=== PATIENT | male | born 1975 | race Caucasian/White ===

== ENCOUNTER 2016-11-19 17:08 | Inpatient (IN) | payer MEDICARE, MEDICAID ==
--- NOTE | 2016-11-19 17:38 | ED ---
Psych HPI - General Chief Complaint: Psychiatric Symptoms Stated Complaint: mental health Time Seen by Provider: 11/19/16 17:17 Source: patient, RN notes reviewed Mode of arrival: ambulatory - History of Present Illness Initial Comments: Patient is a 41-year-old male presents emergency room for psychiatric evaluation. Patient states she has a history of bipolar disorder and ADD and also anger issues. Patient states over the past few days been increasingly angry. Patient states he feels like he is going to snap seen. Patient states used to be on Seroquel and Ativan. Patient states she discontinued those medications about 6 months ago. Patient states he feels like he needs to be put back on medications and needs to seek out. Patient denies suicidal ideations. Patient denies homicidal ideations, but is afraid he might hurt someone if he does not. patient denies past medical history. Patient denies being on any medications. Patient denies headache, dizziness, nausea, vomiting , chest pain, shortness of breath. Patient denies visual or auditory hallucinations. patient denies alcohol or illicit drug use. Patient does say he smokes a pack of cigarettes per day. - Related Data Home Medications Medication Instructions Recorded Confirmed No Known Home Medications [No 11/19/16 11/19/16 Known Home Medications] Allergies Allergy/AdvReac Type Severity Reaction Status Date / Time No Known Allergies Allergy Verified 11/19/16 17:12 Review of Systems ROS Statement: Those systems with pertinent positive or pertinent negative responses have been documented in the HPI. ROS Other: All systems not noted in ROS Statement are negative. Past Medical History Past Medical History: Hypertension History of Any Multi-Drug Resistant Organisms: None Reported Past Surgical History: Appendectomy Additional Past Surgical History / Comment(s): ANKLE SURGERY-multiple fracture 2 plates and 3 screws, BIOPSY OF LYMPH LEFT ARM CHILD. Past Anesthesia/Blood Transfusion Reactions: No Reported Reaction Past Psychological History: ADD/ADHD, Anxiety, Depression Smoking Status: Current every day smoker Past Alcohol Use History: None Reported Past Drug Use History: Marijuana - Past Family History Father History Unknown: Yes Additional Family Medical History / Comment(s): Father is alive at age 67 with no major medical problems. Mother Additional Family Medical History / Comment(s): Mother is alive at age 65 with history of depression and alcoholism. Sister(s) Additional Family Medical History / Comment(s): Patient has one sister that is younger than him and he states she has mental health issues. Patient does not have any brothers. General Exam Limitations: no limitations Course Vital Signs 11/19/16 11/19/16 11/19/16 17:09 19:28 19:31 Temperature 98.0 F 98.0 F 98.0 F Pulse Rate 82 86 86 Respiratory 18 16 16 Rate Blood Pressure 130/90 117/68 117/68 O2 Sat by Pulse 96 95 95 Oximetry Medical Decision Making - Medical Decision Making Patient is a 41-year-old abscess emergency room for psych evaluation. patient is medically cleared to be evaluated by psych. - Lab Data Result diagrams: 11/20/16 08:33 11/20/16 08:33 Lab Results 11/19/16 Range/Units 18:00 Urine Opiates Screen Not Detected (NotDetected) Ur Oxycodone Screen Not Detected (NotDetected) Urine Methadone Screen Not Detected (NotDetected) Ur Propoxyphene Screen Not Detected (NotDetected) Ur Barbiturates Screen Not Detected (NotDetected) U Tricyclic Antidepress Not Detected (NotDetected) Ur Phencyclidine Scrn Not Detected (NotDetected) Ur Amphetamines Screen Detected H (NotDetected) U Methamphetamines Scrn Detected H (NotDetected) U Benzodiazepines Scrn Not Detected (NotDetected) Urine Cocaine Screen Not Detected (NotDetected) U Marijuana (THC) Screen Detected H (NotDetected) Disposition Clinical Impression: Depression, Anger Disposition: TRANSFER TO PSYCH HOSP/UNIT Decision Date: 11/20/16
[2016-11-19] MEDS ORDERED: MAG HYDROX/AL HYDROX/SIMETH 30 ML CUP PO PRN (19:15)
[2016-11-19] MEDS ORDERED: ZIPRASIDONE 20 MG VIAL IM PRN (19:15)
[2016-11-19] MEDS ORDERED: MAGNESIUM HYDROXIDE 2,400 MG/10 ML CUP PO PRN (19:15)
[2016-11-19] MEDS ORDERED: LORazepam 1 MG TAB PO PRN (19:15)
[2016-11-19] MEDS ORDERED: LORazepam 2 MG/ML SYRINGE IM PRN (19:16)
[2016-11-19] MEDS ORDERED: OLANZapine ODT 5 MG TAB PO PRN (19:17)
[2016-11-19] MEDS: hydrOXYzine PAMOATE 25 MG CAP PO PRN (20:46)
[2016-11-20 09:01] LABS: Basophils # (A) 0.1 k/uL (0-0.2); Basophils % (A) 1 %; CH 32.2; CHCM 33.3; Eosinophils # (A) 0.2 k/uL (0-0.7); Eosinophils % (A) 2 %; HDW 2.34; HGB 16.6 gm/dL (13.0-17.5); Luc % (Auto) 2; Lymphocytes # (A) 3.8 k/uL (1.0-4.8); Lymphocytes % (A) 44 %; MCHC 31.9 g/dL (31.0-37.0); MCV 97.1 fL (80.0-100.0); Mean Platelet Volume 6.1; Monocytes # (A) 0.3 k/uL (0-1.0); Monocytes % (A) 4 %; Neutrophils # (A) 4.1 k/uL (1.3-7.7); Neutrophils % (A) 47 %; RBC 5.35 m/uL (4.30-5.90); RDW 13.1 % (11.5-15.5); WBC 8.7 k/uL (3.8-10.6); WBC (Perox) 8.45
[2016-11-20 09:07] LABS: ALT 31 U/L (21-72); AST 19 U/L (17-59); Alkaline Phosphatase 62 U/L (38-126); Anion Gap 10 mmol/L; Blood Urea Nitrogen 8 mg/dL (9-20); Calcium 9.6 mg/dL (8.4-10.2); Carbon Dioxide 25 mmol/L (22-30); Chloride 106 mmol/L (98-107); Glucose 99 mg/dL (74-99); Non-African American GFR(MDRD) >60 (>60 ml/min/1.73 sqM); Potassium 4.7 mmol/L (3.5-5.1); Sodium 141 mmol/L (137-145); Total Bilirubin 0.8 mg/dL (0.2-1.3); Total Protein 7.4 g/dL (6.3-8.2)
--- NOTE | 2016-11-20 09:40 | P.HP ---
Psychiatric H&P - . H&P Date: 11/20/16 History & Physical: Allergies Allergy/AdvReac Type Severity Reaction Status Date / Time No Known Allergies Allergy Verified 11/19/16 17:12 Vital Signs Temp 98.0 F 11/20/16 06:41 Pulse 70 11/20/16 06:41 Resp 18 11/20/16 06:41 BP 119/73 11/20/16 06:41 Pulse Ox 97 11/19/16 22:00 Intake & Output 11/19/16 11/20/16 11/20/16 18:59 06:59 18:59 Weight 83.915 kg 77.1 kg Laboratory Last Values Urine Opiates Screen Not Detected (NotDetected) 11/19/16 18:00 Ur Oxycodone Screen Not Detected (NotDetected) 11/19/16 18:00 Urine Methadone Screen Not Detected (NotDetected) 11/19/16 18:00 Ur Propoxyphene Screen Not Detected (NotDetected) 11/19/16 18:00 Ur Barbiturates Screen Not Detected (NotDetected) 11/19/16 18:00 U Tricyclic Antidepress Not Detected (NotDetected) 11/19/16 18:00 Ur Phencyclidine Scrn Not Detected (NotDetected) 11/19/16 18:00 Ur Amphetamines Screen Detected (NotDetected) H 11/19/16 18:00 U Methamphetamines Scrn Detected (NotDetected) H 11/19/16 18:00 U Benzodiazepines Scrn Not Detected (NotDetected) 11/19/16 18:00 Urine Cocaine Screen Not Detected (NotDetected) 11/19/16 18:00 U Marijuana (THC) Screen Detected (NotDetected) H 11/19/16 18:00 11/20/16 08:19 DATE OF SERVICE: 11/20/2016 IDENTIFYING DATA: This patient is a 41-year-old single male who was admitted to the mental health unit through emergency room after presenting on his own accord complaining of intense anger, ready to snap. Patient states he needs to be medicated.. HISTORY OF PRESENT ILLNESS: The patient presents with with similar history as previous admission late last year, complaining of anger towards people in general, to the point of feeling that he might do something to harm someone but instead came to the hospital requesting admission" I need to be medicated". Patient is a poor historian providing little information other than the above, focusing on his anger towards people in general. Did not describe any psychotic symptoms until he was asked if he thought he had any special mccauley, "I'm God and the people of this planet are doomed, because they have denied who I am". Patient was unwilling to talk about his family but stated they have failed him, they have never been there when he needed them. Initially stated that he has no family. Patient denies hearing voices, seeing things that are not there. When asked about what medications have helped him "I need stimulants " Review of past treatment patient has never had outpatient treatment, only inpatient. Patient denies suicidal ideation. Denies homicidal ideation however he has strong anger towards everyone, but puts it in the context of his delusion, "I cannot save them". Patient receives his Adderall from Dr White, and Zachary Arevalo PAST PSYCHIATRIC HISTORY: This is the patient's second admission to the [facility]. unit. He reports that he has had 4-5 admissions, this agrees with the past history. Patient reports past medication trials have included Ativan, Adderall, Risperdal, Seroquel, latuda . The record shows that he is also been tried on Prolixin. PAST MEDICAL HISTORY: Per record. ALLERGIES: NO KNOWN DRUG ALLERGIES. CHEMICAL DEPENDENCY HISTORY: Marijuana, uses whenever he can get ahold of his UDS is positive for it. His UDS is also positive for amphetamines he was unable to say when he last took his Adderall, so unclear if this is Adderall or some stimulant that he received on the street. He denies alcohol use. He denies other substance abuse. FAMILY PSYCHIATRIC HISTORY: Would not provide. FAMILY CHEMICAL DEPENDENCY HISTORY: Would not provide. LEGAL HISTORY: Denies. He also denies ever assaulting anyone. SOCIAL HISTORY: Patient was reluctant to give history about his family initially stating he has no family, that he came from no one. He has not had contact with his mother and father or his one sister who is younger. He states that he feels that his mother and father were never supportive of him. He reports one marriage from [id number], with one child a son who he states is now , could not give any history on that. Currently he is homeless. MENTAL STATUS EXAM: Patient alert and oriented 3, good eye contact, disheveled in hospital attire. Speech normal volume, rate and production. Coherent, logical and goal directed thought process. No TEDDY, no FOI. No TB/TW/ TI Denied auditory and visual hallucinations. Denied paranoid ideation, delusions or IOR. Memory grossly intact Cognition average Recalled 3/3 at 0, 2/ 3 at 5 minutes; Serial 7's 93, stated he was unable to go further, 20-3 = 17, 14, 11, 9, 6, 3, 0 WORLD DLOW, patient knew the presidents back to president Parmjit, all correctly Mood neutral, affect constricted, congruent with mood. Denies suicidal ideation, denies homicidal ideation. Insight partial; Judgment grossly intact for treatment purposes . STRENGTHS: Reports Social Security disability income. WEAKNESSES: Homeless, lack of support. IMPRESSIONS: 41-year-old male presented to the emergency room for complaints of anger and fear of "snapping". Similar presentation was seen May 2016. Patient presents with coherent, logical goal directed thought process, no auditory or visual hallucinations. He does not reveal his delusions unless he is asked about super mccauley. This appears to be a chronic and enduring delusion, if indeed it is occurring. Patient is very well organized, did not present as responding to internal stimuli, no evidence of thought blocking thought withdrawal thought insertion. His recall was fair, but recall of presidents was superior which argues against schizophrenic spectrum. His UDS was positive for cannabis, amphetamines, methamphetamines. Patient identifies himself as having bipolar disorder and ADHD, and only needing stimulants as medication. Patient has never had outpatient treatment, so it's a bit hard to understand how he came by Social Security disability. 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 R/O Bipolar PLAN: Will continue psychiatric inpatient for safety, monitoring and clarification of diagnosis, and then treatment. Suicide precautions and every 15 minutes checks. Hospitalist to address and manage medical problems Monitor in groups for any behavior that is suggestive of psychosis. Begin paliperidone 3 mg, increased to 6 mg tomorrow. If patient can tolerate he did agree to the injection which will likely take place next Thursday. No stimulants, no benzos. Try to contact family if patient will allow. Social work to work on outpatient treatment. Milieu therapy. Monitor for response on a daily basis.
[2016-11-20] MEDS: PALIPERIDONE 3 MG TAB.ER.24 PO SCH (10:17)
[2016-11-20] MEDS: NICOTINE 21MG/24HR PATCH TRANSDERM SCH (10:17)
--- NOTE | 2016-11-20 15:23 | P.CONS ---
History of Present Illness - Reason for Consult Consult date: 11/20/16 - History of Present Illness This is a 41-year-old male who presented to the emergency department for psychiatric evaluation. He does have a history of bipolar disorder, ADD, hypertension, anxiety, depression, tobacco use, marijuana abuse, and history of alcohol abuse. He has been hospitalized in the past for psychiatric issues. The patient presented with feelings of increased anger towards people in general. Patient reports he has always had an issue with anger. Patient did have a UDS while in the ER was positive for amphetamines, methamphetamines, and marijuana. He states he is homeless, he used to work as a [employer], but can no longer find work. He reports he is but his "left this earth." Review of Systems Constitutional: Denies anorexia, Denies chills, Denies fever, Denies malaise, Denies weakness Eyes: denies blurred vision, denies discharge, denies itching, denies pain Ears: deny: decreased hearing, tinnitus Ears, nose, mouth and throat: Denies bleeding gums, Denies dental pain, Denies headache, Denies nose pain, Denies sinus pain, Denies sinus pressure Cardiovascular: Denies chest pain, Denies edema, Denies high blood pressure, Denies leg edema, Denies palpitations, Denies shortness of breath, Denies syncope Respiratory: Denies congestion, Denies cough, Denies pain Gastrointestinal: Denies abdominal pain, Denies heartburn, Denies nausea, Denies vomiting Genitourinary: Denies flank pain, Denies hematuria, Denies kidney stones Musculoskeletal: Denies leg numbness/tingling, Denies limitation of motion, Denies muscle weakness, Denies neck pain Musculoskeletal: absent: foot pain, hand pain, hip pain, knee pain, shoulder pain, wrist pain Integumentary: Denies boils, Denies color changes, Denies growths, Denies lesions, Denies pruritus Neurological: Denies aphasia, Denies headaches, Denies numbness, Denies seizures , Denies syncope, Denies tremors Psychiatric: Reports anxiety, Reports anxiety attacks, Reports difficulty concentrating, Reports mood swings, Denies confusion, Denies hallucinations, Denies insomnia Endocrine: Denies cold intolerance, Denies nocturia Hematologic/Lymphatic: Denies easy bleeding, Denies lymphadenopathy, Denies lymphedema Past Medical History Past Medical History: Hypertension History of Any Multi-Drug Resistant Organisms: None Reported Past Surgical History: Appendectomy Additional Past Surgical History / Comment(s): ANKLE SURGERY-multiple fracture 2 plates and 3 screws, BIOPSY OF LYMPH LEFT ARM CHILD. Past Anesthesia/Blood Transfusion Reactions: No Reported Reaction Past Psychological History: ADD/ADHD, Anxiety, Depression Smoking Status: Current every day smoker Past Alcohol Use History: None Reported Past Drug Use History: Marijuana - Past Family History Father History Unknown: Yes Additional Family Medical History / Comment(s): Father is alive at age 67 with no major medical problems. Mother Additional Family Medical History / Comment(s): Mother is alive at age 65 with history of depression and alcoholism. Sister(s) Additional Family Medical History / Comment(s): Patient has one sister that is younger than him and he states she has mental health issues. Patient does not have any brothers. Medications and Allergies Home Medications Medication Instructions Recorded Confirmed Type No Known Home Medications [No 11/19/16 11/19/16 History Known Home Medications] Allergies Allergy/AdvReac Type Severity Reaction Status Date / Time No Known Allergies Allergy Verified 11/19/16 17:12 Physical Exam Vitals: Vital Signs Temp Pulse Pulse Resp BP BP Pulse Ox 11/20/16 06:41 98.0 F 70 18 119/73 11/19/16 22:00 97.9 F 72 18 136/72 97 11/19/16 19:31 98.0 F 86 16 117/68 95 11/19/16 19:28 98.0 F 86 16 117/68 95 11/19/16 17:09 98.0 F 82 18 130/90 96 Intake and Output 11/19/16 11/20/16 11/20/16 22:59 06:59 14:59 Other: Weight 77.1 kg - Constitutional General appearance: cooperative, no acute distress - EENT Eyes: PERRLA, normal appearance ENT: hearing grossly normal, normal oropharynx, no pharyngeal erythema, tonsillar swelling Ears: bilateral: normal - Neck Neck: no lymphadenopathy, normal ROM, no thyromegaly Carotids: bilateral: upstroke normal Thyroid: bilateral: normal size, negative: enlarged, nodule - Respiratory Respiratory: bilateral: CTA, negative: diminished, rales, rhonchi, wheezing - Cardiovascular Rhythm: regular Heart sounds: normal: S1, S2 Abnormal Heart Sounds: no systolic murmur, no diastolic murmur, no S3 Gallop, no S4 Gallop - Gastrointestinal General gastrointestinal: no distended, no hepatomegaly, normal bowel sounds, organomegaly, soft, no splenomegaly, no tenderness - Integumentary Integumentary: no jaundiced, normal, no pale, no rash, no ulcer - Neurologic Neurologic: CNII-XII intact - Musculoskeletal Musculoskeletal: gait normal, no generalized weakness, strength equal bilaterally - Psychiatric Psychiatric: A&O x's 3 Results CBC & Chem 7: 11/20/16 08:33 11/20/16 08:33 Labs: Abnormal Lab Results - Last 24 Hours (Table) 11/19/16 11/20/16 11/20/16 Range/Units 18:00 08:33 08:33 Plt Count 503 H (150-450) k/uL BUN 8 L (9-20) mg/dL Ur Amphetamines Screen Detected H (NotDetected) U Methamphetamines Scrn Detected H (NotDetected) U Marijuana (THC) Screen Detected H (NotDetected) Assessment and Plan Plan: 1 depression with anger issues: Patient managed the mental health unit. 2 Tobacco use in dependence: Nicotine patch ordered. 3 marijuana abuse: Continue with plan of care, patient admitted to mental health unit. 4 ADHD: Patient managed at mental health unit. The above impression and plan of care have been discussed and directed by signing physician. Anette Ma nurse practitioner acting as scribe for signing physician.
[2016-11-20] MEDS: hydrOXYzine PAMOATE 25 MG CAP PO PRN (20:37)
[2016-11-21] MEDS: PALIPERIDONE 3 MG TAB.ER.24 PO SCH (09:42)
[2016-11-21] MEDS: NICOTINE 21MG/24HR PATCH TRANSDERM SCH (09:42)
--- NOTE | 2016-11-21 10:32 | P.PN ---
Progress Note - Text INTERVERAL HISTORY: Patient discussed at treatment team meeting, review of record, and met with patient. Called patient to the nurse's station patient did not come he was sound asleep in his room he woke and came to the office. Reviewed with patient that he is to attend groups, asked him if he slept okay last night and he said he did. Asked him if may be this was in response to the fact that his UDS was positive for amphetamines and methamphetamines. Patient stated no that he had not used any stimulants then stated it was due to his Adderall. Patient stated he has not had any money to get any drugs however he was also positive for cannabis. Patient reports he still is angry, does not spontaneously report his belief of being God, nor does he state anything about people being doomed because they deny that he is God. He was pleasant, neutral mood and constricted affect. MENTAL STATUS EXAM: Remains essentially unchanged from previous day Patient alert and oriented 3, good eye contact, disheveled in hospital attire. Speech normal volume, rate and production. Coherent, logical and goal directed thought process. No TEDDY, no FOI. No TB/TW/ TI Denied auditory and visual hallucinations. Denied paranoid ideation, +delusions or IOR. Memory grossly intact Cognition average Mood neutral, affect constricted, congruent with mood. Denies suicidal ideation, denies homicidal ideation. Insight partial; Judgment grossly intact for treatment purposes . IMPRESSIONS: 41-year-old male presented to the emergency room for complaints of anger and fear of "snapping". Similar presentation was seen May 2016. Patient presents with coherent, logical goal directed thought process, no auditory or visual hallucinations. He does not reveal his delusions unless he is asked about super mccauley. This appears to be a chronic and enduring delusion, if indeed it is occurring. Patient is very well organized, did not present as responding to internal stimuli, no evidence of thought blocking thought withdrawal thought insertion. His UDS was positive for cannabis, amphetamines, methamphetamines. Patient identifies himself as having bipolar disorder and ADHD, and only needing stimulants as medication. Patient has never had outpatient treatment, so it's a bit hard to understand how he came by Social Security disability. 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 R/O Bipolar PLAN: Will continue psychiatric inpatient for safety, monitoring and clarification of diagnosis, and then treatment. Suicide precautions and every 15 minutes checks. Hospitalist to address and manage medical problems Monitor in groups for any behavior that is suggestive of psychosis. Continue paliperidone 3 mg, will add depakote for anger issues. Try to contact family if patient will allow. Social work to work on outpatient treatment. Milieu therapy. Monitor for response on a daily basis.
[2016-11-21] MEDS: DIVALPROEX 500 MG TABLET.DR PO SCH (20:18)
[2016-11-21] MEDS: hydrOXYzine PAMOATE 25 MG CAP PO PRN (20:19)
[2016-11-22] MEDS: NICOTINE 21MG/24HR PATCH TRANSDERM SCH (08:50)
[2016-11-22] MEDS: PALIPERIDONE 3 MG TAB.ER.24 PO SCH (08:51)
--- NOTE | 2016-11-22 09:31 | P.PN ---
Progress Note - Text Interval history: The patient is found in his room he follows me to an interview room. The psychiatric evaluation and progress notes are reviewed. The patient is being treated with Depakote and invega. Today he states his mood is "tired" but otherwise okay. He has not been attending groups other than maybe one a day. He is cooperative but his participation is limited in the session. He denies having any symptoms and spontaneously states he is ready to go. Mental status exam: The patient is a male appearing older than his stated age. He has a disheveled appearance he is dressed in hospital gowns. Eye contact is poor he often looks down. He mainly answers questions asked of him he has little spontaneous dialogue. He reports a mood that is tired but otherwise okay. He is endorsing no suicidal or homicidal ideation intent or plan. He is endorsing no auditory or visual hallucinations he endorses no specific delusions. It appears previously he has had a chronic delusion regarding special abilities but he does not endorse that today. He demonstrates no verbal or physical aggressiveness. Again he is brief with his participation in the session. Insight and judgment limited. Affect is bland to blunted. Plan: The patient will continue on his current medications he was encouraged to participate more in the milieu. We will monitor him for safety. Vital signs reviewed they are within normal limits.
[2016-11-22] MEDS: DIVALPROEX 500 MG TABLET.DR PO SCH (20:12)
[2016-11-22] MEDS: hydrOXYzine PAMOATE 25 MG CAP PO PRN (20:14)
[2016-11-22] MEDS: ACETAMINOPHEN TAB 325 MG TAB PO PRN (20:14)
[2016-11-23] MEDS: NICOTINE 21MG/24HR PATCH TRANSDERM SCH (09:19)
[2016-11-23] MEDS: PALIPERIDONE 3 MG TAB.ER.24 PO SCH (09:19)
--- NOTE | 2016-11-23 15:10 | P.PN ---
Progress Note - Text Interval history: The patient is found in his room he follows me to an interview room. He reports that he attended 2 groups so far and may attend the wrap up group. In general he feels his anger is provoked by being around other people and this has been a long-standing pattern. He reports he slept last night appetite stable complying with medication he has no questions regarding his psychotropics. Vital signs reviewed they're within normal limits. Mental status exam: The patient is a male appearing his stated age he is a disheveled appearance or dentition. He is dressed in his own clothing. Eye contact is very limited he often just looks down at the floor as we speak. He initiates no spontaneous speech but does provide answers to questions asked. Overall he is cooperative he demonstrates no verbal or physical aggressiveness. He is reporting no suicidal or homicidal ideation he is endorsing no auditory or visual hallucinations he endorses no paranoid thinking. There is no evidence of abnormal involuntary movements. He remains oriented to person place and date. He maintains a blunted affect. Plan: The patient will continue on his current psychotropic medications. He is encouraged to try participating more in the milieu possible. We will continue to monitor him for safety.
[2016-11-23] MEDS: DIVALPROEX 500 MG TABLET.DR PO SCH (20:20)
[2016-11-23] MEDS: ACETAMINOPHEN TAB 325 MG TAB PO PRN (20:20)
[2016-11-24] MEDS: ACETAMINOPHEN TAB 325 MG TAB PO PRN ×2 (09:06→20:34)
[2016-11-24] MEDS: PALIPERIDONE 3 MG TAB.ER.24 PO SCH (09:06)
[2016-11-24] MEDS: NICOTINE 21MG/24HR PATCH TRANSDERM SCH (09:07)
--- NOTE | 2016-11-24 15:25 | P.PN ---
Progress Note - Text Progress Note - Text INTERVERAL HISTORY: Patient discussed at treatment team meeting, review of record, and met with patient. Called patient to the nurse's station patient came. He reports that he is feeling better and would like to be discharged. Staff informed me that he signed AMA that will be technically up tomorrow. Patient says he is not angry as before, still with delusion of being God. Patient does not report spontaneously his delusion. He was pleasant, neutral mood and constricted affect. MENTAL STATUS EXAM: Remains essentially unchanged from previous day Patient alert and oriented 3, good eye contact, fair groomed in street clothing Speech normal volume, rate and production. Coherent, logical and goal directed thought process. No TEDDY, no FOI. No TB/TW/ TI Denied auditory and visual hallucinations. Denied paranoid ideation, +delusions or IOR. Memory grossly intact Cognition average Mood neutral, affect constricted, congruent with mood. Denies suicidal ideation, denies homicidal ideation. Insight partial; Judgment grossly intact for treatment purposes . IMPRESSIONS: 41-year-old male presented to the emergency room for complaints of anger and fear of "snapping". Similar presentation was seen May 2016. Patient presents with coherent, logical goal directed thought process, no auditory or visual hallucinations. He does not reveal his delusions unless he is asked about super mccauley. This appears to be a chronic and enduring delusion, if indeed it is occurring. Patient is very well organized, did not present as responding to internal stimuli, no evidence of thought blocking thought withdrawal thought insertion. His UDS was positive for cannabis, amphetamines, methamphetamines. Patient identifies himself as having bipolar disorder and ADHD, and only needing stimulants as medication. Patient has never had outpatient treatment, so it's a bit hard to understand how he came by Social Security disability. 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 R/O Bipolar PLAN: Will continue psychiatric inpatient for safety, monitoring and clarification of diagnosis, and then treatment. Suicide precautions and every 15 minutes checks. Hospitalist to address and manage medical problems Monitor in groups for any behavior that is suggestive of psychosis. Continue paliperidone 3 mg, increase depakote for anger issues. Social work to work on outpatient treatment. Milieu therapy. Monitor for response on a daily basis.
[2016-11-24] MEDS: hydrOXYzine PAMOATE 25 MG CAP PO PRN (20:35)
[2016-11-24] MEDS ORDERED: DIVALPROEX ER 500 MG TAB.ER.24H PO SCH (21:00)
[2016-11-25 06:39] VITALS: BP 133/71; PULSE 97; RESP 14; TEMP 98.2
--- NOTE | 2016-11-25 08:33 | P.DS ---
Providers Date of admission: 11/19/16 19:13 Expected date of discharge: 11/25/16 Attending physician: Radha Angel MD Consults: 11/19/16 19:15 Consult Physician Routine Consulting Provider: Addison Marquez Reason/Comments: Medical Management Do you want consulting provider notified?: Yes Primary care physician: Stated None Hospital Course: IDENTIFYING DATA: This patient is a 41-year-old single male who was admitted to the mental health unit through emergency room after presenting on his own accord complaining of intense anger, ready to snap. Patient states he needs to be medicated.. HISTORY OF PRESENT ILLNESS: The patient presents with with similar history as previous admission late last year, complaining of anger towards people in general, to the point of feeling that he might do something to harm someone but instead came to the hospital requesting admission" I need to be medicated". Patient is a poor historian providing little information other than the above, focusing on his anger towards people in general. Did not describe any psychotic symptoms until he was asked if he thought he had any special mccauley, "I'm God and the people of this planet are doomed, because they have denied who I am". Patient was unwilling to talk about his family but stated they have failed him, they have never been there when he needed them. Initially stated that he has no family. Patient denies hearing voices, seeing things that are not there. When asked about what medications have helped him "I need stimulants " Review of past treatment patient has never had outpatient treatment, only inpatient. Patient denies suicidal ideation. Denies homicidal ideation however he has strong anger towards everyone, but puts it in the context of his delusion, "I cannot save them". Patient receives his Adderall from Dr White, and Zachary Arevalo PAST PSYCHIATRIC HISTORY: This is the patient's second admission to the [facility] 3 W. unit. He reports that he has had 4-5 admissions, this agrees with the past history. Patient reports past medication trials have included Ativan, Adderall, Risperdal, Seroquel, latuda . The record shows that he is also been tried on Prolixin. ADMISSION HISTORY: Patient came to the emergency room complaining of extreme anger towards people in general he was admitted patient was admitted for similar presentation at the end of last year. Although patient was not reporting any psychotic symptoms when asked about past history he then reported that he is God and that the world is doomed because they do not recognize him. HOSPITAL COURSE: Patient presented as irritable but no discernible psychosis. We were unable to establish that he had been receiving any outpatient care. He clearly was not taking medications. His thought process was tight and goal directed, no evidence whatsoever of disorganized thought. His memory was intact, and actually he was able to remember all the Presidents back to Parmjit. However when asked about his delusion he then became more irritated. In Francis was started 3 mg, with the initial goal of moving to injection. He remained for the most part in his room not attending groups, no change in irritability or anger.Depakote was added and tolerated increased to thousand milligrams daily at bedtime. Over the weekend patient began to attend groups occasionally. He reported somewhat improvement in his mood, and a lessening of the anger. Patient was noted by staff to decline calling to have his Medicaid reinstated. Patient believes that this is a measure for fraud control and is not worried that is going to end at the end of this month. Patient signed AMA over the weekend, timeframe will and this morning, and we will allow him to leave, there is no indication for petition as he is not dangerous to himself or others. Much like the previous admission patient's UDS was positive for stimulants amphetamines methamphetamines and we could not rule out the possibility that this was a drug-induced psychosis. 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 Psychosis, unspecified Stimulant use, severe Cannabis use, severe Pertinent Studies: none Procedures: none Plan - Discharge Summary New Discharge Prescriptions: New Divalproex ER [Depakote ER] 1,000 mg PO HS #28 tab hydrOXYzine PAMOATE [Vistaril] 50 mg PO TID PRN #14 cap PRN Reason: Agitation Or Acute Anxiety Paliperidone [Invega] 3 mg PO DAILY #14 tab Discharge Medication List Divalproex ER [Depakote ER] 1,000 mg PO HS #28 tab 11/25/16 [Rx] Paliperidone [Invega] 3 mg PO DAILY #14 tab 11/25/16 [Rx] hydrOXYzine PAMOATE [Vistaril] 50 mg PO TID PRN #14 cap 11/25/16 [Rx] Follow up Appointment(s)/Referral(s): None,Stated [Primary Care Provider] - 1-2 days Discharge Disposition: HOME SELF-CARE
[2016-11-25] MEDS: NICOTINE 21MG/24HR PATCH TRANSDERM SCH (08:34)
[2016-11-25] MEDS: PALIPERIDONE 3 MG TAB.ER.24 PO SCH (08:35)
[2016-11-25] MEDS: ACETAMINOPHEN TAB 325 MG TAB PO PRN (08:35)
== END 2016-11-25 13:38 | disposition home or self-care (01) | DRG 897 ==
LOC: EC 17:08 → 3MHU 19:13
PROVIDERS: ADMIT Psychiatry & Neurology Addiction Medicine; ATTEND Psychiatry & Neurology Addiction Medicine
DX: F15.959 Other stimulant use, unspecified with stimulant-induced psychotic disorder, unspecified (principal); I10 Essential (primary) hypertension; F17.210 Nicotine dependence, cigarettes, uncomplicated; F12.90 Cannabis use, unspecified, uncomplicated; Z59.0 Homelessness; Z81.8 Family history of other mental and behavioral disorders
CPT/HCPCS: 80053; 80164; 80306; 82075; 84443; 85025; 99285

== ENCOUNTER 2016-12-09 22:00 | Inpatient (IN) | payer MEDICAID, MEDICARE, OTHER ==
--- NOTE | 2016-12-09 22:31 | ED ---
Psych HPI - General Source: patient, police Mode of arrival: ambulatory Limitations: no limitations <Sam Hernadez - Last Filed: 12/10/16 01:21> <Ananya Verdugo - Last Filed: 12/10/16 01:25> - General Chief Complaint: Psychiatric Symptoms Stated Complaint: Petition Time Seen by Provider: 12/09/16 22:21 - History of Present Illness Initial Comments: This a 41-year-old male presents emergency Department with police for psychiatric evaluation. Patient reportedly was at an [employer] trying multiple times axis, and he told him that he owns all the accounts in the world and he as all money in the world. Patient is having delusional thoughts. Patient has a history of ADHD and bipolar disorder. Patient states that he is on Adderall no other medications. Patient states that he has no physical complaints and states that is not suicidal or homicidal. Denies any illicit drug use or alcohol use. Patient states that he is upset that he is here and feels that he does not need to be here. Patient was recently admitted to hospital for bipolar disorder. (Sam Hernadez) - Related Data Home Medications Medication Instructions Recorded Confirmed Dextroamphetamine/Amphetamine 30 mg PO TID 12/09/16 12/09/16 [Adderall] Multivitamins, Thera [Multivitamin 1 tab PO DAILY 12/09/16 12/09/16 (formulary)] Panax Ginseng Root Extract 200 mg PO DAILY 12/09/16 12/09/16 [Ginseng] Allergies Allergy/AdvReac Type Severity Reaction Status Date / Time No Known Allergies Allergy Verified 12/09/16 22:42 Review of Systems ROS Other: All systems not noted in ROS Statement are negative. <Sam Hernadez - Last Filed: 12/10/16 01:21> ROS Other: All systems not noted in ROS Statement are negative. <Ananya Verdugo - Last Filed: 12/10/16 01:25> ROS Statement: Those systems with pertinent positive or pertinent negative responses have been documented in the HPI. Past Medical History Past Medical History: Hypertension History of Any Multi-Drug Resistant Organisms: None Reported Past Surgical History: Appendectomy Additional Past Surgical History / Comment(s): ANKLE SURGERY-multiple fracture 2 plates and 3 screws, BIOPSY OF LYMPH LEFT ARM CHILD. Past Anesthesia/Blood Transfusion Reactions: No Reported Reaction Past Psychological History: ADD/ADHD, Anxiety, Depression Smoking Status: Current every day smoker Past Alcohol Use History: None Reported Past Drug Use History: None Reported - Past Family History Father History Unknown: Yes Additional Family Medical History / Comment(s): Father is alive at age 67 with no major medical problems. Mother Additional Family Medical History / Comment(s): Mother is alive at age 65 with history of depression and alcoholism. Sister(s) Additional Family Medical History / Comment(s): Patient has one sister that is younger than him and he states she has mental health issues. Patient does not have any brothers. <Sam Hernadez - Last Filed: 12/10/16 01:21> General Exam Limitations: no limitations General appearance: alert, in no apparent distress Head exam: Present: atraumatic, normocephalic, normal inspection Eye exam: Present: normal appearance, PERRL, EOMI. Absent: scleral icterus, conjunctival injection, periorbital swelling ENT exam: Present: mucous membranes moist. Absent: normal oropharynx (Some missing dentition) Neck exam: Present: normal inspection, full ROM. Absent: tenderness, meningismus, lymphadenopathy Respiratory exam: Present: normal lung sounds bilaterally. Absent: respiratory distress, wheezes, rales, rhonchi, stridor Cardiovascular Exam: Present: regular rate, normal rhythm, normal heart sounds. Absent: systolic murmur, diastolic murmur, rubs, gallop, clicks Neurological exam: Present: alert, oriented X3, CN II-XII intact Psychiatric exam: Present: normal affect, normal mood Skin exam: Present: warm, dry, intact, normal color. Absent: rash <Sam Hernadez - Last Filed: 12/10/16 01:21> Course <Sam Hernadez - Last Filed: 12/10/16 01:21> <Ananya Verdugo - Last Filed: 12/10/16 01:25> Vital Signs 12/09/16 22:16 Temperature 97.4 F L Pulse Rate 99 Respiratory 18 Rate Blood Pressure 132/92 O2 Sat by Pulse 97 Oximetry Shouldn't was evaluated by department of psychiatry, they agreed to admit him considering his delusions and psychosis. His urine drug screen is also positive considering his history of psych disorders. Benefit from inpatient evaluation and management I agree with that and I will proceed with cert (Ananya Verdugo) Disposition <Sam Hernadez - Last Filed: 12/10/16 01:21> <Ananya Verdugo - Last Filed: 12/10/16 01:25> Clinical Impression: Acute psychosis, Bipolar disorder Disposition: ADMITTED IP TO THIS HOSP Referrals: Justo Lopez MD [Primary Care Provider] - 1-2 days
[2016-12-10] MEDS ORDERED: LORazepam 1 MG TAB PO PRN (01:51)
[2016-12-10] MEDS ORDERED: ZIPRASIDONE 20 MG VIAL IM PRN (01:51)
[2016-12-10] MEDS ORDERED: MAGNESIUM HYDROXIDE 2,400 MG/10 ML CUP PO PRN (01:51)
[2016-12-10] MEDS ORDERED: ACETAMINOPHEN TAB 325 MG TAB PO PRN (01:51)
[2016-12-10] MEDS ORDERED: MAG HYDROX/AL HYDROX/SIMETH 30 ML CUP PO PRN (01:51)
[2016-12-10] MEDS ORDERED: LORazepam 2 MG/ML SYRINGE IM PRN (02:00)
[2016-12-10 02:44] LABS: Appearance,Urine Cloudy (Clear); Bacteria,Urine Occasional /hpf; Bilirubin,Urine Negative (Negative); Calcium Oxalate Crystals,Urine Occasional /hpf; Glucose,Urine (UA) Negative (Negative); Ketones,Urine Trace (Negative); Leukocyte Esterase,Urine Negative (Negative); Mucus,Urine Moderate /hpf; Nitrite,Urine Negative (Negative); PH, Urine 5.5 (5.0-8.0); Particle Count 11965; Protein,Urine 2+ (Negative); RBC,Urine 2 /hpf (0-5); Specific Gravity,Urine 1.032 (1.001-1.035); Sperm,Urine Few /hpf; UA Billing (MACRO vs. MICRO) MICRO; WBC,Urine 9 /hpf (0-5)
[2016-12-10 02:55] VITALS: BP 133/79; PULSE 101; RESP 16; TEMP 97.7
[2016-12-10] MEDS ORDERED: NICOTINE 14MG/24HR PATCH TRANSDERM SCH (09:00)
[2016-12-10 09:18] LABS: Basophils # (A) 0.1 k/uL (0-0.2); Basophils % (A) 1 %; CH 31.7; CHCM 34.9; Eosinophils # (A) 0.3 k/uL (0-0.7); Eosinophils % (A) 3 %; HCT 39.5 % (39.0-53.0); HDW 2.41; HGB 13.8 gm/dL (13.0-17.5); Luc # (Auto) 0.18; Luc % (Auto) 2; Lymphocytes # (A) 3.5 k/uL (1.0-4.8); Lymphocytes % (A) 44 %; MCH 32.1 pg (25.0-35.0); MCHC 35.1 g/dL (31.0-37.0); Mean Platelet Volume 6.4; Monocytes # (A) 0.4 k/uL (0-1.0); Monocytes % (A) 5 %; Neutrophils # (A) 3.5 k/uL (1.3-7.7); Neutrophils % (A) 45 %; RBC 4.32 m/uL (4.30-5.90); RDW 12.6 % (11.5-15.5); WBC 7.9 k/uL (3.8-10.6)
[2016-12-10 09:33] LABS: ALT 27 U/L (21-72); AST 19 U/L (17-59); Alkaline Phosphatase 51 U/L (38-126); Anion Gap 9 mmol/L; Blood Urea Nitrogen 16 mg/dL (9-20); Carbon Dioxide 26 mmol/L (22-30); Chloride 107 mmol/L (98-107); Glucose 109 mg/dL (74-99); Non-African American GFR(MDRD) >60 (>60 ml/min/1.73 sqM); Potassium 3.3 mmol/L (3.5-5.1); Sodium 142 mmol/L (137-145); Total Bilirubin 1.1 mg/dL (0.2-1.3); Total Protein 6.5 g/dL (6.3-8.2)
[2016-12-10 09:50] LABS: MCV 91.3 fL (80.0-100.0)
--- NOTE | 2016-12-10 10:30 | P.HP ---
Psychiatric H&P - . H&P Date: 12/10/16 History & Physical: Allergies Allergy/AdvReac Type Severity Reaction Status Date / Time No Known Allergies Allergy Verified 12/10/16 02:59 Vital Signs Temp 97.7 F 12/10/16 02:54 Pulse 101 H 12/10/16 02:54 Resp 16 12/10/16 02:54 BP 133/79 12/10/16 02:54 Pulse Ox 100 12/10/16 01:45 Intake & Output 12/09/16 12/10/16 12/10/16 18:59 06:59 18:59 Weight 73.028 kg Laboratory Last Values Urine Color Yellow 12/09/16 23:14 Urine Appearance Cloudy (Clear) 12/09/16 23:14 Urine pH 5.5 (5.0-8.0) 12/09/16 23:14 Ur Specific [place] 1.032 (1.001-1.035) 12/09/16 23:14 Urine Protein 2+ (Negative) H 12/09/16 23:14 Urine Glucose (UA) Negative (Negative) 12/09/16 23:14 Urine Ketones Trace (Negative) H 12/09/16 23:14 Urine Blood Negative (Negative) 12/09/16 23:14 Urine Nitrite Negative (Negative) 12/09/16 23:14 Urine Bilirubin Negative (Negative) 12/09/16 23:14 Urine Urobilinogen 2.0 mg/dL (<2.0) 12/09/16 23:14 Ur Leukocyte Esterase Negative (Negative) 12/09/16 23:14 Urine RBC 2 /hpf (0-5) 12/09/16 23:14 Urine WBC 9 /hpf (0-5) H 12/09/16 23:14 Calcium Oxalate Crystal Occasional /hpf (None) H 12/09/16 23:14 Urine Bacteria Occasional /hpf (None) H 12/09/16 23:14 Hyaline Casts 59 /lpf (0-2) H 12/09/16 23:14 Urine Mucus Moderate /hpf (None) H 12/09/16 23:14 Urine Sperm Few /hpf (None) H 12/09/16 23:14 Urine Opiates Screen Not Detected (NotDetected) 12/09/16 23:14 Ur Oxycodone Screen Not Detected (NotDetected) 12/09/16 23:14 Urine Methadone Screen Not Detected (NotDetected) 12/09/16 23:14 Ur Propoxyphene Screen Not Detected (NotDetected) 12/09/16 23:14 Ur Barbiturates Screen Not Detected (NotDetected) 12/09/16 23:14 U Tricyclic Antidepress Not Detected (NotDetected) 12/09/16 23:14 Ur Phencyclidine Scrn Not Detected (NotDetected) 12/09/16 23:14 Ur Amphetamines Screen Detected (NotDetected) H 12/09/16 23:14 U Methamphetamines Scrn Detected (NotDetected) H 12/09/16 23:14 U Benzodiazepines Scrn Not Detected (NotDetected) 12/09/16 23:14 Urine Cocaine Screen Not Detected (NotDetected) 12/09/16 23:14 U Marijuana (THC) Screen Detected (NotDetected) H 12/09/16 23:14 12/10/16 09:08 IDENTIFYING DATA: This patient is a 41-year-old single male who was admitted to the mental health unit through emergency room after police petitioned him for trying to access [employer] for over 3 hours, claiming to be God. HISTORY OF PRESENT ILLNESS: The patient presents under petition for psychosis. Patient was here last month November 19 and discharged November 25. At that time he was delusional as well but he was complaining of anger and requesting medication. Today patient is refusing to get out of bed states there is nothing wrong with him he was not doing anything wrong at the [facility]. When confronted over his urine drug screen being positive for stimulants he said it' s a lie you're lying they all lie here. States that it was ginseng as the positive UDS. Patient denies suicidal ideation, he has never reported suicidal ideation and all of his admissions, and he was denying it last night in the emergency room. He is denying homicidal ideation as well, no anger issues reported. Patient states he doesn't need any treatment and pulls the covers over his head . Staff report that he had just received his bottle of Adderall and it appears that he took more than three quarters of the amount he was dispensed. Patient's history has been that he comes in for a few days after stimulant use sleeps, agrees to outpatient treatment and then never keeps his appointments. He only wants stimulants as medication. Review of past treatment patient has never had outpatient treatment, only inpatient. Patient denies suicidal ideation. Patient receives his Adderall from Dr White, and Zachary Arevalo PAST PSYCHIATRIC HISTORY: This is the patient's third admission to the [facility] 3 W. unit. He reports that he has had 4-5 admissions, this agrees with the past history. Patient reports past medication trials have included Ativan, Adderall, Risperdal, Seroquel, latuda . The record shows that he is also been tried on Prolixin. PAST MEDICAL HISTORY: Per record. ALLERGIES: NO KNOWN DRUG ALLERGIES. CHEMICAL DEPENDENCY HISTORY: Marijuana, uses whenever he can get ahold of his UDS is positive for it. His UDS is also positive for amphetamines he was unable to say when he last took his Adderall, so unclear if this is Adderall or some stimulant that he received on the street. He denies alcohol use. He denies other substance abuse. FAMILY PSYCHIATRIC HISTORY: Would not provide. FAMILY CHEMICAL DEPENDENCY HISTORY: Would not provide. LEGAL HISTORY: Denies. He also denies ever assaulting anyone. SOCIAL HISTORY: Patient was reluctant to give history about his family initially stating he has no family, that he came from no one. He has not had contact with his mother and father or his one sister who is younger. He states that he feels that his mother and father were never supportive of him. He reports one marriage from [id number], with one child a son who he states is now , could not give any history on that. Currently he is homeless. MENTAL STATUS EXAM: Patient alert and oriented 3, good eye contact, fair groomed in hospital attire. Speech normal volume, rate and production. Coherent, logical and goal directed thought process. No TEDDY, no FOI. No TB/TW/ TI Denied auditory and visual hallucinations. Denied paranoid ideation, delusions or IOR. Memory grossly intact Cognition average Recalled 3/3 at 0, 2/ 3 at 5 minutes; Serial 7's 93, stated he was unable to go further, 20-3 = 17, 14, 11, 9, 6, 3, 0 WORLD DLOW, patient knew the presidents back to president Briscoe, all correctly Mood neutral, affect constricted, congruent with mood. Denies suicidal ideation, denies homicidal ideation. Insight partial; Judgment grossly intact for treatment purposes . STRENGTHS: Reports Social Security disability income. WEAKNESSES: lack of support. IMPRESSIONS: 41-year-old male brought to the emergency room after being at the [employer] machine for 3 hours, reporting that he is God, that he's made everything on earth, and that he is in control of all of the online accounts. Today the patient was sleeping not wanting to participate in groups initially refused to speak with ticket writer. After a few hours he was agreeable and pleasant got up and gave history. He smiles when I told him the statements that he was making, the statements that were on the petition he just laughed. Patient is no longer saying that we lied about anything he just shakes his head when I mention that he shouldn't be taking his Adderall in the mount larger than what's prescribed area patient does agree again to keep an outpatient appointment, but it's very unlikely that he well. He states he is not homeless that he has a room on [address] [place] [address]. Similar presentation was seen May 2016 and last month October 2016 Patient presents with coherent, logical goal directed thought process, no auditory or visual hallucinations. He does not reveal his delusions unless he is asked about super mccauley. This appears to be a chronic and enduring delusion, if indeed it is occurring. Patient is very well organized, did not present as responding to internal stimuli, no evidence of thought blocking thought withdrawal thought insertion. His recall was fair, but recall of presidents was superior which argues against schizophrenic spectrum. His UDS was positive for cannabis, amphetamines, methamphetamines. Patient identifies himself as having bipolar disorder and ADHD, and only needing stimulants as medication. Patient has never had outpatient treatment, so it's a bit hard to understand how he came by Social Security disability. Patient is not a danger to self or others. He continues to be delusional and this is his baseline. Stimulant induced psychosis Stimulant use, severe Cannabis use, severe Rule out delusional disorder versus malingering. PLAN: Patient given an appointment date with [facility]. Discharge today 12/10/16 13:07
--- NOTE | 2016-12-10 13:10 | P.DS ---
Providers Date of admission: 12/10/16 01:22 Expected date of discharge: 12/10/16 Attending physician: Radha Angel MD Consults: 12/10/16 01:51 Consult Physician Routine Consulting Provider: Addison Marquez Reason/Comments: H&P with medical follow up Do you want consulting provider notified?: Yes, Notify in am Primary care physician: [facility] Course: 12/10/16 09:08 IDENTIFYING DATA: This patient is a 41-year-old single male who was admitted to the mental health unit through emergency room after police petitioned him for trying to access [employer] for over 3 hours, claiming to be God. HISTORY OF PRESENT ILLNESS: The patient presents under petition for psychosis. Patient was here last month November 19 and discharged November 25. At that time he was delusional as well but he was complaining of anger and requesting medication. Today patient is refusing to get out of bed states there is nothing wrong with him he was not doing anything wrong at the [employer]. When confronted over his urine drug screen being positive for stimulants he said it' s a lie you're lying they all lie here. States that it was ginseng as the positive UDS. Patient denies suicidal ideation, he has never reported suicidal ideation and all of his admissions, and he was denying it last night in the emergency room. He is denying homicidal ideation as well, no anger issues reported. Patient states he doesn't need any treatment and pulls the covers over his head . Staff report that he had just received his bottle of Adderall and it appears that he took more than three quarters of the amount he was dispensed. Patient's history has been that he comes in for a few days after stimulant use sleeps, agrees to outpatient treatment and then never keeps his appointments. He only wants stimulants as medication. Review of past treatment patient has never had outpatient treatment, only inpatient. Patient denies suicidal ideation. Patient receives his Adderall from Dr White, and Zachary Arevalo PAST PSYCHIATRIC HISTORY: This is the patient's third admission to the [facility] 3 W. unit. He reports that he has had 4-5 admissions, this agrees with the past history. Patient reports past medication trials have included Ativan, Adderall, Risperdal, Seroquel, latuda . The record shows that he is also been tried on Prolixin. PAST MEDICAL HISTORY: Per record. ALLERGIES: NO KNOWN DRUG ALLERGIES. CHEMICAL DEPENDENCY HISTORY: Marijuana, uses whenever he can get ahold of his UDS is positive for it. His UDS is also positive for amphetamines he was unable to say when he last took his Adderall, so unclear if this is Adderall or some stimulant that he received on the street. He denies alcohol use. He denies other substance abuse. FAMILY PSYCHIATRIC HISTORY: Would not provide. FAMILY CHEMICAL DEPENDENCY HISTORY: Would not provide. LEGAL HISTORY: Denies. He also denies ever assaulting anyone. SOCIAL HISTORY: Patient was reluctant to give history about his family initially stating he has no family, that he came from no one. He has not had contact with his mother and father or his one sister who is younger. He states that he feels that his mother and father were never supportive of him. He reports one marriage from [id number], with one child a son who he states is now , could not give any history on that. Currently he is homeless. MENTAL STATUS EXAM: Patient alert and oriented 3, good eye contact, fair groomed in hospital attire. Speech normal volume, rate and production. Coherent, logical and goal directed thought process. No TEDDY, no FOI. No TB/TW/ TI Denied auditory and visual hallucinations. Denied paranoid ideation, delusions or IOR. Memory grossly intact Cognition average Recalled 3/3 at 0, 2/ 3 at 5 minutes; Serial 7's 93, stated he was unable to go further, 20-3 = 17, 14, 11, 9, 6, 3, 0 WORLD DLOW, patient knew the presidents back to president Parmjit, all correctly Mood neutral, affect constricted, congruent with mood. Denies suicidal ideation, denies homicidal ideation. Insight partial; Judgment grossly intact for treatment purposes . STRENGTHS: Reports Social Security disability income. WEAKNESSES: lack of support. IMPRESSIONS: 41-year-old male brought to the emergency room after being at the [employer] machine for 3 hours, reporting that he is God, that he's made everything on earth, and that he is in control of all of the online accounts. Today the patient was sleeping not wanting to participate in groups initially refused to speak with writer editor. After a few hours he was agreeable and pleasant got up and gave history. He smiles when I told him the statements that he was making, the statements that were on the petition he just laughed. Patient is no longer saying that we lied about anything he just shakes his head when I mention that he shouldn't be taking his Adderall in the mount larger than what's prescribed area patient does agree again to keep an outpatient appointment, but it's very unlikely that he well. He states he is not homeless that he has a room on [address] [place] [address]. Similar presentation was seen May 2016 and last month October 2016 Patient presents with coherent, logical goal directed thought process, no auditory or visual hallucinations. He does not reveal his delusions unless he is asked about super mccauley. This appears to be a chronic and enduring delusion, if indeed it is occurring. Patient is very well organized, did not present as responding to internal stimuli, no evidence of thought blocking thought withdrawal thought insertion. His recall was fair, but recall of presidents was superior which argues against schizophrenic spectrum. His UDS was positive for cannabis, amphetamines, methamphetamines. Patient identifies himself as having bipolar disorder and ADHD, and only needing stimulants as medication. Patient has never had outpatient treatment, so it's a bit hard to understand how he came by Social Security disability. Patient is not a danger to self or others. He continues to be delusional and this is his baseline. Stimulant induced psychosis Stimulant use, severe Cannabis use, severe Rule out delusional disorder versus malingering. PLAN: Patient given an appointment date with [facility]. Discharge today 12/10/16 13:07 Pertinent Studies: none Procedures: none Patient Condition at Discharge: Stable Plan - Discharge Summary New Discharge Prescriptions: Continue Multivitamins, Thera [Multivitamin (formulary)] 1 tab PO DAILY Discontinued Panax Ginseng Root Extract [Ginseng] 200 mg PO DAILY Dextroamphetamine/Amphetamine [Adderall] 30 mg PO TID Discharge Medication List Multivitamins, Thera [Multivitamin (formulary)] 1 tab PO DAILY 12/09/16 [History ] Follow up Appointment(s)/Referral(s): [facility] [Outside] - 12/19/16 11:00 am (Intake ) Justo Lopez MD [Primary Care Provider] - 1-2 days Discharge Disposition: HOME SELF-CARE
--- NOTE | 2016-12-10 15:19 | P.CONS ---
History of Present Illness - Reason for Consult Consult date: 12/10/16 Medical management Requesting physician: Radha Angel - Chief Complaint Severe depression and bipolar disorders, ADD, hypertension, anxiety, substa - History of Present Illness 41-year-old male was hospitalized last in 11/19/2016 for severe depression and bipolar disorders was treated and discharged home he'll return to [facility] on 12/09/2016 as patient was having an acute psychosis and severe depression apparently he was at the [employer] machine trying multiple time to ask his machine to get money he get frustrated the become more diffusional and hallucinating was found police department brought him to [facility] for evaluation patient declined any suicidal thought. Since his last hospitalization has not been seen any psych service or [facility] or he seen his primary care Dr. Lopez and he did not stay on any medicine from last admission. Review of Systems Constitutional: Reports fatigue, Reports weight loss, Denies as per HPI, Denies anorexia, Denies chills, Denies chronic headaches, Denies chronic pain, Denies daytime sleepiness, Denies fever, Denies lethargy, Denies malaise, Denies night sweats, Denies poor appetite, Denies sweats, Denies weakness, Denies weight gain Eyes: bilateral as per HPI Ears: bilateral: decreased hearing Ears, nose, mouth and throat: Reports ant. neck pain, Reports sinus pain, Reports sinus pressure, Denies as per HPI, Denies bleeding gums, Denies dental pain, Denies dysphagia, Denies epistaxis, Denies headache, Denies hoarseness, Denies mouth pain, Denies nasal congestion, Denies nasal discharge, Denies neck fullness/pressure, Denies neck lump, Denies nose pain, Denies odynophagia, Denies post-nasal drip, Denies swelling in mouth, Denies swelling in throat, Denies sore throat, Denies vertigo, Denies voice changes Cardiovascular: Reports lightheadedness, Denies as per HPI, Denies chest pain, Denies claudication, Denies decreased exercise tolerance, Denies dyspnea on exertion, Denies edema, Denies high blood pressure, Denies irregular heart beat , Denies leg edema, Denies orthopnea, Denies palpitations, Denies paroxysmal nocturnal dyspnea, Denies phlebitis, Denies rapid heart beat, Denies shortness of breath, Denies syncope Respiratory: Reports congestion, Denies as per HPI, Denies cough, Denies cough with sputum, Denies dyspnea, Denies excessive sputum, Denies hemoptysis, Denies home oxygen, Denies pain, Denies pain on inspiration, Denies pleurisy, Denies respiratory infections, Denies sleep apnea, Denies snoring, Denies wheezing Gastrointestinal: Reports abdominal pain, Reports constipation, Reports indigestion, Denies as per HPI, Denies belching, Denies bloating, Denies BRBPR, Denies change in bowel habits, Denies coffee ground emesis, Denies diarrhea, Denies dyspepsia, Denies early satiety, Denies excessive gas, Denies heartburn, Denies hematemesis, Denies hematochezia, Denies jaundice, Denies lactose intolerance, Denies loss of appetite, Denies melena, Denies nausea, Denies vomiting Genitourinary: Reports polyuria, Denies as per HPI, Denies decreased libido, Denies difficulties fathering child, Denies discharge, Denies dysuria, Denies erectile dysfunction, Denies flank pain, Denies genital pain, Denies genital sores, Denies hematuria, Denies impotence, Denies incontinence, Denies kidney stones, Denies nocturia, Denies testicular lump, Denies testicular pain, Denies urinary frequency, Denies urinary hesitancy, Denies urinary retention Musculoskeletal: Reports low back pain, Reports myalgias, Reports neck pain, Denies as per HPI, Denies arm numbness/tingling, Denies atrophy, Denies fractures, Denies frequent falls, Denies gait dysfunction, Denies hot joints, Denies leg numbness/tingling, Denies limitation of motion, Denies loss of height , Denies morning stiffness, Denies muscle cramps, Denies muscle weakness, Denies neck stiffness, Denies prior amputations, Denies redness of joints, Denies shooting arm pain, Denies shooting leg pain Musculoskeletal: bilateral: ankle pain Integumentary: Reports rash, Denies as per HPI, Denies acne, Denies boils, Denies brittle nails, Denies change in hair/nails, Denies color changes, Denies darkening of skin, Denies depigmentation, Denies dryness, Denies foot/leg ulcers , Denies growths, Denies hirsutism, Denies lesions, Denies onychomycosis, Denies pruritus, Denies sores, Denies striae, Denies unusual bruising, Denies wounds Neurological: Reports ataxia, Reports burning pain, Reports paresthesias, Denies as per HPI, Denies aphasia, Denies balance difficulties, Denies change in mentation, Denies change in smell/taste, Denies change in speech, Denies confusion, Denies convulsions, Denies double vision, Denies gait dysfunction, Denies head injury, Denies headaches, Denies hearing difficulties, Denies lack of coordination, Denies loss of vision, Denies memory loss, Denies migraines, Denies motor disturbance, Denies numbness, Denies paralysis, Denies seizures, Denies sensory deficit, Denies spasticity, Denies syncope, Denies tic, Denies tingling, Denies transient paralysis, Denies tremors, Denies vertigo, Denies weakness, Denies visual changes Psychiatric: Reports anhedonia, Reports anxiety, Reports anxiety attacks, Reports difficulty concentrating, Reports mood swings, Reports paranoia, Reports sadness/tearfulness, Reports sleep disturbances, Denies as per HPI, Denies change in appetite, Denies change in libido, Denies change in sleep habits, Denies confusion, Denies depression, Denies disorientation, Denies hallucinations, Denies hopelessness, Denies hypersomnia, Denies insomnia, Denies irritability, Denies memory loss, Denies suicidal ideation Endocrine: Reports fatigue, Reports nocturia, Denies as per HPI, Denies cold intolerance, Denies deepening of the voice, Denies excessive sweating, Denies excessive thirst, Denies flushing, Denies heat intolerance, Denies high blood sugars, Denies increase in ring/shoe/hat size, Denies low blood sugars, Denies palpitations, Denies polydipsia, Denies polyphagia, Denies polyuria, Denies proptosis, Denies recent glucocorticoid use, Denies thyroid mass, Denies weight change Hematologic/Lymphatic: Reports easy bruising, Denies as per HPI, Denies easy bleeding, Denies lymphadenopathy, Denies lymphedema, Denies thrombophilia Allergic/Immunologic: Denies as per HPI, Denies allergic rhinitis, Denies anaphylaxis, Denies angioedema, Denies gluten intolerance, Denies persistent infections, Denies seasonal allergies, Denies urticaria, Denies wheezing Past Medical History Past Medical History: Hypertension History of Any Multi-Drug Resistant Organisms: None Reported Past Surgical History: Appendectomy Additional Past Surgical History / Comment(s): ANKLE SURGERY-multiple fracture 2 plates and 3 screws, BIOPSY OF LYMPH LEFT ARM CHILD. Past Anesthesia/Blood Transfusion Reactions: No Reported Reaction Past Psychological History: ADD/ADHD, Anxiety, Depression Smoking Status: Current every day smoker Past Alcohol Use History: None Reported Past Drug Use History: None Reported - Past Family History Father History Unknown: Yes Additional Family Medical History / Comment(s): Father is alive at age 67 with no major medical problems. Mother Additional Family Medical History / Comment(s): Mother is alive at age 65 with history of depression and alcoholism. Sister(s) Additional Family Medical History / Comment(s): Patient has one sister that is younger than him and he states she has mental health issues. Patient does not have any brothers. Medications and Allergies Home Medications Medication Instructions Recorded Confirmed Type Multivitamins, Thera [Multivitamin 1 tab PO DAILY 12/09/16 12/10/16 History (formulary)] Allergies Allergy/AdvReac Type Severity Reaction Status Date / Time No Known Allergies Allergy Verified 12/10/16 02:59 Physical Exam Vitals: Vital Signs Temp Pulse Pulse Resp BP BP Pulse Ox 12/10/16 02:54 97.7 F 101 H 16 133/79 12/10/16 01:45 98.8 F 108 H 18 130/62 100 12/09/16 22:16 97.4 F L 99 18 132/92 97 Intake and Output 12/09/16 12/10/16 12/10/16 22:59 06:59 14:59 Other: Weight 83.915 kg 73.028 kg - Constitutional General appearance: no average body habitus, cooperative, no disheveled, no mild distress, no morbidly obese, no acute distress, no obese, no severe distress, no thin - EENT Eyes: no abnormal pupil, no anicteric sclerae, no disc margins sharp, no edentulous, no EOMI, no PERRLA, no fundus normal, no photophobia, no dentition normal, no poor dentition, no ptosis, no scleral icterus, normal appearance ENT: no hard of hearing, no hearing grossly normal, no NA/AT, no normal oropharynx, no other, pharyngeal erythema, no thrush, no tonsillar exudates, no tonsillar swelling Ears: bilateral: normal - Neck Neck: no lymphadenopathy, normal ROM, no other, no rigidity, no stridor, no thyromegaly Carotids: bilateral: upstroke normal Thyroid: negative: normal size - Respiratory Respiratory: bilateral: CTA - Cardiovascular Rhythm: regular Heart sounds: normal: S1, S2 - Gastrointestinal General gastrointestinal: no absent bowel sounds, no decreased bowel sounds, distended, no hepatomegaly, no hyperactive bowel sounds, normal bowel sounds, no organomegaly, no rigid, no scaphoid, soft, no splenomegaly, no tenderness, no umbilical hernia, no ventral hernia - Integumentary Integumentary: no calor, no cellulitis, no cyanotic, no decreased turgor, no flushed, no jaundiced, normal, no normal turgor, pale, rash, no ulcer - Neurologic Neurologic: CNII-XII intact - Musculoskeletal Musculoskeletal: gait normal, generalized weakness, strength equal bilaterally, no right sided weakness, no left sided weakness - Psychiatric Psychiatric: A&O x's 3, appropriate affect Results CBC & Chem 7: 12/10/16 08:54 12/10/16 08:54 Labs: Abnormal Lab Results - Last 24 Hours (Table) 12/09/16 12/09/16 12/10/16 Range/Units 23:14 23:14 08:54 Potassium 3.3 L (3.5-5.1) mmol/L Glucose 109 H (74-99) mg/dL Urine Protein 2+ H (Negative) Urine Ketones Trace H (Negative) Urine WBC 9 H (0-5) /hpf Calcium Oxalate Crystal Occasional H (None) /hpf Urine Bacteria Occasional H (None) /hpf Hyaline Casts 59 H (0-2) /lpf Urine Mucus Moderate H (None) /hpf Urine Sperm Few H (None) /hpf Ur Amphetamines Screen Detected H (NotDetected) U Methamphetamines Scrn Detected H (NotDetected) U Marijuana (THC) Screen Detected H (NotDetected) Assessment and Plan Plan: 1 severe depression and acute psychosis with delusion: Patient was hospitalized started on Geodon and lorazepam continue medication. 2 ADHD: Patient has been on Adderall. 3 nicotine dependency: Continue nicotine patch 14 mg daily. 4 marijuana use: Patient is of the psych unit continue counseling and continue psych service for now. 5 GERD: Continue patient on Pepcid 20 mg daily. CODE STATUS: Full code. Dr. Angel thank you very much for the consult if I can be any further help to please let me know.
[2016-12-11] MEDS ORDERED: FAMOTIDINE 20 MG TAB PO SCH (09:00)
== END 2016-12-10 14:16 | disposition home or self-care (01) | DRG 897 ==
LOC: EC 22:00 → 3MHU 12-10 01:22
PROVIDERS: ADMIT Psychiatry & Neurology Addiction Medicine; ATTEND Psychiatry & Neurology Addiction Medicine
DX: F15.959 Other stimulant use, unspecified with stimulant-induced psychotic disorder, unspecified (principal); F31.9 Bipolar disorder, unspecified; I10 Essential (primary) hypertension; F12.90 Cannabis use, unspecified, uncomplicated; F90.9 Attention-deficit hyperactivity disorder, unspecified type; F41.9 Anxiety disorder, unspecified; F17.200 Nicotine dependence, unspecified, uncomplicated; K21.9 Gastro-esophageal reflux disease without esophagitis; Z59.0 Homelessness; Z81.8 Family history of other mental and behavioral disorders; Z79.899 Other long term (current) drug therapy
CPT/HCPCS: 80053; 80306; 81001; 82075; 84443; 85025; 99285

== ENCOUNTER 2016-12-18 13:00 | Emergency (ER) | payer MEDICAID, OTHER ==
[2016-12-18] MEDS ORDERED: IBUPROFEN 800 MG TAB PO STA (13:40)
--- NOTE | 2016-12-18 15:30 | ED ---
Psych HPI - General Chief Complaint: Psychiatric Symptoms Stated Complaint: mental health Time Seen by Provider: 12/18/16 13:37 Source: patient Mode of arrival: ambulatory - History of Present Illness Initial Comments: This 41-year-old white male presents with a complaint of feeling agitated. He states that he has on average at times. He denies any overt anxiety depression or psychosis. There is no suicidal or homicidal ideations. There is no hallucinations or delusions. He does have a long psychiatric history. He states that he has not been able to afford his psychiatric medications. He apparently doesn't realize that his Medicaid covers his prescriptions. He is requesting psychiatric evaluation. He denies any medical complaints. No other complaints or modifying factors. - Related Data Home Medications Medication Instructions Recorded Confirmed No Known Home Medications [No 12/18/16 12/18/16 Known Home Medications] Allergies Allergy/AdvReac Type Severity Reaction Status Date / Time No Known Allergies Allergy Verified 12/18/16 14:01 Review of Systems ROS Statement: Those systems with pertinent positive or pertinent negative responses have been documented in the HPI. ROS Other: All systems not noted in ROS Statement are negative. Past Medical History Past Medical History: Hypertension History of Any Multi-Drug Resistant Organisms: None Reported Past Surgical History: Appendectomy, Orthopedic Surgery Additional Past Surgical History / Comment(s): ANKLE SURGERY-multiple fracture 2 plates and 3 screws, BIOPSY OF LYMPH LEFT ARM CHILD. Past Anesthesia/Blood Transfusion Reactions: No Reported Reaction Past Psychological History: ADD/ADHD, Anxiety, Depression Smoking Status: Current every day smoker Past Alcohol Use History: None Reported Past Drug Use History: None Reported - Past Family History Father History Unknown: Yes Additional Family Medical History / Comment(s): Father is alive at age 67 with no major medical problems. Mother Additional Family Medical History / Comment(s): Mother is alive at age 65 with history of depression and alcoholism. Sister(s) Additional Family Medical History / Comment(s): Patient has one sister that is younger than him and he states she has mental health issues. Patient does not have any brothers. General Exam - General Exam Comments Initial Comments: GENERAL: The patient is well nourished and well hydrated. VITAL SIGNS: Heart rate, blood pressure, respiratory rate reviewed as recorded in nurse's notes. EYES: Pupils are round and reactive. Extraocular movements are intact. No conjunctival / lid redness or swelling. ENT: No external evidence of injury, swelling, or ecchymosis. Airway is patent. Throat is clear. NECK: Nontender. No swelling or evidence of injury. No subcutaneous emphysema. Trachea is midline. No thyroid mass. HEART: Regular rate and rhythm. Good peripheral pulses. LUNGS/CHEST: Breath sounds clear and equal bilaterally. No rales, rhonchi, or wheezes. No ecchymosis, subcutaneous emphysema, or tenderness. ABDOMEN: Abdomen soft without tenderness. No palpable masses or organomegaly. No peritoneal signs. No abdominal wall swelling or ecchymosis. EXTREMITIES: No extremity tenderness. Normal muscle tone and function. No thoracolumbar tenderness. NEUROLOGIC: Sensation is grossly intact. Cranial nerve exam reveals face is symmetrical, tongue is midline, speech is clear. SKIN: No abrasions or ecchymosis is noted. No induration or masses noted. PSYCHIATRIC: Alert and oriented. Appropriate behavior and judgment. Limitations: no limitations Course Vital Signs 12/18/16 13:12 Temperature 98.0 F Pulse Rate 99 Respiratory 18 Rate Blood Pressure 125/89 O2 Sat by Pulse 98 Oximetry Medical Decision Making - Medical Decision Making The patient was seen and examined. All diagnostics were reviewed. His urine drug screen was positive for amphetamines. The psychiatric team did evaluate the patient and they're recommending discharge. They do relate that he was stating that the only reason he was here was to get some more Adderall. The old records per psychiatric nurse relates that he has a history of amphetamine abuse. They feel as though he is stable for discharge. He apparently missed his previous psychiatric appointment. He is encouraged to follow up with psychiatry and referral information is given per the psychiatric team. Patient is subsequently discharged. - Lab Data Lab Results 12/18/16 Range/Units 13:23 Urine Opiates Screen Not Detected (NotDetected) Ur Oxycodone Screen Not Detected (NotDetected) Urine Methadone Screen Not Detected (NotDetected) Ur Propoxyphene Screen Not Detected (NotDetected) Ur Barbiturates Screen Not Detected (NotDetected) U Tricyclic Antidepress Not Detected (NotDetected) Ur Phencyclidine Scrn Not Detected (NotDetected) Ur Amphetamines Screen Detected H (NotDetected) U Methamphetamines Scrn Not Detected (NotDetected) U Benzodiazepines Scrn Not Detected (NotDetected) Urine Cocaine Screen Not Detected (NotDetected) U Marijuana (THC) Screen Not Detected (NotDetected) Disposition Clinical Impression: Agitation Disposition: HOME SELF-CARE Condition: Good Instructions: Normal Exam (ED) Additional Instructions: Please follow-up with the psychiatric recommendations as given per the psychiatric team. Referrals: None,Stated [Primary Care Provider] - 1-2 days Time of Disposition: 15:30
[2016-12-18 15:40] VITALS: BP 125/65; PULSE 69; RESP 16; TEMP 97.8
== END 2016-12-18 15:45 | disposition home or self-care (01) ==
LOC: EC 13:00
DX: R45.1 Restlessness and agitation (principal); R82.99 Other abnormal findings in urine; F17.200 Nicotine dependence, unspecified, uncomplicated; Z81.8 Family history of other mental and behavioral disorders
CPT/HCPCS: 80306; 82075; 99284; 99285

== ENCOUNTER 2016-12-18 21:10 | Emergency (ER) | payer OTHER ==
[2016-12-18 21:16] VITALS: PULSE 87
--- NOTE | 2016-12-18 21:38 | ED ---
General Adult HPI - General Chief complaint: Psychiatric Symptoms Stated complaint: mental health-revisit Time Seen by Provider: 12/18/16 21:10 Source: patient, RN notes reviewed Mode of arrival: ambulatory Limitations: no limitations - History of Present Illness Initial comments: This is a 41-year-old male who presents to the emergency department stating that he would like to be evaluated because he is becoming more and more depressed. Patient states he feels as though he may harm himself. Patient states he was in the emergency department earlier this afternoon and was evaluated but declined to stay because he didn't want have to be kept overnight. Patient states he went home and got more depressed and started having more suicidal thoughts and he decided he needed to be in the hospital. Patient denies any drug use patient denies any alcohol use. Patient denies any physical complaints. Patient states he has not had any injury since she went home. Patient denies any headache patient denies numbness weakness patient denies chest pain difficulty breathing or shortness of breath per patient denies any abdominal pain patient denies nausea vomiting diarrhea. Patient denies any fever or chills - Related Data Home Medications Medication Instructions Recorded Confirmed No Known Home Medications [No 12/18/16 12/18/16 Known Home Medications] Allergies Allergy/AdvReac Type Severity Reaction Status Date / Time No Known Allergies Allergy Verified 12/18/16 21:37 Review of Systems ROS Statement: Those systems with pertinent positive or pertinent negative responses have been documented in the HPI. ROS Other: All systems not noted in ROS Statement are negative. Past Medical History Past Medical History: Hypertension History of Any Multi-Drug Resistant Organisms: None Reported Past Surgical History: Appendectomy, Orthopedic Surgery Additional Past Surgical History / Comment(s): ANKLE SURGERY-multiple fracture 2 plates and 3 screws, BIOPSY OF LYMPH LEFT ARM CHILD. Past Anesthesia/Blood Transfusion Reactions: No Reported Reaction Past Psychological History: ADD/ADHD, Anxiety, Depression Smoking Status: Current every day smoker Past Alcohol Use History: None Reported Past Drug Use History: None Reported - Past Family History Father History Unknown: Yes Additional Family Medical History / Comment(s): Father is alive at age 67 with no major medical problems. Mother Additional Family Medical History / Comment(s): Mother is alive at age 65 with history of depression and alcoholism. Sister(s) Additional Family Medical History / Comment(s): Patient has one sister that is younger than him and he states she has mental health issues. Patient does not have any brothers. General Exam - General Exam Comments Initial Comments: GENERAL: Patient is well-developed and well-nourished. Patient is nontoxic and well- hydrated and is in no acute distress. ENT: Neck is soft and supple. No significant lymphadenopathy is noted. Oropharynx is clear. Moist mucous membranes. Neck has full range of motion without eliciting any pain. EYES: The sclera were anicteric and conjunctiva were pink and moist. Extraocular movements were intact and pupils were equal round and reactive to light. Eyelids were unremarkable. PULMONARY: Unlabored respirations. Good breath sounds bilaterally. No audible rales rhonchi or wheezing was noted. CARDIOVASCULAR: There is a regular rate and rhythm without any murmurs gallops or rubs. ABDOMEN: Soft and nontender with normal bowel sounds. SKIN: Skin is clear with no lesions or rashes and otherwise unremarkable. NEUROLOGIC: Patient is alert and oriented x3. Cranial nerves II through XII are grossly intact. Motor and sensory are also intact. Normal speech, volume and content. Symmetrical smile. MUSCULOSKELETAL: Normal extremities with adequate strength and full range of motion. No lower extremity swelling or edema. No calf tenderness. LYMPHATICS: No significant lymphadenopathy is noted PSYCHIATRIC: Patient states is very depressed sensation more more about suicide. Patient denies any homicidal ideations. Limitations: no limitations Course Vital Signs 12/18/16 21:14 Temperature 98.2 F Pulse Rate 87 Respiratory 18 Rate Blood Pressure 159/98 O2 Sat by Pulse 99 Oximetry Medical Decision Making - Medical Decision Making [facility] went in and evaluated the patient patient denies suicidal ideations to the evaluated. I went back and reviewed with the patient and the patient stated he was no longer suicidal and thought he would be safe at home and he was okay with following up as an outpatient. - Lab Data Lab Results 12/18/16 Range/Units 21:48 Urine Opiates Screen Not Detected (NotDetected) Ur Oxycodone Screen Not Detected (NotDetected) Urine Methadone Screen Not Detected (NotDetected) Ur Propoxyphene Screen Not Detected (NotDetected) Ur Barbiturates Screen Not Detected (NotDetected) U Tricyclic Antidepress Not Detected (NotDetected) Ur Phencyclidine Scrn Not Detected (NotDetected) Ur Amphetamines Screen Not Detected (NotDetected) U Methamphetamines Scrn Not Detected (NotDetected) U Benzodiazepines Scrn Not Detected (NotDetected) Urine Cocaine Screen Not Detected (NotDetected) U Marijuana (THC) Screen Not Detected (NotDetected) Disposition Clinical Impression: Depression Disposition: HOME SELF-CARE Condition: Good Instructions: Depression (ED) Additional Instructions: Patient should follow [facility] per their instructions Referrals: None,Stated [Primary Care Provider] - 1-2 days Time of Disposition: 22:58
[2016-12-18 23:03] VITALS: BP 138/72; RESP 16; TEMP 98
== END 2016-12-18 23:05 | disposition home or self-care (01) ==
LOC: EC 21:10
DX: F32.9 Major depressive disorder, single episode, unspecified (principal); F17.200 Nicotine dependence, unspecified, uncomplicated
CPT/HCPCS: 80306; 82075; 99285

== ENCOUNTER 2017-04-13 23:43 | Emergency (ER) | payer MEDICAID, MEDICARE, OTHER ==
[2017-04-13 23:59] VITALS: RESP 18
--- NOTE | 2017-04-14 00:46 | ED ---
Psych HPI - General Chief Complaint: Psychiatric Symptoms Stated Complaint: mental health Time Seen by Provider: 04/14/17 00:13 Source: patient, family Mode of arrival: ambulatory - History of Present Illness Initial Comments: 41-year-old male patient presents to the emergency department today for complaints of depression and suicidal thoughts. He states that throughout the day today he has been feeling increasingly depressed. Patient states that he got into an argument with his mother today and felt like he should to get out of the house before he "snapped". Patient states that his temper has been increasingly volatile. He states that he issues he could go to sleep and not wake up. He states he has been thinking of ways to take his own life however does not have a plan at this time. He states he has previous mental health admissions at this facility. He states that he was previously on medications for depression but didn't feel like they helped so he quit taking them. He denies any history of suicide attempt. Denies any hallucinations. States he is having difficulty sleeping at night. He denies any current counseling or mental health services. He denies any current physical symptoms or concerns. - Related Data Home Medications Medication Instructions Recorded Confirmed No Known Home Medications [No 12/18/16 04/14/17 Known Home Medications] Allergies Allergy/AdvReac Type Severity Reaction Status Date / Time No Known Allergies Allergy Verified 12/18/16 21:37 Review of Systems ROS Statement: Those systems with pertinent positive or pertinent negative responses have been documented in the HPI. ROS Other: All systems not noted in ROS Statement are negative. Past Medical History Past Medical History: Hypertension History of Any Multi-Drug Resistant Organisms: None Reported Past Surgical History: Appendectomy, Orthopedic Surgery Additional Past Surgical History / Comment(s): ANKLE SURGERY-multiple fracture 2 plates and 3 screws, BIOPSY OF LYMPH LEFT ARM CHILD. Past Anesthesia/Blood Transfusion Reactions: No Reported Reaction Past Psychological History: ADD/ADHD, Anxiety, Depression Smoking Status: Current every day smoker Past Alcohol Use History: None Reported Past Drug Use History: None Reported - Past Family History Father History Unknown: Yes Additional Family Medical History / Comment(s): Father is alive at age 67 with no major medical problems. Mother Additional Family Medical History / Comment(s): Mother is alive at age 65 with history of depression and alcoholism. Sister(s) Additional Family Medical History / Comment(s): Patient has one sister that is younger than him and he states she has mental health issues. Patient does not have any brothers. General Exam Limitations: no limitations General appearance: alert, in no apparent distress, other (This is a well- developed, well-nourished adult male patient in no acute distress. Vital signs upon presentation are temperature 97.2F, pulse 69, respirations 18, blood pressure 130/83, pulse ox 97% on room air.) Eye exam: Present: normal appearance, PERRL, EOMI. Absent: scleral icterus, conjunctival injection, periorbital swelling ENT exam: Present: normal exam, normal oropharynx, mucous membranes moist Respiratory exam: Present: normal lung sounds bilaterally. Absent: respiratory distress, wheezes, rales, rhonchi, stridor Cardiovascular Exam: Present: regular rate, normal rhythm, normal heart sounds. Absent: systolic murmur, diastolic murmur, rubs, gallop, clicks Neurological exam: Present: alert, oriented X3, CN II-XII intact Psychiatric exam: Present: normal affect, normal mood Skin exam: Present: warm, dry, intact, normal color. Absent: rash Course Vital Signs 04/13/17 04/14/17 23:56 02:38 Temperature 97.2 F L 97.9 F Pulse Rate 69 80 Respiratory 18 18 Rate Blood Pressure 130/83 128/73 O2 Sat by Pulse 97 97 Oximetry Medical Decision Making - Medical Decision Making 41-year-old male patient presented to the emergency department today for evaluation of increased depression, anger issues, and suicidal ideation. Physical exam is unremarkable, and patient was cleared for mental health evaluation. Patient was evaluated by Meche from [facility]. She states that he informed her that his plan to commit suicide was to overdose on heroin however he does not have the means to do this. She did speak to the psychiatrist they do feel it is safe to discharge the patient home at this time with mental health follow-up. He was given outpatient referrals. Patient does contract for safety. He is instructed to return here immediate should he develop any further thoughts of harming himself. He is instructed to follow-up with his primary care physician for recheck in 1-2 days. He is instructed to return here immediate for any other new, worsening, or concerning symptoms. He verbalizes understanding and agrees with this plan. - Lab Data Lab Results 04/14/17 Range/Units 00:11 Urine Opiates Screen Not Detected (NotDetected) Ur Oxycodone Screen Not Detected (NotDetected) Urine Methadone Screen Not Detected (NotDetected) Ur Propoxyphene Screen Not Detected (NotDetected) Ur Barbiturates Screen Not Detected (NotDetected) U Tricyclic Antidepress Not Detected (NotDetected) Ur Phencyclidine Scrn Not Detected (NotDetected) Ur Amphetamines Screen Not Detected (NotDetected) U Methamphetamines Scrn Not Detected (NotDetected) U Benzodiazepines Scrn Detected H (NotDetected) Urine Cocaine Screen Not Detected (NotDetected) U Marijuana (THC) Screen Detected H (NotDetected) Disposition Clinical Impression: Depression, Suicidal ideation Disposition: HOME SELF-CARE Condition: Good Instructions: Depression (ED), Suicide Prevention for Adults (ED) Additional Instructions: Follow-up with [facility] as soon as possible. Return here immediately if you develop any further thoughts of harming herself or others. Follow-up with her primary care physician for further evaluation. Return here immediately for any new, worsening, or concerning symptoms. Referrals: None,Stated [Primary Care Provider] - 1-2 days Time of Disposition: 02:30
[2017-04-14 02:40] VITALS: BP 128/73; PULSE 80; TEMP 97.9
== END 2017-04-14 02:39 | disposition home or self-care (01) ==
LOC: EC 23:43
DX: F32.9 Major depressive disorder, single episode, unspecified (principal); R45.851 Suicidal ideations; F17.200 Nicotine dependence, unspecified, uncomplicated
CPT/HCPCS: 80306; 82075; 99285

== ENCOUNTER 2017-10-12 12:20 | Inpatient (IN) | payer MEDICAID, OTHER ==
--- NOTE | 2017-10-12 13:53 | ED ---
Psych HPI - General Chief Complaint: Psychiatric Symptoms Stated Complaint: Mental Health Time Seen by Provider: 10/12/17 12:54 Source: patient, police Mode of arrival: ambulatory - History of Present Illness Initial Comments: This 42-year-old white male presents for psychiatric evaluation. He apparently has been having some very grandiose thought processes. He states that he has gone and he wants to bring have been on . Has significant additional psychotic thought processes. He denies any actual medical complaints. He states that he does not have any psychiatric problems whatsoever but old records do indicate a significant psych history with multiple previous psychiatric hospitalizations and history of bipolar disorder. He states that he is not taking any medications right now but would like a refill of Adderall. No other identifiable complaints or modifying factors. - Related Data Home Medications Medication Instructions Recorded Confirmed Dextroamphetamine/Amphetamine 30 mg PO TID 10/12/17 10/12/17 [Adderall] Allergies Allergy/AdvReac Type Severity Reaction Status Date / Time No Known Allergies Allergy Verified 10/12/17 12:54 Review of Systems ROS Statement: Those systems with pertinent positive or pertinent negative responses have been documented in the HPI. ROS Other: All systems not noted in ROS Statement are negative. Past Medical History Past Medical History: Hypertension History of Any Multi-Drug Resistant Organisms: None Reported Past Surgical History: Appendectomy, Orthopedic Surgery Additional Past Surgical History / Comment(s): ANKLE SURGERY-multiple fracture 2 plates and 3 screws, BIOPSY OF LYMPH LEFT ARM CHILD. Past Anesthesia/Blood Transfusion Reactions: No Reported Reaction Past Psychological History: ADD/ADHD, Anxiety, Depression Smoking Status: Current every day smoker Past Alcohol Use History: None Reported Past Drug Use History: None Reported - Past Family History Father History Unknown: Yes Additional Family Medical History / Comment(s): Father is alive at age 67 with no major medical problems. Mother Additional Family Medical History / Comment(s): Mother is alive at age 65 with history of depression and alcoholism. Sister(s) Additional Family Medical History / Comment(s): Patient has one sister that is younger than him and he states she has mental health issues. Patient does not have any brothers. General Exam - General Exam Comments Initial Comments: GENERAL: The patient is well nourished and well hydrated. VITAL SIGNS: Heart rate, blood pressure, respiratory rate reviewed as recorded in nurse's notes. EYES: Pupils are round and reactive. Extraocular movements are intact. No conjunctival / lid redness or swelling. ENT: No external evidence of injury, swelling, or ecchymosis. Airway is patent. Throat is clear. NECK: Nontender. No swelling or evidence of injury. No subcutaneous emphysema. Trachea is midline. No thyroid mass. HEART: Regular rate and rhythm. Good peripheral pulses. LUNGS/CHEST: Breath sounds clear and equal bilaterally. No rales, rhonchi, or wheezes. No ecchymosis, subcutaneous emphysema, or tenderness. ABDOMEN: Abdomen soft without tenderness. No palpable masses or organomegaly. No peritoneal signs. No abdominal wall swelling or ecchymosis. EXTREMITIES: No extremity tenderness. Normal muscle tone and function. No thoracolumbar tenderness. NEUROLOGIC: Sensation is grossly intact. Cranial nerve exam reveals face is symmetrical, tongue is midline, speech is clear. SKIN: No abrasions or ecchymosis is noted. No induration or masses noted. PSYCHIATRIC: Alert but quite psychotic. He is very abnormal thought processes. Limitations: no limitations Course Vital Signs 10/12/17 12:31 Temperature 98.4 F Pulse Rate 98 Respiratory 20 Rate Blood Pressure 165/108 O2 Sat by Pulse 98 Oximetry Medical Decision Making - Medical Decision Making The patient is seen and examined. All diagnostics are reviewed. It is felt as though he will need further psychiatric placement. Consult is placed for psychiatric evaluation. The drug screen is positive for amphetamines and marijuana. The case is discussed with the psychiatric nurse and they would like to admit him to the hospital for further psychiatric treatment. A certification is completed. He is admitted to the psychiatric call[facility]. - Lab Data Lab Results 10/12/17 Range/Units 12:53 Urine Opiates Screen Not Detected (NotDetected) Ur Oxycodone Screen Not Detected (NotDetected) Urine Methadone Screen Not Detected (NotDetected) Ur Propoxyphene Screen Not Detected (NotDetected) Ur Barbiturates Screen Not Detected (NotDetected) U Tricyclic Antidepress Not Detected (NotDetected) Ur Phencyclidine Scrn Not Detected (NotDetected) Ur Amphetamines Screen Detected H (NotDetected) U Methamphetamines Scrn Not Detected (NotDetected) U Benzodiazepines Scrn Not Detected (NotDetected) Urine Cocaine Screen Not Detected (NotDetected) U Marijuana (THC) Screen Detected H (NotDetected) Disposition Clinical Impression: Acute psychosis Disposition: ADMITTED IP TO THIS HOSP Condition: Fair Is patient prescribed a controlled substance at d/c from ED?: No Time of Disposition: 15:32 Decision Date: 10/12/17 Decision Time: 15:32
[2017-10-12 15:03] LABS: Amphetamine Screen,Urine Detected (NotDetected); Barbiturate Screen,Urine Not Detected (NotDetected); Benzodiazepines Screen,Urine Not Detected (NotDetected); Cocaine Screen,Urine Not Detected (NotDetected); Methadone Screen, Urine Not Detected (NotDetected); Opiate Screen,Urine Not Detected (NotDetected); Oxycodone Screen, Urine Not Detected (NotDetected); Phencyclidine Screen,Urine Not Detected (NotDetected); Tricyclic Antidepressant,Urine Not Detected (NotDetected); Urn Cannabinoid Scrn Detected (NotDetected)
[2017-10-12] MEDS ORDERED: MAGNESIUM HYDROXIDE 2,400 MG/10 ML CUP PO PRN (17:12)
[2017-10-12] MEDS ORDERED: ZIPRASIDONE 20 MG VIAL IM PRN (17:12)
[2017-10-12] MEDS ORDERED: MAG HYDROX/AL HYDROX/SIMETH 30 ML CUP PO PRN (17:12)
[2017-10-12] MEDS ORDERED: LORazepam 2 MG/ML INJ IM PRN (17:15)
[2017-10-12] MEDS ORDERED: HYDROCORTISONE 1% CREAM 30 GM TUBE TOPICAL PRN (19:38)
[2017-10-12 20:14] LABS: Appearance,Urine Turbid (Clear); Bacteria,Urine Many /hpf; Bilirubin,Urine Negative (Negative); Blood,Urine Negative (Negative); Color,Urine Yellow; Glucose,Urine (UA) Negative (Negative); Ketones,Urine 1+ (Negative); Leukocyte Esterase,Urine Negative (Negative); Nitrite,Urine Negative (Negative); Protein,Urine 1+ (Negative); Specific Gravity,Urine 1.031 (1.001-1.035)
--- NOTE | 2017-10-12 20:20 | P.HPMEDMHU ---
History of Present Illness H&P Date: 10/12/17 Chief Complaint: psychosis Patient is a 42-year-old male for history of hypertension, ADD, anxiety and depression who was brought in by police for grandiose thought process and psychosis. He was seen in the ER and was medically cleared for admission to the psychiatry unit. We have been asked to evaluate him for medical H&P. Apparently he had a grandiose thought process. Patient seen and examined with nursing present. He states that he is here because they "brought him in". He will not elaborate further. He denies eyes any medical complaints. He does admit to a history of hypertension but states he is not on any medications for this. 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 He states he has been walking more than normal and he is having some pain in his left heel. He is not having any leg pain or muscle cramps. He denies any changes in his sleep pattern, appetite, or changes in weight. He denies any recent cough, cold, fever, or flu. He has not had any changes in diarrhea or constipation. He denies any urinary changes. He does admit to smoking marijuana. Review of Systems Positives: + left heel pain Pertinent positives and negatives as discussed in HPI, a complete review of systems was performed and all other systems are negative. Past Medical History Past Medical History: Hypertension History of Any Multi-Drug Resistant Organisms: None Reported Past Surgical History: Appendectomy, Orthopedic Surgery Additional Past Surgical History / Comment(s): ANKLE SURGERY-multiple fracture 2 plates and 3 screws, BIOPSY OF LYMPH Node LEFT ARM CHILD. Past Anesthesia/Blood Transfusion Reactions: No Reported Reaction Smoking Status: Current every day smoker Past Drug Use History: Marijuana Additional History: Was living alone, denies any assistive devices - Past Family History Father History Unknown: Yes Additional Family Medical History / Comment(s): Father is alive with no major medical problems. Mother Additional Family Medical History / Comment(s): Mother is alive with history of depression and alcoholism. Sister(s) Additional Family Medical History / Comment(s): Patient has one sister that is younger than him and he states she has mental health issues. Patient does not have any brothers. Medications and Allergies Home Medications Medication Instructions Recorded Confirmed Type Dextroamphetamine/Amphetamine 30 mg PO TID 10/12/17 10/12/17 History [Adderall] Allergies Allergy/AdvReac Type Severity Reaction Status Date / Time No Known Allergies Allergy Verified 10/12/17 12:54 Physical Exam Osteopathic Statement: *. No significant issues noted on an osteopathic structural exam other than those noted in the History and Physical/Consult. Vitals: Vital Signs Temp Pulse Pulse Resp BP BP Pulse Ox 10/12/17 18:20 97.0 F L 65 16 116/78 97 10/12/17 12:31 98.4 F 98 20 165/108 98 Intake and Output 10/12/17 10/12/17 10/12/17 06:59 14:59 22:59 Other: Weight 77.111 kg General: non toxic, no distress, appears at stated age, normal weight, disheveled, malodorous Derm: Unroofed blisters posterior left heel, small unroofed blister right heel, small blister left great toe, bruising to right and left third fingernails, multiple small abrasions no unusual ecchymoses, warm, dry, left jawline with erythema and scaling of the skin Head: atraumatic, normocephalic, symmetric Eyes: EOMI, no lid lag, anicteric sclera, pupils equal round reactive to light ENT: Nose and ears atraumatic, no thrush, no pharyngeal erythema Neck: No thyromegaly, no cervical lymphadenopathy, trachea midline, supple Mouth: no lip lesion, mucus membranes moist, poor dentition Cardiovascular: S1S2 reg, no murmur, positive posterior tibial pulse bilateral, no edema, capillary refill less than 2 seconds Lungs: CTA bilateral, no rhonchi, no rales , no accessory muscle use Abdominal: soft, nontender to palpation, no guarding, no appreciable organomegaly, normal bowel sounds Ext: no gross muscle atrophy, muscle strength 5 out of 5 in all 4 extremities grossly, no contractures, Neuro: CN II-XI grossly intact, light touch intact all 4 extremities, finger to nose within normal limits, Psych: Alert, a lethargic, frequently falls asleep during questioning, appropriate affect, polite Cranial Nerve Examination - Cranial Nerves Cranial Nerve II- Optic: Intact Cranial Nerve III- Oculomotor: Intact Cranial Nerve IV- Trochlear: Intact Cranial Nerve V- Trigeminal: Intact Cranial Nerve - Abducens: Intact Cranial Nerve VII- Facial: Intact Cranial Nerve VIII- Auditory: Intact Cranial Nerve IX- Glossopharyngeal: Intact Cranial Nerve X- Vagus: Intact Cranial Nerve XI- Accessory: Intact Cranial Nerve XII- Hypoglossal: Intact Results Labs: Abnormal Lab Results - Last 24 Hours (Table) 10/12/17 Range/Units 12:53 Ur Amphetamines Screen Detected H (NotDetected) U Marijuana (THC) Screen Detected H (NotDetected) Thrombosis Risk Factor Assmnt - DVT/VTE Prophylaxis DVT/VTE Prophylaxis: Low risk, early ambulation encouraged Assessment and Plan Assessment: HTN - Patient states that he has not been on medications - follow BP[facility] if remains elevated consider starting meds - on his last admission in November 2016 he was not discharged on antihypertensive therapy Tobacco abuse - cessation - nicotine replacement unroofed blister left heal -Bacitracin after showers and cover area with 4X4 Dermatitis left face -As needed steroid cream Psychosis - your psych management - check TSH, BMP Thank you for allowing us to participate in the care of this patient. We will follow peripherally. Do not hesitate to contact us with questions. Someone can be reached from the [facility] hospitalist group at all hours of the day at [phone].
[2017-10-12] MEDS: LORazepam 1 MG TAB PO SCH ×2 (21:43→22:27)
[2017-10-12] MEDS: BACITRACIN 500 UNIT/GM OINT 28.4 GM TUBE TOPICAL SCH (22:28)
[2017-10-13] MEDS: NICOTINE 14MG/24HR PATCH TRANSDERM SCH (09:14)
[2017-10-13] MEDS: LORazepam 1 MG TAB PO SCH ×4 (09:14→21:43)
[2017-10-13] MEDS: BACITRACIN 500 UNIT/GM OINT 28.4 GM TUBE TOPICAL SCH ×2 (09:14→20:40)
[2017-10-13] MEDS: ACETAMINOPHEN TAB 325 MG TAB PO PRN ×2 (09:15→13:18)
[2017-10-13] MEDS ORDERED: OLANZapine ODT 5 MG TAB PO PRN (09:36)
[2017-10-13 09:52] LABS: Basophils # (A) 0.1 k/uL (0-0.2); Basophils % (A) 1 %; Eosinophils # (A) 0.2 k/uL (0-0.7); Eosinophils % (A) 2 %; HCT 42.4 % (39.0-53.0); HGB 14.3 gm/dL (13.0-17.5); Lymphocytes # (A) 2.2 k/uL (1.0-4.8); Lymphocytes % (A) 23 %; MCH 30.7 pg (25.0-35.0); MCHC 33.7 g/dL (31.0-37.0); MCV 91.2 fL (80.0-100.0); Mean Platelet Volume 6.1; Monocytes # (A) 0.3 k/uL (0-1.0); Monocytes % (A) 3 %; Neutrophils # (A) 6.9 k/uL (1.3-7.7); Neutrophils % (A) 71 %; Platelet Count 382 k/uL (150-450); RBC 4.65 m/uL (4.30-5.90); RDW 12.8 % (11.5-15.5); WBC 9.7 k/uL (3.8-10.6)
[2017-10-13 10:13] LABS: ALT 59 U/L (21-72); AST 38 U/L (17-59); Alkaline Phosphatase 50 U/L (38-126); Anion Gap 12 mmol/L; Blood Urea Nitrogen 10 mg/dL (9-20); Calcium 9.2 mg/dL (8.4-10.2); Carbon Dioxide 26 mmol/L (22-30); Chloride 105 mmol/L (98-107); Glucose 125 mg/dL (74-99); Sodium 143 mmol/L (137-145); Total Bilirubin 0.8 mg/dL (0.2-1.3); Total Protein 6.4 g/dL (6.3-8.2)
--- NOTE | 2017-10-13 15:55 | P.HP ---
Psychiatric H&P - . H&P Date: 10/13/17 History & Physical: Allergies Allergy/AdvReac Type Severity Reaction Status Date / Time No Known Allergies Allergy Verified 10/12/17 12:54 Vital Signs Temp 98.2 F 10/13/17 06:58 Pulse 59 L 10/13/17 06:58 Resp 14 10/13/17 06:58 BP 96/51 10/13/17 06:58 Pulse Ox 97 10/12/17 18:20 Intake & Output 10/12/17 10/13/17 10/13/17 18:59 06:59 18:59 Weight 77.111 kg Laboratory Last Values WBC 9.7 k/uL (3.8-10.6) 10/13/17 09:09 RBC 4.65 m/uL (4.30-5.90) 10/13/17 09:09 Hgb 14.3 gm/dL (13.0-17.5) 10/13/17 09:09 Hct 42.4 % (39.0-53.0) 10/13/17 09:09 MCV 91.2 fL (80.0-100.0) 10/13/17 09:09 MCH 30.7 pg (25.0-35.0) 10/13/17 09:09 MCHC 33.7 g/dL (31.0-37.0) 10/13/17 09:09 RDW 12.8 % (11.5-15.5) 10/13/17 09:09 Plt Count 382 k/uL (150-450) 10/13/17 09:09 Neutrophils % 71 % 10/13/17 09:09 Lymphocytes % 23 % 10/13/17 09:09 Monocytes % 3 % 10/13/17 09:09 Eosinophils % 2 % 10/13/17 09:09 Basophils % 1 % 10/13/17 09:09 Neutrophils # 6.9 k/uL (1.3-7.7) 10/13/17 09:09 Lymphocytes # 2.2 k/uL (1.0-4.8) 10/13/17 09:09 Monocytes # 0.3 k/uL (0-1.0) 10/13/17 09:09 Eosinophils # 0.2 k/uL (0-0.7) 10/13/17 09:09 Basophils # 0.1 k/uL (0-0.2) 10/13/17 09:09 Sodium 143 mmol/L (137-145) 10/13/17 09:09 Potassium 4.0 mmol/L (3.5-5.1) 10/13/17 09:09 Chloride 105 mmol/L (98-107) 10/13/17 09:09 Carbon Dioxide 26 mmol/L (22-30) 10/13/17 09:09 Anion Gap 12 mmol/L 10/13/17 09:09 BUN 10 mg/dL (9-20) 10/13/17 09:09 Creatinine 0.73 mg/dL (0.66-1.25) 10/13/17 09:09 Est GFR (CKD-EPI)AfAm >90 (>60 ml/min/1.73 sqM) 10/13/17 09:09 Est GFR (CKD-EPI)NonAf >90 (>60 ml/min/1.73 sqM) 10/13/17 09:09 Glucose 125 mg/dL (74-99) H 10/13/17 09:09 Calcium 9.2 mg/dL (8.4-10.2) 10/13/17 09:09 Total Bilirubin 0.8 mg/dL (0.2-1.3) 10/13/17 09:09 AST 38 U/L (17-59) 10/13/17 09:09 ALT 59 U/L (21-72) 10/13/17 09:09 Alkaline Phosphatase 50 U/L (38-126) 10/13/17 09:09 Total Protein 6.4 g/dL (6.3-8.2) 10/13/17 09:09 Albumin 4.0 g/dL (3.5-5.0) 10/13/17 09:09 TSH 0.087 mIU/L (0.465-4.680) L 10/13/17 09:09 Urine Color Yellow 10/12/17 12:53 Urine Appearance Turbid (Clear) 10/12/17 12:53 Urine pH 6.0 (5.0-8.0) 10/12/17 12:53 Ur Specific [place] 1.031 (1.001-1.035) 10/12/17 12:53 Urine Protein 1+ (Negative) H 10/12/17 12:53 Urine Glucose (UA) Negative (Negative) 10/12/17 12:53 Urine Ketones 1+ (Negative) H 10/12/17 12:53 Urine Blood Negative (Negative) 10/12/17 12:53 Urine Nitrite Negative (Negative) 10/12/17 12:53 Urine Bilirubin Negative (Negative) 10/12/17 12:53 Urine Urobilinogen 2.0 mg/dL (<2.0) 10/12/17 12:53 Ur Leukocyte Esterase Negative (Negative) 10/12/17 12:53 Urine Bacteria Many /hpf (None) H 10/12/17 12:53 Urine Opiates Screen Not Detected (NotDetected) 10/12/17 12:53 Ur Oxycodone Screen Not Detected (NotDetected) 10/12/17 12:53 Urine Methadone Screen Not Detected (NotDetected) 10/12/17 12:53 Ur Propoxyphene Screen Not Detected (NotDetected) 10/12/17 12:53 Ur Barbiturates Screen Not Detected (NotDetected) 10/12/17 12:53 U Tricyclic Antidepress Not Detected (NotDetected) 10/12/17 12:53 Ur Phencyclidine Scrn Not Detected (NotDetected) 10/12/17 12:53 Ur Amphetamines Screen Detected (NotDetected) H 10/12/17 12:53 U Methamphetamines Scrn Not Detected (NotDetected) 10/12/17 12:53 U Benzodiazepines Scrn Not Detected (NotDetected) 10/12/17 12:53 Urine Cocaine Screen Not Detected (NotDetected) 10/12/17 12:53 U Marijuana (THC) Screen Detected (NotDetected) H 10/12/17 12:53 10/13/17 15:44 Identification: Patient is a 42-year-old male who was brought to the emergency room by police, he stated that he was God and was delusional. History of Present Illness: Patient states that he doesn't know why the police brought him to the emergency room, he stated to me that "I am God, creator trying to come up with having on earth". Patient states that he is met with every individual to try to overcome doctors and other professionals and come to terms with that. Patient states that he's telepathic that this is how people talk with him and he communicates with people through their minds. He denies that the TV inserts thoughts but states that it set to an anatomical frequency to communicate. He denies any paranoid ideation and states that he is not depressed or sad. He states that he sleeps about 4-6 hours a night. Patient states that he's been on Adderall since 2011 at that time he was placed on it by his primary care physician. States he was diagnosed as having ADD as a child but was never placed on medications. He states that currently he is prescribed Adderall by his primary care physician at 30 mg 3 times a day. Patient states that he attends he takes more Adderall than he should using up to 5 of them a day. Patient does not endorse a history of suicide attempts, states that he has never been treated for depression and does not describe any symptoms of depression, patient is unaware of why he is been admitted 3 times in the past. Patient's prior admissions have all been for similar presentation related to his use of amphetamines. Past Psychiatric History: Patient has 3 prior admissions his most recent being in November 2016 all related to his use of amphetamines. Patient states that he has never followed up with any aftercare once he is discharged. Past Medical/Surgical History: Patient denies any medical problems and states he is status post appendectomy and is status post fractured left ankle Family History: Patient denies any family history of psychiatric disorders or alcohol or drug use disorders and no completed suicides Social History: Patient was born and raised by parents who when he was in the second grade. His parents are currently alive. His mother remarried and he states he got along with the stepfather. States he had contact with his father after their divorce and has one sister. 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 Patient states that he was and and has an 18-year- old son with whom he has no contact. He states that he has no financial support currently but is independently wealthy is when he went to an [employer] machine recently the amount was too large to be printed on the receipt. Patient denies any history of abuse. He states that he lives on and off with his mother. Substance Use History: Patient denies any current alcohol use and states that he has never used it heavily in the past. He states that he uses marijuana daily since 1991. He denies any methamphetamine cocaine abuse or any IV drug use or any opiate or benzodiazepine abuse. Patient does overuse his Adderall at times using up to 1-2 extra a day to "relax and lighten up". Legal History: Patient has been charged with fleeing and eluding, he has been in shelter 4-5 times for failure to pay child support and other charges that he could not recall. Mental status: Appearance/Attitude: Patient is dressed in a hospital gown makes good eye contact and was cooperative. Behavior: Patient did not exhibit any psychomotor agitation or retardation. Speech/Language: Patient's speech was slightly pressured, he was coherent and spontaneous Thought Process: Patient was tangential, no evidence of loose association or flight of ideas Thought Content: Patient denied any auditory or visual hallucinations and denied any paranoid ideation. Patient did report that he was telepathic people talk to him that way and he communicates with people through their mind, patient also stated that he was God and a creator trying to come up with Piotr on earth. Patient also reported that he was independently wealthy when an [employer] machine receipt had an amount on a too large to print. 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 Patient states that he sleeps 4-6 hours a night. Suicidal/Homicidal Ideation: Patient denied any current suicidal or homicidal ideation. Sensorium/Cognition: Patient is alert and oriented to person, place, and time and his recent and remote memory are grossly intact Mood/Affect: Patient's mood is expansive, his affect is appropriate to his mood Insight/Judgment: Patient's insight and judgment are limited Intellectual Functioning: Intellectual functioning appears average Strength/Weakness: Patient's strengths per the patient are that he is God and he has no weaknesses Assessment: Patient presents with symptoms of grandiosity stating that he is God , is independently wealthy feels that he can communicate telepathically and he is presented on 3 prior occasions with similar symptoms. Patient has been using Adderall 90 mg a day and has been on it since 2011 prescribed by his primary care physician.In looking at [facility] patient filled Adderall 30 mg #90 on October 01, he received prior prescriptions on August 18 and May 12. Patient states that he abuses the Adderall at times taking 1-2 more than 3 he is prescribed daily. Patient states that he's been diagnosed with ADD by his primary care physician is received treatment since 2011 and has never received treatment prior to that. Patient uses marijuana on a daily basis since 1991. Patient after each of his prior discharges has never followed up with any aftercare. Admission Diagnosis: Substance-induced psychotic disorder, amphetamine use disorder, cannabis use disorder Plan: Patient was admitted on a voluntary basis, routine observation in group and activity therapy were ordered. Patient also had routine laboratory studies as well as a medical consultation were requested. Patient and I discussed the use of medication and he was agreeable to medication and I discussed the use and side effects of Zyprexa and will begin 5 mg at bedtime to target his psychotic symptoms. Patient requires hospitalization to stabilize his psychotic symptoms.
[2017-10-13] MEDS: OLANZapine ODT 5 MG TAB PO SCH (20:40)
[2017-10-14] MEDS: LORazepam 1 MG TAB PO SCH ×4 (09:25→22:10)
[2017-10-14] MEDS: BACITRACIN 500 UNIT/GM OINT 28.4 GM TUBE TOPICAL SCH ×2 (09:25→22:10)
[2017-10-14] MEDS: NICOTINE 14MG/24HR PATCH TRANSDERM SCH (09:25)
--- NOTE | 2017-10-14 13:45 | P.PN ---
Progress Note - Text Progress Note Date: 10/14/17 Interval History: Patient is a 42-year-old male who was seen today, he was sleeping in his room and was awakened and came to the interview room. Patient states that he's been sleeping since he took the medication last night. Patient reported that he is still communicating with others telepathically, still states he is God. He denies any auditory hallucinations. Patient denied any current suicidal or homicidal ideation. Mental Status: Appearance/Attitude: Patient is casually dressed, appears slightly drowsy and was cooperative. Behavior: Patient did not display any psychomotor agitation or retardation. Speech/Language: Patient's speech was of normal volume and rhythm, he was coherent Thought Process: Patient was goal-directed, his only responding to questions today due to being sleepy Thought Content: Patient denied auditory or visual hallucinations and continued to state that he was God, can communicate telepathically and is independently wealthy. Patient reports that after he took the Zyprexa last night he has been sleeping soundly. Patient states he was sleeping very little prior to coming into the hospital. Suicidal/Homicidal Ideation: Patient denies any current suicidal or homicidal ideation Sensorium/Cognition: Patient is alert and oriented to person, place, time and his recent and remote memory are grossly intact. Mood/Affect: Patient's mood remains expansive and his affect is appropriate to his mood Insight/Judgment: Patient's insight and judgment are fair Assessment: Patient hasn't taken his medication, patient states that he is sleeping much better, states he has been sleeping since he took the medication last night. Patient continues to report delusional ideation of grandiose nature. Patient denies any current suicidal or homicidal ideation and reports no side effects from the medication. Plan: Patient continued on Zyprexa 5 mg at bedtime to target his psychotic symptoms. Patient continues to require hospitalization to to stabilize his psychotic symptoms.
[2017-10-14] MEDS: OLANZapine ODT 5 MG TAB PO SCH (22:10)
[2017-10-14] MEDS: ACETAMINOPHEN TAB 325 MG TAB PO PRN (22:10)
[2017-10-15] MEDS: LORazepam 1 MG TAB PO SCH ×5 (10:10→20:35)
[2017-10-15] MEDS: NICOTINE 14MG/24HR PATCH TRANSDERM SCH ×2 (10:10→10:12)
[2017-10-15] MEDS: BACITRACIN 500 UNIT/GM OINT 28.4 GM TUBE TOPICAL SCH ×2 (10:10→20:35)
--- NOTE | 2017-10-15 11:43 | P.PN ---
Progress Note - Text Progress Note Date: 10/15/17 Interval History: Patient is a 42-year-old male is seen in his room as he refused to get up and laid on his side looking at the opposite wall. Patient stated that he slept and did attend groups late in the afternoon yesterday. He stated that he was tired again this morning but did sleep well last night. Patient when asked stated that he still is God, still communicates via telepathy and still is independently wealthy. Mental Status: Appearance/Attitude: Patient was lying in his hospital bed, refused to leave the room to come to the interview room and stayed on his side making no eye contact and was superficially cooperative Behavior: Patient did not exhibit any psychomotor agitation or retardation. Speech/Language: Patient's speech was not spontaneous, he only responded to my questions and his speech was of normal volume and rhythm. Thought Process: Patient's responses were very brief, non-elaborative Thought Content: Patient denied auditory or visual hallucinations, when asked he stated that he was still God, still communicated via telepathy and was so independently wealthy. Patient states that he attended groups late in the afternoon yesterday and did sleep well last night and was going to try to attend groups today Suicidal/Homicidal Ideation: Patient denied any current suicidal or homicidal ideation Sensorium/Cognition: Patient was alert and oriented to person, place, and time and his recent and remote memory are grossly intact Mood/Affect: Patient's mood was superficially cooperative, his affect was appropriate to his mood Insight/Judgment: Patient's insight and judgment are limited Assessment: Patient slept yesterday and eventually in the late afternoon attended groups and states that he slept well last night and was still tired this morning and was refusing to leave his room to come to the interview room. Patient continues to express delusional ideation that he had when he was admitted. Patient denied any suicidal or homicidal ideation at this time. Patient has been cooperative taking his medication. Plan: Patient continued on Zyprexa 5 mg at bedtime to continue to target his psychotic symptoms. Patient was encouraged to get up during the day and attend groups and activities. Patient continues to require hospitalization to further stabilize his psychotic symptoms.
[2017-10-15] MEDS: ACETAMINOPHEN TAB 325 MG TAB PO PRN ×2 (14:17→20:35)
[2017-10-15] MEDS: OLANZapine ODT 5 MG TAB PO SCH (20:35)
[2017-10-16] MEDS: LORazepam 1 MG TAB PO SCH ×4 (09:10→21:04)
[2017-10-16] MEDS: BACITRACIN 500 UNIT/GM OINT 28.4 GM TUBE TOPICAL SCH ×2 (09:11→20:15)
[2017-10-16] MEDS: NICOTINE 14MG/24HR PATCH TRANSDERM SCH (09:11)
--- NOTE | 2017-10-16 12:16 | P.PN ---
Progress Note - Text Progress Note Date: 10/16/17 Interval History: Patient is a 42-year-old male who was seen today and states that he is God, is independently wealthy and then told me that I was automatically going to hell and that he could not do it because I don't believe that he is God. Patient is unclear whether the medication Zyprexa has been helpful or not other than to help him sleep. Patient continues to feel that he doesn't need to be here and doesn't need medication and wondered when he was going to leave. Patient states that he was up earlier today and has been attending groups in the afternoon. Mental Status: Appearance/Attitude: Patient is casually dressed, makes good eye contact and is cooperative Behavior: Patient does not exhibit any psychomotor agitation or retardation. Speech/Language: Patient's speech is spontaneous of normal volume and rhythm and he is coherent Thought Process: Patient is goal-directed there is no evidence of loose association or flight of ideas. Thought Content: Patient denies any auditory or visual hallucinations and continues to state that he is God, independently wealthy and communicates via telepathy. Patient told me that I was automatically going to hell because I didn't believe he was God and he can't undo it. Patient states that he is been sleeping well and has been feeling less sedated during the day. Suicidal/Homicidal Ideation: Patient denied any current suicidal or homicidal ideation. Sensorium/Cognition: Patient is alert and oriented to person, place, and time and his recent and remote memory are grossly intact. Mood/Affect: Patient's mood is expansive and his affect is appropriate to his mood Insight/Judgment: Patient's insight and judgment are poor Assessment: Patient continues to express delusional ideation of a grandiose nature, he is sleeping less and states he is feeling less sedated during the day and has been attending groups and activities. Patient reports that he is not having any side effects from the medication but is still questioning whether he needs it or not. Patient states that he is eating. Plan: Patient's Zyprexa will be increased to 10 mg at bedtime to target his delusional ideation and he was encouraged to continue to attend groups and activities. Patient requires continued hospitalization to further stabilize his psychotic symptoms.
[2017-10-16] MEDS: OLANZapine ODT 10 MG TAB PO SCH (20:15)
[2017-10-16] MEDS: ACETAMINOPHEN TAB 325 MG TAB PO PRN (20:15)
[2017-10-17] MEDS: BACITRACIN 500 UNIT/GM OINT 28.4 GM TUBE TOPICAL SCH ×2 (08:49→20:10)
[2017-10-17] MEDS: NICOTINE 14MG/24HR PATCH TRANSDERM SCH (08:49)
[2017-10-17] MEDS: LORazepam 1 MG TAB PO SCH ×4 (08:50→21:18)
--- NOTE | 2017-10-17 11:08 | P.PN ---
Progress Note - Text Interval history: The patient is found in his room resting in bed. He is verbally arousable. He refuses to follow me to an interview room to speak. When asked why he is in the hospital he states "because I am God". He refuses to answer anymore questions regarding that statement. He has not been attending groups today. He indicates that he did eat breakfast and he indicates he has been compliant with medication. Mental status exam: The patient is an alert male lying in bed. He is dressed in hospital attire he has a disheveled appearance. Eye contact is poor. He demonstrates no spontaneous speech he selectively provides brief answers to some questions only. Based on his statement it appears he has grandiose delusional thinking. Insight and judgment are impaired. He demonstrates no verbal or physical aggressiveness he demonstrates no abnormal involuntary movements. Plan: The patient will continue on the Zyprexa as ordered. This will likely need to be titrated further. We will monitor him for safety. Vital signs reviewed.
[2017-10-17] MEDS: OLANZapine ODT 10 MG TAB PO SCH (20:10)
[2017-10-17] MEDS: ACETAMINOPHEN TAB 325 MG TAB PO PRN (22:02)
[2017-10-18] MEDS: LORazepam 1 MG TAB PO SCH ×4 (09:58→20:09)
[2017-10-18] MEDS: BACITRACIN 500 UNIT/GM OINT 28.4 GM TUBE TOPICAL SCH ×2 (09:58→20:08)
[2017-10-18] MEDS: NICOTINE 14MG/24HR PATCH TRANSDERM SCH (09:58)
--- NOTE | 2017-10-18 10:33 | P.PN ---
Progress Note - Text Interval history: The patient is found in his room he refuses to speak with me in an interview room. He states his mood is good. Again he states he was admitted here to the hospital so that the world could become aware that he is God. He states people who except him will benefit and those who reject him will perish. He has been compliant with his Zyprexa situs in the evening. He offers no objection to having me titrate the dose further. He appears to isolate in his room most of the day. He indicates that he did go down to eat breakfast. Mental status exam: The patient is lying in bed he makes no eye contact he does verbalize responses to questions asked. He has a disheveled appearance hygiene is impaired. He verbalizes grandiose delusions indicating that he is God. He reports no suicidal or homicidal ideation. Insight and judgment impaired. He demonstrates no verbal or physical aggressiveness. He demonstrates no abnormal involuntary movements. Plan: The patient will continue on the Zyprexa Zydis I will titrate this to 15 mg in the evening. This is being done to further address his symptoms of psychosis. We will monitor him for safety and encourage participation in the milieu.
[2017-10-18] MEDS: ACETAMINOPHEN TAB 325 MG TAB PO PRN ×3 (12:00→22:14)
[2017-10-18] MEDS: OLANZapine ODT 5 MG TAB PO SCH (20:09)
[2017-10-19] MEDS: NICOTINE 14MG/24HR PATCH TRANSDERM SCH ×2 (10:17→13:44)
[2017-10-19] MEDS: LORazepam 1 MG TAB PO SCH ×4 (10:17→21:04)
[2017-10-19] MEDS: BACITRACIN 500 UNIT/GM OINT 28.4 GM TUBE TOPICAL SCH ×2 (10:17→20:55)
--- NOTE | 2017-10-19 14:10 | P.PN ---
Progress Note - Text Progress Note Date: 10/19/17 I reviewed the medical record and interviewed Mr. Sin Is a 42-year-old male who has a history of a psychotic disorder and psychostimulant abuse. He presented to the unit on 10/12/2017 with agitation and grandiose delusional beliefs that he is God and the "creator". He was diagnosed with substance-induced mood disorder, psychostimulant use disorder and cannabis use disorder. His psychotic symptoms were treated with Ativan 1 mg 4 times a day and Zyprexa beginning with 5 mg at bedtime. He stated that he signed a notice to leave the hospital. He continues to maintain that he is God and wishes to leave the hospital to continue with his "work". He showed some insight in that he understands that we don't believe that he is God. He denied side effects to current medication. According to the MAR he has been compliant with the current dose of Zyprexa 15 mg at bedtime. He presented as a casually groomed middle-aged male who is laying comfortably in bed. She made eye contact and appeared to attend to the interview. He had no distinguishing features or prominent physical abnormalities. He had a blunted facial expression. He is alert and oriented to person, place and time. He showed slight psychomotor retardation but no abnormal movements. His speech was nonspontaneous and a decreased rhythm, rate and volume. He had no articulation difficulties. His affect was blunted but stable and appropriate. He denied suicidal ideation or wishes. He denied homicidal ideation. He denied such depressive cognitions as hopelessness , helplessness or worthlessness. He ruminated about his grandiose beliefs and expressed clear grandiose delusions. His thinking was concrete and associations were not fully coherent, logical and goal directed. He did not demonstrate neologisms, blocking or perseveration. He talked about hearing " the voice of God" but did not appear to be responding to internal stimuli. Impression: Psychostimulant induced psychotic disorder, self psychostimulant use disorder, rule out schizophrenia, rule out bipolar disorder Plan: Continue inpatient hospitalization due to the severity of psychotic symptoms. His "3 day notice" expires on 10/21/2017; discussed with the treatment team whether we should proceed with involuntary hospitalization. Continue Zyprexa 15 mg at bedtime and 5 mg by mouth twice a day when necessary for agitation. Decrease lorazepam to 1 mg 3 times a day and taper prior to discharge. Encourage participation in therapeutic groups and activities. bindery worker to coordinate disposition and aftercare.
[2017-10-19] MEDS: ACETAMINOPHEN TAB 325 MG TAB PO PRN ×2 (14:56→21:24)
[2017-10-19] MEDS: OLANZapine ODT 5 MG TAB PO SCH (20:54)
[2017-10-20] MEDS: LORazepam 1 MG TAB PO SCH ×2 (10:02→21:02)
[2017-10-20] MEDS: NICOTINE 14MG/24HR PATCH TRANSDERM SCH (10:02)
[2017-10-20] MEDS: BACITRACIN 500 UNIT/GM OINT 28.4 GM TUBE TOPICAL SCH ×2 (10:03→21:00)
--- NOTE | 2017-10-20 15:10 | P.PN ---
Progress Note - Text Progress Note Date: 10/20/17 I reviewed the medical record, interviewed the patient and discuss his treatment and treatment plan during team meeting. His only concern was discharged. He reminded me that he signed a "3 day notice" and plans to the hospitals as soon as possible. He continues to believe that he is God and referred himself as "the savior" and the L5 and omega" during our interview. He talked about having immense wealth and offered to give me $100 million if I would return 50 million back to him. He denies that he abuses Adderall and alleges that he takes the Adderall to achieve of a pentecostal experience and began talking about "atoms and molecules. " He presented as a casually groomed middle-aged male who was pleasant on approach. He was initially guarded but engaged in the interview. He made eye contact and appeared to attend to interview. He had no prominent physical abnormalities. He had a blunted but bright facial expression. He showed no abnormality of psychomotor activity. He had a normal gait. His speech was spontaneous with normal rate, rhythm and volume. He had no articulation difficulties. His affect was elevated but appropriate. He denied suicidal ideation or wishes. He denied homicidal ideation. He denied feeling hopeless, helpless or worthless. He did not express ideas reference or paranoid ideation he described multiple grandiose delusional beliefs. His thinking was concrete and associations were not fully organized, coherent and goal directed. He did not demonstrate clang associations, perseverations or neologisms. He denied hallucinations and did not appear to be responding to internal stimuli. He shows limited no awareness of his illness or need for mental health treatment. Impression: Psychotic disorder unspecified, rule out substance abuse psychotic disorder, rule out schizophrenia, rule out bipolar disorder. Plan: Continue inpatient hospitalization due to the severity of his psychotic symptoms. Evaluate the need for continued hospitalization and whether we ought to proceed with involuntary treatment order. Continue Zyprexa 50 mg at bedtime and 5 mg twice a day as needed for agitation. Continue to decrease lorazepam and discontinue lorazepam prior to discharge. Encourage participation in therapeutic groups and activities. Evaluate clinical status response to treatment on a daily basis.
[2017-10-20] MEDS: OLANZapine ODT 5 MG TAB PO SCH (21:02)
[2017-10-20] MEDS: ACETAMINOPHEN TAB 325 MG TAB PO PRN (21:04)
[2017-10-21] MEDS: BACITRACIN 500 UNIT/GM OINT 28.4 GM TUBE TOPICAL SCH ×2 (08:25→21:01)
[2017-10-21] MEDS: NICOTINE 14MG/24HR PATCH TRANSDERM SCH (08:25)
[2017-10-21] MEDS: LORazepam 1 MG TAB PO SCH ×2 (08:26→21:01)
--- NOTE | 2017-10-21 14:09 | P.PN ---
Progress Note - Text Progress Note Date: 10/21/17 I reviewed the medical record, interviewed the patient and discuss his treatment and treatment plan during team meeting. He continues to maintain that he is "God". He believes that he is immensely wealthy and has to ability to read the minds of other people. The correctional counselor/case manager obtained information that he was admitted to [facility] from 07/30/2017 2 08/05/2017 involuntarily. He deferred and the order remains effective until 11/18/2017. I explained situation and inform them that we will file a demand for hearing. In response she replied "then I can't leave tomorrow ... when will I be discharged". He denied side effects to Zyprexa 15 mg at bedtime. He presented as a disheveled-appearing 42-year-old male who was pleasant on approach.He made eye contact and appeared to attend to the interview. He had a blunted facial expression. He showed psychomotor retardation but no abnormal movements. His speech was spontaneous with normal rate, rhythm and volume. His affect was blunted but stable and appropriate. He denied suicidal ideation or wishes.He denied homicidal ideation. He did not express ideas reference or paranoid ideation. He continues to maintain grandiose delusional beliefs. His thinking was concrete and associations are at times not logical coherent. He denied hallucinations and did not appear to be responding to internal stimuli. Impression: Schizophrenia multiple episodes in partial remission, psychostimulant use disorder Plan: Continue inpatient hospitalization due to the severity of his psychotic symptoms. freezing room worker to submit at demand for hearing to convert the deferral to an involuntary treatment order. Continue Zyprexa 15 mg at bedtime and 5 mg twice a day when necessary for agitation. Continued to decrease lorazepam and discontinue prior to discharge. Encourage participation in therapeutic groups and activities. Evaluate current status response to treatment on a daily basis.
[2017-10-21] MEDS: ACETAMINOPHEN TAB 325 MG TAB PO PRN ×2 (15:47→23:45)
[2017-10-21] MEDS: OLANZapine ODT 5 MG TAB PO SCH (21:01)
[2017-10-22] MEDS: BACITRACIN 500 UNIT/GM OINT 28.4 GM TUBE TOPICAL SCH ×2 (10:05→20:38)
[2017-10-22] MEDS: NICOTINE 14MG/24HR PATCH TRANSDERM SCH (10:06)
--- NOTE | 2017-10-22 14:28 | P.PN ---
Progress Note - Text Progress Note Date: 10/22/17 I reviewed the medical record, attempted to talk to the patient and discuss his treatment and treatment plan during team meeting. He was angry and abrupt. He requested a prescription for melatonin complaining that he has difficulty falling asleep. He has a probate hearing for involuntary hospitalization scheduled for tomorrow. He presented as a casually groomed middle-aged male who is irritable. He made eye contact but did not cooperate with the interview. He had a irritable facial expression. He showed psychomotor retardation but no abnormal movements. Her speech was not spontaneous. His affect was irritable and angry. He did not express suicidal ideation, wishes or homicidal ideation. He did not express ideas reference or paranoid ideation. His thinking was concrete. Associations were coherent and logical. He did not appear to be responding to internal stimuli. Impression: he is more irritable, angry and uncooperative than on previous encounters. We suspect that this is related to the upcoming probate hearing., Subjective complaints of insomnia. Plan: Continue inpatient psychiatric hospitalization this is very to psychiatric symptoms. Continue olanzapine 15 mg at bedtime. Begin melatonin 5 mg at bedtime when necessary for sleep. Proceed with probate hearing for involuntary hospitalization. Encourage participation in therapeutic groups and activities. Evaluate clinical status response to treatment on a daily basis.
[2017-10-22] MEDS: OLANZapine ODT 5 MG TAB PO SCH (20:37)
[2017-10-22] MEDS: LORazepam 1 MG TAB PO SCH (20:37)
[2017-10-22] MEDS: ACETAMINOPHEN TAB 325 MG TAB PO PRN (20:38)
[2017-10-22] MEDS: MELATONIN 5 MG TABLET PO PRN (20:38)
[2017-10-23] MEDS: NICOTINE 14MG/24HR PATCH TRANSDERM SCH (08:35)
[2017-10-23] MEDS: BACITRACIN 500 UNIT/GM OINT 28.4 GM TUBE TOPICAL SCH ×2 (08:35→21:51)
--- NOTE | 2017-10-23 15:23 | P.PN ---
Subjective Progress Note Date: 10/23/17 Principal diagnosis: Unspecified psychosis disorder, rule out Schizophrenia, rule out schizoaffective disorder, rule out bipolar disorder with psychotic features, psychostimulant use disorder I reviewed the medical record, interviewed the patient and discuss his treatment and treatment plan during team meeting. He was anxious about his probate court hearing today. The social work therapist informed team that the hearing was rescheduled for November 04. The patient continues to maintain the chronic grandiose delusional belief that he is "God" and that he is immensely wealthy. When I asked about the source of he wealth he talked about having invented money. After he leaves the hospital he plans to buy a bus ticket and moved to [place]. He has no friends or family in [place] and has made no advance plans or perseveration. Objective - Vital Signs Vital signs: Vital Signs Temp 97.7 F 10/23/17 06:11 Pulse 63 10/23/17 06:11 Resp 16 10/23/17 06:11 BP 125/70 10/23/17 06:11 Pulse Ox 97 10/12/17 18:20 Intake & Output 10/22/17 10/23/17 10/23/17 18:59 06:59 18:59 Weight 90.4 kg - Psychiatric Psychiatric Comment(s): He presented as a casually groomed 42-year-old male who was pleasant on approach. He made eye contact and appeared to attend to the interview. He had no distinguishing features or prominent physical maladies. He had a bright facial expression. He was alert and oriented to person, place and time. He showed no abnormality of psychomotor activity. He is not agitated or restless. He had no abnormal movements. His speech was spontaneous with slight decrease in volume but normal rhythm. His affect was blunted but stable and appropriate. He denied suicidal ideation, wishes or homicidal ideation. He did not express feelings of hopelessness, helplessness or worthlessness. He ruminated about his upcoming court date. He expressed grandiose delusions and overvalued grandiose ideas. His thinking was concrete and associations were not times coherent, logical and goal directed. He has no insight or understanding of his illness or need for treatment. - Labs CBC & Chem 7: 10/13/17 09:09 10/13/17 09:09 Assessment and Plan (1) Psychotic disorder Current Visit: Yes Status: Acute Priority: High Code(s): F29 - UNSP PSYCHOSIS NOT DUE TO A SUBSTANCE OR KNOWN PHYSIOL COND SNOMED Code(s): 55725455 Plan: Continue inpatient psychiatric hospitalization pending the probate hearing for involuntary hospitalization. Continue Zyprexa 50 mg at bedtime. Encouraged continued participation in therapeutic groups and activities. Evaluate clinical status response to treatment on a daily basis.
[2017-10-23] MEDS: LORazepam 1 MG TAB PO SCH (20:56)
[2017-10-23] MEDS: MELATONIN 5 MG TABLET PO PRN (20:56)
[2017-10-23] MEDS: ACETAMINOPHEN TAB 325 MG TAB PO PRN (20:59)
[2017-10-23] MEDS: OLANZapine ODT 5 MG TAB PO SCH (21:00)
[2017-10-24] MEDS: NICOTINE 14MG/24HR PATCH TRANSDERM SCH (08:53)
[2017-10-24] MEDS: BACITRACIN 500 UNIT/GM OINT 28.4 GM TUBE TOPICAL SCH ×2 (08:54→20:54)
--- NOTE | 2017-10-24 19:21 | P.PN ---
Progress Note - Text Progress Note Date: 10/24/17 Patient reports being compliant with his medications. REPorts stable moods since being started on the medications. He reports good sleep and appetite. No anger or agitation or irritability reported. Denies symptoms of depression. Reports going to all his groups. He believes he is ready for discharge. He stated he'll be going to his home which is right across the hospital. When asked about the names of his medications he stated he takes Trileptal and acamprosate. Her medical records he takes Zyprexa. He reports he takes vicodin for back pain and rates his pain as 7 out of 10 today 1 being best and 10 being worst. 42-year-old male. He appeared His stated age in fair grooming and hygiene. No abnormal movements noted. He maintains good eye contact. Speech is normal rate and tone and volume. Thought process is goal directed.. His mood is reported as good and affect appropriate. He denies current auditory or visual hallucinations. He denies paranoia. He is alert and oriented 4. Bipolar disorder. Continue Zyprexa 50 mg at bedtime. Monitor for symptoms
[2017-10-24] MEDS: ACETAMINOPHEN TAB 325 MG TAB PO PRN (20:50)
[2017-10-24] MEDS: MELATONIN 5 MG TABLET PO PRN (20:51)
[2017-10-24] MEDS: OLANZapine ODT 5 MG TAB PO SCH (20:53)
[2017-10-24] MEDS: LORazepam 1 MG TAB PO SCH (20:53)
[2017-10-25] MEDS: BACITRACIN 500 UNIT/GM OINT 28.4 GM TUBE TOPICAL SCH ×2 (10:22→20:28)
[2017-10-25] MEDS: NICOTINE 14MG/24HR PATCH TRANSDERM SCH ×2 (10:22→14:24)
[2017-10-25] MEDS: ACETAMINOPHEN TAB 325 MG TAB PO PRN ×2 (14:24→20:21)
--- NOTE | 2017-10-25 18:09 | P.PN ---
Progress Note - Text Progress Note Date: 10/25/17 Patient was seen today. Apologized for being angry yesterday. His court hearing is scheduled for 11/04/2017. He stated he is trying his best to stay calm in the hospital. Reports going to a few groups only. He reports good sleep and appetite. He reports being compliant with his medications. No side effects reported. He denies symptoms of depression, anger or agitation. 42-year-old male, appears his stated age in fair grooming and hygiene. He maintains good eye contact. No abnormal movements noted. His speech and thought processes are linear and goal directed. He denies current auditory or visual hallucinations. Baseline delusions. Nice current suicidal or homicidal ideations. Alert and oriented 4. Sight and judgment improving. Continue Zyprexa 50 mg by mouth daily [address] hearing on 11/04/2017 Monitor For symptoms. Encourage participation in [place] [facility] and therapeutic groups.
[2017-10-25] MEDS: LORazepam 1 MG TAB PO SCH (20:21)
[2017-10-25] MEDS: MELATONIN 5 MG TABLET PO PRN (20:22)
[2017-10-25] MEDS: OLANZapine ODT 5 MG TAB PO SCH (21:01)
[2017-10-26] MEDS: NICOTINE 14MG/24HR PATCH TRANSDERM SCH (09:53)
[2017-10-26] MEDS: BACITRACIN 500 UNIT/GM OINT 28.4 GM TUBE TOPICAL SCH ×2 (09:53→20:49)
--- NOTE | 2017-10-26 13:38 | P.PN ---
Subjective Progress Note Date: 10/26/17 Principal diagnosis: Unspecified psychosis disorder, rule out Schizophrenia, rule out schizoaffective disorder, rule out bipolar disorder with psychotic features, psychostimulant use disorder I reviewed the medical record, interviewed the patient and discuss his treatment and treatment plan during team meeting. He stated that he is waiting his "court hearing". He denied other problems or concerns. He did not voluntarily talk about his chronic grandiose delusional belief that he is "God" and that he is immensely wealthy. He denied that he plans to move to [place] after he leaves the hospital. He stated that he will live with his mother in [place] until he is able to afford his own apartment. Objective - Vital Signs Vital signs: Vital Signs Temp 97.9 F 10/26/17 06:30 Pulse 69 10/26/17 06:30 Resp 16 10/26/17 06:30 BP 104/58 10/26/17 06:30 Pulse Ox 97 10/12/17 18:20 Intake & Output 10/25/17 10/26/17 10/26/17 18:59 06:59 18:59 Weight 93.3 kg - Psychiatric Psychiatric Comment(s): He presented as a casually groomed 42-year-old male who was pleasant on approach. He made eye contact and appeared to attend to the interview. He had no distinguishing features or prominent physical maladies. He had a bright facial expression. He was alert and oriented to person, place and time. He showed no abnormality of psychomotor activity. He is not agitated or restless. He had no abnormal movements. His speech was spontaneous with slight decrease in volume but normal rhythm. His affect was blunted but stable and appropriate. He denied suicidal ideation, wishes or homicidal ideation. He did not express feelings of hopelessness, helplessness or worthlessness. He did not express the grandiose delusions and overvalued grandiose ideas. His thinking was concrete and associations were not times coherent, logical and goal directed. He has no insight or understanding of his illness or need for treatment. - Labs CBC & Chem 7: 10/13/17 09:09 10/13/17 09:09 Assessment and Plan (1) Psychotic disorder Current Visit: Yes Status: Acute Priority: High Code(s): F29 - UNSP PSYCHOSIS NOT DUE TO A SUBSTANCE OR KNOWN PHYSIOL COND SNOMED Code(s): 85245021 Plan: Continue inpatient psychiatric hospitalization pending the probate hearing for involuntary hospitalization. Continue Zyprexa 15 mg at bedtime. Discuss transitioning to an antipsychotic such as paliperidone or aripiprazole that can be administered as a long acting injectable. Encouraged continued participation in therapeutic groups and activities. Evaluate clinical status response to treatment on a daily basis.
[2017-10-26] MEDS: ACETAMINOPHEN TAB 325 MG TAB PO PRN ×2 (13:55→20:49)
[2017-10-26] MEDS: MELATONIN 5 MG TABLET PO PRN (20:49)
[2017-10-26] MEDS: LORazepam 1 MG TAB PO SCH (20:49)
[2017-10-26] MEDS: OLANZapine ODT 5 MG TAB PO SCH (21:15)
[2017-10-27] MEDS: BACITRACIN 500 UNIT/GM OINT 28.4 GM TUBE TOPICAL SCH ×2 (09:42→19:54)
[2017-10-27] MEDS: NICOTINE 14MG/24HR PATCH TRANSDERM SCH ×2 (09:54→12:39)
[2017-10-27] MEDS: ACETAMINOPHEN TAB 325 MG TAB PO PRN ×2 (12:40→19:55)
--- NOTE | 2017-10-27 13:59 | P.PN ---
Subjective Progress Note Date: 10/27/17 Principal diagnosis: Unspecified psychosis disorder, rule out Schizophrenia, rule out schizoaffective disorder, rule out bipolar disorder with psychotic features, psychostimulant use disorder I reviewed the medical record, interviewed the patient and discuss his treatment and treatment plan during team meeting. He denied problems or concerns other than wishing to be discharged. He did not voluntarily talk about his chronic grandiose delusional belief that he is "God" and that he is immensely wealthy. He plans to live with his mother after discharge and when I asked about his financial status replies that he has no income or money. He alleged that he lost his Social Security when he attended [facility] because "they said I had no problems." He is opposed a long acting injectable antipsychotic medication. Objective - Vital Signs Vital signs: Vital Signs Temp 97.8 F 10/27/17 06:30 Pulse 69 10/27/17 06:30 Resp 14 10/27/17 06:30 BP 99/54 10/27/17 06:30 Pulse Ox 97 10/12/17 18:20 - Psychiatric Psychiatric Comment(s): He presented as a casually groomed 42-year-old male who was pleasant on approach. He was laying in bed and would not get out of bed for the interview. He made eye contact and appeared to attend to the interview. He had no distinguishing features or prominent physical maladies. He had a blunted but bright facial expression. He was alert and oriented to person, place and time. He showed psychomotor retardation but no abnormal movements. His speech was not spontaneous and had decrease in volume and normal rhythm. His affect was blunted but stable and appropriate. He denied suicidal ideation , wishes or homicidal ideation. He did not express feelings of hopelessness, helplessness or worthlessness. He did not express the grandiose delusions and overvalued grandiose ideas. His thinking was concrete and associations appeared coherent, logical and goal directed. He has no insight or understanding of his illness or need for treatment. - Labs CBC & Chem 7: 10/13/17 09:09 10/13/17 09:09 Assessment and Plan Assessment: He is not as preoccupied with his chronic grandiose delusional beliefs been on admission. Overall, he appears moderately mentally ill remarkably improve from admission. (1) Psychotic disorder Current Visit: Yes Status: Acute Priority: High Code(s): F29 - UNSP PSYCHOSIS NOT DUE TO A SUBSTANCE OR KNOWN PHYSIOL COND SNOMED Code(s): 40089682 Plan: Continue inpatient psychiatric hospitalization pending the probate hearing for involuntary hospitalization. Continue Zyprexa 15 mg at bedtime. Continue to discuss transitioning to an antipsychotic such as paliperidone or aripiprazole that can be administered as a long acting injectable. Encouraged continued participation in therapeutic groups and activities. Evaluate clinical status response to treatment on a daily basis.
[2017-10-27] MEDS: LORazepam 1 MG TAB PO SCH (19:54)
[2017-10-27] MEDS: MELATONIN 5 MG TABLET PO PRN (19:55)
[2017-10-27] MEDS ORDERED: OLANZapine ODT 10 MG TAB PO ONE (20:00)
[2017-10-27] MEDS ORDERED: OLANZapine ODT 5 MG TAB PO ONE (21:00)
[2017-10-28] MEDS: ACETAMINOPHEN TAB 325 MG TAB PO PRN ×3 (00:09→20:40)
[2017-10-28] MEDS: BACITRACIN 500 UNIT/GM OINT 28.4 GM TUBE TOPICAL SCH ×2 (08:06→20:47)
[2017-10-28] MEDS: NICOTINE 14MG/24HR PATCH TRANSDERM SCH (08:06)
--- NOTE | 2017-10-28 14:29 | P.PN ---
Subjective Progress Note Date: 10/28/17 Principal diagnosis: Unspecified psychosis disorder, rule out Schizophrenia, rule out schizoaffective disorder, rule out bipolar disorder with psychotic features, psychostimulant use disorder I reviewed the medical record, interviewed the patient and discuss his treatment and treatment plan during team meeting. He again denied problems or concerns other than wishing to be discharged. He did not voluntarily talk about his chronic grandiose delusional belief that he is "God" and that he is immensely wealthy. He was minimally cooperative with the interview and on response to questions he reported that we "we'll have to see what the hand chain maker says " (referring to the Probate court hearing scheduled for 11/04/2017) He is opposed a long acting injectable antipsychotic medication. Objective - Vital Signs Vital signs: Vital Signs Temp 97.5 F L 10/28/17 00:06 Pulse 94 10/28/17 00:06 Resp 16 10/28/17 00:06 BP 116/64 10/28/17 00:06 Pulse Ox 97 10/12/17 18:20 - Psychiatric Psychiatric Comment(s): He presented as a casually groomed 42-year-old male who was pleasant on approach. He was laying in bed and would not get out of bed for the interview. He made eye contact and appeared to attend to the interview. He had no distinguishing features or prominent physical maladies. He had a blunted but bright facial expression. He was alert and oriented to person, place and time. He showed psychomotor retardation but no abnormal movements. His speech was not spontaneous and had decrease in volume and normal rhythm. His affect was blunted but stable and appropriate. He denied suicidal ideation , wishes or homicidal ideation. He did not express feelings of hopelessness, helplessness or worthlessness. He did not express the grandiose delusions and overvalued grandiose ideas. His thinking was concrete and associations appeared coherent, logical and goal directed. He has no insight or understanding of his illness or need for treatment. - Labs CBC & Chem 7: 10/13/17 09:09 10/13/17 09:09 Assessment and Plan Assessment: Overall, he appears moderately mentally ill and minimally to much improved from admission. (1) Psychotic disorder Current Visit: Yes Status: Acute Priority: High Code(s): F29 - UNSP PSYCHOSIS NOT DUE TO A SUBSTANCE OR KNOWN PHYSIOL COND SNOMED Code(s): 45645307 Plan: Continue inpatient psychiatric hospitalization pending the probate hearing for involuntary hospitalization. Continue Zyprexa 15 mg at bedtime. Continue to discuss transitioning to an antipsychotic such as paliperidone or aripiprazole that can be administered as a long acting injectable. Encouraged continued participation in therapeutic groups and activities. Evaluate clinical status response to treatment on a daily basis.
[2017-10-28] MEDS: MELATONIN 5 MG TABLET PO PRN (20:41)
[2017-10-28] MEDS: OLANZapine ODT 5 MG TAB PO SCH (20:47)
[2017-10-28] MEDS: LORazepam 1 MG TAB PO SCH (21:33)
[2017-10-29] MEDS: NICOTINE 14MG/24HR PATCH TRANSDERM SCH ×2 (09:28→12:14)
[2017-10-29] MEDS: BACITRACIN 500 UNIT/GM OINT 28.4 GM TUBE TOPICAL SCH ×2 (09:28→20:36)
[2017-10-29] MEDS: ACETAMINOPHEN TAB 325 MG TAB PO PRN ×2 (12:15→20:37)
--- NOTE | 2017-10-29 14:14 | P.PN ---
Subjective Progress Note Date: 10/29/17 Principal diagnosis: Unspecified psychosis disorder, rule out Schizophrenia, rule out schizoaffective disorder, rule out bipolar disorder with psychotic features, psychostimulant use disorder I reviewed the medical record, interviewed the patient and discuss his treatment and treatment plan during team meeting. He participates in some afternoon groups but spends most of his time alone in his room. He again denied problems or concerns other than wishing to be discharged. He continues to believe that he is God and when I challenged the belief he stated that I face eternal damnation for not recognizing him as god. Objective - Vital Signs Vital signs: Vital Signs Temp 97.6 F 10/29/17 06:30 Pulse 65 10/29/17 06:30 Resp 16 10/29/17 06:30 BP 117/56 10/29/17 06:30 Pulse Ox 97 10/12/17 18:20 - Psychiatric Psychiatric Comment(s): He presented as a casually groomed 42-year-old male who was pleasant on approach. He was laying in bed and would not get out of bed for the interview. He made eye contact and appeared to attend to the interview. He had no distinguishing features or prominent physical maladies. He had a blunted but bright facial expression. He was alert and oriented to person, place and time. He showed psychomotor retardation but no abnormal movements. His speech was not spontaneous and had decrease in volume and normal rhythm. His affect was blunted but stable and appropriate. He denied suicidal ideation , wishes or homicidal ideation. He did not express feelings of hopelessness, helplessness or worthlessness. He maintains an unshakable that he is the supreme being. His thinking was concrete and associations appeared coherent, logical and goal directed. He has no insight or understanding of his illness or need for treatment. - Labs CBC & Chem 7: 10/13/17 09:09 10/13/17 09:09 Assessment and Plan (1) Psychotic disorder Current Visit: Yes Status: Acute Priority: High Code(s): F29 - UNSP PSYCHOSIS NOT DUE TO A SUBSTANCE OR KNOWN PHYSIOL COND SNOMED Code(s): 27357069 Plan: Continue inpatient psychiatric hospitalization pending the probate hearing for involuntary hospitalization. Continue Zyprexa 15 mg at bedtime. Continue to discuss transitioning to an antipsychotic such as paliperidone or aripiprazole that can be administered as a long acting injectable. Encouraged continued participation in therapeutic groups and activities. Evaluate clinical status response to treatment on a daily basis.
[2017-10-29] MEDS: OLANZapine ODT 5 MG TAB PO SCH (20:37)
[2017-10-29] MEDS: MELATONIN 5 MG TABLET PO PRN (20:37)
[2017-10-29] MEDS: LORazepam 1 MG TAB PO SCH (20:37)
[2017-10-30] MEDS: BACITRACIN 500 UNIT/GM OINT 28.4 GM TUBE TOPICAL SCH ×2 (09:15→20:07)
[2017-10-30] MEDS: NICOTINE 14MG/24HR PATCH TRANSDERM SCH ×2 (09:15→09:24)
[2017-10-30] MEDS: ACETAMINOPHEN TAB 325 MG TAB PO PRN ×3 (09:25→21:46)
--- NOTE | 2017-10-30 11:18 | P.PN ---
Subjective Progress Note Date: 10/30/17 Principal diagnosis: Unspecified psychosis disorder, rule out Schizophrenia, rule out schizoaffective disorder, rule out bipolar disorder with psychotic features, psychostimulant use disorder I reviewed the medical record, interviewed the patient and discuss his treatment and treatment plan during team meeting. He participates in some afternoon groups but spends most of his time alone in his room. He came to my office for the interview today. He complained about the length of the hospitalization and feels "bored" in the hospital. He maintained the belief that he is God and the creator "of all things". He regrets that we do not recognize his status and as a result face eternal damned for our lack of belief. We reviewed his medications and he consented to a trial of Abilify and a transition to Abilify Maintena. He stated that he took Abilify "in the past" and experienced no adverse effects (although he stated "like all our medications " it did not work). Objective - Vital Signs Vital signs: Vital Signs Temp 97.8 F 10/29/17 20:37 Pulse 86 10/29/17 20:37 Resp 15 10/29/17 20:37 BP 126/78 10/29/17 20:37 Pulse Ox 97 10/12/17 18:20 - Psychiatric Psychiatric Comment(s): He presented as a casually dressed and neatly groomed 42-year-old male who was pleasant on approach. He made eye contact and appeared to attend to the interview. He had no distinguishing features or prominent physical abnormalities. He had a blunted facial expression. He was alert and oriented to person, place and time. He showed slight psychomotor retardation but no abnormal movements. His gait was slow and steady. His speech was spontaneous with slight decrease in rate, rhythm and volume. His affect was blunted and slightly irritable. He denied suicidal ideation or wishes. He denied homicidal ideation. He feels hopeless and helpless regarding this hospitalization and the forthcoming probate hearing. He did not express ideas reference or clear paranoid ideation. He maintains a grandiose delusional belief that he is God and a men's wealthy. His thinking was concrete and associations were organized and internally consistent. He denied hallucinations and did not appear to be responding to internal stimuli. - Labs CBC & Chem 7: 10/13/17 09:09 10/13/17 09:09 Assessment and Plan Assessment: Overall, he appears moderately mentally ill and minimally to much improved from admission. (1) Psychotic disorder Current Visit: Yes Status: Acute Priority: High Code(s): F29 - UNSP PSYCHOSIS NOT DUE TO A SUBSTANCE OR KNOWN PHYSIOL COND SNOMED Code(s): 38807423 Plan: Continue inpatient psychiatric hospitalization pending the probate hearing for involuntary hospitalization. Decrease Zyprexa to 5 mg at bedtime and begin Abilify 10 mg by mouth daily at bedtime. Begin Abilify Maintena 400 mg IM if he experienced no adverse effects to the oral Abilify. Encouraged continued participation in therapeutic groups and activities. Evaluate clinical status response to treatment on a daily basis.
[2017-10-30] MEDS: MELATONIN 5 MG TABLET PO PRN (20:06)
[2017-10-30] MEDS: ARIPiprazole 10 MG TAB PO SCH (20:06)
[2017-10-30] MEDS: LORazepam 1 MG TAB PO SCH (20:06)
[2017-10-30] MEDS ORDERED: OLANZapine ODT 5 MG TAB PO SCH (21:00)
[2017-10-31] MEDS: NICOTINE 14MG/24HR PATCH TRANSDERM SCH ×2 (08:47→13:45)
[2017-10-31] MEDS: BACITRACIN 500 UNIT/GM OINT 28.4 GM TUBE TOPICAL SCH ×2 (08:47→20:18)
[2017-10-31] MEDS ORDERED: IBUPROFEN 800 MG TAB PO ONE (15:15)
[2017-10-31] MEDS: ARIPiprazole 10 MG TAB PO SCH (20:16)
[2017-10-31] MEDS: OLANZapine ODT 10 MG TAB PO SCH (20:16)
[2017-10-31] MEDS: ACETAMINOPHEN TAB 325 MG TAB PO PRN (20:16)
[2017-10-31] MEDS: LORazepam 1 MG TAB PO SCH (20:16)
[2017-10-31] MEDS: MELATONIN 5 MG TABLET PO PRN (20:16)
[2017-10-31] MEDS: IBUPROFEN 800 MG TAB PO SCH (20:17)
--- NOTE | 2017-10-31 20:41 | PN ---
PROGRESS NOTE DATE OF SERVICE: 10/31/2017 CHIEF COMPLAINT: The patient was admitted for having delusional thoughts and disorganized behavior. He was admitted on petition for involuntary hospitalization. INTERVAL HISTORY: Patient has been doing fairly well. He had a quiet evening last night. He slept fairly well today. He has been up. He comes out in the day area. He attends groups sporadically. Mostly he seems to keep to himself. He will spend a fair amount of time in his room. He does not interact too much with others. He has been cooperative with staff. We reviewed issues in regard to his court-ordered status. He does have a hearing coming up. He says that he is comfortable taking medications as prescribed. He does have complaint of left shoulder pain. He has not had other change in his general health. He tolerates his psychotropic medications. MENTAL STATUS: Patient gave good eye contact. Psychomotor activity was a little restless. His speech was clear. He answered questions with direct responses. He did make comments that were outside of reality. His mood was even. He did not appear to be distressed. ASSESSMENT: I will continue the current diagnosis and treatment plan. I will continue psychotropic medications the same. I will start the patient on Motrin 800 mg 3 times a day. I discussed management issues for his left shoulder pain and some exercises that he can do, including some therapeutic walking to help improve mobility and range of motion. I also encouraged him to use ice 3 or 4 times a day. I reviewed issues related to his court-ordered status. We will continue to focus on stabilization and discharge planning. RIVERA / JOHNN: [id number] /
[2017-10-31] MEDS ORDERED: IBUPROFEN 800 MG TAB PO SCH (22:00)
[2017-11-01] MEDS: IBUPROFEN 800 MG TAB PO SCH ×3 (09:54→20:22)
[2017-11-01] MEDS: NICOTINE 14MG/24HR PATCH TRANSDERM SCH (09:54)
[2017-11-01] MEDS: BACITRACIN 500 UNIT/GM OINT 28.4 GM TUBE TOPICAL SCH ×2 (09:54→20:22)
[2017-11-01] MEDS: LORazepam 1 MG TAB PO SCH (20:21)
[2017-11-01] MEDS: OLANZapine ODT 10 MG TAB PO SCH (20:22)
[2017-11-01] MEDS: ARIPiprazole 10 MG TAB PO SCH (20:22)
[2017-11-01] MEDS: MELATONIN 5 MG TABLET PO PRN (20:23)
[2017-11-02] MEDS: NICOTINE 14MG/24HR PATCH TRANSDERM SCH (08:14)
[2017-11-02] MEDS: IBUPROFEN 800 MG TAB PO SCH ×3 (08:14→20:16)
[2017-11-02] MEDS: BACITRACIN 500 UNIT/GM OINT 28.4 GM TUBE TOPICAL SCH ×2 (08:25→20:17)
[2017-11-02] MEDS ORDERED: ARIPiprazole 400 MG VIAL (NO CHARGE) IM ONE (13:28)
[2017-11-02] MEDS: ACETAMINOPHEN TAB 325 MG TAB PO PRN (13:35)
--- NOTE | 2017-11-02 13:35 | P.PN ---
Subjective Progress Note Date: 11/02/17 Principal diagnosis: Unspecified psychosis disorder, rule out Schizophrenia, rule out schizoaffective disorder, rule out bipolar disorder with psychotic features, psychostimulant use disorder I reviewed the medical record, interviewed the patient and discuss his treatment and treatment plan during team meeting. He participates in some afternoon groups but spends most of his time alone in his room. He came to my office for the interview today. He again complained about the length of the hospitalization and feels "bored" in the hospital. He is concerned about the forthcoming probate hearing because "other patients" told that he could be here "for 3 years." He did not talk about being "commit" or the "supreme being". 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 Gave a disjointed description of his "interventions" and talked about inventing " flying cars with brakes", converting water to wine and genetically in breeding plants and animals. He denied side effects to the [facility] and agreed to proceed with [facility]. Objective - Vital Signs Vital signs: Vital Signs Temp 97.8 F 10/29/17 20:37 Pulse 90 11/01/17 16:14 Resp 16 10/31/17 13:40 BP 111/76 11/01/17 16:14 Pulse Ox 97 10/12/17 18:20 Intake & Output 11/01/17 11/02/17 11/02/17 18:59 06:59 18:59 Weight 95.5 kg - Psychiatric Psychiatric Comment(s): He presented as a casually dressed and neatly groomed 42-year-old male who was pleasant on approach. He made eye contact and appeared to attend to the interview. He had no distinguishing features or prominent physical abnormalities. He had a blunted facial expression. He was alert and oriented to person, place and time. He showed slight psychomotor retardation but no abnormal movements. His gait was slow and steady. His speech was spontaneous with slight decrease in rate, rhythm and volume. His affect was blunted, stable and appropriate. He denied suicidal ideation or wishes. He denied homicidal ideation. He denied feeling hopeless, helpless or worthless.. He did not express ideas reference or clear paranoid ideation. He described a disjointed delusional beliefs about special mccauley and abilities. His thinking was concrete and associations were organized and internally consistent. He denied hallucinations and did not appear to be responding to internal stimuli. - Labs CBC & Chem 7: 10/13/17 09:09 10/13/17 09:09 Assessment and Plan Assessment: Overall, he appears moderately mentally ill and minimally to much improved from admission. (1) Psychotic disorder Current Visit: Yes Status: Acute Priority: High Code(s): F29 - UNSP PSYCHOSIS NOT DUE TO A SUBSTANCE OR KNOWN PHYSIOL COND SNOMED Code(s): 31532201 Plan: Continue inpatient psychiatric hospitalization pending the probate hearing for involuntary hospitalization. Discontinue Zyprexa to 5 mg at bedtime, continue Abilify 10 mg by mouth daily at bedtime. Begin Abilify Maintena 400 mg IM today. Encouraged continued participation in therapeutic groups and activities. Evaluate clinical status response to treatment on a daily basis.
[2017-11-02] MEDS: ARIPiprazole 10 MG TAB PO SCH (20:16)
[2017-11-02] MEDS: MELATONIN 5 MG TABLET PO PRN (20:16)
[2017-11-02] MEDS: LORazepam 1 MG TAB PO SCH (20:16)
[2017-11-03] MEDS: IBUPROFEN 800 MG TAB PO SCH ×3 (08:12→20:37)
[2017-11-03] MEDS: BACITRACIN 500 UNIT/GM OINT 28.4 GM TUBE TOPICAL SCH ×2 (08:12→20:39)
[2017-11-03] MEDS: NICOTINE 14MG/24HR PATCH TRANSDERM SCH (08:12)
--- NOTE | 2017-11-03 14:30 | P.PN ---
Subjective Progress Note Date: 11/03/17 Principal diagnosis: Unspecified psychosis disorder, rule out Schizophrenia, rule out schizoaffective disorder, rule out bipolar disorder with psychotic features, psychostimulant use disorder I reviewed the medical record, interviewed the patient and discuss his treatment and treatment plan during team meeting. He participates in some afternoon groups but spends most of his time alone in his room. He denied problems and concerns with and wishing to leave the hospital. He denied side effect to Abilify or adverse reaction to his first injection of Abilify Maintaina. He did not volunteer information about his chronic delusional beliefs. Objective - Vital Signs Vital signs: Vital Signs Temp 97.9 F 11/03/17 06:31 Pulse 71 11/03/17 06:31 Resp 14 11/03/17 06:31 BP 103/58 11/03/17 06:31 Pulse Ox 97 10/12/17 18:20 - Psychiatric Psychiatric Comment(s): He presented as a casually dressed and neatly groomed 42-year-old male who was pleasant on approach. He made eye contact and appeared to attend to the interview. He had no distinguishing features or prominent physical abnormalities. He had a blunted facial expression. He was alert and oriented to person, place and time. He showed slight psychomotor retardation but no abnormal movements. His gait was slow and steady. His speech was spontaneous with slight decrease in rate, rhythm and volume. His affect was blunted, stable and appropriate. He denied suicidal ideation or wishes. He denied homicidal ideation. He denied feeling hopeless, helpless or worthless.. He did not express ideas reference or clear paranoid ideation. He did not talk about his chronic delusional beliefs about special mccauley and abilities. His thinking was concrete and associations were organized and internally consistent. He denied hallucinations and did not appear to be responding to internal stimuli. - Labs CBC & Chem 7: 10/13/17 09:09 10/13/17 09:09 Assessment and Plan Assessment: Overall, he appears moderately mentally ill and minimally to much improved from admission. (1) Psychotic disorder Current Visit: Yes Status: Acute Priority: High Code(s): F29 - UNSP PSYCHOSIS NOT DUE TO A SUBSTANCE OR KNOWN PHYSIOL COND SNOMED Code(s): 56767150 Plan: Continue inpatient psychiatric hospitalization pending the probate hearing for involuntary hospitalization. Probate hearing scheduled for 11/04/2017. Continue Abilify 10 mg by mouth daily at bedtime. He received his first injection of Abilify Maintena 400 mg IM on 11/02/2017. Encouraged participation in therapeutic groups and activities. Evaluate clinical status response to treatment on a daily basis.
[2017-11-03] MEDS: LORazepam 1 MG TAB PO SCH (20:37)
[2017-11-03] MEDS: ARIPiprazole 10 MG TAB PO SCH (20:37)
[2017-11-03] MEDS: MELATONIN 5 MG TABLET PO PRN (20:39)
[2017-11-04 07:17] VITALS: RESP 16
[2017-11-04] MEDS: NICOTINE 14MG/24HR PATCH TRANSDERM SCH (08:33)
[2017-11-04] MEDS: IBUPROFEN 800 MG TAB PO SCH ×3 (08:34→20:38)
[2017-11-04] MEDS: BACITRACIN 500 UNIT/GM OINT 28.4 GM TUBE TOPICAL SCH ×2 (08:34→20:39)
--- NOTE | 2017-11-04 15:34 | P.PN ---
Subjective Progress Note Date: 11/04/17 Principal diagnosis: Unspecified psychosis disorder, rule out Schizophrenia, rule out schizoaffective disorder, rule out bipolar disorder with psychotic features, psychostimulant use disorder I reviewed the medical record, interviewed the patient and discuss his treatment and treatment plan during team meeting. He was anxious earlier today about the schedule probate hearing in the afternoon. While I was waiting for the Probate hearing to begin, I received a telephone call from the courts notifying me that he agreed to the terms of a probate order for involuntary treatment. When he returned to the unit, he requested to be discharged. He stated that if he cannot live with his mother and go to a penitentiary or with "some friends". I reminded him that we will need to confirm his disposition before he can be released. The vp digital marketing social media and crm was unable to reach his mother by telephone. He participates in some afternoon groups but spends most of his time alone in his room. He denied side effect to Abilify or adverse reaction to his first injection of Abilify Maintaina. He did not volunteer information about his chronic delusional beliefs. Objective - Vital Signs Vital signs: Vital Signs Temp 98 F 11/04/17 06:45 Pulse 70 11/04/17 06:45 Resp 16 11/04/17 06:45 BP 118/56 11/04/17 06:45 Pulse Ox 97 10/12/17 18:20 - Psychiatric Psychiatric Comment(s): He presented as a casually dressed and neatly groomed 42-year-old male who was pleasant on approach. He made eye contact and appeared to attend to the interview. He had no distinguishing features or prominent physical abnormalities. He had a blunted facial expression. He showed slight psychomotor retardation but no abnormal movements. His gait was slow and steady. His speech was spontaneous with slight decrease in rate, rhythm and volume. His affect was blunted, stable and appropriate. He denied suicidal ideation or wishes. He denied homicidal ideation. He denied feeling hopeless, helpless or worthless. He did not express ideas reference or clear paranoid ideation. He did not talk about his chronic delusional beliefs about special mccauley and abilities. His thinking was concrete and associations were organized and internally consistent. He denied hallucinations and did not appear to be responding to internal stimuli. - Labs CBC & Chem 7: 10/13/17 09:10/13/17 09:09 Assessment and Plan Assessment: Overall, he appears moderately mentally ill and moderately improved from admission. (1) Psychotic disorder Current Visit: Yes Status: Acute Priority: High Code(s): F29 - UNSP PSYCHOSIS NOT DUE TO A SUBSTANCE OR KNOWN PHYSIOL COND SNOMED Code(s): 23276714 Plan: Plan for discharge on 11/06/1879 to a penitentiary or to his mother's home. Continue Abilify 10 mg by mouth daily at bedtime. He received his first injection of Abilify Maintena 400 mg IM on 11/02/2017. Encouraged participation in therapeutic groups and activities. Evaluate clinical status response to treatment on a daily basis.
[2017-11-04] MEDS: ACETAMINOPHEN TAB 325 MG TAB PO PRN (17:37)
[2017-11-04] MEDS: ARIPiprazole 10 MG TAB PO SCH (20:38)
[2017-11-04] MEDS: MELATONIN 5 MG TABLET PO PRN (20:39)
[2017-11-04] MEDS: LORazepam 1 MG TAB PO SCH (20:39)
[2017-11-05 07:19] VITALS: BP 87/52; PULSE 65; TEMP 98.2
[2017-11-05 08:50] VITALS: BMI 29.3
[2017-11-05] MEDS: NICOTINE 14MG/24HR PATCH TRANSDERM SCH (09:21)
[2017-11-05] MEDS: IBUPROFEN 800 MG TAB PO SCH (09:22)
[2017-11-05] MEDS: BACITRACIN 500 UNIT/GM OINT 28.4 GM TUBE TOPICAL SCH (09:30)
--- NOTE | 2017-11-05 13:47 | P.DS ---
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 He stated that he was god and "creator to "come up with having on earth." He expressed other psychotic symptoms such as believing that he was to have telepathic and communicates with others through her migraines. He has a history of using Adderall since 2011 that he obtains from his primary care physician. He admitted to taking more than prescribed up to 150 mg per day. He was diagnosed with a substance induced mood disorder, psychostimulant use disorder and cannabis use disorder on admission. He was admitted to unit involuntarily but when we submitted the application to the probate Court we learned that he is on a deferral from a prior hospitalization in September 2017. We submitted a demand for hearing and the probate hearing was delayed until 11/04/2017. His psychosis was treated with Ativan 1 mg 4 times a day when necessary as needed for agitation or psychosis and Zyprexa beginning with 5 mg at bedtime. The Zyprexa was titrated up to 15 mg per day. He was compliant with prescribed medications. He participated minimally in therapeutic groups and activities. He interacted minimally with staff and patients. With his consent we transition from Zyprexa to Abilify 10 mg per day. Once we establish tolerance began Abilify Maintaina a 400 mg monthly. He received his first injection of Abilify 400 mg on 11/02/2017; the next injection is due on or about 11/30/17. He posed no management problem and required no emergency medication for behavioral dyscontrol. He maintained the fixed delusional belief that he is God, he is immensely wealthy and that he is a talented inventor. He received a 30 day combined treatment order following his probate hearing. Due to the persistence of the delusional beliefs we suspect that in addition to the abuse of the psychostimulants he has a primary psychotic disorder such as schizophrenia or a schizoaffective disorder. At the time of discharge he presented as a casually groomed and neatly dressed middle-aged male who was pleasant on approach. He made eye contact and attended to interview. He had no distinguishing features or prominent physical abnormalities. He had a blunted but bright facial expression. He was alert and oriented to person, place and time. His speech was spontaneous with normal rate, rhythm and volume. He had no articulation difficulties. His affect was blunted but stable and appropriate. He showed no abnormality of psychomotor activity; he was not restless or agitated. He denied suicidal ideation or wishes. He denied homicidal ideation. He did not expressed such depressive cognitions as hopelessness, helplessness or worthlessness. He did not express phobias, ideas reference, or paranoia. He continues to maintain the above fixed grandiose delusional beliefs. He denied hallucinations and did not appear to be responding to internal stimuli. His plan is to live temporarily with his mother in [facility] until he finds his own apartment. He also agreed to aftercare to [facility]. Patient Condition at Discharge: Stable Plan - Discharge Summary New Discharge Prescriptions: New ARIPiprazole [Abilify] 10 mg PO HS #7 tab Melatonin 5 mg PO HS PRN #30 tablet PRN Reason: Insomnia Nicotine 14Mg/24Hr Patch [Habitrol] 1 patch TRANSDERM DAILY #7 patch Discontinued Dextroamphetamine/Amphetamine [Adderall] 30 mg PO TID Discharge Medication List ARIPiprazole [Abilify] 10 mg PO HS #7 tab 11/05/17 [Rx] Melatonin 5 mg PO HS PRN #30 tablet 11/05/17 [Rx] Nicotine 14Mg/24Hr Patch [Habitrol] 1 patch TRANSDERM DAILY #7 patch 11/05/17 [ Rx] Follow up Appointment(s)/Referral(s): [facility] [Outside] - 11/05/17 (walk in directly today, , upon d/c until 3:00pm Thursday 830 - 300 pm Thursday 830 - 300 pm ) [facility] [NON[facility]STAFF] - As Needed Patient Instructions/Handouts: Brief Psychotic Disorder (GEN) Activity/Diet/Wound Care/Special Instructions: Activity and Diet as tolerated. Avoid the use of street drugs and alcohol. Take all medications as prescribed, when you are in need of refills contact your medical doctor or psychiatrist. Please go to all scheduled outpatient appointments for aftercare treatment. If symptoms return or worsen you can call the crisis line @ and/or return to the nearest emergency room for evaluation. Discharge Disposition: HOME SELF-CARE
== END 2017-11-05 11:27 | disposition home or self-care (01) | DRG 897 ==
LOC: EC 12:20 → 3MHU 17:06
PROVIDERS: ADMIT Psychiatry & Neurology Psychiatry; ATTEND Psychiatry & Neurology Psychiatry
DX: F15.159 Other stimulant abuse with stimulant-induced psychotic disorder, unspecified (principal); F19.159 Other psychoactive substance abuse with psychoactive substance-induced psychotic disorder, unspecified; F20.9 Schizophrenia, unspecified; F31.9 Bipolar disorder, unspecified; F12.90 Cannabis use, unspecified, uncomplicated; F17.210 Nicotine dependence, cigarettes, uncomplicated; F90.9 Attention-deficit hyperactivity disorder, unspecified type; G47.00 Insomnia, unspecified; I10 Essential (primary) hypertension; F41.9 Anxiety disorder, unspecified; M25.512 Pain in left shoulder; M54.9 Dorsalgia, unspecified; F25.9 Schizoaffective disorder, unspecified; Z90.49 Acquired absence of other specified parts of digestive tract; Z81.8 Family history of other mental and behavioral disorders
CPT/HCPCS: 80053; 80306; 81001; 82075; 84439; 84443; 85025; 99285

== ENCOUNTER 2017-11-13 10:53 | Emergency (ER) | payer OTHER ==
--- NOTE | 2017-11-13 11:17 | ED ---
General Adult HPI - General Chief complaint: Psychiatric Symptoms Stated complaint: Mental Health Time Seen by Provider: 11/13/17 11:10 Source: patient, RN notes reviewed Mode of arrival: ambulatory Limitations: no limitations - History of Present Illness Initial comments: Patient is a pleasant 42-year-old male presenting to the emergency department with police officers following pickup order. Patient states he was in mental health unit for several weeks. Patient with discharge and supposed to follow[facility] within a couple days of discharge. Patient states this was around a week ago. Patient admits to not doing this. Patient also admits to not taking his medication. Patient states otherwise he has been doing fine. Patient states he did secure a place to live. Patient states he has been eating and drinking well however does request food at this time. Patient states he has been sleeping well. No physical complaints. No hallucinations. No suicidal or homicidal thoughts. Patient denies alcohol or drug use. - Related Data Previous Rx's Medication Instructions Recorded ARIPiprazole [Abilify] 10 mg PO HS #7 tab 11/05/17 Melatonin 5 mg PO HS PRN #30 tablet 11/05/17 Nicotine 14Mg/24Hr Patch [Habitrol] 1 patch TRANSDERM DAILY #7 patch 11/05/17 Allergies Allergy/AdvReac Type Severity Reaction Status Date / Time No Known Allergies Allergy Verified 11/13/17 11:54 Review of Systems ROS Statement: Those systems with pertinent positive or pertinent negative responses have been documented in the HPI. ROS Other: All systems not noted in ROS Statement are negative. Constitutional: Denies: fever Eyes: Denies: eye pain ENT: Denies: ear pain Respiratory: Denies: cough Cardiovascular: Denies: chest pain Endocrine: Denies: fatigue Gastrointestinal: Denies: abdominal pain Genitourinary: Denies: dysuria Musculoskeletal: Denies: back pain Skin: Denies: rash Neurological: Denies: weakness Psychiatric: Denies: depression, auditory hallucinations, visual hallucinations , homicidal thoughts, suicidal thoughts Past Medical History Past Medical History: Hypertension History of Any Multi-Drug Resistant Organisms: None Reported Past Surgical History: Appendectomy, Orthopedic Surgery Additional Past Surgical History / Comment(s): ANKLE SURGERY-multiple fracture 2 plates and 3 screws, BIOPSY OF LYMPH Node LEFT ARM CHILD. Past Anesthesia/Blood Transfusion Reactions: No Reported Reaction Past Psychological History: ADD/ADHD, Anxiety, Depression Smoking Status: Current every day smoker Past Alcohol Use History: None Reported Past Drug Use History: Marijuana - Past Family History Father History Unknown: Yes Additional Family Medical History / Comment(s): Father is alive with no major medical problems. Mother Additional Family Medical History / Comment(s): Mother is alive with history of depression and alcoholism. Sister(s) Additional Family Medical History / Comment(s): Patient has one sister that is younger than him and he states she has mental health issues. Patient does not have any brothers. General Exam Limitations: no limitations General appearance: alert, in no apparent distress Head exam: Present: atraumatic Eye exam: Present: normal appearance, PERRL ENT exam: Present: normal oropharynx Neck exam: Present: normal inspection Respiratory exam: Present: normal lung sounds bilaterally Cardiovascular Exam: Present: regular rate, normal rhythm GI/Abdominal exam: Present: soft. Absent: tenderness Extremities exam: Present: normal inspection Neurological exam: Present: alert Psychiatric exam: Present: normal affect, normal mood Skin exam: Present: normal color Course Vital Signs 11/13/17 10:57 Temperature 98.4 F Pulse Rate 88 Respiratory 18 Rate Blood Pressure 137/93 O2 Sat by Pulse 99 Oximetry Medical Decision Making - Medical Decision Making Patient was seen by mental health services. CM is present and will take patient for appointment. - Lab Data Lab Results 11/13/17 Range/Units 11:11 Urine Opiates Screen Not Detected (NotDetected) Ur Oxycodone Screen Not Detected (NotDetected) Urine Methadone Screen Not Detected (NotDetected) Ur Propoxyphene Screen Not Detected (NotDetected) Ur Barbiturates Screen Not Detected (NotDetected) U Tricyclic Antidepress Not Detected (NotDetected) Ur Phencyclidine Scrn Not Detected (NotDetected) Ur Amphetamines Screen Not Detected (NotDetected) U Methamphetamines Scrn Not Detected (NotDetected) U Benzodiazepines Scrn Not Detected (NotDetected) Urine Cocaine Screen Not Detected (NotDetected) U Marijuana (THC) Screen Detected H (NotDetected) Disposition Clinical Impression: Non-compliance, Mental health problem Disposition: HOME SELF-CARE Condition: Stable Instructions: Brief Psychotic Disorder (ED) Additional Instructions: Please follow-up with treating mental health now as directed. Do not miss appointments. Please take her medicine as directed. Please also follow-up with primary care physician in the next couple days for recheck. Return for thoughts of self-harm, not coping well, abnormal thoughts, worsening symptoms or other concerns. Is patient prescribed a controlled substance at d/c from ED?: No Referrals: Justo Lopez MD [Primary Care Provider] - 1-2 days Time of Disposition: 13:11
[2017-11-13 11:39] LABS: Amphetamine Screen,Urine Not Detected (NotDetected); Barbiturate Screen,Urine Not Detected (NotDetected); Benzodiazepines Screen,Urine Not Detected (NotDetected); Cocaine Screen,Urine Not Detected (NotDetected); Methadone Screen, Urine Not Detected (NotDetected); Opiate Screen,Urine Not Detected (NotDetected); Oxycodone Screen, Urine Not Detected (NotDetected); Phencyclidine Screen,Urine Not Detected (NotDetected); Tricyclic Antidepressant,Urine Not Detected (NotDetected); Urn Cannabinoid Scrn Detected (NotDetected)
[2017-11-13 13:24] VITALS: BP 139/93; PULSE 85; RESP 16; TEMP 98
== END 2017-11-13 13:25 | disposition home or self-care (01) ==
LOC: EC 10:53
DX: F99 Mental disorder, not otherwise specified (principal); Z91.19 Patient's noncompliance with other medical treatment and regimen; F17.200 Nicotine dependence, unspecified, uncomplicated
CPT/HCPCS: 80306; 82075; 99283

== ENCOUNTER 2018-02-23 05:53 | Emergency (ER) | payer OTHER ==
[2018-02-23 06:01] VITALS: BP 137/98; PULSE 68; RESP 16; TEMP 97.6
--- NOTE | 2018-02-23 06:18 | ED ---
General Adult HPI - General Chief complaint: Extremity Injury, Lower Stated complaint: Hip Pain Time Seen by Provider: 02/23/18 06:07 Source: patient Mode of arrival: ambulatory Limitations: no limitations - History of Present Illness Initial comments: Marcello is a 42-year-old male presents the ED today for evaluation of right-sided hip pain. Patient reports that last week his right-sided sciatica was biking and, since that time he notes that he has had worsening right hip pain, radiating from his buttock around his hip. He describes it as feeling as though his hip is out of socket. He denies any falls or injury. He reports he' s been taking ibuprofen and applying a heating pad both of which helped the pain but he reports that he was up all night without any relief which prompted would come to ER for evaluation. He has no history of injury or surgery to this hip. - Related Data Previous Rx's Medication Instructions Recorded ARIPiprazole [Abilify] 10 mg PO HS #7 tab 11/05/17 Melatonin 5 mg PO HS PRN #30 tablet 11/05/17 Nicotine 14Mg/24Hr Patch [Habitrol] 1 patch TRANSDERM DAILY #7 patch 11/05/17 Allergies Allergy/AdvReac Type Severity Reaction Status Date / Time No Known Allergies Allergy Verified 02/23/18 06:01 Review of Systems ROS Statement: Those systems with pertinent positive or pertinent negative responses have been documented in the HPI. ROS Other: All systems not noted in ROS Statement are negative. Past Medical History Past Medical History: Hypertension History of Any Multi-Drug Resistant Organisms: None Reported Past Surgical History: Appendectomy, Orthopedic Surgery Additional Past Surgical History / Comment(s): ANKLE SURGERY-multiple fracture 2 plates and 3 screws, BIOPSY OF LYMPH Node LEFT ARM CHILD. Past Anesthesia/Blood Transfusion Reactions: No Reported Reaction Past Psychological History: ADD/ADHD, Anxiety, Depression Smoking Status: Current every day smoker Past Alcohol Use History: None Reported Past Drug Use History: Marijuana - Past Family History Father History Unknown: Yes Additional Family Medical History / Comment(s): Father is alive with no major medical problems. Mother Additional Family Medical History / Comment(s): Mother is alive with history of depression and alcoholism. Sister(s) Additional Family Medical History / Comment(s): Patient has one sister that is younger than him and he states she has mental health issues. Patient does not have any brothers. General Exam - General Exam Comments Initial Comments: GENERAL: Patient is well-developed and well-nourished. Patient is nontoxic and well- hydrated and is in no distress. HENT: Normocephalic, Atraumatic. Neck is soft and supple. No significant lymphadenopathy is noted. Oropharynx is clear. Moist mucous membranes. Neck has full range of motion without eliciting any pain. EYES: The sclera were anicteric and conjunctiva were pink and moist. Extraocular movements were intact and pupils were equal round and reactive to light. Eyelids were unremarkable. PULMONARY: Unlabored respirations. Good breath sounds bilaterally. No audible rales rhonchi or wheezing was noted. CARDIOVASCULAR: There is a regular rate and rhythm without any murmurs gallops or rubs. ABDOMEN: Soft and nontender with normal bowel sounds. SKIN: Skin is clear with no lesions or rashes and otherwise unremarkable. NEUROLOGIC: Patient is alert and oriented x3. Cranial nerves II through XII are grossly intact. Motor and sensory are also intact. Normal speech, volume and content. Symmetrical smile. Normal gait MUSCULOSKELETAL: Normal extremities with adequate strength and full range of motion. No lower extremity swelling or edema. No calf tenderness. LYMPHATICS: No significant lymphadenopathy is noted PSYCHIATRIC: Normal psychiatric evaluation. Limitations: no limitations Limitations: no limitations Course Vital Signs 02/23/18 05:57 Temperature 97.6 F Pulse Rate 68 Respiratory 16 Rate Blood Pressure 137/98 O2 Sat by Pulse 98 Oximetry Medical Decision Making - Medical Decision Making Patient was seen and evaluated, history was obtained from the patient Patient standing, ambulating comfortably, able to remove his pablito jeans for x- ray Physical exam with no other acute findings range of motion of the right hip with minimal pain XR with no acute findings Thoughts were discussed with the patient who expresses some relief that there was no dislocation, though he is uncertain where his pain is coming from Denies any dysuria or groin pain. Denies any genitourinary symptoms. At this point I have a suspicion for a strain of the hip, we'll plan to treat his musculoskeletal pain plan for follow-up. All questions pertaining to care were answered best my ability, return parameters were discussed and the patient was discharged home in stable condition. Disposition Clinical Impression: Hip strain Disposition: HOME SELF-CARE Instructions: Hip Pain (ED) Is patient prescribed a controlled substance at d/c from ED?: No Referrals: Ayo Deal MD [Primary Care Provider] - 1-2 days Time of Disposition: 06:36
--- NOTE | 2018-02-23 06:27 | XR ---
EXAMINATION TYPE: XR Hip Limited RT DATE OF EXAM: 02/23/2018 COMPARISON: NONE HISTORY: Right sciatic pain TECHNIQUE: 2 views FINDINGS: Proximal right femur and hip joint appear normal. Hip joint space is normal. Sacroiliac corey nts appears normal. There is no evidence of a fracture. IMPRESSION: Normal right hip
[2018-02-23] MEDS ORDERED: KETOROLAC 30 MG/ML 1 ML VIAL IM STA (06:30)
== END 2018-02-23 06:47 | disposition home or self-care (01) ==
LOC: EC 05:53
DX: S76.011A Strain of muscle, fascia and tendon of right hip, initial encounter (principal); F17.200 Nicotine dependence, unspecified, uncomplicated; X58.XXXA Exposure to other specified factors, initial encounter
CPT/HCPCS: 73501; 99283; 96372; J1885

== ENCOUNTER 2018-07-10 18:28 | Inpatient (IN) | payer MEDICAID, OTHER ==
--- NOTE | 2018-07-10 19:06 | ED ---
General Adult HPI - General Chief complaint: Psychiatric Symptoms Stated complaint: SUICIDAL Time Seen by Provider: 07/10/18 18:42 Source: patient Mode of arrival: ambulatory Limitations: no limitations - History of Present Illness Initial comments: Patient is a 42-year-old male presenting for suicidal thoughts. He states he has been on the rule out at home as well as losing his job. He is in the midst of lives in his home and has had thoughts of hurting himself but denies any plan or any prior attempts. He denies any physical complaints as well. - Related Data Home Medications Medication Instructions Recorded Confirmed No Known Home Medications 07/10/18 07/10/18 Allergies Allergy/AdvReac Type Severity Reaction Status Date / Time No Known Allergies Allergy Verified 07/10/18 22:42 Review of Systems ROS Statement: Those systems with pertinent positive or pertinent negative responses have been documented in the HPI. Constitutional: Negative for chills, fatigue and fever. HENT: Negative for congestion. Respiratory: Negative for chest tightness, shortness of breath and wheezing. Negative for cough Cardiovascular: Negative for chest pain and palpitations. Gastrointestinal: Negative for abdominal pain. Negative for abdominal distention , diarrhea, nausea and vomiting. Genitourinary: Negative for dysuria. Musculoskeletal: Negative for back pain, neck pain and neck stiffness. Skin: Negative for color change. Neurological: Negative for dizziness, speech difficulty, weakness and light- headedness. Psychiatric/Behavioral: Negative for agitation and confusion. Negative for anxiety. Positive for suicidal ideation ROS Other: All systems not noted in ROS Statement are negative. Past Medical History Past Medical History: Hypertension History of Any Multi-Drug Resistant Organisms: None Reported Past Surgical History: Appendectomy, Orthopedic Surgery Additional Past Surgical History / Comment(s): ANKLE SURGERY-multiple fracture 2 plates and 3 screws, BIOPSY OF LYMPH Node LEFT ARM CHILD. Past Anesthesia/Blood Transfusion Reactions: No Reported Reaction Past Psychological History: ADD/ADHD, Anxiety, Depression Smoking Status: Current every day smoker Past Alcohol Use History: None Reported Past Drug Use History: Marijuana - Past Family History Father History Unknown: Yes Additional Family Medical History / Comment(s): Father is alive with no major medical problems. Mother Additional Family Medical History / Comment(s): Mother is alive with history of depression and alcoholism. Sister(s) Additional Family Medical History / Comment(s): Patient has one sister that is younger than him and he states she has mental health issues. Patient does not have any brothers. General Exam - General Exam Comments Initial Comments: Constitutional: Pt appears well-developed and well-nourished. No distress. Head: Normocephalic and atraumatic. Eyes: EOM are normal. Neck: Normal range of motion. Neck supple. Cardiovascular: Normal rate, regular rhythm, S1 normal, S2 normal and normal heart sounds. Exam reveals no gallop and no friction rub. No murmur heard. Pulmonary/Chest: Effort normal and breath sounds normal. No tachypnea and no bradypnea. No respiratory distress. No wheezes or rales noted. Abdominal: Soft. Bowel sounds are normal. Pt exhibits no shifting dullness, no distension, no pulsatile liver, no fluid wave, no abdominal bruit and no ascites. There is no rigidity, no rebound, no guarding, no tenderness at McBurney's point and negative Shields's sign. There is no tenderness. Musculoskeletal: Normal range of motion. Neurological: Pt is alert and oriented to person, place, and time. No cranial nerve deficit. Skin: Skin is warm and dry. No rash noted. Pt is not diaphoretic. No erythema. No pallor. Psychiatric: Pt has a normal mood and affect. Pt behavior is normal. Positive for suicidal thoughts without plan Limitations: no limitations Course Vital Signs 07/10/18 18:37 Temperature 97.5 F L Pulse Rate 87 Respiratory 18 Rate Blood Pressure 129/99 O2 Sat by Pulse 98 Oximetry Medical Decision Making - Medical Decision Making She was evaluated by psychiatric services and it was recommended that the patient be moved to inpatient. Patient has been medically cleared and will now be under the care of psychiatric services. - Lab Data Lab Results 07/10/18 Range/Units 19:11 Urine Opiates Screen Not Detected (NotDetected) Ur Oxycodone Screen Not Detected (NotDetected) Urine Methadone Screen Not Detected (NotDetected) Ur Propoxyphene Screen Not Detected (NotDetected) Ur Barbiturates Screen Not Detected (NotDetected) U Tricyclic Antidepress Not Detected (NotDetected) Ur Phencyclidine Scrn Not Detected (NotDetected) Ur Amphetamines Screen Not Detected (NotDetected) U Methamphetamines Scrn Not Detected (NotDetected) U Benzodiazepines Scrn Not Detected (NotDetected) Urine Cocaine Screen Not Detected (NotDetected) U Marijuana (THC) Screen Detected H (NotDetected) Disposition Clinical Impression: Suicidal ideation Disposition: [facility] Decision to Admit Reason: Admit from EC Decision Date: 07/10/18 Decision Time: 21:05
[2018-07-10 19:40] LABS: Amphetamine Screen,Urine Not Detected (NotDetected); Barbiturate Screen,Urine Not Detected (NotDetected); Benzodiazepines Screen,Urine Not Detected (NotDetected); Cocaine Screen,Urine Not Detected (NotDetected); Methadone Screen, Urine Not Detected (NotDetected); Opiate Screen,Urine Not Detected (NotDetected); Oxycodone Screen, Urine Not Detected (NotDetected); Phencyclidine Screen,Urine Not Detected (NotDetected); Tricyclic Antidepressant,Urine Not Detected (NotDetected); Urn Cannabinoid Scrn Detected (NotDetected)
[2018-07-10] MEDS ORDERED: MAG HYDROX/AL HYDROX/SIMETH 30 ML CUP PO PRN (21:52)
[2018-07-10] MEDS ORDERED: MAGNESIUM HYDROXIDE 2,400 MG/10 ML CUP PO PRN (21:52)
[2018-07-10] MEDS ORDERED: ACETAMINOPHEN TAB 325 MG TAB PO PRN (21:52)
[2018-07-10 22:40] VITALS: BMI 28.1
[2018-07-11 08:14] LABS: Basophils # (A) 0.1 k/uL (0-0.2); Basophils % (A) 1 %; Eosinophils # (A) 0.2 k/uL (0-0.7); Eosinophils % (A) 2 %; HCT 48.9 % (39.0-53.0); HGB 15.8 gm/dL (13.0-17.5); Lymphocytes # (A) 2.8 k/uL (1.0-4.8); Lymphocytes % (A) 37 %; MCH 30.2 pg (25.0-35.0); MCHC 32.3 g/dL (31.0-37.0); MCV 93.3 fL (80.0-100.0); Mean Platelet Volume 6.1; Monocytes # (A) 0.5 k/uL (0-1.0); Monocytes % (A) 7 %; Neutrophils # (A) 3.9 k/uL (1.3-7.7); Neutrophils % (A) 52 %; Platelet Count 397 k/uL (150-450); RBC 5.24 m/uL (4.30-5.90); RDW 12.8 % (11.5-15.5); WBC 7.5 k/uL (3.8-10.6)
[2018-07-11 08:33] LABS: ALT 44 U/L (21-72); AST 27 U/L (17-59); Albumin 3.9 g/dL (3.5-5.0); Alkaline Phosphatase 49 U/L (38-126); Anion Gap 8 mmol/L; Blood Urea Nitrogen 13 mg/dL (9-20); Calcium 9.3 mg/dL (8.4-10.2); Carbon Dioxide 25 mmol/L (22-30); Chloride 109 mmol/L (98-107); Cholesterol 164 mg/dL (<200); Glucose 103 mg/dL (74-99); HDL Cholesterol 55 mg/dL (40-60); LDL Cholesterol,Calculated 83 mg/dL (0-99); Potassium 4.8 mmol/L (3.5-5.1); Sodium 142 mmol/L (137-145); Total Bilirubin 0.4 mg/dL (0.2-1.3); Total Protein 6.5 g/dL (6.3-8.2); Triglycerides 130 mg/dL (<150)
--- NOTE | 2018-07-11 15:50 | P.HPIM ---
History of Present Illness H&P Date: 07/11/18 Marcello Sin is a 42-year-old male who presented to [facility] emergency room due to suicidal ideation patient stated that he was ready to jump in the [place] to end it all. He stated that he was having problems at home as well as losing his job, he was evaluated in the emergency room by the psychiatry nurse and was admitted to the psychiatry unit for further evaluation and treatment. Medical consultation was requested for medical management while hospitalized. Patient stated that for the last few days he has been having upper respiratory infection with nasal congestion and cough, and possible low-grade fever, otherwise he denies any complaints there is no chills no headache no dizziness no chest pain no shortness of breath no cough no nausea or vomiting no abdominal pain no diarrhea no burning with urination no frequency or urgency and no hematuria. Patient denies having any previous history of medical problems, he states that at some point in the past he had elevated blood pressure but has not been taking any medication for that he has not seen a doctor or had any blood testing for a prolonged period of time. Patient stated that he had appendectomy and he had ankle surgery otherwise he denies any other surgical intervention Patient denies smoking or drinking alcohol he states he smoked marijuana on a daily basis. No significant family history could be obtained from patient Past Medical History Past Medical History: Hypertension History of Any Multi-Drug Resistant Organisms: None Reported Past Surgical History: Appendectomy, Orthopedic Surgery Additional Past Surgical History / Comment(s): ANKLE SURGERY-multiple fracture 2 plates and 3 screws, BIOPSY OF LYMPH Node LEFT ARM CHILD. Past Anesthesia/Blood Transfusion Reactions: No Reported Reaction Past Psychological History: ADD/ADHD, Anxiety, Depression Smoking Status: Current every day smoker Past Alcohol Use History: None Reported Past Drug Use History: Marijuana - Past Family History Father History Unknown: Yes Additional Family Medical History / Comment(s): Father is alive with no major medical problems. Mother Additional Family Medical History / Comment(s): Mother is alive with history of depression and alcoholism. Sister(s) Additional Family Medical History / Comment(s): Patient has one sister that is younger than him and he states she has mental health issues. Patient does not have any brothers. Medications and Allergies Home Medications Medication Instructions Recorded Confirmed Type No Known Home Medications 07/10/18 07/10/18 History Allergies Allergy/AdvReac Type Severity Reaction Status Date / Time No Known Allergies Allergy Verified 07/10/18 22:42 Physical Exam Vitals: Vital Signs Temp Pulse Pulse Resp BP BP Pulse Ox 07/11/18 06:13 97.6 F 74 18 128/76 07/10/18 22:29 97.4 F L 82 18 140/92 98 07/10/18 18:37 97.5 F L 87 18 129/99 98 In general patient is alert and oriented 3 in no apparent distress HEENT head normocephalic and atraumatic there is poor oral hygiene with missing teeth Neck is supple no JVD no goiter no lymphadenopathy Chest exam reveals a few scattered scattered rhonchi no wheezing Cardiac exam reveals regular heart sounds S1 and S2 no gallops no murmurs Abdomen is soft nontender no organomegaly with normal bowel sounds Extremity exam reveals no edema no cyanosis or clubbing Neurological examination reveals no gross focal deficits Results CBC & Chem 7: 07/11/18 07:39 07/11/18 07:39 Labs: Abnormal Lab Results - Last 24 Hours (Table) 07/10/18 07/11/18 Range/Units 19:11 07:39 Chloride 109 H (98-107) mmol/L Glucose 103 H (74-99) mg/dL U Marijuana (THC) Screen Detected H (NotDetected) Thrombosis Risk Factor Assmnt - Choose All That Apply Any of the Below Risk Factors Present?: No Assessment and Plan Plan: #1 depression with suicidal ideation management per primary psychiatry team #2 upper respiratory infection Will check influenza test, will start patient on Augmentin 500 mg by mouth twice daily for acute sinusitis #3 previous history of hypertension, currently blood pressure is elevated at 129 /99 and 140/92 Will start patient on Norvasc 5 mg by mouth daily #4 labs done in the emergency room and were reviewed, no evidence of diabetes, lipid profile within normal limits thyroid function within normal limits At this time will add Augmentin and Norvasc will check influenza titers will follow during this admission for medical management thank you very much for consultation
[2018-07-11] MEDS: amLODIPine 5 MG TAB PO SCH (16:11)
--- NOTE | 2018-07-11 17:07 | P.HP ---
Psychiatric H&P - . H&P Date: 07/11/18 History & Physical: Allergies Allergy/AdvReac Type Severity Reaction Status Date / Time No Known Allergies Allergy Verified 07/10/18 22:42 Vital Signs Temp 98.8 F 07/11/18 16:09 Pulse 94 07/11/18 16:09 Resp 18 07/11/18 16:09 BP 155/93 07/11/18 16:09 Pulse Ox 98 07/10/18 22:29 Intake & Output 07/10/18 07/11/18 07/11/18 18:59 06:59 18:59 Weight 83.915 kg Laboratory Last Values WBC 7.5 k/uL (3.8-10.6) 07/11/18 07:39 RBC 5.24 m/uL (4.30-5.90) 07/11/18 07:39 Hgb 15.8 gm/dL (13.0-17.5) 07/11/18 07:39 Hct 48.9 % (39.0-53.0) 07/11/18 07:39 MCV 93.3 fL (80.0-100.0) 07/11/18 07:39 MCH 30.2 pg (25.0-35.0) 07/11/18 07:39 MCHC 32.3 g/dL (31.0-37.0) 07/11/18 07:39 RDW 12.8 % (11.5-15.5) 07/11/18 07:39 Plt Count 397 k/uL (150-450) 07/11/18 07:39 Neutrophils % 52 % 07/11/18 07:39 Lymphocytes % 37 % 07/11/18 07:39 Monocytes % 7 % 07/11/18 07:39 Eosinophils % 2 % 07/11/18 07:39 Basophils % 1 % 07/11/18 07:39 Neutrophils # 3.9 k/uL (1.3-7.7) 07/11/18 07:39 Lymphocytes # 2.8 k/uL (1.0-4.8) 07/11/18 07:39 Monocytes # 0.5 k/uL (0-1.0) 07/11/18 07:39 Eosinophils # 0.2 k/uL (0-0.7) 07/11/18 07:39 Basophils # 0.1 k/uL (0-0.2) 07/11/18 07:39 Sodium 142 mmol/L (137-145) 07/11/18 07:39 Potassium 4.8 mmol/L (3.5-5.1) 07/11/18 07:39 Chloride 109 mmol/L (98-107) H 07/11/18 07:39 Carbon Dioxide 25 mmol/L (22-30) 07/11/18 07:39 Anion Gap 8 mmol/L 07/11/18 07:39 BUN 13 mg/dL (9-20) 07/11/18 07:39 Creatinine 0.73 mg/dL (0.66-1.25) 07/11/18 07:39 Est GFR (CKD-EPI)AfAm >90 (>60 ml/min/1.73 sqM) 07/11/18 07:39 Est GFR (CKD-EPI)NonAf >90 (>60 ml/min/1.73 sqM) 07/11/18 07:39 Glucose 103 mg/dL (74-99) H 07/11/18 07:39 Calcium 9.3 mg/dL (8.4-10.2) 07/11/18 07:39 Total Bilirubin 0.4 mg/dL (0.2-1.3) 07/11/18 07:39 AST 27 U/L (17-59) 07/11/18 07:39 ALT 44 U/L (21-72) 07/11/18 07:39 Alkaline Phosphatase 49 U/L (38-126) 07/11/18 07:39 Total Protein 6.5 g/dL (6.3-8.2) 07/11/18 07:39 Albumin 3.9 g/dL (3.5-5.0) 07/11/18 07:39 Triglycerides 130 mg/dL (<150) 07/11/18 07:39 Cholesterol 164 mg/dL (<200) 07/11/18 07:39 LDL Cholesterol, Calc 83 mg/dL (0-99) 07/11/18 07:39 HDL Cholesterol 55 mg/dL (40-60) 07/11/18 07:39 TSH 1.090 mIU/L (0.465-4.680) 07/11/18 07:39 Urine Opiates Screen Not Detected (NotDetected) 07/10/18 19:11 Ur Oxycodone Screen Not Detected (NotDetected) 07/10/18 19:11 Urine Methadone Screen Not Detected (NotDetected) 07/10/18 19:11 Ur Propoxyphene Screen Not Detected (NotDetected) 07/10/18 19:11 Ur Barbiturates Screen Not Detected (NotDetected) 07/10/18 19:11 U Tricyclic Antidepress Not Detected (NotDetected) 07/10/18 19:11 Ur Phencyclidine Scrn Not Detected (NotDetected) 07/10/18 19:11 Ur Amphetamines Screen Not Detected (NotDetected) 07/10/18 19:11 U Methamphetamines Scrn Not Detected (NotDetected) 07/10/18 19:11 U Benzodiazepines Scrn Not Detected (NotDetected) 07/10/18 19:11 Urine Cocaine Screen Not Detected (NotDetected) 07/10/18 19:11 U Marijuana (THC) Screen Detected (NotDetected) H 07/10/18 19:11 07/11/18 16:54 IDENTIFYING DATA: 42-year-old male patient HPI: Patient admitted to the inpatient psychiatric unit [facility] on a voluntary basis with concerns of depression and thoughts of suicide. Patient states yesterday he had thoughts of jumping in the [place] was having thoughts of suicide and came here to the hospital on his own. Says his a lot of stressors in life including financial, living situation and unemployed. He makes reference to some of the hair on his body falling often describes it as a burn. Makes reference to a GPS system being in his body and relays that the entire Government needs the penalty, talks about a certain company thinking they're larger than life. He says his sleep has been difficult lately. he admits that depression has been there his whole life. PAST PSYCHIATRIC HISTORY: Patient has a 5-6 times in the hospital. He has been Abilify in the past without benefit. Per previous chart he has also been on Zyprexa which was transitioned to Abilify. He initially states he doesn't think that he needs psychiatric medications. He's never had any suicide attempts. He was on Seroquel the past but gained 40 pounds in a week. He did take Zoloft in the past and one day he felt really good on it, he says he stopped that when he got out of alf. Per chart history there is history of diagnoses of psychosis NOS, substance-induced psychosis and amphetamine use disorder. PMH: Patient states that he is pretty healthy he does make reference to losing his hair and describes that being like a burn. He makes reference to it being the Government and the Internet being on fire, relays there is a GPS in his body. ALLERGIES: No known ALLERGIES MEDICATIONS: Tylenol when necessary, Maalox when necessary, Norvasc, Augmentin, milk of magnesia when necessary CHEMICAL DEPENDENCY HISTORY: Per chart history history of amphetamine use disorder. Patient states that he uses weed, tries to use it every day. FAMILY PSYCHIATRIC HISTORY: Denies FAMILY CHEMICAL DEPENDENCY HISTORY: None known at this time. SOCIAL HISTORY: Patient states that he most recently was staying with his mom but he is not living with her anymore for about the last week and is just been staying with different people. Says he is currently unemployed. He states that he is having financial stress, he does have someone that always him money for work that he is done. 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 He is not in a current relationship. He was once and . No children. MENTAL STATUS EXAM: He is alert and cooperative with the interview. His speech is fluent, not rapid or pressured. Overall his thought processes are organized. Thought content, he describes thoughts that his hair is falling out related to a burn. He relays that is the Government and relays that the Internet is on fire. He also makes reference to a GPS in his body. Makes reference that the entire Government needs the penalty and talks about a certain company thinking they're larger than life. He denies any thoughts of harm to self or others. Regarding his mood he relays that it's relaxing, relays that he still feels angry about his situation. Insight is adequate, judgment shows evidence of recent impairment. Cognitively appears to be grossly intact. I do not note any significant memory disturbance or disorientation. STRENGTHS/WEAKNESSES: Strengths-seeking treatment; weaknesses-coping skills INTELLECTUAL FUNCTIONING: Average IMPRESSIONS: Unspecified psychotic disorder rule out substance-induced psychosis versus primary psychotic disorder; unspecified depressive disorder PLAN: Patient will be admitted to the inpatient psychiatric unit [facility] a voluntary basis. He will be placed on SP 15 minute precautions. Baseline laboratory workup was done the patient and medical consultation will be ordered. We will initiate Geodon 40 mg at bedtime to help with psychosis symptoms as well as Zoloft 50 mg in the morning to help with depressive component. We'll look into any support systems for the patient. Estimated length of stay is a 5-7 days. Prognosis is guarded.
[2018-07-11] MEDS: ZIPRASIDONE 40 MG CAP PO SCH (20:09)
[2018-07-11] MEDS: AMOXIC-POT CLAV 500-125 MG 1 EACH TAB PO SCH (20:10)
[2018-07-12] MEDS: amLODIPine 5 MG TAB PO SCH (08:35)
[2018-07-12] MEDS: SERTRALINE 50 MG TAB PO SCH (08:35)
[2018-07-12] MEDS: AMOXIC-POT CLAV 500-125 MG 1 EACH TAB PO SCH ×2 (08:35→20:48)
--- NOTE | 2018-07-12 10:26 | P.PN ---
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 he admits that depression has been there his whole life. Objective - Vital Signs Vital signs: Vital Signs Temp 98.4 F 07/12/18 06:56 Pulse 85 07/12/18 06:56 Resp 16 07/12/18 06:56 BP 169/89 07/12/18 06:56 Pulse Ox 98 07/10/18 22:29 - Labs CBC & Chem 7: 07/11/18 07:39 07/11/18 07:39 Assessment and Plan Assessment: IDENTIFYING DATA: 42-year-old male patient HPI: Patient admitted to the inpatient psychiatric unit [facility] on a voluntary basis with concerns of depression and thoughts of suicide. Patient states yesterday he had thoughts of jumping in the [place] was having thoughts of suicide and came here to the hospital on his own. Says his a lot of stressors in life including financial, living situation and unemployed. He makes reference to some of the hair on his body falling often describes it as a burn. Makes reference to a GPS system being in his body and relays that the entire Government needs the penalty, talks about a certain company thinking they're larger than life. He says his sleep has been difficult lately. he admits that depression has been there his whole life. PAST PSYCHIATRIC HISTORY: Patient has a 5-6 times in the hospital. He has been Abilify in the past without benefit. Per previous chart he has also been on Zyprexa which was transitioned to Abilify. He initially states he doesn't think that he needs psychiatric medications. He's never had any suicide attempts. He was on Seroquel the past but gained 40 pounds in a week. He did take Zoloft in the past and one day he felt really good on it, he says he stopped that when he got out of [facility]. Per chart history there is history of diagnoses of psychosis NOS, substance-induced psychosis and amphetamine use disorder. PMH: Patient states that he is pretty healthy he does make reference to losing his hair and describes that being like a burn. He makes reference to it being the Government and the Internet being on fire, relays there is a GPS in his body. ALLERGIES: No known ALLERGIES MEDICATIONS: Tylenol when necessary, Maalox when necessary, Norvasc, Augmentin, milk of magnesia when necessary CHEMICAL DEPENDENCY HISTORY: Per chart history history of amphetamine use disorder. Patient states that he uses weed, tries to use it every day. FAMILY PSYCHIATRIC HISTORY: Denies FAMILY CHEMICAL DEPENDENCY HISTORY: None known at this time. SOCIAL HISTORY: Patient states that he most recently was staying with his mom but he is not living with her anymore for about the last week and is just been staying with different people. Says he is currently unemployed. He states that he is having financial stress, he does have someone that always him money for work that he is done. 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 He is not in a current relationship. He was once and . No children. MENTAL STATUS EXAM: He is alert and cooperative with the interview. His speech is fluent, not rapid or pressured. Overall his thought processes are organized. Thought content, he describes thoughts that his hair is falling out related to a burn. He relays that is the Government and relays that the Internet is on fire. He also makes reference to a GPS in his body. Makes reference that the entire Government needs the penalty and talks about a certain company thinking they're larger than life. He denies any thoughts of harm to self or others. Regarding his mood he relays that it's relaxing, relays that he still feels angry about his situation. Insight is adequate, judgment shows evidence of recent impairment. Cognitively appears to be grossly intact. I do not note any significant memory disturbance or disorientation. STRENGTHS/WEAKNESSES: Strengths-seeking treatment; weaknesses-coping skills INTELLECTUAL FUNCTIONING: Average (1) Acute psychosis Current Visit: No Status: Acute Priority: High Code(s): F23 - BRIEF PSYCHOTIC DISORDER SNOMED Code(s): 17449051 (2) Depression Current Visit: No Status: Acute Priority: High Code(s): F32.9 - MAJOR DEPRESSIVE DISORDER, SINGLE EPISODE, UNSPECIFIED SNOMED Code(s): 73763942 (3) Psychotic disorder Current Visit: No Status: Acute Priority: High Code(s): F29 - UNSP PSYCHOSIS NOT DUE TO A SUBSTANCE OR KNOWN PHYSIOL COND SNOMED Code(s): 84151534 Plan: Plan of care: He'll continue on his sertraline 50 mg by mouth daily at bedtime and observe for further need for anxiolytic's sleep insomnia and functioning. He is isolating to his room and will encourage him to get out of his room. He was admitted in formal voluntary due to suicidal thoughts and wanting help. He had a job and was fired for no reason. He'll be usual protocol 15 minute checks and evaluation has been done by psychiatry medicine nursing staff social insurance specialist and occupational therapy. He'll be expected to go to groups on a regular basis. Time with Patient: Less than 30
[2018-07-12 10:41] LABS: Hemoglobin A1C 5.4 % (4.0-6.0)
[2018-07-12] MEDS: ZIPRASIDONE 40 MG CAP PO SCH (20:49)
[2018-07-13] MEDS: AMOXIC-POT CLAV 500-125 MG 1 EACH TAB PO SCH ×2 (08:53→21:00)
[2018-07-13] MEDS: amLODIPine 5 MG TAB PO SCH (08:53)
[2018-07-13] MEDS: SERTRALINE 50 MG TAB PO SCH (08:53)
--- NOTE | 2018-07-13 12:28 | P.PN ---
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 he admits that depression has been there his whole life. He is awake and alert. People bother me. Living with her. Conspiracy. Objective - Vital Signs Vital signs: Vital Signs Temp 97.8 F 07/13/18 06:35 Pulse 71 07/13/18 06:35 Resp 16 07/13/18 06:35 BP 135/79 07/13/18 06:35 Pulse Ox 98 07/10/18 22:29 - Labs CBC & Chem 7: 07/11/18 07:39 07/11/18 07:39 Assessment and Plan Assessment: IDENTIFYING DATA: 42-year-old male patient HPI: Patient admitted to the inpatient psychiatric unit [facility] on a voluntary basis with concerns of depression and thoughts of suicide. Patient states yesterday he had thoughts of jumping in the [place] was having thoughts of suicide and came here to the hospital on his own. Says his a lot of stressors in life including financial, living situation and unemployed. He makes reference to some of the hair on his body falling often describes it as a burn. Makes reference to a GPS system being in his body and relays that the entire Government needs the penalty, talks about a certain company thinking they're larger than life. He says his sleep has been difficult lately. he admits that depression has been there his whole life. PAST PSYCHIATRIC HISTORY: Patient has a 5-6 times in the hospital. He has been Abilify in the past without benefit. Per previous chart he has also been on Zyprexa which was transitioned to Abilify. He initially states he doesn't think that he needs psychiatric medications. He's never had any suicide attempts. He was on Seroquel the past but gained 40 pounds in a week. He did take Zoloft in the past and one day he felt really good on it, he says he stopped that when he got out [facility]. Per chart history there is history of diagnoses of psychosis NOS, substance-induced psychosis and amphetamine use disorder. PMH: Patient states that he is pretty healthy he does make reference to losing his hair and describes that being like a burn. He makes reference to it being the Government and the Internet being on fire, relays there is a GPS in his body. ALLERGIES: No known ALLERGIES MEDICATIONS: Tylenol when necessary, Maalox when necessary, Norvasc, Augmentin, milk of magnesia when necessary CHEMICAL DEPENDENCY HISTORY: Per chart history history of amphetamine use disorder. Patient states that he uses weed, tries to use it every day. FAMILY PSYCHIATRIC HISTORY: Denies FAMILY CHEMICAL DEPENDENCY HISTORY: None known at this time. SOCIAL HISTORY: Patient states that he most recently was staying with his mom but he is not living with her anymore for about the last week and is just been staying with different people. Says he is currently unemployed. He states that he is having financial stress, he does have someone that always him money for work that he is done. 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 He is not in a current relationship. He was once and . No children. MENTAL STATUS EXAM: He is alert and cooperative with the interview. His speech is fluent, not rapid or pressured. Overall his thought processes are organized. Thought content, he describes thoughts that his hair is falling out related to a burn. He relays that is the Government and relays that the Internet is on fire. He also makes reference to a GPS in his body. Makes reference that the entire Government needs the penalty and talks about a certain company thinking they're larger than life. He denies any thoughts of harm to self or others. Regarding his mood he relays that it's relaxing, relays that he still feels angry about his situation. Insight is adequate, judgment shows evidence of recent impairment. Cognitively appears to be grossly intact. I do not note any significant memory disturbance or disorientation. STRENGTHS/WEAKNESSES: Strengths-seeking treatment; weaknesses-coping skills INTELLECTUAL FUNCTIONING: Average (1) Acute psychosis Current Visit: No Status: Acute Priority: High Code(s): F23 - BRIEF PSYCHOTIC DISORDER SNOMED Code(s): 25647058 (2) Depression Current Visit: No Status: Acute Priority: High Code(s): F32.9 - MAJOR DEPRESSIVE DISORDER, SINGLE EPISODE, UNSPECIFIED SNOMED Code(s): 50593169 (3) Psychotic disorder Current Visit: No Status: Acute Priority: High Code(s): F29 - UNSP PSYCHOSIS NOT DUE TO A SUBSTANCE OR KNOWN PHYSIOL COND SNOMED Code(s): 29060437 Plan: Plan of care: He'll continue on his sertraline 50 mg by mouth daily at bedtime and observe for further need for anxiolytic's sleep insomnia and functioning. He is isolating to his room and will encourage him to get out of his room. He was admitted in formal voluntary due to suicidal thoughts and wanting help. He had a job and was fired for no reason. He'll be usual protocol 15 minute checks and evaluation has been done by psychiatry medicine nursing staff secondary social studies teacher and occupational therapy. He'll be expected to go to groups on a regular basis. 07/13/2018: Today he describes that there is a conspiracy from the [employer] from to make any money. He is expecting people to pay him a salary because he is a spiritual person. He states his mother has greatly changed and she wanted to fight in the last time he stayed there. He does describe delusional psychotic ideas and references and is bizarre in nature. We'll start Invega 3 mg by mouth daily at bedtime plus increase his Zoloft 87.5 mg by mouth daily at bedtime. We'll maintain on 15 minute checks and encourage him to go to groups. Time with Patient: Greater than 30
[2018-07-13] MEDS ORDERED: PALIPERIDONE 3 MG TAB.ER.24 PO SCH (21:00)
[2018-07-13] MEDS ORDERED: SERTRALINE 50 MG TAB PO SCH (21:00)
[2018-07-13] MEDS ORDERED: SERTRALINE 25 MG TAB PO SCH (21:00)
[2018-07-13] MEDS: ZIPRASIDONE 40 MG CAP PO SCH (21:02)
[2018-07-14] MEDS: AMOXIC-POT CLAV 500-125 MG 1 EACH TAB PO SCH ×2 (08:13→20:37)
[2018-07-14] MEDS: amLODIPine 10 MG TAB PO SCH (08:13)
--- NOTE | 2018-07-14 11:24 | P.PN ---
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 he admits that depression has been there his whole life. He is awake and alert. People bother me. Living with her. Conspiracy. 07/14/2018: He states he is feeling less depressed but extremely anxious. He still has thoughts of suicide but can contract for safety. His sleep has improved and he has an appetite Objective - Vital Signs Vital signs: Vital Signs Temp 98.4 F 07/14/18 06:29 Pulse 102 H 07/14/18 08:14 Resp 18 07/14/18 08:14 BP 138/92 07/14/18 08:14 Pulse Ox 98 07/10/18 22:29 - Labs CBC & Chem 7: 07/11/18 07:39 07/11/18 07:39 Assessment and Plan Assessment: IDENTIFYING DATA: 42-year-old male patient HPI: Patient admitted to the inpatient psychiatric unit [facility] on a voluntary basis with concerns of depression and thoughts of suicide. Patient states yesterday he had thoughts of jumping in the [place] was having thoughts of suicide and came here to the hospital on his own. Says his a lot of stressors in life including financial, living situation and unemployed. He makes reference to some of the hair on his body falling often describes it as a burn. Makes reference to a GPS system being in his body and relays that the entire Government needs the penalty, talks about a certain company thinking they're larger than life. He says his sleep has been difficult lately. he admits that depression has been there his whole life. PAST PSYCHIATRIC HISTORY: Patient has a 5-6 times in the hospital. He has been Abilify in the past without benefit. Per previous chart he has also been on Zyprexa which was transitioned to Abilify. He initially states he doesn't think that he needs psychiatric medications. He's never had any suicide attempts. He was on Seroquel the past but gained 40 pounds in a week. He did take Zoloft in the past and one day he felt really good on it, he says he stopped that when he got out of [facility]. Per chart history there is history of diagnoses of psychosis NOS, substance-induced psychosis and amphetamine use disorder. PMH: Patient states that he is pretty healthy he does make reference to losing his hair and describes that being like a burn. He makes reference to it being the Government and the Internet being on fire, relays there is a GPS in his body. ALLERGIES: No known ALLERGIES MEDICATIONS: Tylenol when necessary, Maalox when necessary, Norvasc, Augmentin, milk of magnesia when necessary CHEMICAL DEPENDENCY HISTORY: Per chart history history of amphetamine use disorder. Patient states that he uses weed, tries to use it every day. FAMILY PSYCHIATRIC HISTORY: Denies FAMILY CHEMICAL DEPENDENCY HISTORY: None known at this time. SOCIAL HISTORY: Patient states that he most recently was staying with his mom but he is not living with her anymore for about the last week and is just been staying with different people. Says he is currently unemployed. He states that he is having financial stress, he does have someone that always him money for work that he is done. 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 He is not in a current relationship. He was once and . No children. MENTAL STATUS EXAM: He is alert and cooperative with the interview. His speech is fluent, not rapid or pressured. Overall his thought processes are organized. Thought content, he describes thoughts that his hair is falling out related to a burn. He relays that is the Government and relays that the Internet is on fire. He also makes reference to a GPS in his body. Makes reference that the entire Government needs the penalty and talks about a certain company thinking they're larger than life. He denies any thoughts of harm to self or others. Regarding his mood he relays that it's relaxing, relays that he still feels angry about his situation. Insight is adequate, judgment shows evidence of recent impairment. Cognitively appears to be grossly intact. I do not note any significant memory disturbance or disorientation.he does describe that people are payments hour given the house and take care of him for the fact that he spiritually taking care of her body else. He does express hopeless helpless and suicidal thoughts. STRENGTHS/WEAKNESSES: Strengths-seeking treatment; weaknesses-coping skills INTELLECTUAL FUNCTIONING: Average (1) Acute psychosis Current Visit: No Status: Acute Priority: High Code(s): F23 - BRIEF PSYCHOTIC DISORDER SNOMED Code(s): 92302580 (2) Depression Current Visit: No Status: Acute Priority: High Code(s): F32.9 - MAJOR DEPRESSIVE DISORDER, SINGLE EPISODE, UNSPECIFIED SNOMED Code(s): 60456445 (3) Psychotic disorder Current Visit: No Status: Acute Priority: High Code(s): F29 - UNSP PSYCHOSIS NOT DUE TO A SUBSTANCE OR KNOWN PHYSIOL COND SNOMED Code(s): 47436672 Plan: Plan of care: He'll continue on his sertraline 50 mg by mouth daily at bedtime and observe for further need for anxiolytic's sleep insomnia and functioning. He is isolating to his room and will encourage him to get out of his room. He was admitted in formal voluntary due to suicidal thoughts and wanting help. He had a job and was fired for no reason. He'll be usual protocol 15 minute checks and evaluation has been done by psychiatry medicine nursing staff executive secretary social welfare and occupational therapy. He'll be expected to go to groups on a regular basis. 07/13/2018: Today he describes that there is a conspiracy from the [employer] from to make any money. He is expecting people to pay him a salary because he is a spiritual person. He states his mother has greatly changed and she wanted to fight in the last time he stayed there. He does describe delusional psychotic ideas and references and is bizarre in nature. We'll start Invega 3 mg by mouth daily at bedtime plus increase his Zoloft 87.5 mg by mouth daily at bedtime. We'll maintain on 15 minute checks and encourage him to go to groups. 07/14/2018:today he describes that people such as a [employer] take money from him and keep him from doing jobs.Zoloft will be increased to 100 mg at bedtime and increase of Invega 6 mg by mouth daily at bedtime. He'll be maintained on 15 minute checks was teamed in daily meeting today and disposition is being depressed Time with Patient: Less than 30
[2018-07-14] MEDS: SERTRALINE 100 MG TAB PO SCH (20:37)
[2018-07-14] MEDS ORDERED: PALIPERIDONE 6 MG TAB.ER.24 PO SCH (21:00)
[2018-07-15] MEDS: AMOXIC-POT CLAV 500-125 MG 1 EACH TAB PO SCH ×2 (09:11→20:57)
[2018-07-15] MEDS: amLODIPine 10 MG TAB PO SCH (09:12)
--- NOTE | 2018-07-15 14:35 | P.PN ---
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 he admits that depression has been there his whole life. He is awake and alert. People bother me. Living with her. Conspiracy. 07/14/2018: He states he is feeling less depressed but extremely anxious. He still has thoughts of suicide but can contract for safety. His sleep has improved and he has an appetite 07/15/2018: He is feeling less depressed today and encouraged him to go to group in the afternoon since he sleeps in the morning. He will chart was reviewed and discussed in team today. He still believes that people are out to conspire against him and he feels people need to pay him Objective - Vital Signs Vital signs: Vital Signs Temp 97.5 F L 07/15/18 09:13 Pulse 101 H 07/15/18 09:13 Resp 20 07/15/18 09:13 BP 116/78 07/15/18 09:13 Pulse Ox 98 07/10/18 22:29 - Labs CBC & Chem 7: 07/11/18 07:39 07/11/18 07:39 Assessment and Plan Assessment: IDENTIFYING DATA: 42-year-old male patient HPI: Patient admitted to the inpatient psychiatric unit [facility] on a voluntary basis with concerns of depression and thoughts of suicide. Patient states yesterday he had thoughts of jumping in the [place] was having thoughts of suicide and came here to the hospital on his own. Says his a lot of stressors in life including financial, living situation and unemployed. He makes reference to some of the hair on his body falling often describes it as a burn. Makes reference to a GPS system being in his body and relays that the entire Government needs the penalty, talks about a certain company thinking they're larger than life. He says his sleep has been difficult lately. he admits that depression has been there his whole life. SOCIAL HISTORY: Patient states that he most recently was staying with his mom but he is not living with her anymore for about the last week and is just been staying with different people. Says he is currently unemployed. He states that he is having financial stress, he does have someone that always him money for work that he is done. 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 He is not in a current relationship. He was once and . No children. MENTAL STATUS EXAM: He is alert and cooperative with the interview. His speech is fluent, not rapid or pressured. Overall his thought processes are disorganized. Thought content, he describes thoughts that his hair is falling out related to a burn. He relays that is the Government and relays that the Internet is on fire. He also makes reference to a GPS in his body. Makes reference that the entire Government needs the penalty and talks about a certain company thinking they're larger than life. He denies any thoughts of harm to others but considers his own life not valuable. Regarding his mood he relays that it's relaxing, relays that he still feels angry about his situation. Insight is adequate, judgment shows evidence of recent impairment. Cognitively appears to be grossly intact. I do not note any significant memory disturbance or disorientation.he does describe that people are payments hour given the house and take care of him for the fact that he spiritually taking care of her body else. He does express hopeless helpless and suicidal thoughts. STRENGTHS/WEAKNESSES: Strengths-seeking treatment; weaknesses-coping skills INTELLECTUAL FUNCTIONING: Average (1) Acute psychosis Current Visit: No Status: Acute Priority: High Code(s): F23 - BRIEF PSYCHOTIC DISORDER SNOMED Code(s): 81154176 (2) Depression Current Visit: No Status: Acute Priority: High Code(s): F32.9 - MAJOR DEPRESSIVE DISORDER, SINGLE EPISODE, UNSPECIFIED SNOMED Code(s): 20535837 (3) Psychotic disorder Current Visit: No Status: Acute Priority: High Code(s): F29 - UNSP PSYCHOSIS NOT DUE TO A SUBSTANCE OR KNOWN PHYSIOL COND SNOMED Code(s): 53576813 Plan: Plan of care: He'll continue on his sertraline 50 mg by mouth daily at bedtime and observe for further need for anxiolytic's sleep insomnia and functioning. He is isolating to his room and will encourage him to get out of his room. He was admitted in formal voluntary due to suicidal thoughts and wanting help. He had a job and was fired for no reason. He'll be usual protocol 15 minute checks and evaluation has been done by psychiatry medicine nursing staff certified social workers in health care and occupational therapy. He'll be expected to go to groups on a regular basis. 07/13/2018: Today he describes that there is a conspiracy from the [employer] from to make any money. He is expecting people to pay him a salary because he is a spiritual person. He states his mother has greatly changed and she wanted to fight in the last time he stayed there. He does describe delusional psychotic ideas and references and is bizarre in nature. We'll start Invega 3 mg by mouth daily at bedtime plus increase his Zoloft 87.5 mg by mouth daily at bedtime. We'll maintain on 15 minute checks and encourage him to go to groups. 07/14/2018:today he describes that people such as a [employer] take money from him and keep him from doing jobs.Zoloft will be increased to 100 mg at bedtime and increase of Invega 6 mg by mouth daily at bedtime. He'll be maintained on 15 minute checks was teamed in daily meeting today and disposition is being depressed 07/15/2018: He is less delusional and is compliant with his medications. He was discussed in team this morning chart reviewed and interviewed at bedside. He'll be maintained on 15 minute checks for safety. Will increase Invega to 9 mg by mouth daily at bedtime for delusional thinking.
[2018-07-15] MEDS: SERTRALINE 100 MG TAB PO SCH (20:57)
[2018-07-15] MEDS ORDERED: PALIPERIDONE 3 MG TAB.ER.24 PO SCH (21:00)
--- NOTE | 2018-07-16 09:03 | P.PN ---
Subjective Progress Note Date: 07/16/18 Principal diagnosis: Unspecified psychotic disorder rule out substance-induced psychosis versus primary psychotic disorder; unspecified depressive disorder He says his sleep has been difficult lately. he admits that depression has been there his whole life. He is awake and alert. People bother me. Living with her. Conspiracy. 07/14/2018: He states he is feeling less depressed but extremely anxious. He still has thoughts of suicide but can contract for safety. His sleep has improved and he has an appetite 07/15/2018: He is feeling less depressed today and encouraged him to go to group in the afternoon since he sleeps in the morning. He will chart was reviewed and discussed in team today. He still believes that people are out to conspire against him and he feels people need to pay him 07/16/2018: He had a good night's sleep, still feels her conspiracy and that people to provide him a lifestyle. Chart reviewed, discussed with nursing staff and interviewed the patient at bedside. He still has depression with some suicidal ideation and states what she did go on because everybody hates me. Objective - Vital Signs Vital signs: Vital Signs Temp 97.9 F 07/16/18 07:01 Pulse 75 07/16/18 07:01 Resp 16 07/16/18 07:01 BP 114/61 07/16/18 07:01 Pulse Ox 98 07/10/18 22:29 - Labs CBC & Chem 7: 07/11/18 07:39 07/11/18 07:39 Assessment and Plan Assessment: IDENTIFYING DATA: 42-year-old male patient HPI: Patient admitted to the inpatient psychiatric unit [facility] on a voluntary basis with concerns of depression and thoughts of suicide. Patient states yesterday he had thoughts of jumping in the [place] was having thoughts of suicide and came here to the hospital on his own. Says his a lot of stressors in life including financial, living situation and unemployed. He makes reference to some of the hair on his body falling often describes it as a burn. Makes reference to a GPS system being in his body and relays that the entire Government needs the penalty, talks about a certain company thinking they're larger than life. He says his sleep has been difficult lately. he admits that depression has been there his whole life. SOCIAL HISTORY: Patient states that he most recently was staying with his mom but he is not living with her anymore for about the last week and is just been staying with different people. Says he is currently unemployed. He states that he is having financial stress, he does have someone that always him money for work that he is done. 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 He is not in a current relationship. He was once and . No children. MENTAL STATUS EXAM: He is alert and cooperative with the interview. His speech is fluent, not rapid or pressured. Overall his thought processes are disorganized. Thought content, he describes thoughts that his hair is falling out related to a burn. He relays that is the Government and relays that the Internet is on fire. He also makes reference to a GPS in his body. Makes reference that the entire Government needs the penalty and talks about a certain company thinking they're larger than life. He admits to thoughts of harm to others but considers his own life not valuable. Regarding his mood he relays that it's relaxing, relays that he still feels angry about his situation. Insight is adequate, judgment shows evidence of recent impairment. Cognitively appears to be grossly intact. I do not note any significant memory disturbance or disorientation.he does describe that people are payments hour given the house and take care of him for the fact that he spiritually taking care of her body else. He does express hopeless helpless and suicidal thoughts. STRENGTHS/WEAKNESSES: Strengths-seeking treatment; weaknesses-coping skills INTELLECTUAL FUNCTIONING: Average (1) Acute psychosis Current Visit: No Status: Acute Priority: High Code(s): F23 - BRIEF PSYCHOTIC DISORDER SNOMED Code(s): 87912573 (2) Depression Current Visit: No Status: Acute Priority: High Code(s): F32.9 - MAJOR DEPRESSIVE DISORDER, SINGLE EPISODE, UNSPECIFIED SNOMED Code(s): 52416433 (3) Psychotic disorder Current Visit: No Status: Acute Priority: High Code(s): F29 - UNSP PSYCHOSIS NOT DUE TO A SUBSTANCE OR KNOWN PHYSIOL COND SNOMED Code(s): 96553427 Plan: Plan of care: He'll continue on his sertraline 50 mg by mouth daily at bedtime and observe for further need for anxiolytic's sleep insomnia and functioning. He is isolating to his room and will encourage him to get out of his room. He was admitted in formal voluntary due to suicidal thoughts and wanting help. He had a job and was fired for no reason. He'll be usual protocol 15 minute checks and evaluation has been done by psychiatry medicine nursing staff social service coordinator and occupational therapy. He'll be expected to go to groups on a regular basis. 07/13/2018: Today he describes that there is a conspiracy from the free [employer] from to make any money. He is expecting people to pay him a salary because he is a spiritual person. He states his mother has greatly changed and she wanted to fight in the last time he stayed there. He does describe delusional psychotic ideas and references and is bizarre in nature. We'll start Invega 3 mg by mouth daily at bedtime plus increase his Zoloft 87.5 mg by mouth daily at bedtime. We'll maintain on 15 minute checks and encourage him to go to groups. 07/14/2018:today he describes that people such as a free [employer] take money from him and keep him from doing jobs.Zoloft will be increased to 100 mg at bedtime and increase of Invega 6 mg by mouth daily at bedtime. He'll be maintained on 15 minute checks was teamed in daily meeting today and disposition is being depressed 07/15/2018: He is less delusional and is compliant with his medications. He was discussed in team this morning chart reviewed and interviewed at bedside. He'll be maintained on 15 minute checks for safety. Will increase Invega to 9 mg by mouth daily at bedtime for delusional thinking. 07/16/2018: Chart reviewed, discussed with nursing staff, will team this morning for progress and disposition. He'll be maintained on 15 minute checks since he now describing suicidal or hopeless thoughts. He slept last night he interacts less with the call[place] milieu tends to isolate. He was encouraged today to interact and participate in groups and call[place] milieu therapeutic environment. He still has a certain amount of paranoia and feel that people are watching him and reporting him to the government. Will increase his Invega to 12 mg by mouth daily at bedtime and a team today we' ll discuss whether his insurance will be able to afford an injectable. Time with Patient: Less than 30
[2018-07-16] MEDS: AMOXIC-POT CLAV 500-125 MG 1 EACH TAB PO SCH ×2 (09:11→20:47)
[2018-07-16] MEDS: amLODIPine 10 MG TAB PO SCH (09:11)
[2018-07-16] MEDS: PALIPERIDONE 6 MG TAB.ER.24 PO SCH (20:47)
[2018-07-16] MEDS: SERTRALINE 100 MG TAB PO SCH (20:47)
[2018-07-17] MEDS: AMOXIC-POT CLAV 500-125 MG 1 EACH TAB PO SCH ×2 (09:24→20:14)
[2018-07-17] MEDS: amLODIPine 10 MG TAB PO SCH (09:24)
--- NOTE | 2018-07-17 17:20 | P.PN ---
Subjective Progress Note Date: 07/17/18 Principal diagnosis: Unspecified psychotic disorder Found him in his room. Still delusional. Reports feeling just fine. Staying in his room and not attending any groups. Working on his coping skills. Reports not sleeping as good MSE : Alert, awake, interactive. Poor eye contact. Speech few words. Mood dysphoric and anxious. Denies having any auditory and visual hallucinations. Has no suicidal ideation. Insight and judgment impaired. Plan : Will add trazodone and continue to adjust medications accordingly Objective - Vital Signs Vital signs: Vital Signs Temp 97.9 F 07/16/18 07:01 Pulse 115 H 07/16/18 10:16 Resp 16 07/16/18 07:01 BP 109/71 07/16/18 10:16 Pulse Ox 98 07/10/18 22:29 - Labs CBC & Chem 7: 07/11/18 07:39 07/11/18 07:39
[2018-07-17] MEDS: SERTRALINE 100 MG TAB PO SCH (20:11)
[2018-07-17] MEDS: PALIPERIDONE 6 MG TAB.ER.24 PO SCH (20:11)
[2018-07-17] MEDS: traZODone HCL 50 MG TAB PO SCH (20:13)
[2018-07-18] MEDS: AMOXIC-POT CLAV 500-125 MG 1 EACH TAB PO SCH ×2 (08:03→20:36)
[2018-07-18] MEDS: amLODIPine 10 MG TAB PO SCH (08:04)
--- NOTE | 2018-07-18 13:11 | P.PN ---
Subjective Progress Note Date: 07/18/18 Principal diagnosis: Unspecified psychotic disorder Found him in his room. Still delusional. Reports feeling just fine. Staying in his room and not attending any groups. Working on his coping skills. Reports not sleeping as good MSE : Alert, awake, interactive. Poor eye contact. Speech few words. Mood dysphoric and anxious. Denies having any auditory and visual hallucinations. Has no suicidal ideation. Insight and judgment impaired. Plan : Will add trazodone and continue to adjust medications accordingly Objective - Vital Signs Vital signs: Vital Signs Temp 97.6 F 07/18/18 07:04 Pulse 92 07/18/18 08:04 Resp 18 07/18/18 08:04 BP 117/77 07/18/18 08:04 Pulse Ox 98 07/10/18 22:29 - Labs CBC & Chem 7: 07/11/18 07:39 07/11/18 07:39
[2018-07-18] MEDS: SERTRALINE 100 MG TAB PO SCH (20:36)
[2018-07-18] MEDS: PALIPERIDONE 6 MG TAB.ER.24 PO SCH (20:36)
[2018-07-18] MEDS: traZODone HCL 50 MG TAB PO SCH (20:37)
[2018-07-19] MEDS: amLODIPine 10 MG TAB PO SCH (08:13)
[2018-07-19 08:16] VITALS: RESP 18
--- NOTE | 2018-07-19 16:16 | P.PN ---
Subjective Progress Note Date: 07/19/18 Principal diagnosis: Unspecified psychotic disorder rule out substance-induced psychosis versus primary psychotic disorder; unspecified depressive disorder He says his sleep has been difficult lately. he admits that depression has been there his whole life. He is awake and alert. People bother me. Living with her. Conspiracy. 07/14/2018: He states he is feeling less depressed but extremely anxious. He still has thoughts of suicide but can contract for safety. His sleep has improved and he has an appetite 07/15/2018: He is feeling less depressed today and encouraged him to go to group in the afternoon since he sleeps in the morning. He will chart was reviewed and discussed in team today. He still believes that people are out to conspire against him and he feels people need to pay him 07/16/2018: He had a good night's sleep, still feels her conspiracy and that people to provide him a lifestyle. Chart reviewed, discussed with nursing staff and interviewed the patient at bedside. He still has depression with some suicidal ideation and states what she did go on because everybody hates me. 07/19/2018: We can call coverage Place patient on trazodone due to poor sleep at 50 mg by mouth daily at bedtime. He still thinks about conspiracy but it does not consume his daily thoughts. His depression has lessened and has less suicidal thoughts. He is able to go to group and interacting the afternoon but tends to sleep in in the morning. Discussed with him discharge plans are and where to go said he either go to her sister's door to the long-term. Objective - Vital Signs Vital signs: Vital Signs Temp 97.9 F 07/19/18 06:42 Pulse 82 07/19/18 08:15 Resp 18 07/19/18 08:15 BP 118/70 07/19/18 08:15 Pulse Ox 98 07/10/18 22:29 Intake & Output 07/18/18 07/19/18 07/19/18 18:59 06:59 18:59 Weight 92.4 kg - Labs CBC & Chem 7: 07/11/18 07:39 07/11/18 07:39 Assessment and Plan Assessment: IDENTIFYING DATA: 42-year-old male patient HPI: Patient admitted to the inpatient psychiatric unit [facility] on a voluntary basis with concerns of depression and thoughts of suicide. Patient states yesterday he had thoughts of jumping in the [place] was having thoughts of suicide and came here to the hospital on his own. Says his a lot of stressors in life including financial, living situation and unemployed. He makes reference to some of the hair on his body falling often describes it as a burn. Makes reference to a GPS system being in his body and relays that the entire Government needs the penalty, talks about a certain company thinking they're larger than life. He says his sleep has been difficult lately. he admits that depression has been there his whole life. SOCIAL HISTORY: Patient states that he most recently was staying with his mom but he is not living with her anymore for about the last week and is just been staying with different people. Says he is currently unemployed. He states that he is having financial stress, he does have someone that always him money for work that he is done. 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 He is not in a current relationship. He was once and . No children. MENTAL STATUS EXAM: He is alert and cooperative with the interview. His speech is fluent, not rapid or pressured. Overall his thought processes are less disorganized. He also makes no reference to a GPS in his body. Makes reference that the entire Government needs the penalty and talks about a certain company thinking they're larger than life. He admits to thoughts of harm to others but considers his own life not valuable. Regarding his mood he relays that it's relaxing, relays that he still feels angry about his situation. Insight is adequate, judgment shows evidence of recent impairment. Cognitively appears to be grossly intact. I do not note any significant memory disturbance or disorientation.he does describe that people are payments hour given the house and take care of him for the fact that he spiritually taking care of her body else. He does express hopeless helpless and suicidal thoughts. He appears stable today and able to get sleep last night. STRENGTHS/WEAKNESSES: Strengths-seeking treatment; weaknesses-coping skills INTELLECTUAL FUNCTIONING: Average (1) Acute psychosis Current Visit: No Status: Acute Priority: High Code(s): F23 - BRIEF PSYCHOTIC DISORDER SNOMED Code(s): 91302212 (2) Depression Current Visit: No Status: Acute Priority: High Code(s): F32.9 - MAJOR DEPRESSIVE DISORDER, SINGLE EPISODE, UNSPECIFIED SNOMED Code(s): 12239590 (3) Psychotic disorder Current Visit: No Status: Acute Priority: High Code(s): F29 - UNSP PSYCHOSIS NOT DUE TO A SUBSTANCE OR KNOWN PHYSIOL COND SNOMED Code(s): 91702091 Plan: Plan of care: He'll continue on his sertraline 50 mg by mouth daily at bedtime and observe for further need for anxiolytic's sleep insomnia and functioning. He is isolating to his room and will encourage him to get out of his room. He was admitted in formal voluntary due to suicidal thoughts and wanting help. He had a job and was fired for no reason. He'll be usual protocol 15 minute checks and evaluation has been done by psychiatry medicine nursing staff secondary social studies teacher and occupational therapy. He'll be expected to go to groups on a regular basis. 07/13/2018: Today he describes that there is a conspiracy from the [employer] from to make any money. He is expecting people to pay him a salary because he is a spiritual person. He states his mother has greatly changed and she wanted to fight in the last time he stayed there. He does describe delusional psychotic ideas and references and is bizarre in nature. We'll start Invega 3 mg by mouth daily at bedtime plus increase his Zoloft 87.5 mg by mouth daily at bedtime. We'll maintain on 15 minute checks and encourage him to go to groups. 07/14/2018:today he describes that people such as a [employer] take money from him and keep him from doing jobs.Zoloft will be increased to 100 mg at bedtime and increase of Invega 6 mg by mouth daily at bedtime. He'll be maintained on 15 minute checks was teamed in daily meeting today and disposition is being depressed 07/15/2018: He is less delusional and is compliant with his medications. He was discussed in team this morning chart reviewed and interviewed at bedside. He'll be maintained on 15 minute checks for safety. Will increase Invega to 9 mg by mouth daily at bedtime for delusional thinking. 07/16/2018: Chart reviewed, discussed with nursing staff, will team this morning for progress and disposition. He'll be maintained on 15 minute checks since he now describing suicidal or hopeless thoughts. He slept last night he interacts less with the [place] milieu tends to isolate. He was encouraged today to interact and participate in groups and call[place] milieu therapeutic environment. He still has a certain amount of paranoia and feel that people are watching him and reporting him to the government. Will increase his Invega to 12 mg by mouth daily at bedtime and a team today we' ll discuss whether his insurance will be able to afford an injectable. 07/19/2018: He is able to discuss discharge plans today and will continue the Invega and Zoloft with possible discharge in the morning and is without suicidal ideation. Time with Patient: Less than 30
[2018-07-19] MEDS: traZODone HCL 50 MG TAB PO SCH (20:37)
[2018-07-19] MEDS: SERTRALINE 100 MG TAB PO SCH (20:37)
[2018-07-19] MEDS: PALIPERIDONE 6 MG TAB.ER.24 PO SCH (20:37)
[2018-07-20 07:06] VITALS: BP 117/69; PULSE 63; TEMP 97.7
[2018-07-20] MEDS: amLODIPine 10 MG TAB PO SCH (08:27)
--- NOTE | 2018-07-20 11:28 | P.DS ---
Providers Date of admission: 07/10/18 21:49 Expected date of discharge: 07/20/18 Attending physician: Alejo Yuen DO Consults: 07/10/18 21:52 Consult Physician Routine Consulting Provider: Estefani Salmeron Consult Reason/Comments: medical management Do you want consulting provider notified?: Yes, Notify in am Primary care physician: Ayo Cabaoa - Discharge Diagnosis(es) (1) Acute psychosis IDENTIFYING DATA: 42-year-old male patient HPI: Patient admitted to the inpatient psychiatric unit [facility] on a voluntary basis with concerns of depression and thoughts of suicide. Patient states yesterday he had thoughts of jumping in the [place] was having thoughts of suicide and came here to the hospital on his own. Says his a lot of stressors in life including financial, living situation and unemployed. He makes reference to some of the hair on his body falling often describes it as a burn. Makes reference to a GPS system being in his body and relays that the entire Government needs the penalty, talks about a certain company thinking they're larger than life. He says his sleep has been difficult lately. he admits that depression has been there his whole life. SOCIAL HISTORY: Patient states that he most recently was staying with his mom but he is not living with her anymore for about the last week and is just been staying with different people. Says he is currently unemployed. He states that he is having financial stress, he does have someone that always him money for work that he is done. 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 He is not in a current relationship. He was once and . No children. Unspecified psychotic disorder rule out substance-induced psychosis versus primary psychotic disorder; unspecified depressive disorder He says his sleep has been difficult lately. he admits that depression has been there his whole life. He is awake and alert. People bother me. Living with her. Conspiracy. 07/14/2018: He states he is feeling less depressed but extremely anxious. He still has thoughts of suicide but can contract for safety. His sleep has improved and he has an appetite 07/15/2018: He is feeling less depressed today and encouraged him to go to group in the afternoon since he sleeps in the morning. He will chart was reviewed and discussed in team today. He still believes that people are out to conspire against him and he feels people need to pay him 07/16/2018: He had a good night's sleep, still feels her conspiracy and that people to provide him a lifestyle. Chart reviewed, discussed with nursing staff and interviewed the patient at bedside. He still has depression with some suicidal ideation and states what she did go on because everybody hates me. 07/19/2018: We can call coverage Place patient on trazodone due to poor sleep at 50 mg by mouth daily at bedtime. He still thinks about conspiracy but it does not consume his daily thoughts. His depression has lessened and has less suicidal thoughts. He is able to go to group and interacting the afternoon but tends to sleep in in the morning. Discussed with him discharge plans are and where to go said he either go to her sister's door [facility] [place]. Current Visit: No Status: Acute Priority: Low (2) Depression Current Visit: No Status: Acute Priority: Low (3) Psychotic disorder Current Visit: No Status: Acute Priority: Low Hospital Course: Plan: Plan of care: He'll continue on his sertraline 50 mg by mouth daily at bedtime and observe for further need for anxiolytic's sleep insomnia and functioning. He is isolating to his room and will encourage him to get out of his room. He was admitted in formal voluntary due to suicidal thoughts and wanting help. He had a job and was fired for no reason. He'll be usual protocol 15 minute checks and evaluation has been done by psychiatry medicine nursing staff sr. social media & mobile manager and occupational therapy. He'll be expected to go to groups on a regular basis. 07/13/2018: Today he describes that there is a conspiracy from the [employer] from to make any money. He is expecting people to pay him a salary because he is a spiritual person. He states his mother has greatly changed and she wanted to fight in the last time he stayed there. He does describe delusional psychotic ideas and references and is bizarre in nature. We'll start Invega 3 mg by mouth daily at bedtime plus increase his Zoloft 87.5 mg by mouth daily at bedtime. We'll maintain on 15 minute checks and encourage him to go to groups. 07/14/2018:today he describes that people such as a free [employer] take money from him and keep him from doing jobs.Zoloft will be increased to 100 mg at bedtime and increase of Invega 6 mg by mouth daily at bedtime. He'll be maintained on 15 minute checks was teamed in daily meeting today and disposition is being depressed 07/15/2018: He is less delusional and is compliant with his medications. He was discussed in team this morning chart reviewed and interviewed at bedside. He'll be maintained on 15 minute checks for safety. Will increase Invega to 9 mg by mouth daily at bedtime for delusional thinking. 07/16/2018: Chart reviewed, discussed with nursing staff, will team this morning for progress and disposition. He'll be maintained on 15 minute checks since he now describing suicidal or hopeless thoughts. He slept last night he interacts less with the call[place] milieu tends to isolate. He was encouraged today to interact and participate in groups and callow[place] milieu therapeutic environment. He still has a certain amount of paranoia and feel that people are watching him and reporting him to the government. Will increase his Invega to 12 mg by mouth daily at bedtime and a team today we' ll discuss whether his insurance will be able to afford an injectable. 07/19/2018: He is able to discuss discharge plans today and will continue the Invega and Zoloft with possible discharge in the morning and is without suicidal ideation. Mental status examination the time of discharge: The patient presents alert, pleasant, and cooperative. There calmly seated without any agitated behavior. He reports that [his] mood is good. Affect is congruent and euthymic. [He] deny having any suicidal or homicidal ideation intent or plan. [He] denies any auditory or visual hallucinations. There is no evidence of any delusional thought content. [His] thought process is linear and goal-directed. [His] speech is fluent and nonpressured. [His] memory and concentration is grossly intact for the purposes of this session. His medications were sent to [facility] for 30 days. He plans [facility] go to [facility] mother's [facility] Patient Condition at Discharge: Good Plan - Discharge Summary Discharge Rx Participant: Yes New Discharge Prescriptions: New amLODIPine [Norvasc] 10 mg PO DAILY 30 Days #30 tab Paliperidone [Invega] 12 mg PO 2100 30 Days #60 tab.[email or web address] Sertraline [Zoloft] 100 mg PO 2100 30 Days #30 tab traZODone HCL [Desyrel] 50 mg PO HS 30 Days #30 tab Discharge Medication List Paliperidone [Invega] 12 mg PO 2100 30 Days #60 tab.[email or web address] 07/20/18 [Rx] Sertraline [Zoloft] 100 mg PO 2100 30 Days #30 tab 07/20/18 [Rx] amLODIPine [Norvasc] 10 mg PO DAILY 30 Days #30 tab 07/20/18 [Rx] traZODone HCL [Desyrel] 50 mg PO HS 30 Days #30 tab 07/20/18 [Rx] Follow up Appointment(s)/Referral(s): [facility] [Outside] - 1-2 Days (walk in intake today until 5:00 pm tomorrow 830 - 300pm 830 - 300pm) Ayo Deal MD [Primary Care Provider] - 1-2 days Activity/Diet/Wound Care/Special Instructions: Remove all firearms from the home; Refrain from street drugs and alcohol; Diet and activity as tolerated; Follow-up with your PCP in 1-2 days; Keep all scheduled follow-up appointments and take your meds. as prescribed; When you are in need of prescription refills, either contact your PCP or your aftercare psychiatrist; If you worsen or have any problems, call the Crisis Line at [phone] or go to the nearest ER for a psychiatric evaluation. Discharge Disposition: HOME SELF-CARE
== END 2018-07-20 12:23 | disposition home or self-care (01) | DRG 885 ==
LOC: EC 18:28 → 3MHU 21:49
PROVIDERS: ADMIT Psychiatry & Neurology Psychiatry; ATTEND Psychiatry & Neurology Psychiatry
DX: F23 Brief psychotic disorder (principal); R45.851 Suicidal ideations; F32.9 Major depressive disorder, single episode, unspecified; F41.9 Anxiety disorder, unspecified; F90.9 Attention-deficit hyperactivity disorder, unspecified type; I10 Essential (primary) hypertension; J06.9 Acute upper respiratory infection, unspecified; Z81.8 Family history of other mental and behavioral disorders; Z81.1 Family history of alcohol abuse and dependence; F17.210 Nicotine dependence, cigarettes, uncomplicated; G47.00 Insomnia, unspecified; Z56.0 Unemployment, unspecified
CPT/HCPCS: 80053; 80061; 80306; 82075; 83036; 84443; 85025; 87502; 99285

== ENCOUNTER 2018-11-26 15:23 | Inpatient (IN) | payer MEDICAID, OTHER ==
[2018-11-26] MEDS ORDERED: OLANZapine ODT 10 MG TAB PO STA (16:13)
--- NOTE | 2018-11-26 16:17 | ED ---
Psych HPI - General Chief Complaint: Psychiatric Symptoms Stated Complaint: Mental health Time Seen by Provider: 11/26/18 15:54 Source: police Mode of arrival: ambulatory - History of Present Illness Initial Comments: 43-year-old male [facility] with acute psychosis. Per the petition, the patient was stating that he was "God and trying to keep everyone alive." He is talking to himself and is still hyperverbal. On arrival to the emergency department the patient is still exhibiting pentecostal delusions. He is stating that he got the blisters on his hands by "making the sunrise every morning" He denies any history of psychiatric conditions, psychiatric hospitalizations, current suicidal or homicidal ideations, or current hallucinations. He denies drug or alcohol use. - Related Data Home Medications Medication Instructions Recorded Confirmed No Known Home Medications 11/26/18 11/26/18 Allergies Allergy/AdvReac Type Severity Reaction Status Date / Time No Known Allergies Allergy Verified 11/26/18 16:21 Review of Systems ROS Statement: Those systems with pertinent positive or pertinent negative responses have been documented in the HPI. Review of Systems Constitutional: Denies fever, chills Eyes: Denies change in vision, Denies pain Ears, nose, mouth, throat: Denies headaches, Denies sore throat Cardiovascular: Denies chest pain. Denies palpitations Respiratory: Denies shortness of breath, Denies cough Gastrointestinal: Denies abdominal pain. Denies nausea, vomiting, diarrhea. Genitourinary: Denies hematuria, Denies infections Musculoskeletal: Denies pain, Denies swelling Integumentary: Denies rash Neurological: Denies headache, focal weakness, focal numbness Psychiatric: Denies anxiety, Denies depression Hematologic/Lymphatic: Denies easy bleeding or bruising ROS Other: All systems not noted in ROS Statement are negative. Past Medical History Past Medical History: Hypertension History of Any Multi-Drug Resistant Organisms: None Reported Past Surgical History: Appendectomy, Orthopedic Surgery Additional Past Surgical History / Comment(s): ANKLE SURGERY-multiple fracture 2 plates and 3 screws, BIOPSY OF LYMPH Node LEFT ARM CHILD. Past Anesthesia/Blood Transfusion Reactions: No Reported Reaction Past Psychological History: ADD/ADHD, Anxiety, Depression Smoking Status: Current every day smoker Past Alcohol Use History: None Reported Past Drug Use History: Marijuana - Past Family History Father History Unknown: Yes Additional Family Medical History / Comment(s): Father is alive with no major medical problems. Mother Additional Family Medical History / Comment(s): Mother is alive with history of depression and alcoholism. Sister(s) Additional Family Medical History / Comment(s): Patient has one sister that is younger than him and he states she has mental health issues. Patient does not have any brothers. General Exam - General Exam Comments Initial Comments: General: Awake, alert, No acute Distress HENT: Normocephalic. Atraumatic Eyes: PERRL. EOMI. No scleral icterus. No injected conjunctiva Neck: Full ROM Chest/Lungs: Clear to auscultation bilaterally. No wheezing, rhonchi, or rales Cardiac: Regular rate, rhythm. No murmurs or rubs Abdomen/GI: Soft, nontender, nondistended. No rebound, guarding, or rigidity. Musculoskeletal: Full ROM Skin: Warm, dry, intact. Blisters on left hand without erythema or purulent drainage. Psych: Hyperverbal, flight of ideas, pentecostal delusions. Anxious appearing. Neurologic: A/Ox3, no weakness, no sensory deficit, no abnormal gait, no coordination deficit Limitations: no limitations Course Vital Signs 11/26/18 11/26/18 15:36 17:45 Temperature 98.2 F Pulse Rate 87 57 L Respiratory 18 18 Rate Blood Pressure 141/81 123/79 O2 Sat by Pulse 97 100 Oximetry Medical Decision Making - Medical Decision Making 3-year-old male presenting with pentecostal delusions and psychoses. Initial exam the patient is awake alert, he is flight of ideas, pressured speech, and is delusional. Patient seen by psychiatric assessment nurse. He was petitioned and a cert was completed. He was cleared for psychiatric admission. He was given Zyprexa for his acute psychosis. Disposition Clinical Impression: Acute psychosis Disposition: TRANSFER TO PSYCH HOSP/UNIT Condition: Stable Decision to Admit Reason: Admit from EC Decision Date: 11/26/18 Decision Time: 17:24
[2018-11-26] MEDS ORDERED: ZIPRASIDONE 20 MG VIAL IM PRN (17:19)
[2018-11-26] MEDS ORDERED: MAG HYDROX/AL HYDROX/SIMETH 30 ML CUP PO PRN (17:19)
[2018-11-26] MEDS ORDERED: ACETAMINOPHEN TAB 325 MG TAB PO PRN (17:19)
[2018-11-26] MEDS ORDERED: LORazepam 1 MG TAB PO PRN (17:19)
[2018-11-26] MEDS ORDERED: MAGNESIUM HYDROXIDE 2,400 MG/10 ML CUP PO PRN (17:19)
--- NOTE | 2018-11-26 22:58 | P.CONS ---
History of Present Illness - Reason for Consult Consult date: 11/26/18 - History of Present Illness The patient is a 43 yo M with a H polysubstance abuse, HTN, anxiety, ADD, and depression was brought in under police custody from custodial for psychosis. 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 The patient was seen in the MHU with nursing staff present. The patient had disorganized thought process with flight of ideas and didn't answer questions appropriately. He noted that he was brought in to the hospital since he was "in trouble". He otherwise denied any active complaints. He reports non-compliance to his antihypertensives and notes that he doesn't take any medications. He however denied chest pain, SOB, fever, chills, abdominal pain, or diarrhea. Review of Systems Pertinent positives and negatives as discussed in HPI, a complete review of systems was performed and all other systems are negative. Past Medical History Past Medical History: Hypertension History of Any Multi-Drug Resistant Organisms: None Reported Past Surgical History: Appendectomy, Orthopedic Surgery Additional Past Surgical History / Comment(s): ANKLE SURGERY-multiple fracture 2 plates and 3 screws, BIOPSY OF LYMPH Node LEFT ARM CHILD. Past Anesthesia/Blood Transfusion Reactions: No Reported Reaction Past Psychological History: ADD/ADHD, Anxiety, Depression Smoking Status: Current every day smoker Past Alcohol Use History: None Reported Past Drug Use History: Marijuana - Past Family History Father History Unknown: Yes Additional Family Medical History / Comment(s): Father is alive with no major medical problems. Mother Additional Family Medical History / Comment(s): Mother is alive with history of depression and alcoholism. Sister(s) Additional Family Medical History / Comment(s): Patient has one sister that is younger than him and he states she has mental health issues. Patient does not have any brothers. Medications and Allergies Home Medications Medication Instructions Recorded Confirmed Type No Known Home Medications 11/26/18 11/26/18 History Allergies Allergy/AdvReac Type Severity Reaction Status Date / Time No Known Allergies Allergy Verified 11/26/18 16:21 Physical Exam Vitals: Vital Signs Temp Pulse Pulse Resp BP BP Pulse Ox 11/26/18 19:53 76 16 117/59 98 11/26/18 18:18 99.4 F 61 16 121/60 11/26/18 17:45 57 L 18 123/79 100 11/26/18 15:36 98.2 F 87 18 141/81 97 Intake and Output 11/26/18 11/26/18 11/26/18 06:59 14:59 22:59 Other: Weight 95.254 kg General: non toxic, no distress, appears at stated age, overweight Derm: no unusual rashes/lesions no unusual ecchymoses, warm, dry Head: atraumatic, normocephalic, symmetric Eyes: EOMI, no lid lag, anicteric sclera, pupils equal round reactive to light ENT: Nose and ears atraumatic, no thrush, no pharyngeal erythema Neck:trachea midline, supple Mouth: no lip lesion, mucus membranes moist Cardiovascular: S1S2 reg, no murmur, positive posterior tibial pulse bilateral, no edema, capillary refill less than 2 seconds Lungs: CTA bilateral, no rhonchi, no rales , no accessory muscle use Abdominal: soft, nontender to palpation, no guarding, no appreciable organomegaly, normal bowel sounds Psych: Disorganized thought process, flat of ideas, tangentiality, oriented to person, place, and time Assessment and Plan Plan: Hypertension -BP currently within normal limits -Continue to monitor and may start medications if warranted Polysubstance abuse -Patient advised on the importance of cessation Psychosis -As per psychiatry Thank you for allowing us to participate in the care of this patient. We will follow peripherally. Do not hesitate to contact us with questions. Someone can be reached from the [facility] hospitalist group at all hours of the day at [phone].
[2018-11-27 09:31] LABS: ALT 94 U/L (21-72); AST 105 U/L (17-59); African American GFR (CKD) >90 (>60 ml/min/1.73 sqM); Albumin 4.2 g/dL (3.5-5.0); Alkaline Phosphatase 60 U/L (38-126); Anion Gap 11 mmol/L; Blood Urea Nitrogen 16 mg/dL (9-20); Calcium 9.4 mg/dL (8.4-10.2); Carbon Dioxide 27 mmol/L (22-30); Chloride 103 mmol/L (98-107); Cholesterol 139 mg/dL (<200); Glucose 137 mg/dL (74-99); HDL Cholesterol 44 mg/dL (40-60); LDL Cholesterol,Calculated 73 mg/dL (0-99); Potassium 3.1 mmol/L (3.5-5.1); Sodium 141 mmol/L (137-145); Total Bilirubin 1.7 mg/dL (0.2-1.3); Total Protein 6.9 g/dL (6.3-8.2); Triglycerides 108 mg/dL (<150)
[2018-11-27 09:58] LABS: Basophils # (A) 0.1 k/uL (0-0.2); Basophils % (A) 1 %; Eosinophils # (A) 0.2 k/uL (0-0.7); Eosinophils % (A) 2 %; HCT 41.8 % (39.0-53.0); HGB 14.2 gm/dL (13.0-17.5); Lymphocytes # (A) 2.1 k/uL (1.0-4.8); Lymphocytes % (A) 22 %; MCH 30.3 pg (25.0-35.0); MCHC 34.1 g/dL (31.0-37.0); MCV 88.8 fL (80.0-100.0); Mean Platelet Volume 6.8; Monocytes # (A) 0.5 k/uL (0-1.0); Monocytes % (A) 6 %; Neutrophils # (A) 6.3 k/uL (1.3-7.7); Neutrophils % (A) 68 %; Platelet Count 336 k/uL (150-450); RBC 4.71 m/uL (4.30-5.90); RDW 13.6 % (11.5-15.5); WBC 9.3 k/uL (3.8-10.6)
--- NOTE | 2018-11-27 10:26 | P.HP ---
Psychiatric H&P - . H&P Date: 11/27/18 History & Physical: Allergies Allergy/AdvReac Type Severity Reaction Status Date / Time No Known Allergies Allergy Verified 11/26/18 16:21 Vital Signs Temp 97.6 F 11/27/18 01:59 Pulse 94 11/27/18 01:59 Resp 16 11/27/18 01:59 BP 110/73 11/27/18 01:59 Pulse Ox 98 11/26/18 19:53 Intake & Output 11/26/18 11/27/18 11/27/18 18:59 06:59 18:59 Weight 95.254 kg Laboratory Last Values WBC 9.3 k/uL (3.8-10.6) 11/27/18 08:58 RBC 4.71 m/uL (4.30-5.90) 11/27/18 08:58 Hgb 14.2 gm/dL (13.0-17.5) 11/27/18 08:58 Hct 41.8 % (39.0-53.0) 11/27/18 08:58 MCV 88.8 fL (80.0-100.0) 11/27/18 08:58 MCH 30.3 pg (25.0-35.0) 11/27/18 08:58 MCHC 34.1 g/dL (31.0-37.0) 11/27/18 08:58 RDW 13.6 % (11.5-15.5) 11/27/18 08:58 Plt Count 336 k/uL (150-450) 11/27/18 08:58 Neutrophils % 68 % 11/27/18 08:58 Lymphocytes % 22 % 11/27/18 08:58 Monocytes % 6 % 11/27/18 08:58 Eosinophils % 2 % 11/27/18 08:58 Basophils % 1 % 11/27/18 08:58 Neutrophils # 6.3 k/uL (1.3-7.7) 11/27/18 08:58 Lymphocytes # 2.1 k/uL (1.0-4.8) 11/27/18 08:58 Monocytes # 0.5 k/uL (0-1.0) 11/27/18 08:58 Eosinophils # 0.2 k/uL (0-0.7) 11/27/18 08:58 Basophils # 0.1 k/uL (0-0.2) 11/27/18 08:58 Sodium 141 mmol/L (137-145) 11/27/18 08:58 Potassium 3.1 mmol/L (3.5-5.1) L 11/27/18 08:58 Chloride 103 mmol/L (98-107) 11/27/18 08:58 Carbon Dioxide 27 mmol/L (22-30) 11/27/18 08:58 Anion Gap 11 mmol/L 11/27/18 08:58 BUN 16 mg/dL (9-20) 11/27/18 08:58 Creatinine 0.75 mg/dL (0.66-1.25) 11/27/18 08:58 Est GFR (CKD-EPI)AfAm >90 (>60 ml/min/1.73 sqM) 11/27/18 08:58 Est GFR (CKD-EPI)NonAf >90 (>60 ml/min/1.73 sqM) 11/27/18 08:58 Glucose 137 mg/dL (74-99) H 11/27/18 08:58 Calcium 9.4 mg/dL (8.4-10.2) 11/27/18 08:58 Total Bilirubin 1.7 mg/dL (0.2-1.3) H 11/27/18 08:58 AST 105 U/L (17-59) H 11/27/18 08:58 ALT 94 U/L (21-72) H 11/27/18 08:58 Alkaline Phosphatase 60 U/L (38-126) 11/27/18 08:58 Total Protein 6.9 g/dL (6.3-8.2) 11/27/18 08:58 Albumin 4.2 g/dL (3.5-5.0) 11/27/18 08:58 Triglycerides 108 mg/dL (<150) 11/27/18 08:58 Cholesterol 139 mg/dL (<200) 11/27/18 08:58 LDL Cholesterol, Calc 73 mg/dL (0-99) 11/27/18 08:58 HDL Cholesterol 44 mg/dL (40-60) 11/27/18 08:58 TSH 0.714 mIU/L (0.465-4.680) 11/27/18 08:58 11/27/18 10:14 Identification: Patient is a 43-year-old male who was brought to the emergency room from residential where he had been not sleeping and talking nonstop for 8 hours. He was also stating that he was God. History of Present Illness: Patient was seen this morning and he reports that he is God, states that he had been using Adderall 90 mg a day 3 times a day and this had been prescribed for him. He states that he wasn't sleeping in residential but can't tell me why. He states that he was paranoid about everyone because no one is any good. He denied any auditory or visual hallucinations. Patient states that he's tired and slept well as he had been given Zyprexa 20 mg in the emergency room prior to being brought to the psychiatric unit. Patient reported that he slept well last night, is not having any suicidal thoughts, is feeling tired this morning. Patient states that he has been admitted here 5 times in the past the last being in July 2018. He states he was feeling depressed and suicidal at that time. Patient states that since his discharge he has not taken any medication nor has he gone for any follow-up. Patient states that he is in residential for breaking a window out of business but can't tell me why he broke the window or what he was doing there. He states that he lives with his mother. States that he has not been working and his mother supports him from a financial standpoint. Patient could give me no other information at this time stating that he doesn't know why he was brought here doesn't remember what was going on in residential. He does admit to taking the Adderall 3 times a day, states that he is God and had no other complaints other than feeling tired. Patient has been here in the past and on prior admissions has presented with similar symptoms due to stimulant use. Patient when he was admitted here in July 2018 was reporting feeling depressed and suicidal. At that time he was discharged on Invega, trazodone and Zoloft. Patient in the past is been placed on Abilify. Patient is also been discharged in the past on no medications. Past Psychiatric History: patient was last admitted here in July 2018 and he has 4 prior admissions. His last admission was for depression and suicidal ideation and he was placed on Invega, trazodone and Zoloft and he states he did not take the medications after discharge and did not follow up with any care after discharge. Patient has been admitted 4 times previously for similar presentation as the current one. Past Medical/Surgical History: patient has a history of hypertension and is status post appendectomy and status post ankle fracture Family History: patient denies any history of psychiatric disorders or substance or alcohol abuse or completed suicides in the family Social History: patient states he was born and raised in [place], his parents when he was a child and both are alive. He has one sister. 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 He was and is and has a son who is 18 who lives with his mother with whom he has no contact. Patient states that he is been living with his mother who supports him financially as he has been on disability in the past but is not at this time. He denies any abuse history. Substance Use History: patient states that he used alcohol on a daily basis in the past for several years but has not used any since 2017. States that he uses marijuana daily and has for the last 10 years. He denies any methamphetamine use, any benzodiazepine use, IV drugs or opiates. Patient states he is prescribed Adderall. Patient reports he uses tobacco products Legal History: Patient has been arrested 3 times in the past and has been in residential and is currently on a residential hold for breaking a window at a business he is unaware of what he is going to be charged with. Mental status: Appearance/Attitude: Patient is dressed in a hospital gown, grooming is fair to poor, he appears tired makes eye contact and is cooperative Behavior: Patient does not exhibit any psychomotor agitation or retardation Speech/Language: Patient's speech is spontaneous of normal volume and rhythm and he is coherent Thought Process: Patient is goal-directed although non-elaborative Thought Content: Patient denies any auditory or visual hallucinations and states he is paranoid because nobody is any good and everybody is out to get him. He also states that he is God but stated he has no special mccauley. Patient states that he was sleeping at home before he went to residential where he is reported to have not been sleeping and talking nonstop for 8 hours. Patient states that he slept well after receiving medication in the emergency room yesterday. Suicidal/Homicidal Ideation: Patient denies any current suicidal or homicidal ideation Sensorium/Cognition: Patient is alert and oriented to person, place, and time his recent and remote memory are grossly intact Mood/Affect: Patient's mood is slightly irritable and his affect is appropriate to his mood Insight/Judgment: Patient's insight and judgment are fair Intellectual Functioning: patient's intellectual functioning appears average Strength/Weakness: patient has housing/use of drugs lack of compliance with follow-up care and medication Assessment: Patient has been admitted in the past on 4 occasions with a similar presentation due to stimulant use, he was also admitted in July of this year with a presentation of depression and suicidal ideation. Patient has not been compliant since his most recent discharge with medications or with follow-up care. Patient reports using Adderall that is prescribed to him 3 times a day, his prescription is for Adderall 30 mg numbers 90 filled on 11/22/2018 prescription prior to that was filled in June of this year. Patient reports no other current drug use other than marijuana on a daily basis for the last 10 years a UDS is not available at this time. Patient received Zyprexa 20 mg in the emergency room yesterday, he slept through the night and still appears tired this morning. Patient continues to voice paranoid thoughts as well as stating that he is God. Patient is a fair historian with little elaboration on his symptoms and doesn't recall what was going on in residential prior to being brought to the emergency room. Admission Diagnosis: substance-induced psychotic disorder, amphetamine use disorder Plan: patient was admitted on a voluntary basis, he is currently on a residential hold and was placed on routine observation, group and activity therapy were ordered as well as laboratory studies and a medical consultation. Patient will be continued on Zyprexa 5 mg at bedtime to target his psychotic symptoms. Patient and I discussed the use and side effects of the medication was agreeable to begin this. Patient requires hospitalization to target his psychotic symptoms.
[2018-11-27] MEDS: POTASSIUM CHLORIDE ER 20 MEQ TAB.ER PO SCH ×2 (11:13→12:10)
[2018-11-27 13:14] VITALS: BMI 28.3
[2018-11-27] MEDS ORDERED: OLANZapine 5 MG TAB PO SCH (21:00)
[2018-11-27] MEDS: BACITRACIN 500 UNIT/GM OINT 28.4 GM TUBE TOPICAL SCH (21:03)
[2018-11-27 21:07] LABS: Hemoglobin A1C 5.3 % (4.0-6.0)
[2018-11-28 09:09] LABS: African American GFR (CKD) >90 (>60 ml/min/1.73 sqM); Anion Gap 7 mmol/L; Blood Urea Nitrogen 15 mg/dL (9-20); Calcium 8.8 mg/dL (8.4-10.2); Carbon Dioxide 29 mmol/L (22-30); Chloride 104 mmol/L (98-107); Glucose 104 mg/dL (74-99); Potassium 3.9 mmol/L (3.5-5.1); Sodium 140 mmol/L (137-145)
[2018-11-28] MEDS: BACITRACIN 500 UNIT/GM OINT 28.4 GM TUBE TOPICAL SCH ×2 (09:26→20:36)
--- NOTE | 2018-11-28 13:29 | P.PN ---
Progress Note - Text Progress Note Date: 11/28/18 Interval History: Patient is a 43-year-old male who was seen today in coverage over the weekend. Patient states that he slept well last night and is not feeling as sedated. He states that he still got because he created me and is waiting for things to unfold. He says lives have to be resolved and "you are the king player". He stated that this place referring to the hospital supersedes the law and he feels safe here. Patient states he's been attending groups and activities, has been eating well. Mental Status: Appearance/Attitude: Patient is dressed in a hospital gown, makes eye contact and was cooperative Behavior: Patient did not exhibit any psychomotor agitation or retardation Speech/Language: Patient's speech is spontaneous of normal volume and rhythm and he is coherent Thought Process: Patient was goal-directed no evidence of loose association or flight of ideas Thought Content: Patient denied any auditory or visual hallucinations, patient continues to express the delusion that he is God, stating that he created me and he is waiting for things to unfold. He states that I'm the king player and how things will be resolved. Patient states that this place supersedes the law and he feels safe here. Patient states is not feeling as sedated during the day and is sleeping better Suicidal/Homicidal Ideation: Patient denies any current suicidal or homicidal ideation Sensorium/Cognition: Patient is alert and oriented to person, place, and time Mood/Affect: Patient's mood was pleasant and his affect was appropriate Insight/Judgment: Patient's insight and judgment are impaired Assessment: Patient has been compliant with medication, attending groups and activities continues to express delusional ideation that he is God. Patient states that he slept well last night and has been eating well. He reports no suicidal or homicidal ideation and has not been agitated or irritable on the unit. Patient states he feels safe here. Plan: We will increase the patient's Zyprexa to 7-1/2 mg tonight to target his psychotic symptoms, patient doesn't report any side effects from the medication and was encouraged to continue to attend groups and activities. Patient continues to require hospitalization to target his psychotic symptoms.
[2018-11-28] MEDS ORDERED: OLANZapine 2.5 MG TAB PO SCH (21:00)
[2018-11-29] MEDS ORDERED: BACITRACIN OINT 1 EACH PACKET TOPICAL ONE (08:46)
[2018-11-29] MEDS: BACITRACIN 500 UNIT/GM OINT 28.4 GM TUBE TOPICAL SCH ×2 (08:50→21:27)
--- NOTE | 2018-11-29 11:50 | P.PN ---
Progress Note - Text Progress Note Date: 11/29/18 Interval History: Patient is a 43-year-old male who [place] [facility] [place] reports that he is doing pretty well has yet to attend groups and slept well last night. Patient states that he is not having any suicidal thoughts not hearing voices and not feeling paranoid. Patient states that he's been eating well. Patient continues to state that he thinks he is God and that he created me. He states he's had these thoughts since he was a child. He clarified that he was probably using just 90 mg of Adderall a day not 90 mg 3 times a day prior to his being placed in [facility]. Mental Status: Appearance/Attitude: Patient is dressed in a hospital gown, slightly disheveled looking makes eye contact and was cooperative. Behavior: Patient does not display psychomotor agitation or retardation Speech/Language: Patient's speech is spontaneous and normal volume and rhythm and he is coherent Thought Process: Patient is goal-directed there is no evidence of loose association or flight of ideas Thought Content: Patient denies auditory or visual hallucinations and no paranoid ideation is elicited. Patient continues to express that he is God stating that he's felt that way since he was a child and that he did create me. He states that he knows this because of things that he is done. Patient states that he is sleeping well and eating well. Suicidal/Homicidal Ideation: Patient denies any current suicidal or homicidal ideation Sensorium/Cognition: Patient is alert and oriented to person, place, and time and his recent and remote memory are grossly intact Mood/Affect: Patient's mood is pleasant and his affect is appropriate to his mood Insight/Judgment: Patient's insight and judgment are fair Assessment: Patient has been sleeping and eating well reports no auditory hallucinations and is not paranoid. He continues to express that he thinks he is God, that he created me and then states that he has had these thoughts since he was a child. Patient states that he was using 90 mg of Adderall a day not 90 mg 3 times a day as he initially discussed with me. Patient states he's been sleeping and eating well. Plan: We will increase the patient's Zyprexa to 10 mg at bedtime and assess whether his delusions are decreased. Patient continues to require hospitalization to target his delusional ideation.
[2018-11-29 16:41] LABS: Hepatitis A Antibody IgM Non-Reactive (Non-Reactive); Hepatitis B Core IgM Non-Reactive (Non-Reactive)
[2018-11-29] MEDS ORDERED: OLANZapine 10 MG TAB PO SCH (21:00)
[2018-11-30 06:02] VITALS: BP 109/57; PULSE 50; RESP 14; TEMP 97.5
[2018-11-30] MEDS: BACITRACIN 500 UNIT/GM OINT 28.4 GM TUBE TOPICAL SCH (08:56)
--- NOTE | 2018-11-30 11:38 | P.DS ---
Providers Date of admission: 11/26/18 17:15 Expected date of discharge: 11/30/18 Attending physician: Paulnio Pan Consults: 11/26/18 17:19 Consult Physician Routine Consulting Provider: Julita Fuller Consult Reason/Comments: medical management Do you want consulting provider notified?: Yes Primary care physician: Stated None - Discharge Diagnosis(es) (1) Acute psychosis Current Visit: Yes Status: Acute Priority: High (2) Amphetamine use disorder, moderate Current Visit: Yes Status: Acute Priority: High Hospital Course: Brief summary admission note: This patient is a 43-year-old male who was brought to the emergency room from the prison for acute symptoms of psychosis. Reportedly had not been sleeping and talking nonstop for 8 hours. He reported that he was God. He had reported he was paranoid about everyone and no one is any good. It appears that he has been using Adderall 3 times a day. For full details please refer to the psychiatric evaluation dated 11/27/2018. Summary of hospital course: The patient was admitted to the mental health unit from the prison. He signed in voluntarily. He was seen by Dr. Osorio for the psychiatric evaluation and subsequent treatment days. I am assuming care of the patient beginning today. The patient was seen by internal medicine for routine history and physical exam. He was started on Zyprexa for symptoms of psychosis and this was titrated to 10 mg at bedtime. Staff have informed me that the patient has stabilized. Although he seems to have some baseline psychosis he is now sleeping eating and participating in activities of daily living. He reports no thoughts of harming himself or others. It appears he has no interest in participating in inpatient chemical dependency treatment. He is on a prison hold and will return there directly after being discharged from this mental health unit. For full detail please refer to progress notes. Mental status exam: The patient is alert he is dressed in his own clothing hygiene is adequate he is a disheveled appearance. Eye contact is appropriate. He is pleasant cooperative and easily directed. He indicates his mood is fine affect remains constricted. He denies having any suicidal or homicidal ideation intent or plan. He is reporting no auditory or visual hallucinations. He states that he is God and he has believe that he is God for numerous years. He reports no thoughts of being in danger. He has a chronic believe that he needs to save the world. He demonstrates no verbal or physical aggressiveness he demonstrates no involuntary repetitively movements. Thought process is free from any tangential thinking loose associations or flight of ideas. He does not appear hypomanic or manic. He is oriented to person place and date. He demonstrates future oriented thinking. Impressions 1. Psychosis unspecified, rule out substance-induced psychotic disorder, rule out schizophrenia, amphetamine use disorder Plan: The patient will be discharged from mental health unit today he will be transported to the prison as he remains on a prison hold. He will continue on Zyprexa 10 mg at bedtime. It appears that he has symptoms of psychosis at baseline and they have been exacerbated by his use of Adderall. Clearly it is our recommendation that he uses no alcohol marijuana illicit drugs or any stimulant medication. The substances will provoke symptoms of psychosis and elevate his safety risk. At this time there is no imminent safety risk is appropriate for transition back to the prison. He is instructed to return to the hospital with any acute safety concerns. Patient Condition at Discharge: Stable Plan - Discharge Summary Discharge Rx Participant: No New Discharge Prescriptions: New OLANZapine [ZyPREXA] 10 mg PO HS #30 tab Discharge Medication List OLANZapine [ZyPREXA] 10 mg PO HS #30 tab 11/30/18 [Rx] Follow up Appointment(s)/Referral(s): None,Stated [Primary Care Provider] - 1-2 days
== END 2018-11-30 13:30 | DRG 897 ==
LOC: EC 15:23 → 3MHU 17:15
PROVIDERS: ADMIT Psychiatry & Neurology Psychiatry; ATTEND Psychiatry & Neurology Psychiatry
DX: F15.259 Other stimulant dependence with stimulant-induced psychotic disorder, unspecified (principal); Z71.6 Tobacco abuse counseling; F17.219 Nicotine dependence, cigarettes, with unspecified nicotine-induced disorders; F90.9 Attention-deficit hyperactivity disorder, unspecified type; I10 Essential (primary) hypertension; Z81.8 Family history of other mental and behavioral disorders; Z90.49 Acquired absence of other specified parts of digestive tract; Z91.19 Patient's noncompliance with other medical treatment and regimen; F41.9 Anxiety disorder, unspecified
CPT/HCPCS: 80048; 80053; 80061; 80074; 82075; 83036; 84443; 85025; 99285

== ENCOUNTER 2019-08-30 17:29 | Emergency (ER) | payer OTHER ==
[2019-08-30 17:34] VITALS: TEMP 98
--- NOTE | 2019-08-30 18:28 | ED ---
Psych HPI - General Chief Complaint: Psychiatric Symptoms Stated Complaint: hard time coping Time Seen by Provider: 08/30/19 17:36 Source: patient, RN notes reviewed, old records reviewed Mode of arrival: ambulatory - History of Present Illness Initial Comments: This is a 43-year-old male DF presents today for evaluation regards to psychiatric illness. Patient's struggling with new economy changes finding a job homelessness. He has had issues with depression before denying drug or alcohol abuse does smoke marijuana. Patient is very depressed feeling hopeless not actively contemplating 20 suicide but is finding himself in a dark place. MD Complaint: suicidal ideation, feels depressed -: days(s) Associated Psychiatric Symptoms: depression Quality: constant Improves With: none Worsens With: none Context: not taking psychiatric medications, significant life stressor Associated Symptoms: denies other symptoms Treatments Prior to Arrival: placed on mental health hold - Related Data Home Medications Medication Instructions Recorded Confirmed No Known Home Medications 08/30/19 08/30/19 Allergies Allergy/AdvReac Type Severity Reaction Status Date / Time No Known Allergies Allergy Verified 08/30/19 17:56 Review of Systems ROS Statement: Those systems with pertinent positive or pertinent negative responses have been documented in the HPI. ROS Other: All systems not noted in ROS Statement are negative. Past Medical History Past Medical History: Hypertension History of Any Multi-Drug Resistant Organisms: None Reported Past Surgical History: Appendectomy, Orthopedic Surgery Additional Past Surgical History / Comment(s): ANKLE SURGERY-multiple fracture 2 plates and 3 screws, BIOPSY OF LYMPH Node LEFT ARM CHILD. Past Anesthesia/Blood Transfusion Reactions: No Reported Reaction Past Psychological History: ADD/ADHD, Anxiety, Depression Smoking Status: Current every day smoker Past Alcohol Use History: None Reported Past Drug Use History: Marijuana - Past Family History Father History Unknown: Yes Additional Family Medical History / Comment(s): Father is alive with no major medical problems. Mother Additional Family Medical History / Comment(s): Mother is alive with history of depression and alcoholism. Sister(s) Additional Family Medical History / Comment(s): Patient has one sister that is younger than him and he states she has mental health issues. Patient does not have any brothers. General Exam Limitations: no limitations General appearance: alert, in no apparent distress, anxious, lethargic Head exam: Present: atraumatic, normocephalic, normal inspection Eye exam: Present: normal appearance, PERRL, EOMI. Absent: scleral icterus, conjunctival injection, periorbital swelling ENT exam: Present: normal exam, mucous membranes moist Neck exam: Present: normal inspection. Absent: tenderness, meningismus, lymphadenopathy Respiratory exam: Present: normal lung sounds bilaterally. Absent: respiratory distress, wheezes, rales, rhonchi, stridor Cardiovascular Exam: Present: regular rate, normal rhythm, normal heart sounds. Absent: systolic murmur, diastolic murmur, rubs, gallop, clicks GI/Abdominal exam: Present: soft, normal bowel sounds. Absent: distended, tenderness, guarding, rebound, rigid Extremities exam: Present: normal inspection, full ROM, normal capillary refill. Absent: tenderness, pedal edema, joint swelling, calf tenderness Back exam: Present: normal inspection Neurological exam: Present: alert, oriented X3, CN II-XII intact Psychiatric exam: Present: normal affect, normal mood, depressed Skin exam: Present: warm, dry, intact, normal color. Absent: rash Course Vital Signs 08/30/19 17:31 Temperature 98.0 F Pulse Rate 90 Respiratory 18 Rate Blood Pressure 126/83 O2 Sat by Pulse 99 Oximetry - Reevaluation(s) Reevaluation #1: 08/30/19 18:37 Narcotic records reviewed patient's medically clear for psychiatric evaluation Reevaluation #2: 08/30/19 21:01 Patient seen in however psychiatry not into be actively suicidal Medical Decision Making - Medical Decision Making 43 male to the ER for evaluation does admit to homelessness and depression. Not suicidal patient given outpatient follow-up, patient has no significant acute complaints 1922 himself or others and can be discharged home Disposition Clinical Impression: Depression Disposition: HOME SELF-CARE Condition: Fair Instructions (If sedation given, give patient instructions): Depression (ED) Is patient prescribed a controlled substance at d/c from ED?: No Referrals: Ayo Deal MD [Primary Care Provider] - 1-2 days
[2019-08-30 21:18] VITALS: BP 137/87; PULSE 92; RESP 16
== END 2019-08-30 21:18 | disposition home or self-care (01) ==
LOC: EC 17:29
DX: F32.9 Major depressive disorder, single episode, unspecified (principal); F17.200 Nicotine dependence, unspecified, uncomplicated; Z59.0 Homelessness
CPT/HCPCS: 82075; 99285

== ENCOUNTER 2019-10-02 22:34 | Emergency (ER) | payer OTHER ==
[2019-10-03] MEDS ORDERED: LORazepam 1 MG TAB PO STA (00:07)
[2019-10-03 00:49] LABS: Amphetamine Screen,Urine Not Detected (NotDetected); Barbiturate Screen,Urine Not Detected (NotDetected); Benzodiazepines Screen,Urine Not Detected (NotDetected); Cocaine Screen,Urine Not Detected (NotDetected); Methadone Screen, Urine Not Detected (NotDetected); Opiate Screen,Urine Not Detected (NotDetected); Oxycodone Screen, Urine Not Detected (NotDetected); Phencyclidine Screen,Urine Not Detected (NotDetected); Tricyclic Antidepressant,Urine Not Detected (NotDetected); Urn Cannabinoid Scrn Detected (NotDetected)
--- NOTE | 2019-10-03 01:44 | ED ---
General Adult HPI - General Source: patient, RN notes reviewed, old records reviewed Mode of arrival: ambulatory Limitations: no limitations <Johnny Weir - Last Filed: 10/03/19 02:26> <Justo Rosen - Last Filed: 10/03/19 05:26> - General Chief complaint: Psychiatric Symptoms Stated complaint: Mental health Time Seen by Provider: 10/02/19 22:43 - History of Present Illness Initial comments: 44-year-old male patient with pmhx of psychiatric disorder presents to ED for psychiatric evaluation patient reports that he is having fleeting suicidal thoughts denies plan. Reports he is very anxious. States that he has been feeling this way for approximately 3 weeks. Pt denies any action to hurt himself or hurt any other people. Denies any plan. As previously on medications over has not been on any sort of a psychiatric medication for some time. Patient denies any physical complaints. Systemic: Pt denies fatigue, fever/chills, rash. Pt denies weakness, night sweats, weight loss. Neuro: Pt denies headache, visual disturbances, syncope or pre-syncope. HEENT: Pt denies ocular discharge or irritation, otalgia, rhinorrhea, pharyngitis or notable lymphadenopathy. Cardiopulmonary: Pt denies chest pain, SOB, heart palpitations, dyspnea on exertion. Abdominal/GI: Pt denies abdominal pain, n/v/d. : Pt denies dysuria, burning w/ urination, frequency/urgency. Denies new onset urinary or bowel incontinence. MSK: Pt denies myalgia, loss of strength or function in extremities. Neuro: Pt denies new onset weakness, paresthesias. (Johnny Weir) - Related Data Home Medications Medication Instructions Recorded Confirmed No Known Home Medications 08/30/19 08/30/19 Allergies Allergy/AdvReac Type Severity Reaction Status Date / Time No Known Allergies Allergy Verified 08/30/19 17:56 Review of Systems ROS Other: All systems not noted in ROS Statement are negative. <Johnny Weir - Last Filed: 10/03/19 02:26> ROS Other: All systems not noted in ROS Statement are negative. <Justo Rosen - Last Filed: 10/03/19 05:26> ROS Statement: Those systems with pertinent positive or pertinent negative responses have been documented in the HPI. Past Medical History Past Medical History: Hypertension History of Any Multi-Drug Resistant Organisms: None Reported Past Surgical History: Appendectomy, Orthopedic Surgery Additional Past Surgical History / Comment(s): ANKLE SURGERY-multiple fracture 2 plates and 3 screws, BIOPSY OF LYMPH Node LEFT ARM CHILD. Past Anesthesia/Blood Transfusion Reactions: No Reported Reaction Past Psychological History: ADD/ADHD, Anxiety, Depression Smoking Status: Current every day smoker Past Alcohol Use History: None Reported Past Drug Use History: Marijuana - Past Family History Father History Unknown: Yes Additional Family Medical History / Comment(s): Father is alive with no major medical problems. Mother Additional Family Medical History / Comment(s): Mother is alive with history of depression and alcoholism. Sister(s) Additional Family Medical History / Comment(s): Patient has one sister that is younger than him and he states she has mental health issues. Patient does not have any brothers. <Johnny Weir - Last Filed: 10/03/19 02:26> General Exam Limitations: no limitations <Johnny Weir - Last Filed: 10/03/19 02:26> - General Exam Comments Initial Comments: Constitutional: NAD, AOX3, Pt has pleasant affect. HEENT: NC/AT, trachea midline, neck supple, no lymphadenopathy. Posterior pharynx non erythematous, without exudates. External ears appear normal, without discharge. Mucous membranes moist. Eyes PERRLA, EOM intact. There is no scleral icterus. No pallor noted. Cardiopulmonary: RRR, no murmurs, rubs or gallops, no JVD noted. Lungs CTAB in anterior and posterior santiago. No peripheral edema. Abdominal exam: Abdomen soft and non-distended. Abdomen non-tender to palpation in all 4 quadrants. Bowel sounds active in LLQ. No hepatosplenomegaly. No ecchymosis Neuro: CN II-XII grossly intact. No nuchal rigidity. No raccon eyes, no nowak sign, no hemotympanum. No cervical spinal tenderness. MSK: No posterior calf tenderness bilaterally, homans sign negative bilaterally. Posterior tibialis and radial pulse +2 bilaterally. Sensation intact in upper and lower extremities. Full active ROM in upper and lower extremities, 5/5 stregnth. (Johnny Weir) Course Vital Signs 10/02/19 22:34 Temperature 97.3 F L Pulse Rate 79 Respiratory 18 Rate Blood Pressure 138/85 O2 Sat by Pulse 98 Oximetry Medical Decision Making <Johnny Weir - Last Filed: 10/03/19 02:26> - Medical Decision Making 44-year-old male patient with pmhx of psychiatric disorder presents to ED for psychiatric evaluation patient reports that he is having fleeting suicidal thoughts denies plan. Reports he is very anxious. States that he has been given Zofran for approximately 3 weeks. In reaction to hurt himself or hurt any other people. As previously on medications over has not been on any sort of a psychiatric medication for some time. Patient vital signs are stable, afebrile. Physical exam did not display acute pathology. Patient evaluated by emergency psychiatric services and patient will be discharged after safety plan. Reassessed pt and he is comfortable with this and denies suicidal ideation. Patient does currently have unstable living situation. He'll be set up and hopefully assisted, will begin living there tomorrow. Pt signed out to Dr. Rosen pending safety plan . (Johnny Weir) - Lab Data Lab Results 10/02/19 Range/Units 23:46 Urine Opiates Screen Not Detected (NotDetected) Ur Oxycodone Screen Not Detected (NotDetected) Urine Methadone Screen Not Detected (NotDetected) Ur Propoxyphene Screen Not Detected (NotDetected) Ur Barbiturates Screen Not Detected (NotDetected) U Tricyclic Antidepress Not Detected (NotDetected) Ur Phencyclidine Scrn Not Detected (NotDetected) Ur Amphetamines Screen Not Detected (NotDetected) U Methamphetamines Scrn Not Detected (NotDetected) U Benzodiazepines Scrn Not Detected (NotDetected) Urine Cocaine Screen Not Detected (NotDetected) U Marijuana (THC) Screen Detected H (NotDetected) Disposition <Johnny Weir - Last Filed: 10/03/19 02:26> Is patient prescribed a controlled substance at d/c from ED?: No <Justo Rosen - Last Filed: 10/03/19 05:26> Clinical Impression: Mood disorder Disposition: HOME SELF-CARE Condition: Good Instructions (If sedation given, give patient instructions): Mood Disorders (ED) Referrals: Ayo Deal MD [Primary Care Provider] - 1-2 days
[2019-10-03 06:16] VITALS: BP 121/81; PULSE 82; RESP 16; TEMP 97.6
== END 2019-10-03 06:27 | disposition home or self-care (01) ==
LOC: EC 22:34
DX: F39 Unspecified mood [affective] disorder (principal); I10 Essential (primary) hypertension; F17.200 Nicotine dependence, unspecified, uncomplicated
CPT/HCPCS: 80306; 82075; 99285

== ENCOUNTER 2019-11-04 21:26 | Inpatient (IN) | payer MEDICAID, OTHER ==
--- NOTE | 2019-11-04 21:36 | ED ---
Psych HPI <Oswaldo Tolentino - Last Filed: 11/05/19 09:04> - General Source: police, RN notes reviewed Mode of arrival: ambulatory Limitations: altered mental status - History of Present Illness MD Complaint: altered mental status -: unknown Associated Psychiatric Symptoms: racing thoughts, auditory hallucinations, visual hallucinations, delusions Quality: constant, getting worse Improves With: none Worsens With: none (Unknown) Associated Symptoms: confusion Treatments Prior to Arrival: placed on mental health hold If Self Harm: admits thoughts of self harm (Patient wants to harm others) <Oswaldo Chang - Last Filed: 11/05/19 14:33> - General Chief Complaint: Psychiatric Symptoms Stated Complaint: Mental Health Time Seen by Provider: 11/04/19 21:36 - History of Present Illness Initial Comments: This is a 44-year-old male who was unable history secondary severe psychosis, patient is a poor historian secondary to psychosis, psychotic symptoms per PD brings patient in under arrest pickup warrant patient is found to have homicidal thoughts (Oswaldo Chang) - Related Data Home Medications Medication Instructions Recorded Confirmed No Known Home Medications 08/30/19 08/30/19 Allergies Allergy/AdvReac Type Severity Reaction Status Date / Time No Known Allergies Allergy Verified 11/04/19 21:33 Review of Systems ROS Other: All systems not noted in ROS Statement are negative. <Oswaldo Tolentino - Last Filed: 11/05/19 09:04> ROS Other: All systems not noted in ROS Statement are negative. <Oswaldo Chang - Last Filed: 11/05/19 14:33> ROS Statement: Those systems with pertinent positive or pertinent negative responses have been documented in the HPI. Past Medical History Past Medical History: Hypertension History of Any Multi-Drug Resistant Organisms: None Reported Past Surgical History: Appendectomy, Orthopedic Surgery Additional Past Surgical History / Comment(s): ANKLE SURGERY-multiple fracture 2 plates and 3 screws, BIOPSY OF LYMPH Node LEFT ARM CHILD. Past Anesthesia/Blood Transfusion Reactions: No Reported Reaction Past Psychological History: ADD/ADHD, Anxiety, Depression Smoking Status: Current every day smoker Past Alcohol Use History: None Reported Past Drug Use History: Marijuana - Past Family History Father History Unknown: Yes Additional Family Medical History / Comment(s): Father is alive with no major medical problems. Mother Additional Family Medical History / Comment(s): Mother is alive with history of depression and alcoholism. Sister(s) Additional Family Medical History / Comment(s): Patient has one sister that is younger than him and he states she has mental health issues. Patient does not have any brothers. <Julien Changophe Breana - Last Filed: 11/05/19 14:33> General Exam Limitations: no limitations General appearance: alert, anxious, in distress Head exam: Present: atraumatic, normocephalic, normal inspection Eye exam: Present: normal appearance, PERRL, EOMI. Absent: scleral icterus, conjunctival injection, periorbital swelling ENT exam: Present: normal exam, mucous membranes moist Neck exam: Present: normal inspection. Absent: tenderness, meningismus, lymphadenopathy Respiratory exam: Present: normal lung sounds bilaterally. Absent: respiratory distress, wheezes, rales, rhonchi, stridor Cardiovascular Exam: Present: normal rhythm, tachycardia, normal heart sounds. Absent: systolic murmur, diastolic murmur, rubs, gallop, clicks GI/Abdominal exam: Present: soft, normal bowel sounds. Absent: distended, tenderness, guarding, rebound, rigid Extremities exam: Present: normal inspection, full ROM, normal capillary refill. Absent: tenderness, pedal edema, joint swelling, calf tenderness Back exam: Present: normal inspection Neurological exam: Present: alert, altered, CN II-XII intact Psychiatric exam: Present: agitated, manic, homicidal ideation Skin exam: Present: warm, dry, intact, normal color. Absent: rash <Oswaldo Chang - Last Filed: 11/05/19 14:33> Course <Oswaldo Chang - Last Filed: 11/05/19 14:33> Vital Signs 11/04/19 11/05/19 11/05/19 21:30 02:08 04:50 Temperature 97.7 F Pulse Rate 110 H 81 72 Respiratory 20 18 16 Rate Blood Pressure 121/61 132/69 119/64 O2 Sat by Pulse 98 93 L 95 Oximetry 11/05/19 06:51 Temperature Pulse Rate 74 Respiratory 16 Rate Blood Pressure 131/79 O2 Sat by Pulse 97 Oximetry - Reevaluation(s) Reevaluation #1: Medical record is reviewed Medical clear for psychiatric evaluation (Oswaldo Chang) Medical Decision Making - Lab Data Result diagrams: 11/04/19 22:14 11/04/19 22:14 <Oswaldo Tolentino - Last Filed: 11/05/19 09:04> - Lab Data Result diagrams: 11/04/19 22:14 11/04/19 22:14 <Oswaldo Chang - Last Filed: 11/05/19 14:33> - Medical Decision Making I filled out a clinical certification because the patient was petition by the EPS nurse. (Oswaldo Tolentino) 44 male to be admitted for psychiatric evaluation and treatment (Oswaldo Chang) - Lab Data Lab Results 11/04/19 11/04/19 11/04/19 Range/Units 04:53 22:14 22:14 WBC 15.4 H (3.8-10.6) k/uL RBC 4.54 (4.30-5.90) m/uL Hgb 14.1 (13.0-17.5) gm/dL Hct 41.8 (39.0-53.0) % MCV 92.1 (80.0-100.0) fL MCH 31.1 (25.0-35.0) pg MCHC 33.8 (31.0-37.0) g/dL RDW 12.2 (11.5-15.5) % Plt Count 323 (150-450) k/uL Neutrophils % 75 % Lymphocytes % 14 % Monocytes % 8 % Eosinophils % 1 % Basophils % 1 % Neutrophils # 11.5 H (1.3-7.7) k/uL Lymphocytes # 2.2 (1.0-4.8) k/uL Monocytes # 1.2 H (0-1.0) k/uL Eosinophils # 0.1 (0-0.7) k/uL Basophils # 0.1 (0-0.2) k/uL Sodium 141 (137-145) mmol/L Potassium 3.8 (3.5-5.1) mmol/L Chloride 109 H (98-107) mmol/L Carbon Dioxide 22 (22-30) mmol/L Anion Gap 10 mmol/L BUN 24 H (9-20) mg/dL Creatinine 0.91 (0.66-1.25) mg/dL Est GFR (CKD-EPI)AfAm >90 (>60 ml/min/1.73 sqM) Est GFR (CKD-EPI)NonAf >90 (>60 ml/min/1.73 sqM) Glucose 152 H (74-99) mg/dL Calcium 9.3 (8.4-10.2) mg/dL Salicylates 1.1 mg/dL Urine Opiates Screen Not Detected (NotDetected) Ur Oxycodone Screen Not Detected (NotDetected) Urine Methadone Screen Not Detected (NotDetected) Ur Propoxyphene Screen Not Detected (NotDetected) Acetaminophen <10.0 ug/mL Ur Barbiturates Screen Not Detected (NotDetected) U Tricyclic Antidepress Not Detected (NotDetected) Ur Phencyclidine Scrn Not Detected (NotDetected) Ur Amphetamines Screen Detected H (NotDetected) U Methamphetamines Scrn Not Detected (NotDetected) U Benzodiazepines Scrn Detected H (NotDetected) Urine Cocaine Screen Not Detected (NotDetected) U Marijuana (THC) Screen Detected H (NotDetected) Serum Alcohol <10 mg/dL Disposition <Oswaldo Tolentino - Last Filed: 11/05/19 09:04> Is patient prescribed a controlled substance at d/c from ED?: No <Oswaldo Chang - Last Filed: 11/05/19 14:33> Clinical Impression: Acute psychosis, Bipolar disorder, Psychotic disorder Disposition: TRANSFER TO PSYCH HOSP/UNIT Condition: Fair
[2019-11-04] MEDS ORDERED: LORazepam 2 MG/ML INJ IV STA (22:31)
[2019-11-04] MEDS ORDERED: SODIUM CHLORIDE 0.9% 1,000 ML IV STA ×2 (22:31)
[2019-11-04 22:40] LABS: Basophils # (A) 0.1 k/uL (0-0.2); Basophils % (A) 1 %; Eosinophils # (A) 0.1 k/uL (0-0.7); Eosinophils % (A) 1 %; HCT 41.8 % (39.0-53.0); HGB 14.1 gm/dL (13.0-17.5); Lymphocytes # (A) 2.2 k/uL (1.0-4.8); Lymphocytes % (A) 14 %; MCH 31.1 pg (25.0-35.0); MCHC 33.8 g/dL (31.0-37.0); MCV 92.1 fL (80.0-100.0); Mean Platelet Volume 6.6; Monocytes # (A) 1.2 k/uL (0-1.0); Monocytes % (A) 8 %; Neutrophils # (A) 11.5 k/uL (1.3-7.7); Neutrophils % (A) 75 %; Platelet Count 323 k/uL (150-450); RBC 4.54 m/uL (4.30-5.90); RDW 12.2 % (11.5-15.5); WBC 15.4 k/uL (3.8-10.6)
[2019-11-04 22:47] LABS: Potassium 3.8 mmol/L (3.5-5.1)
[2019-11-04 22:49] LABS: Acetaminophen <10.0 ug/mL; African American GFR (CKD) >90 (>60 ml/min/1.73 sqM); Alcohol <10 mg/dL; Anion Gap 10 mmol/L; Blood Urea Nitrogen 24 mg/dL (9-20); Calcium 9.3 mg/dL (8.4-10.2); Carbon Dioxide 22 mmol/L (22-30); Chloride 109 mmol/L (98-107); Glucose 152 mg/dL (74-99); Non-African American GFR(CKD) >90 (>60 ml/min/1.73 sqM); Salicylate 1.1 mg/dL; Sodium 141 mmol/L (137-145)
[2019-11-05 05:13] LABS: Amphetamine Screen,Urine Detected (NotDetected); Barbiturate Screen,Urine Not Detected (NotDetected); Benzodiazepines Screen,Urine Detected (NotDetected); Cocaine Screen,Urine Not Detected (NotDetected); Methadone Screen, Urine Not Detected (NotDetected); Opiate Screen,Urine Not Detected (NotDetected); Oxycodone Screen, Urine Not Detected (NotDetected); Phencyclidine Screen,Urine Not Detected (NotDetected); Tricyclic Antidepressant,Urine Not Detected (NotDetected); Urn Cannabinoid Scrn Detected (NotDetected)
[2019-11-05] MEDS ORDERED: MAG HYDROX/AL HYDROX/SIMETH 30 ML CUP PO PRN (09:10)
[2019-11-05] MEDS ORDERED: ZIPRASIDONE 20 MG VIAL IM PRN (09:10)
[2019-11-05] MEDS ORDERED: LORazepam 1 MG TAB PO PRN (09:10)
[2019-11-05] MEDS ORDERED: MAGNESIUM HYDROXIDE 2,400 MG/10 ML CUP PO PRN (09:10)
[2019-11-05] MEDS: NICOTINE 14MG/24HR PATCH TRANSDERM SCH (10:06)
[2019-11-05] MEDS ORDERED: OLANZapine 10 MG VIAL IM PRN (11:20)
--- NOTE | 2019-11-05 14:37 | P.HPIM ---
History of Present Illness H&P Date: 11/05/19 Chief Complaint: Severe psychosis This is a 44-year-old male who presented to [facility] with severe psychosis with suicidal and homicidal thoughts per documentation. Patient was interviewed and he stated that he was brought here by police after trying to teach people that love conquers all. Patient states that he hasn't been taking his medications as prescribed. Patient states he does not feel suicidal or homicidal at this time. Patient further denies chest pain, shortness of breath, fever, chills, nausea, vomiting, diarrhea, or constipation. Urine drug screen was positive for amphetamines, benzodiazepines, and marijuana Review of Systems A 12 point review of systems was assessed patient was only positive for those pertinent in HPI. Past Medical History Past Medical History: Hypertension History of Any Multi-Drug Resistant Organisms: None Reported Past Surgical History: Appendectomy, Orthopedic Surgery Additional Past Surgical History / Comment(s): ANKLE SURGERY-multiple fracture 2 plates and 3 screws, BIOPSY OF LYMPH Node LEFT ARM CHILD. Past Anesthesia/Blood Transfusion Reactions: No Reported Reaction Smoking Status: Current every day smoker - Past Family History Father History Unknown: Yes Additional Family Medical History / Comment(s): Father is alive with no major medical problems. Mother Additional Family Medical History / Comment(s): Mother is alive with history of depression and alcoholism. Sister(s) Additional Family Medical History / Comment(s): Patient has one sister that is y ounger than him and he states she has mental health issues. Patient does not have any brothers. Medications and Allergies Home Medications Medication Instructions Recorded Confirmed Type No Known Home Medications 08/30/19 08/30/19 History Allergies Allergy/AdvReac Type Severity Reaction Status Date / Time No Known Allergies Allergy Verified 11/04/19 21:33 Physical Exam Osteopathic Statement: *. No significant issues noted on an osteopathic structural exam other than those noted in the History and Physical/Consult. Vitals: Vital Signs Temp Pulse Pulse Resp BP BP Pulse Ox 11/05/19 09:33 96.8 F L 89 16 114/73 97 11/05/19 06:51 74 16 131/79 97 11/05/19 04:50 97.7 F 72 16 119/64 95 11/05/19 02:08 81 18 132/69 93 L 11/04/19 21:30 110 H 20 121/61 98 Intake and Output 11/04/19 11/05/19 11/05/19 22:59 06:59 14:59 Other: Weight 113.398 kg 103.3 kg General: [non toxic], [no distress], [appears at stated age] Derm: [warm], [dry] Head: [atraumatic], [normocephalic], [symmetric] Eyes: [EOMI], [no lid lag], [anicteric sclera] Mouth: [no lip lesion], [mucus membranes moist] Cardiovascular: [S1S2 reg], [no murmur], [positive posterior tibial pulse bilateral], Lungs: [CTA bilateral], [no rhonchi, no rales] , [no accessory muscle use] Abdominal: [soft], [ nontender to palpation], [no guarding], [no appreciable organomegaly] Ext: [no gross muscle atrophy], [no edema], [no contractures] Neuro: [ CN II-XI grossly intact], [no focal neuro deficits] Psych: [Alert], [oriented], [appropriate affect] Results CBC & Chem 7: 11/04/19 22:14 11/04/19 22:14 Labs: Abnormal Lab Results - Last 24 Hours (Table) 11/04/19 11/04/19 11/04/19 Range/Units 04:53 22:14 22:14 WBC 15.4 H (3.8-10.6) k/uL Neutrophils # 11.5 H (1.3-7.7) k/uL Monocytes # 1.2 H (0-1.0) k/uL Chloride 109 H (98-107) mmol/L BUN 24 H (9-20) mg/dL Glucose 152 H (74-99) mg/dL Ur Amphetamines Screen Detected H (NotDetected) U Benzodiazepines Scrn Detected H (NotDetected) U Marijuana (THC) Screen Detected H (NotDetected) Thrombosis Risk Factor Assmnt - Choose All That Apply Any of the Below Risk Factors Present?: No Other Risk Factors: No Other congenital or acquired thrombophilia - If yes, enter type in comment: No Thrombosis Risk Factor Assessment Level: Very Low Risk Assessment and Plan Assessment: 1. Acute psychosis Psychiatry recommendations appreciated 2. Leukocytosis likely reactive Repeat CBC 3. History of hypertension Blood pressure is currently well controlled Time with Patient: Greater than 30
--- NOTE | 2019-11-05 17:15 | P.HP ---
Psychiatric H&P - . H&P Date: 11/05/19 History & Physical: IDENTIFYING DATA: 44-year-old single male admitted to the psychiatric unit involuntarily. HISTORY OF PRESENT ILLNESS: The police brought him to the emergency room and completed a petition. The petition red "delusional, making homicidal statements, unaware of basic information." He was unable to provide a coherent history when he presented to the ED. He was a lethargic and aroused only with a sternal rub. He mumbled incoherently. After 3 hours he told EPS nurse "Gabriel rosa ... Things got bad." After 8 hours in the ED he was able to provide somewhat history. He was disorganized and incoherent. He told EPS nurse that "the universe is his anti-matter and now we have moved to infidel positive power with COVID he stated he needs to take meds to sustain life such as Adderall or Vyvanse. He stated that "he just left the room after checking me out and I passed the test." He was markedly malodorous. He had difficulty providing a coherent history. He mumbled something about a store. He denied problems or concerns and did not express the above delusional beliefs. He denied feeling paranoid or experiencing auditory, visual or olfactory hallucinations. He denied that he is experiencing thought insertion, thought broadcasting or thought control. He feels depressed but denied thoughts of or suicide. He denied use of alcohol or drugs. When asked about pills she replied that Dr. Lopez prescribes me Adderall. I reviewed the [facility] and a Dr. Justo Lopez in [place] has been prescribing him Adderall 30 mg 3 times a day. He last picked up a prescription on 10/27/2019. His UDS was positive for amphetamines, benzodiazepine's and marijuana. His serum alcohol level was less than 10. PAST PSYCHIATRIC HISTORY: Disability his fifth admission to this unit. 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 His discharge medications education was olanzapine 10 mg at bedtime. PAST MEDICAL HISTORY: He has history of hypertension ALLERGIES: NO KNOWN DRUG ALLERGIES SUBSTANCE USE HISTORY:. History of an alcohol use disorder and marijuana use. He denied history amphetamine use, heroin, cocaine, crack cocaine, oral opioid pain medicines etc. He alleged that he only uses prescribed Adderall. FAMILY PSYCHIATRIC/SUBSTANCE USE HISTORY: He is unaware of family history of mental illness or substance use problems. LEGAL HISTORY: He has been arrested 3 times and was last admitted on [facility] hold. He denied that he is on probation, parole or has pending charges. SOCIAL HISTORY: His born and raised in [place]. His parents when he was a child. He has 1 sister. He completed high school and had worked as a [employer]. He has not worked in 4-5 years. He is and has needed to no cyanosis mother with whom he has no contact. He currently is homeless and has no income. MENTAL STATUS EXAM: He presented as a disheveled and malodorous [id number] male with dark suntan arms and face. He walks slowly and uncomfortably and complained of blisters on his feet. He made eye contact and appeared to the interview. He was guarded and suspicious. He had intermittent truncal abnormal movements and intermittent tongue protrusion. His affect was blunted but stable and appropriate. He denied suicidal ideation, wishes or homicidal ideation. He denied feeling worthless program express feelings of hopelessness and helplessness regarding his homeless situation. He did not express clear ideas reference, paranoid ideation or delusions during our interview. His thinking was concrete but not fully organized and logical. He had poverty of content and Poverty of speech. He did not appear to be responding to internal stimuli. STRENGTHS: Relatively good health, no legal problems WEAKNESSES: Chronic amphetamine use, lack of stable housing, stable income IMPRESSION: He is a 44-year-old male who has history of amphetamine use disorder and several past psychiatric hospitalizations. His present to the [facility] involuntarily after creating a disturbance at a local market. He expressed grandiose and paranoid delusions emergency room during the interview he is disheveled, guarded, suspicious and provided little information. He denies that he has a substance use problem and has been prescribed high doses of Adderall by a community provider. He should be treated on an inpatient basis with combination of psychopharmacology and multimodal therapy. PRINCIPLE DIAGNOSIS: Amphetamine induced psychotic disorder, amphetamine use disorder, rule out schizophrenia, rule out schizoaffective disorder, rule out bipolar disorder with psychotic features, lack of stable housing RECOMMENDATION: Admitted to the psychiatric unit. Proceed with involuntary h ospitalization. Safety precautions. Consult medicine for initial physical exam and medical history. canvas worker completed initial psychosocial assessment coordinate discharge and aftercare services. Restart olanzapine 10 mg at bedtime. Olanzapine 10 mg IM 3 times a day when necessary for agitation acute psychosis. Encourage participation in therapeutic groups and activities. Evaluate clinical status response to treatment daily basis. Allergies Allergy/AdvReac Type Severity Reaction Status Date / Time No Known Allergies Allergy Verified 11/04/19 21:33 Vital Signs Temp 96.8 F L 11/05/19 09:33 Pulse 89 11/05/19 09:33 Resp 16 11/05/19 09:33 BP 114/73 11/05/19 09:33 Pulse Ox 97 11/05/19 09:33 Intake & Output 11/04/19 11/05/19 11/05/19 18:59 06:59 18:59 Weight 113.398 kg 103.3 kg Laboratory Last Values WBC 15.4 k/uL (3.8-10.6) H 11/04/19 22:14 RBC 4.54 m/uL (4.30-5.90) 11/04/19 22:14 Hgb 14.1 gm/dL (13.0-17.5) 11/04/19 22:14 Hct 41.8 % (39.0-53.0) 11/04/19 22:14 MCV 92.1 fL (80.0-100.0) 11/04/19 22:14 MCH 31.1 pg (25.0-35.0) 11/04/19 22:14 MCHC 33.8 g/dL (31.0-37.0) 11/04/19 22:14 RDW 12.2 % (11.5-15.5) 11/04/19 22:14 Plt Count 323 k/uL (150-450) 11/04/19 22:14 Neutrophils % 75 % 11/04/19 22:14 Lymphocytes % 14 % 11/04/19 22:14 Monocytes % 8 % 11/04/19 22:14 Eosinophils % 1 % 11/04/19 22:14 Basophils % 1 % 11/04/19 22:14 Neutrophils # 11.5 k/uL (1.3-7.7) H 11/04/19 22:14 Lymphocytes # 2.2 k/uL (1.0-4.8) 11/04/19 22:14 Monocytes # 1.2 k/uL (0-1.0) H 11/04/19 22:14 Eosinophils # 0.1 k/uL (0-0.7) 11/04/19 22:14 Basophils # 0.1 k/uL (0-0.2) 11/04/19 22:14 Sodium 141 mmol/L (137-145) 11/04/19 22:14 Potassium 3.8 mmol/L (3.5-5.1) 11/04/19 22:14 Chloride 109 mmol/L (98-107) H 11/04/19 22:14 Carbon Dioxide 22 mmol/L (22-30) 11/04/19 22:14 Anion Gap 10 mmol/L 11/04/19 22:14 BUN 24 mg/dL (9-20) H 11/04/19 22:14 Creatinine 0.91 mg/dL (0.66-1.25) 11/04/19 22:14 Est GFR (CKD-EPI)AfAm >90 (>60 ml/min/1.73 sqM) 11/04/19 22:14 Est GFR (CKD-EPI)NonAf >90 (>60 ml/min/1.73 sqM) 11/04/19 22:14 Glucose 152 mg/dL (74-99) H 11/04/19 22:14 Calcium 9.3 mg/dL (8.4-10.2) 11/04/19 22:14 Salicylates 1.1 mg/dL 11/04/19 22:14 Urine Opiates Screen Not Detected (NotDetected) 11/04/19 04:53 Ur Oxycodone Screen Not Detected (NotDetected) 11/04/19 04:53 Urine Methadone Screen Not Detected (NotDetected) 11/04/19 04:53 Ur Propoxyphene Screen Not Detected (NotDetected) 11/04/19 04:53 Acetaminophen <10.0 ug/mL 11/04/19 22:14 Ur Barbiturates Screen Not Detected (NotDetected) 11/04/19 04:53 U Tricyclic Antidepress Not Detected (NotDetected) 11/04/19 04:53 Ur Phencyclidine Scrn Not Detected (NotDetected) 11/04/19 04:53 Ur Amphetamines Screen Detected (NotDetected) H 11/04/19 04:53 U Methamphetamines Scrn Not Detected (NotDetected) 11/04/19 04:53 U Benzodiazepines Scrn Detected (NotDetected) H 11/04/19 04:53 Urine Cocaine Screen Not Detected (NotDetected) 11/04/19 04:53 U Marijuana (THC) Screen Detected (NotDetected) H 11/04/19 04:53 Serum Alcohol <10 mg/dL 11/04/19 22:14 11/05/19 11:24
[2019-11-05] MEDS: OLANZapine 10 MG TAB PO SCH (20:51)
[2019-11-05] MEDS: ACETAMINOPHEN TAB 325 MG TAB PO PRN (20:52)
[2019-11-06 08:20] LABS: HCT 43.2 % (39.0-53.0); MCH 30.5 pg (25.0-35.0); MCHC 32.5 g/dL (31.0-37.0); MCV 93.8 fL (80.0-100.0); Mean Platelet Volume 6.7; Platelet Count 304 k/uL (150-450); RBC 4.61 m/uL (4.30-5.90); RDW 12.4 % (11.5-15.5); WBC 6.7 k/uL (3.8-10.6)
[2019-11-06] MEDS: NICOTINE 14MG/24HR PATCH TRANSDERM SCH ×2 (10:04→12:56)
--- NOTE | 2019-11-06 11:21 | P.PN ---
Progress Note - Text Progress Note Date: 11/06/19 Clinical Problems: Amphetamine induced psychotic disorder, amphetamine use disorder, rule out schizophrenia, rule out schizoaffective disorder, rule out bipolar disorder with psychotic features, lack of stable housing Interim history: I reviewed the medical record and interviewed the patient. He denied problems or concerns. He spends most of his time in his room in bed. He has not attended therapeutic groups or interact with other patients or staff. He slept 5 hours last night. He is compliant with the olanzapine 10 mg at bedtime. He's had no behavioral problems and no episodes of behavioral dyscontrol. Mental status exam: He presented as a disheveled appearing 44-year-old male who was pleasant on approach. He made eye contact and appeared to attend to interview. He had a flat facial expression. He showed psychomotor retardation but no abnormal movements. Her speech was nonspontaneous had decreased rate, rhythm and volume. His affect was flat. He denied suicidal ideation and wishes. He denied homicidal ideation. He didn't express ideas reference, paranoid ideation or delusions. His thinking was concrete but his associations appeared coherent. He denied hallucinations did not appear to be responding to internal stimuli. Assessment: He is withdrawing from methamphetamine. Plan: Continue hospitalization. Continue safety precautions. Continue olanzapine 10 mg at bedtime. Proceed with involuntary hospitalization. Encourage participation in therapeutic groups and activities. Evaluate clinical status response to treatment daily basis.
[2019-11-06] MEDS: OLANZapine 10 MG TAB PO SCH (21:24)
[2019-11-06] MEDS: ACETAMINOPHEN TAB 325 MG TAB PO PRN (21:25)
[2019-11-07] MEDS: NICOTINE 14MG/24HR PATCH TRANSDERM SCH (08:52)
[2019-11-07] MEDS: ACETAMINOPHEN TAB 325 MG TAB PO PRN ×2 (08:52→20:14)
--- NOTE | 2019-11-07 12:00 | P.PN ---
Progress Note - Text Progress Note Date: 11/07/19 Clinical Problems: Amphetamine induced psychotic disorder, amphetamine use disorder, rule out schizophrenia, rule out schizoaffective disorder, rule out bipolar disorder with psychotic features, lack of stable housing Interim history: I reviewed the medical record and interviewed the patient. He denied problems or concerns. He denied feeling depressed or having thoughts of or suicide. He denied experiencing auditory, visual or olfactory hallucinations, ideas reference, thought insertion etc. However, he admitted to having experienced thought insertion or thought control in the past. He denied that he had used amphetamine, methamphetamine, benzodiazepines or marijuana prior to admission (his UDS was positive for all of these). He gave a confusing explanation as to the reason for this admission. He is homeless and has no income. He was living in the [facility] until about a week prior to admission. He gets the impression that he could not remain in the [facility] unless he found employment or was gone for 2 weeks. Mental status exam: He presented as a casually groomed moderate obese 44-year-old male who was pleasant on approach. He made eye contact and appeared to attend to interview. He had a flat facial expression. He showed psychomotor retardation but no abnormal movements. Her speech was spontaneous had decreased rate, rhythm and volume. His affect was blunted. He denied suicidal ideation and wishes. He denied homicidal ideation. He didn't express ideas reference, paranoid ideation or delusions. His thinking was concrete but his associations appeared coherent. He denied hallucinations did not appear to be responding to internal stimuli. Assessment: He appears to have a chronic mental illness most likely a schizophrenia. He is also chronically homeless. He will not admit to using drugs prior to admission. Plan: Continue hospitalization. Continue safety precautions. Continue olanzapine 10 mg at bedtime. Probate hearing pending. Encourage participation in therapeutic groups and activities. Evaluate clinical status response to treatment daily basis.
[2019-11-07] MEDS: OLANZapine 10 MG TAB PO SCH (20:14)
[2019-11-08] MEDS: NICOTINE 14MG/24HR PATCH TRANSDERM SCH ×2 (09:10→14:02)
--- NOTE | 2019-11-08 14:12 | P.PN ---
Progress Note - Text Progress Note Date: 11/08/19 Clinical Problems: Schizophrenia, amphetamine use disorder, lack of income, lack of stable housing Interim history: I reviewed the medical record and interviewed the patient. He denied problems or concerns. He denied feeling depressed or having thoughts of or suicide. He denied experiencing auditory, visual or olfactory hallucinations, ideas reference, thought insertion etc. when I asked about future plans he talks about moving to [place] to "get a job" but could not problem solve how he would pay for the trip to [place] or where he would live in [place]. He has no income and has no plans other than returning to the [facility] after discharge. He is interested in a referral to [facility] at least to assist with reapplying for disability. Mental status exam: He presented as a casually groomed moderate obese 44-year-old male who was pleasant on approach. He made eye contact and appeared to attend to interview. He had a flat facial expression. He showed psychomotor retardation and had intermittent choreiform mouth movements involving her lips and tongue. Her speech was spontaneous had decreased rate, rhythm and volume. His affect was blunted. He denied suicidal ideation and wishes. He denied homicidal ideation. He didn't express ideas reference, paranoid ideation or delusions. His thinking was very concrete but his associations appeared coherent. He denied hallucinations did not appear to be responding to internal stimuli. Assessment: He has a chronic a chronic mental illness and is also chronically homeless. Plan: Continue hospitalization. Continue safety precautions. Continue olanzapine 10 mg at bedtime. Probate hearing pending. Encourage participation in therapeutic groups and activities. Evaluate clinical status response to treatment daily basis.
[2019-11-08] MEDS: OLANZapine 10 MG TAB PO SCH (20:13)
[2019-11-09] MEDS: NICOTINE 14MG/24HR PATCH TRANSDERM SCH (10:12)
--- NOTE | 2019-11-09 12:04 | P.PN ---
Progress Note - Text Progress Note Date: 11/09/19 Clinical Problems: Schizophrenia, amphetamine use disorder, lack of income, lack of stable housing Interim history: I reviewed the medical record and interviewed the patient. He denied problems or concerns. He denied feeling depressed or having thoughts of or suicide. He denied experiencing auditory, visual or olfactory hallucinations, ideas reference, thought insertion etc. He has no income and has no plans other than returning [facility]. He remains interested in a referral to [facility] at least to assist with reapplying for disability. He plans to defer the probate hearing. He slept 7 hours last night. He does not attend therapeutic groups and activities. He spends most of time alone in bed and does not interact with staff or peers. Mental status exam: He presented as a casually groomed moderate obese 44-year-old male who was pleasant on approach. He made eye contact and appeared to attend to interview. He had a flat facial expression. He showed psychomotor retardation and had intermittent choreiform mouth movements involving her lips and tongue. Her speech was spontaneous had decreased rate, rhythm and volume. His affect was blunted. He denied suicidal ideation and wishes. He denied homicidal ideation. He didn't express ideas reference, paranoid ideation or delusions. His thinking was very concrete but his associations appeared coherent. He denied hallucinations did not appear to be responding to internal stimuli. Assessment: He is chronically and persistently mentally ill remarkably improve from admission. Plan: Continue hospitalization. Continue safety precautions. Continue olanzapine 10 mg at bedtime. The deferral hearing is scheduled for this afternoon. Encourage participation in therapeutic groups and activities. Evaluate clinical status response to treatment daily basis.
[2019-11-09] MEDS: ACETAMINOPHEN TAB 325 MG TAB PO PRN (19:17)
[2019-11-09] MEDS: OLANZapine 10 MG TAB PO SCH (19:17)
[2019-11-10 04:58] VITALS: BP 134/78; PULSE 88; RESP 20
[2019-11-10] MEDS: NICOTINE 14MG/24HR PATCH TRANSDERM SCH (08:11)
[2019-11-10 12:45] VITALS: TEMP 98.6
--- NOTE | 2019-11-10 13:12 | P.DS ---
Providers Date of admission: 11/05/19 08:33 Attending physician: Addison Leung MD Consults: 11/05/19 09:10 Consult Physician Routine Consulting Provider: Julita Fuller Consult Reason/Comments: New admission H & P Do you want consulting provider notified?: Already Contacted Primary care physician: Justo Lopez - Discharge Diagnosis(es) (1) Schizophrenia Current Visit: Yes Status: Chronic Priority: High (2) Cannabis use disorder, mild, abuse Current Visit: Yes Status: Chronic Priority: Low (3) Income insufficient to meet needs Current Visit: Yes Status: Chronic Priority: High (4) Homeless Current Visit: Yes Status: Chronic Priority: High (5) Amphetamine use disorder, moderate Current Visit: No Status: Chronic Priority: Medium Hospital Course: He has a 44-year-old single male admitted to the psychiatric unit involuntarily. The police brought him to the emergency room and completed a petition. The petition red "delusional, making homicidal statements, unaware of basic information." He was unable to provide a coherent history when he presented to the ED. He was a lethargic and aroused only with a sternal rub. He mumbled incoherently. After 3 hours he told EPS nurse "Gabriel rosa ... Things got bad." After 8 hours in the ED he was able to provide somewhat history. He was disorganized and incoherent. He told EPS nurse that "the universe is his anti-matter and now we have moved to infidel positive power with COVID he stated he needs to take meds to sustain life such as Adderall or Vyvanse. He stated that "he just left the room after checking me out and I passed the test." He was very malodorous. He had difficulty providing a coherent history. He mumbled something about a store. He denied problems or concerns and did not express the above delusional beliefs. He denied feeling paranoid or experiencing auditory, visual or olfactory hallucinations. He denied that he is experiencing thought insertion, thought broadcasting or thought control. He is chronically illnesses been living in a usp up until about one week prior to admission. He alleged that he could not immediately return to the usp. He feels depressed but denied thoughts of or suicide. He denied use of alcohol or drugs. When asked about pills she replied that Dr. Lopez prescribes me Adderall. I reviewed the [facility] and a Dr. Justo Lopez in [place] has been prescribing him Adderall 30 mg 3 times a day. He last picked up a prescription on 10/27/2019. His UDS was positive for amphetamines, benzodiazepine's and marijuana. His serum alcohol level was less than 10. Disability his fifth admission to this unit. 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 His discharge medications education was olanzapine 10 mg at bedtime. We admitted him to the psychiatric unit involuntarily. He provided the contents biopsychosocial assessment. The reservoir engineering consultant account services manager completed initial physical exam and medical history. He had a leukocytosis which is likely reactive and history of hypertension controlled. We resumed Zyprexa 10 mg at bedtime and prescribed Habitrol 14 mg for nicotine dependence. He posed no management problem and had no episodes appealed dyscontrol. He deferred the probate hearing. He was compliant with medications but did not participate in therapeutic groups and activities. He spent most of his time in bed seldom interacting with staff or peers. We will arrange for him to have an intake [facility] [place]. He plans to return to the usp after discharge. He presented as a casually groomed 38-year-old male who was pleasant on approach. He made eye contact and attended the interview. He had a blunted facial expression. He was alert and oriented to person, place and time. He showed slight psychomotor retardation and had choreiform movements of the mouth and tongue. His speech was spontaneous with decreased rate and rhythm. His affect was blunted but stable and appropriate. He denied suicidal ideation or wishes. He denied homicidal ideation. He denied feeling hopeless, helpless or worthless. He did not express ideas reference, paranoid ideation or delusions. His thinking was very concrete but his associations were logical and goal directed. He denied hallucinations and did not appear to be responding to internal stimuli. Patient Condition at Discharge: Stable Plan - Discharge Summary Discharge Rx Participant: No New Discharge Prescriptions: New Nicotine 14Mg/24Hr Patch [Habitrol] 1 patch TRANSDERM DAILY #28 patch OLANZapine [ZyPREXA] 10 mg PO HS #30 tab Discharge Medication List Nicotine 14Mg/24Hr Patch [Habitrol] 1 patch TRANSDERM DAILY #28 patch 11/10/19 [Rx] OLANZapine [ZyPREXA] 10 mg PO HS #30 tab 11/10/19 [Rx] Follow up Appointment(s)/Referral(s): [facility] [Outside] - 11/10/19 11:30 am (Intake w/ [facility] on 11/10/19 at 11:30 over the telephone before discharge.) Justo Lopez MD [Primary Care Provider] - 1-2 days Patient Instructions/Handouts: Depression (DC), Schizophrenia (DC), Suicide Prevention (DC) Activity/Diet/Wound Care/Special Instructions: Activity and diet as tolerated. Avoid the use of street drugs and alcohol. Take all medications as prescribed. When you are in need of refills on your medications please contact your medical provider and/or outpatient psychiatrist to have this done. Please go to scheduled outpatient appointment for aftercare treatment. If symptoms return or become worse, call the crisis line at and/or go to the nearest emergency room for evaluation. Discharge Disposition: HOME SELF-CARE
== END 2019-11-10 13:25 | disposition home or self-care (01) | DRG 885 ==
LOC: EC 21:26 → 3MHU 11-05 08:33
PROVIDERS: ADMIT Psychiatry & Neurology Psychiatry; ATTEND Psychiatry & Neurology Psychiatry
DX: F20.9 Schizophrenia, unspecified (principal); F15.259 Other stimulant dependence with stimulant-induced psychotic disorder, unspecified; R45.851 Suicidal ideations; F15.23 Other stimulant dependence with withdrawal; R45.850 Homicidal ideations; F31.9 Bipolar disorder, unspecified; R41.82 Altered mental status, unspecified; I10 Essential (primary) hypertension; F90.9 Attention-deficit hyperactivity disorder, unspecified type; F41.9 Anxiety disorder, unspecified; F17.210 Nicotine dependence, cigarettes, uncomplicated; D72.829 Elevated white blood cell count, unspecified; E66.9 Obesity, unspecified; F12.10 Cannabis abuse, uncomplicated; F10.11 Alcohol abuse, in remission; Z68.30 Body mass index [BMI] 30.0-30.9, adult; Z59.0 Homelessness; Z90.49 Acquired absence of other specified parts of digestive tract; Z98.890 Other specified postprocedural states; Z87.81 Personal history of (healed) traumatic fracture; Z96.7 Presence of other bone and tendon implants; Z81.8 Family history of other mental and behavioral disorders; Z81.1 Family history of alcohol abuse and dependence
CPT/HCPCS: 36415; 80048; 80306; 80320; 80329; 82075; 83520; 85025; 85027; 96361; 96374; 99285

== ENCOUNTER 2020-07-07 21:53 | Emergency (ER) | payer OTHER ==
[2020-07-07 21:56] VITALS: BP 134/88; PULSE 68; RESP 16; TEMP 97.6
[2020-07-07] MEDS ORDERED: IBUPROFEN 600 MG STARTER PACK 4 TAB BTL PO STA (22:23)
[2020-07-07] MEDS ORDERED: AMOXIC-POT CLAV 875MG STARTER PACK 2 TAB BTL PO STA (22:23)
[2020-07-07] MEDS ORDERED: ACET/COD 300 MG/30 MG STARTER PACK 6 TAB BTL PO STA (22:23)
--- NOTE | 2020-07-07 22:27 | ED ---
ENT HPI - General Chief complaint: Dental/Oral Stated complaint: Dental Pain Time Seen by Provider: 07/07/20 22:07 Source: patient Mode of arrival: ambulatory Limitations: no limitations - History of Present Illness Initial comments: This patient is a 44-year-old man who presents to be evaluated for dental pain that is been getting worse over the past 2-3 days. He indicates right mandibular tooth. The patient states that he does have known history of dental caries. He states that he suspects he will need to have that tooth extracted. Patient has not noted any mandibular or facial swelling. No neck pain or fullness. He has not noted any systemic symptoms. No fever or chills. No chest pain, dyspnea, palpitations. MD complaint: tooth pain -: days(s) Location: tooth # (29) Severity: moderate Quality: aching Consistency: constant Improves with: none Worsens with: eating, other (Temperature) Context- Dental: history of dental caries Associated Symptoms: toothache - Related Data Previous Rx's Medication Instructions Recorded Amoxicillin/Potassium Clav 1 tab PO Q12HR 1 Days #20 tab 07/07/20 [Augmentin 875-125 Tablet] Ibuprofen 800 mg PO TID #20 tablet 07/07/20 Allergies Allergy/AdvReac Type Severity Reaction Status Date / Time No Known Allergies Allergy Verified 07/07/20 22:31 Review of Systems ROS Statement: Those systems with pertinent positive or pertinent negative responses have been documented in the HPI. ROS Other: All systems not noted in ROS Statement are negative. Constitutional: Denies: fever, chills Eyes: Denies: eye pain, vision change ENT: Reports: as per HPI, dental pain. Denies: throat pain Respiratory: Denies: cough, dyspnea Cardiovascular: Denies: chest pain, palpitations Skin: Denies: rash Neurological: Denies: headache Past Medical History Past Medical History: Hypertension History of Any Multi-Drug Resistant Organisms: None Reported Past Surgical History: Appendectomy, Orthopedic Surgery Additional Past Surgical History / Comment(s): ANKLE SURGERY-multiple fracture 2 plates and 3 screws, BIOPSY OF LYMPH Node LEFT ARM CHILD. Past Anesthesia/Blood Transfusion Reactions: No Reported Reaction Past Psychological History: ADD/ADHD, Anxiety, Depression Smoking Status: Never smoker Past Alcohol Use History: None Reported Past Drug Use History: Marijuana - Past Family History Father History Unknown: Yes Additional Family Medical History / Comment(s): Father is alive with no major medical problems. Mother Additional Family Medical History / Comment(s): Mother is alive with history of depression and alcoholism. Sister(s) Additional Family Medical History / Comment(s): Patient has one sister that is younger than him and he states she has mental health issues. Patient does not have any brothers. General Exam Limitations: no limitations General appearance: alert, in no apparent distress Head exam: Present: atraumatic, normocephalic Eye exam: Present: normal appearance. Absent: scleral icterus, conjunctival injection ENT exam: Present: normal oropharynx, other (Multiple caries. No abscess evident. No sublingual swelling or fullness) Neck exam: Present: normal inspection, full ROM. Absent: tenderness, meningismus, lymphadenopathy Respiratory exam: Present: normal lung sounds bilaterally. Absent: respiratory distress, wheezes, rales, rhonchi, stridor Cardiovascular Exam: Present: regular rate, normal rhythm, normal heart sounds. Absent: systolic murmur, diastolic murmur, rubs, gallop Neurological exam: Present: alert Skin exam: Present: warm, dry, intact, normal color. Absent: rash Course Vital Signs 07/07/20 21:54 Temperature 97.6 F Pulse Rate 68 Respiratory 16 Rate Blood Pressure 134/88 O2 Sat by Pulse 98 Oximetry Disposition Clinical Impression: Toothache, Dental caries Disposition: HOME SELF-CARE Condition: Good Instructions (If sedation given, give patient instructions): Toothache (ED) Prescriptions: Amoxicillin/Potassium Clav [Augmentin 875-125 Tablet] 1 tab PO Q12HR 1 Days #20 tab Ibuprofen 800 mg PO TID #20 tablet Is patient prescribed a controlled substance at d/c from ED?: No Referrals: None,Stated [Primary Care Provider] - 1-2 days
== END 2020-07-07 22:55 | disposition home or self-care (01) ==
LOC: EC 21:53
DX: K02.9 Dental caries, unspecified (principal)
CPT/HCPCS: 99282

== ENCOUNTER 2021-09-06 17:22 | Inpatient (IN) | payer MEDICAID, OTHER ==
[2021-09-06] MEDS ORDERED: LORazepam 1 MG TAB PO STA (17:40)
--- NOTE | 2021-09-06 23:18 | ED ---
Psych HPI <Oswaldo Chang - Last Filed: 09/07/21 02:19> - General Source: patient Mode of arrival: ambulatory <Perla Bautista - Last Filed: 09/08/21 22:55> - General Chief Complaint: Psychiatric Symptoms Stated Complaint: Mental Health Time Seen by Provider: 09/06/21 17:32 - History of Present Illness Initial Comments: 45-year-old male past medical history of schizophrenia presents to the emergency department accompanied by police. They state that they received a call from bystanders stating that the patient was having extremely bizarre behavior. When police approached him and he was stating that he was God and had a gnosticism preoccupation. He had pressured nonsensical speech. When speaking with the patient he states that he is suicidal because he is God and everyone else is going to therefore this causes him extreme anxiety. He reports that he is supposed to be on several home medications however has not been on them in the past month. He reports being homeless without any family. The remainder of the HPI is limited as the patient's is suffering from acute psychosis (Perla Bautista ) - Related Data Home Medications Medication Instructions Recorded Confirmed No Known Home Medications 09/06/21 09/06/21 Allergies Allergy/AdvReac Type Severity Reaction Status Date / Time No Known Allergies Allergy Verified 09/06/21 18:51 Review of Systems ROS Other: All systems not noted in ROS Statement are negative. <Oswaldo Chang - Last Filed: 09/07/21 02:19> ROS Other: All systems not noted in ROS Statement are negative. <Perla Bautista - Last Filed: 09/08/21 22:55> ROS Statement: Those systems with pertinent positive or pertinent negative responses have been documented in the HPI. Past Medical History Past Medical History: Hypertension History of Any Multi-Drug Resistant Organisms: None Reported Past Surgical History: Appendectomy, Orthopedic Surgery Additional Past Surgical History / Comment(s): ANKLE SURGERY-multiple fracture 2 plates and 3 screws, BIOPSY OF LYMPH Node LEFT ARM CHILD. Past Anesthesia/Blood Transfusion Reactions: No Reported Reaction Past Psychological History: ADD/ADHD, Anxiety, Depression Smoking Status: Never smoker Past Alcohol Use History: None Reported Past Drug Use History: Marijuana - Past Family History Father History Unknown: Yes Additional Family Medical History / Comment(s): Father is alive with no major m edical problems. Mother Additional Family Medical History / Comment(s): Mother is alive with history of depression and alcoholism. Sister(s) Additional Family Medical History / Comment(s): Patient has one sister that is younger than him and he states she has mental health issues. Patient does not have any brothers. <Perla Bautista Last Filed: 09/08/21 22:55> General Exam Limitations: altered mental status General appearance: alert, in no apparent distress, anxious Head exam: Present: atraumatic, normocephalic, normal inspection Eye exam: Present: normal appearance, PERRL, EOMI. Absent: scleral icterus, conjunctival injection, periorbital swelling ENT exam: Present: normal exam, mucous membranes moist Neck exam: Present: normal inspection. Absent: tenderness, meningismus, lymphadenopathy Respiratory exam: Present: normal lung sounds bilaterally. Absent: respiratory distress, wheezes, rales, rhonchi, stridor Cardiovascular Exam: Present: regular rate, normal rhythm, normal heart sounds. Absent: systolic murmur, diastolic murmur, rubs, gallop, clicks GI/Abdominal exam: Present: soft, normal bowel sounds. Absent: distended, tenderness, guarding, rebound, rigid Extremities exam: Present: normal inspection, full ROM, normal capillary refill. Absent: tenderness, pedal edema, joint swelling, calf tenderness Back exam: Present: normal inspection Neurological exam: Present: alert, CN II-XII intact Psychiatric exam: Present: manic, suicidal ideation Skin exam: Present: warm, dry, intact, normal color. Absent: rash <Perla Bautista Last Filed: 09/08/21 22:55> Course Vital Signs 09/06/21 09/07/21 17:25 04:16 Temperature 98 F 98.2 F Pulse Rate 84 88 Respiratory 22 16 Rate Blood Pressure 146/82 122/65 O2 Sat by Pulse 95 99 Oximetry Medical Decision Making - Lab Data Result diagrams: 09/08/21 07:55 09/08/21 07:55 <Perla Bautista Last Filed: 09/08/21 22:55> - Medical Decision Making Upon arrival patient was placed into room 10. He is offered something for anxiety which she agreed stupe. He is given 2 mg of oral Ativan. Urine sample was requested. He is sober at this time and therefore we are requesting EPS evaluation. Petition is on the chart. (Perla Bautista) - Lab Data Lab Results 09/07/21 09/07/21 Range/Units 00:24 03:15 Urine Color Yellow Urine Appearance Clear (Clear) Urine pH 6.0 (5.0-8.0) Ur Specific [place] 1.031 (1.001-1.035) Urine Protein Trace H (Negative) Urine Glucose (UA) Negative (Negative) Urine Ketones 2+ H (Negative) Urine Blood Negative (Negative) Urine Nitrite Negative (Negative) Urine Bilirubin Negative (Negative) Urine Urobilinogen <2.0 (<2.0) mg/dL Ur Leukocyte Esterase Negative (Negative) Urine Opiates Screen Not Detected (NotDetected) Ur Oxycodone Screen Not Detected (NotDetected) Urine Methadone Screen Not Detected (NotDetected) Ur Propoxyphene Screen Not Detected (NotDetected) Ur Barbiturates Screen Not Detected (NotDetected) U Tricyclic Antidepress Not Detected (NotDetected) Ur Phencyclidine Scrn Not Detected (NotDetected) Ur Amphetamines Screen Detected H (NotDetected) U Methamphetamines Scrn Detected H (NotDetected) U Benzodiazepines Scrn Detected H (NotDetected) Urine Cocaine Screen Not Detected (NotDetected) U Marijuana (THC) Screen Detected H (NotDetected) Coronavirus (PCR) Not Detected (Not Detectd) Disposition Is patient prescribed a controlled substance at d/c from ED?: No <Oswaldo Chang - Last Filed: 09/07/21 02:19> <Perla Bautista - Last Filed: 09/08/21 22:55> Clinical Impression: Acute anxiety, Depression, Acute psychosis, Suicidal ideation Disposition: TRANSFER TO PSYCH HOSP/UNIT Condition: Fair
[2021-09-07 01:03] LABS: Appearance,Urine Clear (Clear); Bilirubin,Urine Negative (Negative); Blood,Urine Negative (Negative); Color,Urine Yellow; Glucose,Urine (UA) Negative (Negative); Ketones,Urine 2+ (Negative); Leukocyte Esterase,Urine Negative (Negative); Nitrite,Urine Negative (Negative); Protein,Urine Trace (Negative); Specific Gravity,Urine 1.031 (1.001-1.035); Urobilinogen,Urine <2.0 mg/dL (<2.0)
[2021-09-07 01:36] LABS: Cocaine Screen,Urine Not Detected (NotDetected); Phencyclidine Screen,Urine Not Detected (NotDetected); Urn Cannabinoid Scrn Detected (NotDetected)
[2021-09-07 01:37] LABS: Amphetamine Screen,Urine Detected (NotDetected); Barbiturate Screen,Urine Not Detected (NotDetected); Benzodiazepines Screen,Urine Detected (NotDetected); Methadone Screen, Urine Not Detected (NotDetected); Opiate Screen,Urine Not Detected (NotDetected); Oxycodone Screen, Urine Not Detected (NotDetected); Tricyclic Antidepressant,Urine Not Detected (NotDetected)
[2021-09-07] MEDS ORDERED: LORazepam 1 MG TAB PO PRN ×2 (04:10→04:14)
[2021-09-07] MEDS ORDERED: MAGNESIUM HYDROXIDE 2,400 MG/10 ML CUP PO PRN (04:10)
[2021-09-07] MEDS ORDERED: MAG HYDROX/AL HYDROX/SIMETH 30 ML CUP PO PRN (04:10)
[2021-09-07] MEDS ORDERED: HALOPERIDOL LACTATE 5 MG/ML 1 ML VIAL IM PRN (04:10)
[2021-09-07] MEDS ORDERED: LORazepam 2 MG/ML INJ IM PRN (04:12)
[2021-09-07] MEDS ORDERED: haloperidoL 5 MG TAB PO PRN (04:14)
[2021-09-07] MEDS: NICOTINE 14MG/24HR PATCH TRANSDERM SCH (08:54)
--- NOTE | 2021-09-07 10:34 | P.HP ---
Psychiatric H&P - . H&P Date: 09/07/21 History & Physical: Allergies Allergy/AdvReac Type Severity Reaction Status Date / Time No Known Allergies Allergy Verified 09/06/21 18:51 Vital Signs Temp 97.5 F L 09/07/21 04:27 Pulse 102 H 09/07/21 04:27 Resp 102 H 09/07/21 04:27 BP 133/83 09/07/21 04:27 Pulse Ox 98 09/07/21 04:27 Intake & Output 09/06/21 09/07/21 09/07/21 18:59 06:59 18:59 Weight 92.986 kg Laboratory Last Values Urine Color Yellow 09/07/21 00:24 Urine Appearance Clear (Clear) 09/07/21 00:24 Urine pH 6.0 (5.0-8.0) 09/07/21 00:24 Ur Specific [place] 1.031 (1.001-1.035) 09/07/21 00:24 Urine Protein Trace (Negative) H 09/07/21 00:24 Urine Glucose (UA) Negative (Negative) 09/07/21 00:24 Urine Ketones 2+ (Negative) H 09/07/21 00:24 Urine Blood Negative (Negative) 09/07/21 00:24 Urine Nitrite Negative (Negative) 09/07/21 00:24 Urine Bilirubin Negative (Negative) 09/07/21 00:24 Urine Urobilinogen <2.0 mg/dL (<2.0) 09/07/21 00:24 Ur Leukocyte Esterase Negative (Negative) 09/07/21 00:24 Urine Opiates Screen Not Detected (NotDetected) 09/07/21 00:24 Ur Oxycodone Screen Not Detected (NotDetected) 09/07/21 00:24 Urine Methadone Screen Not Detected (NotDetected) 09/07/21 00:24 Ur Propoxyphene Screen Not Detected (NotDetected) 09/07/21 00:24 Ur Barbiturates Screen Not Detected (NotDetected) 09/07/21 00:24 U Tricyclic Antidepress Not Detected (NotDetected) 09/07/21 00:24 Ur Phencyclidine Scrn Not Detected (NotDetected) 09/07/21 00:24 Ur Amphetamines Screen Detected (NotDetected) H 09/07/21 00:24 U Methamphetamines Scrn Detected (NotDetected) H 09/07/21 00:24 U Benzodiazepines Scrn Detected (NotDetected) H 09/07/21 00:24 Urine Cocaine Screen Not Detected (NotDetected) 09/07/21 00:24 U Marijuana (THC) Screen Detected (NotDetected) H 09/07/21 00:24 Coronavirus (PCR) Not Detected (Not Detectd) 09/07/21 03:15 09/07/21 10:27 Psychiatric evaluation: Mental status examination This is a 45-year-old male who is a very poor historian Patient states that he was picked up by the police but he does not know why Patient exhibits market flight of ideas and reports that "nobody knows about it" Patient states that is a 0 effect and the environment " is up to the God for him to decide When asked as to what he does for living patient states that he does everything 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 Patient admits that he does use drugs and he lives alone He admits to using methamphetamine and cannabis Patient then asked if I could prescribe him some stimulant while he is in the hospital Patient is unable to give any information about his family Past history personal social history Patient admits that he was hospitalized on one occasion in the past Patient is unable to give any other information regarding any treatment Patient states that he does all kinds of work but is unable to give any specifics and then ran off on a tangent about 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 Mental status examination Reveals a middle-aged male who currently appears in no acute physical distress Patient is alert and oriented to place and person Speech was somewhat pressured Thought processes were circumstantial and tangential Thinking is delusional with the euphoria and expansiveness Patient's formal and operational judgment and insight are markedly impaired Problem-solving skills are poor Unable to assess for funds of knowledge and any other information due to delusional thinking Diagnostic impression: Psychotic disorder unspecified Rule out schizophrenia bipolar type Polysubstance use disorder that includes methamphetamines cannabis benzodiazepines Plan: The patient will be hospitalized on the unit for further evaluation and treatment Therapy will be focused on providing supportive care and improving his coping abilities with a multimodal treatment Patient will also participate in on the [place] activities individual milieu group OT RT PT and pharmacotherapy Patient has agreed to take Zyprexa and started initially on 10 mg at nighttime to start with and titrate to response Approximately the stay would be 5-7 days Maintain supportive care and safety precautions although at this time patient does not appear to be aggressive or impulsive Jay Stout M.D. 09/07/2021
[2021-09-07] MEDS: OLANZapine 10 MG TAB PO SCH (20:35)
[2021-09-07] MEDS: ACETAMINOPHEN TAB 325 MG TAB PO PRN (20:35)
--- NOTE | 2021-09-08 00:08 | P.CONS ---
History of Present Illness - Reason for Consult Consult date: 09/07/21 - History of Present Illness Patient is a 45-year-old male with a PMH of hypertension (not on medications) and polysubstance abuse who was brought into the emergency room under police custody due to strange behavior. The patient reports that he has been using "anything I can get my hands on" over the past several weeks, including methamphetamines. He reports oral pain due to his gum disease. Denied any additional complaints. Denies fainting chest discomfort, shortness of breath, fever, chills, cough, nausea, vomiting, abdominal pain, diarrhea. Laboratory evaluation revealed a urine toxicology positive for methamphetamines and marijuana. Review of systems: Pertinent positives and negatives as discussed in HPI, a complete review of systems was performed and all other systems are negative. Physical examination: General: non toxic, no distress, appears at stated age, overweight Derm: no unusual rashes/lesions no unusual ecchymoses, warm, dry Head: atraumatic, normocephalic, symmetric Eyes: EOMI, no lid lag, anicteric sclera, pupils equal round reactive to light ENT: Nose and ears atraumatic, no thrush, no pharyngeal erythema Neck: No thyromegaly, no cervical lymphadenopathy, trachea midline, supple Mouth: no lip lesion, mucus membranes moist Cardiovascular: S1S2 reg, no murmur, positive posterior tibial pulse bilateral, no edema, capillary refill less than 2 seconds Lungs: CTA bilateral, no rhonchi, no rales , no accessory muscle use Abdominal: soft, nontender to palpation, no guarding, no appreciable organomegaly, normal bowel sounds Ext: no gross muscle atrophy, muscle strength 5 out of 5 in all 4 extremities grossly, no contractures, Neuro: CN II-XI grossly intact, light touch intact all 4 extremities, finger to nose within normal limits, Psych: Alert, oriented, appropriate affect Assessment/plan Polysubstance abuse -Advised on importance of cessation Psychosis -As per psychiatry Thank you for allowing us to participate in the care of this patient. We will follow peripherally. Do not hesitate to contact us with questions. Someone can be reached from the [facility] [place] [facility] group at all hours of the day at [phone]. Past Medical History Past Medical History: Hypertension History of Any Multi-Drug Resistant Organisms: None Reported Past Surgical History: Appendectomy, Orthopedic Surgery Additional Past Surgical History / Comment(s): ANKLE SURGERY-multiple fracture 2 plates and 3 screws, BIOPSY OF LYMPH Node LEFT ARM CHILD. Past Anesthesia/Blood Transfusion Reactions: No Reported Reaction Past Psychological History: ADD/ADHD, Anxiety, Depression Smoking Status: Never smoker Past Alcohol Use History: None Reported Past Drug Use History: Marijuana - Past Family History Father History Unknown: Yes Additional Family Medical History / Comment(s): Father is alive with no major medical problems. Mother Additional Family Medical History / Comment(s): Mother is alive with history of depression and alcoholism. Sister(s) Additional Family Medical History / Comment(s): Patient has one sister that is younger than him and he states she has mental health issues. Patient does not have any brothers. Medications and Allergies Home Medications Medication Instructions Recorded Confirmed Type No Known Home Medications 09/06/21 09/06/21 History Allergies Allergy/AdvReac Type Severity Reaction Status Date / Time No Known Allergies Allergy Verified 09/06/21 18:51 Physical Exam Vitals: Vital Signs Temp Pulse Pulse Resp BP BP Pulse Ox 09/07/21 04:27 97.5 F L 102 H 102 H 133/83 98 09/07/21 04:16 98.2 F 88 16 122/65 99 Results Labs: Abnormal Lab Results - Last 24 Hours (Table) 09/07/21 Range/Units 00:24 Urine Protein Trace H (Negative) Urine Ketones 2+ H (Negative) Ur Amphetamines Screen Detected H (NotDetected) U Methamphetamines Scrn Detected H (NotDetected) U Benzodiazepines Scrn Detected H (NotDetected) U Marijuana (THC) Screen Detected H (NotDetected)
[2021-09-08] MEDS: NICOTINE 14MG/24HR PATCH TRANSDERM SCH (08:15)
--- NOTE | 2021-09-08 08:29 | P.PN ---
Subjective Progress Note Date: 09/08/21 Principal diagnosis: Schizophrenia chronic undifferentiated type Methamphetamine use disorder Subjective data: Yes I feel a lot better I'm not having any thoughts of wanting to hurt myself or others I feel that the medication has helped me and I slept much better I'm not hearing any voices Objective data Patient was returning this includes from yesterday but appears to be taking care of his hygiene Affect seems to be improved Patient makes limited eye contact and seems to be somewhat embarrassed Patient did not express any bizarre or delusional thinking and his verbal output remains somewhat impoverished Patient seemed to be somewhat guarded but appropriate overall interaction and did not exhibit any delusional thinking that was seen the previous day although interaction was limited Plan: Continue current can support patient is encouraged to continue his current me dications as prescribed and participated in the milieu treatment Continue supportive care Jay Girish Mendoza 09/08/2021 Objective - Vital Signs Vital signs: Vital Signs Temp 98.1 F 09/08/21 06:21 Pulse 54 L 09/08/21 06:21 Resp 16 09/08/21 06:21 BP 163/80 09/08/21 06:21 Pulse Ox 98 09/07/21 04:27
[2021-09-08 09:25] LABS: Basophils # (A) 0.1 k/uL (0-0.2); Basophils % (A) 1 %; Eosinophils # (A) 0.2 k/uL (0-0.7); Eosinophils % (A) 2 %; HCT 45.9 % (39.0-53.0); HGB 15.2 gm/dL (13.0-17.5); Lymphocytes # (A) 2.6 k/uL (1.0-4.8); Lymphocytes % (A) 39 %; MCH 31.8 pg (25.0-35.0); MCHC 33.2 g/dL (31.0-37.0); MCV 95.9 fL (80.0-100.0); Mean Platelet Volume 6.5; Monocytes # (A) 0.3 k/uL (0-1.0); Monocytes % (A) 5 %; Neutrophils # (A) 3.5 k/uL (1.3-7.7); Neutrophils % (A) 51 %; Platelet Count 418 k/uL (150-450); RBC 4.78 m/uL (4.30-5.90); WBC 6.8 k/uL (3.8-10.6)
[2021-09-08 09:36] LABS: ALT 35 U/L (4-49); AST 33 U/L (17-59); African American GFR (CKD) >90 (>60 ml/min/1.73 sqM); Albumin 4.2 g/dL (3.5-5.0); Alkaline Phosphatase 58 U/L (38-126); Anion Gap 8 mmol/L; Blood Urea Nitrogen 12 mg/dL (9-20); Calcium 8.9 mg/dL (8.4-10.2); Carbon Dioxide 24 mmol/L (22-30); Chloride 107 mmol/L (98-107); Glucose 109 mg/dL (74-99); Non-African American GFR(CKD) >90 (>60 ml/min/1.73 sqM); Potassium 4.2 mmol/L (3.5-5.1); Sodium 139 mmol/L (137-145); Total Bilirubin 0.5 mg/dL (0.2-1.3); Total Protein 7.2 g/dL (6.3-8.2)
[2021-09-08 16:16] LABS: Chol/HDL Ratio 2.02 Ratio; LDL Cholesterol,Calculated 47.6 mg/dL (0.0-131.0); VLDL Calculation 18.88 mg/dL (5.00-40.00)
[2021-09-08] MEDS: ACETAMINOPHEN TAB 325 MG TAB PO PRN (20:31)
[2021-09-08] MEDS: OLANZapine 10 MG TAB PO SCH (20:32)
[2021-09-08] MEDS: MELATONIN 3 MG TABLET PO SCH (21:30)
[2021-09-08] MEDS ORDERED: BENZOCAINE 20 % GEL 11.9 GM TUBE MM ONE (21:30)
[2021-09-09] MEDS: NICOTINE 14MG/24HR PATCH TRANSDERM SCH (08:48)
--- NOTE | 2021-09-09 13:41 | P.PN ---
Progress Note - Text Progress Note Date: 09/09/21 Interval History: Patient was seen resting in bed and was directable and agreeable to speak with writer producer in his room. He doesn't make that he is currently admitted to the psychiatric unit due to his methamphetamine use. He does report that he was previously hearing auditory and visual hallucinations. He is currently denying any hallucinations or perceptual abnormalities at this time. He is not reporting any suicidal or homicidal ideation, intention, or plan. The patient was asked if he is willing to quit methamphetamines. The patient states that "if I quit methamphetamines, you will ." He states this provider's heart with stop if the patient quits methamphetamines. He reports "I know it doesn't make sense but that is what I know is true." The patient is willing to take medications. His mood and parent is not reporting any significant side effects at this time. He reports no issues regarding his sleep or his appetite. Mental Status Exam: General Appearance: Patient appears to be stated age is alert, directable, and cooperative. Behavior: Patient is calmly seated without any agitated behavior. Speech: Patient's speech is fluent and nonpressured. Mood/Affect: Mood is improving mildly, affect is congruent and constricted. Suicidality/Homicidality: Patient denies having any suicidal or homicidal ideation intent or plan. Perceptions: Patient denies any visual hallucinations and denies any auditory hallucinations Though content/process: Patient endorses loose associations and magical thinking. Delusional. Memory and concentration: AOX3, grossly intact for the purposes of this session Judgment and insight: Poor Vital Signs Temp 97.9 F 09/09/21 06:37 Pulse 59 L 09/09/21 06:37 Resp 14 09/09/21 06:37 BP 136/78 09/09/21 06:37 Pulse Ox 98 09/07/21 04:27 Intake & Output 09/08/21 09/09/21 09/09/21 18:59 06:59 18:59 Weight 83.4 kg Laboratory Results - Last 24 Hours 09/08/21 07:55 Triglycerides 94.40 Cholesterol 132.00 LDL Cholesterol, Calc 47.6 VLDL Cholesterol, Calc 18.88 HDL Cholesterol 65.50 H Cholesterol/HDL Ratio 2.02 Assessment Acute psychosis Polysubstance abuse - methamphetamines, cannabis, benzodiazepines Plan: -Patient continues to meet criteria for inpatient psychiatric admission for symptom stabilization and safety. Patient has signed adult voluntary form and medication consent and was placed in patient's chart. -Medications: Increase Zyprexa to 15 mg by mouth at bedtime for acute psychosis -When necessary Ativan and Haldol for agitation/aggression. -NRT - nicotine patch -SW on board for discharge planning. Encouraged the patient to participate in milieu.
[2021-09-09] MEDS: OLANZapine 10 MG TAB PO SCH (20:45)
[2021-09-09] MEDS: MELATONIN 3 MG TABLET PO SCH (20:45)
[2021-09-09] MEDS: ACETAMINOPHEN TAB 325 MG TAB PO PRN (20:45)
[2021-09-10] MEDS: NICOTINE 14MG/24HR PATCH TRANSDERM SCH (08:15)
[2021-09-10] MEDS: ACETAMINOPHEN TAB 325 MG TAB PO PRN ×2 (08:17→20:40)
[2021-09-10] MEDS ORDERED: OLANZapine 5 MG TAB PO STA (09:30)
--- NOTE | 2021-09-10 13:11 | P.PN ---
Progress Note - Text Progress Note Date: 09/10/21 Interval History: Patient was seen resting in bed and was directable and agreeable to speak with automobile service writer in his room. The patient continues to endorse significant delusional thoughts. He reports that he is "the source of all life." He states that this is the reason why he cannot quit methamphetamines as if he quits methamphetamines, everyone will . He later states that this provider is as well. He is currently not reporting any suicidal or homicidal ideation, intention, and/or plan. He is not reporting any auditory or visual hallucinations. He has been adherent with his medications and not reporting any significant side effects at this time. He reports no issues regarding his sleep or appetite. He remains primarily isolative to himself in his room. Mental Status Exam: General Appearance: Patient appears to be stated age is alert, directable, and cooperative. Behavior: Patient is calmly seated without any agitated behavior. Speech: Patient's speech is fluent and nonpressured. Mood/Affect: Mood is improving mildly, affect is congruent and constricted. Suicidality/Homicidality: Patient denies having any suicidal or homicidal ideation intent or plan. Perceptions: Patient denies any visual hallucinations and denies any auditory hallucinations Though content/process: Patient endorses loose associations and magical thinking. Delusional. Memory and concentration: AOX3, grossly intact for the purposes of this session Judgment and insight: Poor Vital Signs Temp 98.7 F 09/10/21 07:01 Pulse 103 H 09/10/21 07:01 Resp 14 09/09/21 06:37 BP 128/97 09/10/21 07:01 Pulse Ox 97 09/10/21 07:01 Assessment Acute psychosis Polysubstance abuse - methamphetamines, cannabis, benzodiazepines Plan: -Patient continues to meet criteria for inpatient psychiatric admission for symptom stabilization and safety. Patient has signed adult voluntary form and medication consent and was placed in patient's chart. -Medications: Increase Zyprexa to 20 mg by mouth at bedtime for acute psychosis -When necessary Ativan and Haldol for agitation/aggression. -NRT - nicotine patch -SW on board for discharge planning. Encouraged the patient to participate in milieu.
[2021-09-10] MEDS: MELATONIN 3 MG TABLET PO SCH (20:39)
[2021-09-10] MEDS: OLANZapine 10 MG TAB PO SCH (20:39)
[2021-09-10] MEDS ORDERED: OLANZapine 5 MG TAB PO SCH (21:00)
[2021-09-11] MEDS: ACETAMINOPHEN TAB 325 MG TAB PO PRN ×2 (08:21→20:21)
[2021-09-11] MEDS: NICOTINE 14MG/24HR PATCH TRANSDERM SCH (08:21)
--- NOTE | 2021-09-11 11:06 | P.PN ---
Progress Note - Text Progress Note Date: 09/11/21 Interval History: Patient was seen resting in bed and was directable and agreeable to speak with credit underwriter in his room. The patient is currently denying any suicidal or homicidal ideation, intention, and/or plan. He reports no auditory or visual hallucinations. He denies any paranoia or other delusions. He denies any side effects of his medications. The patient does not make any mention about being immortal or being the source of life. He does express that he needs to stop methamphetamine use however does not wish to go to rehabilitation. Mental Status Exam: General Appearance: Patient appears to be stated age is alert, directable, and cooperative. Behavior: Patient is calmly seated without any agitated behavior. Speech: Patient's speech is fluent and nonpressured. Mood/Affect: Mood is improving mildly, affect is congruent and constricted. Suicidality/Homicidality: Patient denies having any suicidal or homicidal ideation intent or plan. Perceptions: Patient denies any visual hallucinations and denies any auditory hallucinations Though content/process: No delusional thought content is endorsed day. Thought process appears to be linear and logical in short conversation. Memory and concentration: AOX3, grossly intact for the purposes of this session Judgment and insight: Mildly improving Vital Signs Temp 98.3 F 09/11/21 06:38 Pulse 77 09/11/21 06:38 Resp 16 09/11/21 06:38 BP 178/93 09/11/21 06:38 Pulse Ox 97 09/10/21 07:01 Assessment Acute psychosis Polysubstance abuse - methamphetamines, cannabis, benzodiazepines Plan: -Patient continues to meet criteria for inpatient psychiatric admission for symptom stabilization and safety. Patient has signed adult voluntary form and medication consent and was placed in patient's chart. -Medications: Continue 20 mg by mouth at bedtime for acute psychosis -When necessary Ativan and Haldol for agitation/aggression. -NRT - nicotine patch -SW on board for discharge planning. Encouraged the patient to participate in milieu.
[2021-09-11] MEDS: MELATONIN 3 MG TABLET PO SCH (20:21)
[2021-09-11] MEDS: OLANZapine 10 MG TAB PO SCH (20:21)
[2021-09-12 06:47] VITALS: BP 159/97; PULSE 82; RESP 14; TEMP 97.8
[2021-09-12] MEDS: ACETAMINOPHEN TAB 325 MG TAB PO PRN (08:16)
[2021-09-12] MEDS: NICOTINE 14MG/24HR PATCH TRANSDERM SCH (08:16)
--- NOTE | 2021-09-12 11:28 | P.DS ---
Providers Date of admission: 09/07/21 04:04 Expected date of discharge: 09/12/21 Attending physician: Jerome Wang MD Consults: 09/07/21 04:10 Consult Physician Routine Consulting Provider: Julita Fuller Consult Reason/Comments: For H & P for Medical Follow Up Do you want consulting provider notified?: Yes Primary care physician: Stated None - Discharge Diagnosis(es) (1) Acute psychosis Current Visit: Yes Status: Acute Priority: High (2) Nicotine dependence Current Visit: Yes Status: Chronic Priority: Medium (3) Amphetamine and psychostimulant abuse Current Visit: Yes Status: Chronic Priority: Medium (4) Cannabis use disorder, mild, abuse Current Visit: Yes Status: Chronic Priority: Medium Hospital Course: Admission HPI: Initial psychiatric evaluation was completed by Dr. 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 Patient admits that he does use drugs and he lives alone He admits to using methamphetamine and cannabis Patient then asked if I could prescribe him some stimulant while he is in the hospital Patient is unable to give any information about his family Past history personal social history Patient admits that he was hospitalized on one occasion in the past Patient is unable to give any other information regarding any treatment Patient states that he does all kinds of work but is unable to give any specifics and then ran off on a tangent 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 Hospital course: Upon admission to the unit patient was initially noted to be religiously preoccupied and psychotic. Patient was however directable and agreeable to commence treatment. The patient also tested positive for methamphetamines on admission. Patient was agreeable however to start medications. Patient was started on Zyprexa for management of acute psychosis. Patient remained primarily isolative to himself in his room. Patient was also seen by medical team for history and physical exam. Over the course of hospitalization, the patient's Zyprexa was titrated up to 4 months. 20 mg at bedtime. The patient displayed gradual improvement in regards to his target symptoms of psychosis. He was initially presenting with bizarre and grandiose thoughts but as medicati ons were titrated and the hospitalization continued, the patient displayed significant improvements in regards to psychosis and grandiosity. The patient was adherent with his medication and reported no significant side effects. On the day of discharge, the patient is not reporting any suicidal or homicidal ideation, intention, and/or plan. Is not reporting any access to firearms or other weapons. He denies any paranoia or delusions. He reports no auditory or visual hallucinations. The patient was initially to be discharged home with his mother however it was determined that his mother does not want him back in the home. Patient however presents is future and goal oriented and states that he has numerous friends in the community whom he can reach out to. He also plans to go to the retirement if necessary. The patient remains future oriented and is alert and oriented in all spheres. Patient was counseled at length on the points medication adherent and appropriate follow-up. The patient was also counseled on abstaining from all substances including alcohol, marijuana, and methamphetamines. The patient was offered however declined inpatient substance- abuse rehabilitation. As the patient longer met criteria for inpatient psychiatric hospitalization, he was subsequently discharged. Mental status exam: General Appearance: Patient appears to be stated age is alert, pleasant, and cooperative. Patient is in no acute distress and has slightly disheveled hygiene and grooming Behavior: Patient is calmly seated without any agitated behavior. Speech: Patient's speech is fluent and nonpressured. Mood/Affect: Patient reports their mood is "much better", affect is congruent and euthymic with appropriate range. Suicidality/Homicidality: Patient denies having any suicidal or homicidal ideation intent or plan. Perceptions: Patient denies any auditory or visual hallucinations. Though content/process: There is no evidence of any delusional thought content and thought process is linear and goal-directed. Patient is future oriented Memory and concentration: AOX3, grossly intact for the purposes of this session. Can spell "WORLD" backwards correctly. Judgment and insight: Improved with guarded prognosis Vital Signs Temp 97.8 F 09/12/21 06:46 Pulse 82 09/12/21 06:46 Resp 14 09/12/21 06:46 BP 159/97 09/12/21 06:46 Pulse Ox 98 09/12/21 06:46 Laboratory Results WBC 6.8 k/uL (3.8-10.6) 09/08/21 07:55 RBC 4.78 m/uL (4.30-5.90) 09/08/21 07:55 Hgb 15.2 gm/dL (13.0-17.5) 09/08/21 07:55 Hct 45.9 % (39.0-53.0) 09/08/21 07:55 MCV 95.9 fL (80.0-100.0) 09/08/21 07:55 MCH 31.8 pg (25.0-35.0) 09/08/21 07:55 MCHC 33.2 g/dL (31.0-37.0) 09/08/21 07:55 RDW 13.0 % (11.5-15.5) 09/08/21 07:55 Plt Count 418 k/uL (150-450) 09/08/21 07:55 MPV 6.5 09/08/21 07:55 Neutrophils % 51 % 09/08/21 07:55 Lymphocytes % 39 % 09/08/21 07:55 Monocytes % 5 % 09/08/21 07:55 Eosinophils % 2 % 09/08/21 07:55 Basophils % 1 % 09/08/21 07:55 Neutrophils # 3.5 k/uL (1.3-7.7) 09/08/21 07:55 Lymphocytes # 2.6 k/uL (1.0-4.8) 09/08/21 07:55 Monocytes # 0.3 k/uL (0-1.0) 09/08/21 07:55 Eosinophils # 0.2 k/uL (0-0.7) 09/08/21 07:55 Basophils # 0.1 k/uL (0-0.2) 09/08/21 07:55 Sodium 139 mmol/L (137-145) 09/08/21 07:55 Potassium 4.2 mmol/L (3.5-5.1) 09/08/21 07:55 Chloride 107 mmol/L (98-107) 09/08/21 07:55 Carbon Dioxide 24 mmol/L (22-30) 09/08/21 07:55 Anion Gap 8 mmol/L 09/08/21 07:55 BUN 12 mg/dL (9-20) 09/08/21 07:55 Creatinine 0.74 mg/dL (0.66-1.25) 09/08/21 07:55 Est GFR (CKD-EPI)AfAm >90 (>60 ml/min/1.73 sqM) 09/08/21 07:55 Est GFR (CKD-EPI)NonAf >90 (>60 ml/min/1.73 sqM) 09/08/21 07:55 Glucose 109 mg/dL (74-99) H 09/08/21 07:[address] Glu mg/dL 109 09/08/21 07:55 Hemoglobin A1c 5.4 % (0.0-6.0) 09/08/21 07:55 Calcium 8.9 mg/dL (8.4-10.2) 09/08/21 07:55 Total Bilirubin 0.5 mg/dL (0.2-1.3) 09/08/21 07:55 AST 33 U/L (17-59) 09/08/21 07:55 ALT 35 U/L (4-49) 09/08/21 07:55 Alkaline Phosphatase 58 U/L (38-126) 09/08/21 07:55 Total Protein 7.2 g/dL (6.3-8.2) 09/08/21 07:55 Albumin 4.2 g/dL (3.5-5.0) 09/08/21 07:55 Triglycerides 94.40 mg/dL (0.00-149.00) 09/08/21 07:55 Cholesterol 132.00 mg/dL (0.00-200.00) 09/08/21 07:55 LDL Cholesterol, Calc 47.6 mg/dL (0.0-131.0) 09/08/21 07:55 VLDL Cholesterol, Calc 18.88 mg/dL (5.00-40.00) 09/08/21 07:55 HDL Cholesterol 65.50 mg/dL (40.00-60.00) H 09/08/21 07:55 Cholesterol/HDL Ratio 2.02 Ratio 09/08/21 07:55 TSH 0.948 mIU/L (0.465-4.680) 09/08/21 07:55 Urine Color Yellow 09/07/21 00:24 Urine Appearance Clear (Clear) 09/07/21 00:24 Urine pH 6.0 (5.0-8.0) 09/07/21 00:24 Ur Specific [place] 1.031 (1.001-1.035) 09/07/21 00:24 Urine Protein Trace (Negative) H 09/07/21 00:24 Urine Glucose (UA) Negative (Negative) 09/07/21 00:24 Urine Ketones 2+ (Negative) H 09/07/21 00:24 Urine Blood Negative (Negative) 09/07/21 00:24 Urine Nitrite Negative (Negative) 09/07/21 00:24 Urine Bilirubin Negative (Negative) 09/07/21 00:24 Urine Urobilinogen <2.0 mg/dL (<2.0) 09/07/21 00:24 Ur Leukocyte Esterase Negative (Negative) 09/07/21 00:24 Urine Opiates Screen Not Detected (NotDetected) 09/07/21 00:24 Ur Oxycodone Screen Not Detected (NotDetected) 09/07/21 00:24 Urine Methadone Screen Not Detected (NotDetected) 09/07/21 00:24 Ur Propoxyphene Screen Not Detected (NotDetected) 09/07/21 00:24 Ur Barbiturates Screen Not Detected (NotDetected) 09/07/21 00:24 U Tricyclic Antidepress Not Detected (NotDetected) 09/07/21 00:24 Ur Phencyclidine Scrn Not Detected (NotDetected) 09/07/21 00:24 Ur Amphetamines Screen Detected (NotDetected) H 09/07/21 00:24 U Methamphetamines Scrn Detected (NotDetected) H 09/07/21 00:24 U Benzodiazepines Scrn Detected (NotDetected) H 09/07/21 00:24 Urine Cocaine Screen Not Detected (NotDetected) 09/07/21 00:24 U Marijuana (THC) Screen Detected (NotDetected) H 09/07/21 00:24 Coronavirus (PCR) Not Detected (Not Detectd) 09/07/21 03:15 Impression: Acute psychotic episode Polysubstance abuse - methamphetamines, cannabis, benzodiazepines Nicotine dependence Plan: -Continue with discharge today as patient has improved and stabilized psychiatrically and is not currently an imminent threat to himself and/or others. Patient will remain at chronically elevated risk for harm to self and/or others due to his impulsivity and polysubstance abuse. -Continue medications: Zyprexa 20 mg by mouth at bedtime for acute psychosis Habitrol patches for nicotine cessation Melatonin for insomnia -Patient was counseled on the need for medication compliance and appropriate follow-up at mental health and also primary care for medical issues. Patient verbalized understanding and agreed. -Social work to arrange for and conduct family meeting to ensure safety upon discharge and answer any questions/concerns. Social work also to arrange for patients follow up appointments with [facility] for psychiatric care along with follow up with primary care provider. -Patient counseled on abstaining from recreational drugs and marijuana and alcohol. Was informed/educated on the adverse effects on their physical and mental health. Patient verbally agreed and understood. Patient was offered substance abuse treatment however declined at this time. -Patient was instructed to return to the hospital or seek immediate medical care if their psychiatric or medical symptoms do worsen or reoccur. -Psychoeducation and supportive therapy provided to patient. Risks and benefits of pharmacological treatment versus the risks and benefits of nontreatment weight and discussed. Informed consent discussion held. Common side effects of psychotropics discussed such as, but not limited to headache, GI disturbance, sexual dysfunction, movement disorders, sedation, and orthostatic hypotension. Life threatening and blackbox warnings of prescribed medications also discussed. Potential risks of operating a vehicle or heavy machinery discussed with patient at length. Advised on importance of compliance and a reliable and responsible manner. Patient advised to review FDA consumer labeling of all medications prior to taking. Patient verbalized understanding of potential risks, and agrees with current treatment plan. Patient advised to medically contact physician/emergency personnel if any acute changes in condition occur. Allergies Allergy/AdvReac Type Severity Reaction Status Date / Time No Known Allergies Allergy Verified 09/06/21 18:51 Patient Condition at Discharge: Stable Plan - Discharge Summary New Discharge Prescriptions: New Nicotine 14Mg/24Hr Patch [Habitrol] 1 patch TRANSDERM DAILY 30 Days patch Melatonin 6 mg PO HS 30 Days tablet OLANZapine [ZyPREXA] 20 mg PO HS 30 Days tab Discharge Medication List Melatonin 6 mg PO HS 30 Days tablet 09/12/21 [Rx] Nicotine 14Mg/24Hr Patch [Habitrol] 1 patch TRANSDERM DAILY 30 Days patch 09/12/21 [Rx] OLANZapine [ZyPREXA] 20 mg PO HS 30 Days tab 09/12/21 [Rx] Follow up Appointment(s)/Referral(s): [facility] [Outside] - 09/16/21 11:30 am ([facility] Intake 09/16 @ 11:30am - [facility]) None,Stated [Primary Care Provider] - 1-2 days Patient Instructions/Handouts: How to Stop Smoking (DC), Depression (DC), Methamphetamine Abuse (DC), Anxiety (ED), Psychotic Disorder (DC) Activity/Diet/Wound Care/Special Instructions: D/C: Activity and diet as tolerated. Avoid the use of street drugs and alcohol. Take all medications as prescribed. When you are in need of refills on your medications please contact your medical provider and/or outpatient psychiatrist to have this done. Please go to scheduled outpatient appointment for aftercare treatment. If symptoms return or become worse, call the crisis line at and/or go to the nearest emergency room for evaluation. Pt ambulated in stable condition for home. Discharge Disposition: HOME SELF-CARE
== END 2021-09-12 11:15 | disposition home or self-care (01) | DRG 885 ==
LOC: EC 17:22 → 3MHU 09-07 04:04
PROVIDERS: ADMIT Psychiatry & Neurology Psychiatry; ATTEND Psychiatry & Neurology Psychiatry
DX: F20.9 Schizophrenia, unspecified (principal); F17.200 Nicotine dependence, unspecified, uncomplicated; F32.A Depression, unspecified; F15.10 Other stimulant abuse, uncomplicated; F12.10 Cannabis abuse, uncomplicated; F41.9 Anxiety disorder, unspecified; G47.00 Insomnia, unspecified; I10 Essential (primary) hypertension; Z59.00 Homelessness unspecified; Z81.8 Family history of other mental and behavioral disorders; Z20.822 Contact with and (suspected) exposure to COVID-19
CPT/HCPCS: 80053; 80061; 80306; 81003; 82075; 83036; 84443; 85025; 87635; 99285

== ENCOUNTER 2021-11-21 18:42 | Emergency (ER) | payer OTHER ==
--- NOTE | 2021-11-22 00:47 | ED ---
Psych HPI - General Chief Complaint: Psychiatric Symptoms Stated Complaint: Suicidal Time Seen by Provider: 11/22/21 00:41 Source: patient Mode of arrival: ambulatory - History of Present Illness MD Complaint: suicidal ideation, feels depressed -: year(s) Associated Psychiatric Symptoms: depression, suicidal ideation History of same: Yes Quality: intermittent Improves With: none Worsens With: none - Related Data Previous Rx's Medication Instructions Recorded Melatonin 6 mg PO HS 30 Days tablet 09/12/21 Nicotine 14Mg/24Hr Patch [Habitrol] 1 patch TRANSDERM DAILY 30 Days 09/12/21 patch OLANZapine [ZyPREXA] 20 mg PO HS 30 Days tab 09/12/21 Allergies Allergy/AdvReac Type Severity Reaction Status Date / Time No Known Allergies Allergy Verified 11/21/21 20:03 Review of Systems ROS Statement: Those systems with pertinent positive or pertinent negative responses have been documented in the HPI. ROS Other: All systems not noted in ROS Statement are negative. Constitutional: Denies: fever Respiratory: Denies: cough, dyspnea Cardiovascular: Denies: chest pain, palpitations Gastrointestinal: Denies: abdominal pain, vomiting, diarrhea Genitourinary: Denies: dysuria, hematuria Musculoskeletal: Denies: back pain Neurological: Denies: headache Psychiatric: Reports: depression, suicidal thoughts. Denies: auditory hallucinations, visual hallucinations, homicidal thoughts Past Medical History Past Medical History: Hypertension History of Any Multi-Drug Resistant Organisms: None Reported Past Surgical History: Appendectomy, Orthopedic Surgery Additional Past Surgical History / Comment(s): ANKLE SURGERY-multiple fracture 2 plates and 3 screws, BIOPSY OF LYMPH Node LEFT ARM CHILD. Past Anesthesia/Blood Transfusion Reactions: No Reported Reaction Past Psychological History: ADD/ADHD, Anxiety, Depression Smoking Status: Never smoker Past Alcohol Use History: None Reported Past Drug Use History: Marijuana - Past Family History Father History Unknown: Yes Additional Family Medical History / Comment(s): Father is alive with no major medical problems. Mother Additional Family Medical History / Comment(s): Mother is alive with history of depression and alcoholism. Sister(s) Additional Family Medical History / Comment(s): Patient has one sister that is younger than him and he states she has mental health issues. Patient does not have any brothers. General Exam Limitations: no limitations General appearance: alert, in no apparent distress Head exam: Present: atraumatic, normocephalic Eye exam: Present: normal appearance Respiratory exam: Present: normal lung sounds bilaterally. Absent: respiratory distress, wheezes, rales, rhonchi, stridor Cardiovascular Exam: Present: regular rate, normal rhythm, normal heart sounds. Absent: systolic murmur, diastolic murmur, rubs, gallop GI/Abdominal exam: Present: soft. Absent: distended, tenderness, guarding Neurological exam: Present: alert, normal gait Psychiatric exam: Present: normal affect, depressed, suicidal ideation. Absent: agitated, anxious, flat affect, manic, homicidal ideation Skin exam: Present: warm, dry, intact, normal color. Absent: rash Course Vital Signs 11/21/21 20:03 Temperature 98.1 F Pulse Rate 75 Respiratory 16 Rate Blood Pressure 124/85 O2 Sat by Pulse 98 Oximetry Disposition Clinical Impression: Mood disorder Disposition: HOME SELF-CARE Condition: Good Instructions (If sedation given, give patient instructions): Mood Disorders (ED) Is patient prescribed a controlled substance at d/c from ED?: No Referrals: None,Stated [Primary Care Provider] - 1-2 days
[2021-11-22 03:43] VITALS: BP 155/91; PULSE 73; RESP 18; TEMP 97.6
== END 2021-11-22 03:51 | disposition home or self-care (01) ==
LOC: EC 18:42
DX: F39 Unspecified mood [affective] disorder (principal)
CPT/HCPCS: 82075

== ENCOUNTER 2022-09-17 21:22 | Inpatient (IN) | payer MEDICAID, OTHER ==
--- NOTE | 2022-09-17 22:09 | ED ---
General Adult HPI - General Chief complaint: Psychiatric Symptoms Stated complaint: petition Time Seen by Provider: 09/17/22 21:43 Source: patient, police, RN notes reviewed, old records reviewed Mode of arrival: ambulatory Limitations: no limitations - History of Present Illness Initial comments: Patient is a 46-year-old male who presents to the department after being petitioned for a court ordered psychiatric evaluation. Has a history of psychiatric illness. Has been having worsening delusions, paranoia that he does not admit to but is outlined in the petition. Denies any suicidal or homicidal ideations, attempts, plans. He denies hallucinations to me. Endorses smoking tobacco but denies any alcohol or drugs. Is not on any medications at home. Denies any chest pain, abdominal pain, nausea, vomiting. Denies any other acute complaints at this time. He is cooperative. Was in agreement with the plan for evaluation by psychiatry. - Related Data Previous Rx's Medication Instructions Recorded Divalproex ER [Depakote ER] 500 mg PO HS 30 Days #30 tab 08/11/22 fluPHENAZine [Prolixin] 3 mg PO BID 30 Days #60 tab 08/11/22 Allergies Allergy/AdvReac Type Severity Reaction Status Date / Time No Known Allergies Allergy Verified 09/17/22 21:29 Review of Systems ROS Statement: Those systems with pertinent positive or pertinent negative responses have been documented in the HPI. Review of Systems: CONST: Denies fever EYES: Denies blurry vision ENT: Denies nasal congestion C/V: Denies Chest pain RESP: Denies shortness of breath GI: Denies abdominal pain : Denies dysuria SKIN: Denies rash. MSK: Denies joint pain. NEURO: Denies headache PSYCH: Denies suicidal and homicidal ideations/plans/attempts. Denies visual or auditory hallucinations. ROS Other: All systems not noted in ROS Statement are negative. Past Medical History Past Medical History: Hypertension History of Any Multi-Drug Resistant Organisms: None Reported Past Surgical History: Appendectomy, Orthopedic Surgery Additional Past Surgical History / Comment(s): ANKLE SURGERY-multiple fracture 2 plates and 3 screws, BIOPSY OF LYMPH Node LEFT ARM CHILD. Past Anesthesia/Blood Transfusion Reactions: No Reported Reaction Past Psychological History: ADD/ADHD, Anxiety, Bipolar, Depression, Schizophrenia Smoking Status: Never smoker Past Alcohol Use History: None Reported Past Drug Use History: Marijuana - Past Family History Father History Unknown: Yes Additional Family Medical History / Comment(s): Father is alive with no major medical problems. Mother Additional Family Medical History / Comment(s): Mother is alive with history of depression and alcoholism. Sister(s) Additional Family Medical History / Comment(s): Patient has one sister that is younger than him and he states she has mental health issues. Patient does not have any brothers. General Exam - General Exam Comments Initial Comments: General: Appears in no acute distress. HEAD: Normal with no signs of head trauma. EYES: PERRLA, EOMI, conjunctiva normal, no discharge. Pupils 3 mm and equal bilaterally. ENT: Hearing grossly intact, normal oropharynx. RESPIRATORY: Clear breath sounds bilaterally. No wheezes, rales, or rhonchi. C/V: Regular rate and rhythm. S1 and S2 auscultated,peripheral pulses 2+ and intact throughout ABD: Abd is soft, nontender, nondistended EXT: Normal range of motion, no obvious deformity SKIN: No rashes or lesions observed on exposed skin. NEURO: Alert and oriented 4. No focal deficits. Limitations: no limitations Course Vital Signs 09/17/22 21:24 Temperature 98.2 F Pulse Rate 78 Respiratory 20 Rate Blood Pressure 142/82 O2 Sat by Pulse 96 Oximetry Medical Decision Making - Medical Decision Making Was pt. sent in by a medical professional or institution (GISEL Camacho, CIRCUIT BREAKER SUPERVISOR, urgent care, hospital, or shelter...) When possible be specific @ -Court-ordered petition for psychiatric evaluation. Brought in by police. Did you speak to anyone other than the patient for history (EMS, parent, family, police, friend...)? What history was obtained from this source @ -No Did you review nursing and triage notes (agree or disagree)? Why? @ -I reviewed and agree with nursing and triage notes Were old charts reviewed (outside hosp., previous admission, EMS record, old EKG, old radiological studies, urgent care reports/EKG's, shelter records)? Report findings @ -I reviewed the court-ordered petition. Outlines the patient's delusions and paranoia as well as the hallucinations Differential Diagnosis (chest pain, altered mental status, abdominal pain women, abdominal pain men, vaginal bleeding, weakness, fever, dyspnea, syncope, headache, dizziness, GI bleed, back pain, seizure, CVA, palpatations, mental health, musculoskeletal)? @ -Differential Mental Health Depression, anxiety, bipolar, psychosis, schizophrenia, borderline personality, situational depression, adjustment disorder, behavioral disorder, brain tumor, malingering, substance abuse, encephalopathy, medication reaction, dementia, hypothyroidism, degenerative neurologic disorder, lupus.... This is not meant to be all-inclusive list EKG interpreted by me (3pts min.). @ -None done X-rays interpreted by me (1pt min.). @ -None done CT interpreted by me (1pt min.). @ -None done U/S interpreted by me (1pt. min.). @ -None done What testing was considered but not performed or refused? (CT, X-rays, U/S, labs)? Why? @ -None What meds were considered but not given or refused? Why? @ -None Did you discuss the management of the patient with other professionals (professionals i.e. , PA, CIRCUIT BREAKER SUPERVISOR, lab, RT, psych nurse, medical social worker, retail business development manager, teacher, deputy juvenile officer, wrapper caser)? Give summary @ -EPS notified of the consult. They informed me patient will be admitted to inpatient psych and requires a clinical certificate which was completed by myself. Was smoking cessation discussed for >3mins.? @ -No Was critical care preformed (if so, how long)? @ -No Were there social determinants of health that impacted care today? How? (Homelessness, low income, unemployed, alcoholism, drug addiction, transportation, low edu. Level, literacy, decrease access to med. care, group home, rehab)? @ -No Was there de-escalation of care discussed even if they declined (Discuss DNR or withdrawal of care, Hospice)? DNR status @ -No What co-morbidities impacted this encounter? (DM, HTN, Smoking, COPD, CAD, Cancer, CVA, ARF, Chemo, Hep., AIDS, mental health diagnosis, sleep apnea, morbid obesity)? @ -Psychiatric illness Was patient admitted / discharged? Hospital course, mention meds given and route, prescriptions, significant lab abnormalities, going to OR and other pertinent info. @ -Based on the patient's presentation and physical exam, I do believe he requires psychiatric evaluation. He was placed in green scrubs. Sitter was ordered. BAT is 0. UDS is pending. Vital signs within acceptable limits. Exam is unremarkable. At this time patient is medically cleared for evaluation by psychiatry. Disposition is pending psychiatric evaluation. EPS is notified. Patient evaluated by psychiatry. Determined that he does meet inpatient criteria for admission. Clinical certificate was completed by myself. Undiagnosed new problem with uncertain prognosis? @ -No Drug Therapy requiring intensive monitoring for toxicity (Heparin, Nitro, Insulin, Cardizem)? @ -No Were any procedures done? @ -No Diagnosis/symptom? @ -Encounter for psychiatric evaluation, psychosis NOS Acute, or Chronic, or Acute on Chronic? @ -Acute on chronic Uncomplicated (without systemic symptoms) or Complicated (systemic symptoms)? @ -Uncomplicated Side effects of treatment? @ -No Exacerbation, Progression, or Severe Exacerbation? @ -No Poses a threat to life or bodily function? How? (Chest pain, [place], [place], pneumonia, PE, COPD, DKA, ARF, appy, cholecystitis, CVA, Diverticulitis, Homicidal, Suicidal, threat to staff... and all critical care pts) @ -No - Lab Data Lab Results 09/17/22 Range/Units 22:11 Urine Opiates Screen Not Detected (NotDetected) Ur Oxycodone Screen Not Detected (NotDetected) Urine Methadone Screen Not Detected (NotDetected) Ur Propoxyphene Screen Not Detected (NotDetected) Ur Barbiturates Screen Not Detected (NotDetected) U Tricyclic Antidepress Not Detected (NotDetected) Ur Phencyclidine Scrn Not Detected (NotDetected) Ur Amphetamines Screen Not Detected (NotDetected) U Methamphetamines Scrn Not Detected (NotDetected) U Benzodiazepines Scrn Not Detected (NotDetected) Urine Cocaine Screen Not Detected (NotDetected) U Marijuana (THC) Screen Detected H (NotDetected) Disposition Clinical Impression: Encounter for psychiatric assessment, Unspecified psychosis Disposition: ADMITTED IP TO THIS [facility] Condition: Stable Referrals: Justo Lopze MD [Primary Care Provider] - 1-2 days Time of Disposition: 01:30
[2022-09-17 22:39] LABS: Amphetamine Screen,Urine Not Detected (NotDetected); Barbiturate Screen,Urine Not Detected (NotDetected); Benzodiazepines Screen,Urine Not Detected (NotDetected); Cocaine Screen,Urine Not Detected (NotDetected); Methadone Screen, Urine Not Detected (NotDetected); Opiate Screen,Urine Not Detected (NotDetected); Oxycodone Screen, Urine Not Detected (NotDetected); Phencyclidine Screen,Urine Not Detected (NotDetected); Tricyclic Antidepressant,Urine Not Detected (NotDetected); Urn Cannabinoid Scrn Detected (NotDetected)
[2022-09-18] MEDS ORDERED: MAG HYDROX/AL HYDROX/SIMETH 30 ML CUP PO PRN (04:26)
[2022-09-18] MEDS ORDERED: HALOPERIDOL LACTATE 5 MG/ML 1 ML VIAL IM PRN (04:26)
[2022-09-18] MEDS ORDERED: MAGNESIUM HYDROXIDE 2,400 MG/10 ML CUP PO PRN (04:26)
[2022-09-18] MEDS ORDERED: LORazepam 2 MG/ML INJ IM PRN (04:29)
[2022-09-18] MEDS ORDERED: haloperidoL 5 MG TAB PO PRN (04:29)
[2022-09-18 06:08] LABS: Appearance,Urine Clear (Clear); Bilirubin,Urine Negative (Negative); Blood,Urine Negative (Negative); Color,Urine Yellow; Glucose,Urine (UA) Negative (Negative); Ketones,Urine Negative (Negative); Leukocyte Esterase,Urine Negative (Negative); Nitrite,Urine Negative (Negative); PH, Urine 6.5 (5.0-8.0); Protein,Urine Negative (Negative); Urobilinogen,Urine <2.0 mg/dL (<2.0)
[2022-09-18] MEDS: NICOTINE 14MG/24HR PATCH TRANSDERM SCH (09:20)
[2022-09-18] MEDS ORDERED: ARIPiprazole 5 MG TAB PO STA (09:54)
[2022-09-18] MEDS: ACETAMINOPHEN TAB 325 MG TAB PO PRN ×2 (11:20→20:23)
[2022-09-18] MEDS: LORazepam 1 MG TAB PO PRN ×2 (11:20→20:23)
--- NOTE | 2022-09-18 12:48 | P.HP ---
Psychiatric H&P - . H&P Date: 09/18/22 History & Physical: Allergies Allergy/AdvReac Type Severity Reaction Status Date / Time No Known Allergies Allergy Verified 09/17/22 21:29 Vital Signs Temp 98.6 F 09/18/22 05:07 Pulse 77 09/18/22 05:07 Resp 18 09/18/22 05:07 BP 138/82 09/18/22 05:07 Pulse Ox 96 09/18/22 05:07 FiO2 Intake & Output 09/17/22 09/18/22 09/18/22 18:59 06:59 18:59 Weight 100.698 kg Laboratory Last Values Urine Color Yellow 09/14/22 22:11 Urine Appearance Clear (Clear) 09/14/22 22:11 Urine pH 6.5 (5.0-8.0) 09/14/22 22:11 Ur Specific [place] 1.020 (1.001-1.035) 09/14/22 22:11 Urine Protein Negative (Negative) 09/14/22 22:11 Urine Glucose (UA) Negative (Negative) 09/14/22 22:11 Urine Ketones Negative (Negative) 09/14/22 22:11 Urine Blood Negative (Negative) 09/14/22 22:11 Urine Nitrite Negative (Negative) 09/14/22 22:11 Urine Bilirubin Negative (Negative) 09/14/22 22:11 Urine Urobilinogen <2.0 mg/dL (<2.0) 09/14/22 22:11 Ur Leukocyte Esterase Negative (Negative) 09/14/22 22:11 Urine Opiates Screen Not Detected (NotDetected) 09/17/22 22:11 Ur Oxycodone Screen Not Detected (NotDetected) 09/17/22 22:11 Urine Methadone Screen Not Detected (NotDetected) 09/17/22 22:11 Ur Propoxyphene Screen Not Detected (NotDetected) 09/17/22 22:11 Ur Barbiturates Screen Not Detected (NotDetected) 09/17/22 22:11 U Tricyclic Antidepress Not Detected (NotDetected) 09/17/22 22:11 Ur Phencyclidine Scrn Not Detected (NotDetected) 09/17/22 22:11 Ur Amphetamines Screen Not Detected (NotDetected) 09/17/22 22:11 U Methamphetamines Scrn Not Detected (NotDetected) 09/17/22 22:11 U Benzodiazepines Scrn Not Detected (NotDetected) 09/17/22 22:11 Urine Cocaine Screen Not Detected (NotDetected) 09/17/22 22:11 U Marijuana (THC) Screen Detected (NotDetected) H 09/17/22 22:11 Coronavirus (PCR) Not Detected (Not Detectd) 09/18/22 01:41 09/18/22 12:47 IDENTIFYING DATA: Patient is a , unemployed, 46-year-old male who presented to our hospital on 09/17/2022, brought in by police on a pickup order and petition for mental health treatment. HPI: Patient presented to the hospital on 09/17/2022, brought in by police under petition for mental health treatment. The patient's petition was filled out by his mother. The patient's mother expresses that the patient has been "pretty nasty, he has no income and have been supporting him but he'll make statements like ' this is my house, I pay the bills.' He has been getting more violent. He can be very destructive with items in the house. He destroyed televisions in the home. He is talking to people and hears voices. He writes on my alexander. He is fixated on various numbers. He thinks that is the head of the [employer] and that he won the lottery." The patient was subsequently admitted onto our psychiatric unit. Upon evaluation on the psychiatric unit, the patient states that he does not require any mental health treatment. He reports that he and his mother have not been getting along. He is denying any suicidal or homicidal ideation, intention, and/or plan. However, the patient does endorse significant grandiose delusions. He states this provider that he is a millionaire and he owns multiple properties. He also states that he is "God." He reports that it would be difficult to explain it to this provider. The patient also admits that he has not been taking any of his medications and has not followed up with [facility] since he was last discharged in July 2022. He is currently denying any excessive energy, increased goal-directed activity, or racing thoughts. He does however continue to endorse grandiose delusions. He is denying any overt auditory or visual hallucinations. The patient does admit to marijuana use however is denying any alcohol, tobacco, or illicit drug use. The patient does have a history of methamphetamine use however states that this was many years ago. PAST PSYCHIATRIC HISTORY: Patient has a previous diagnosis of polysubstance abuse and bipolar 1 disorder. He was last discharged on a regimen of Depakote and Prolixin. He has trialed numerous medications including Risperdal, Abilify, Depakote, and lithium. He was last hospitalized on our psychiatric unit in July 2022 and has had multiple inpatient psychiatric hospitalizations. The patient is nonadherent with any outpatient psychiatric follow-up. Patient denies any history of suicide attempts in the past. PMH: Past Medical History: Hypertension History of Any Multi-Drug Resistant Organisms: None Reported Past Surgical History: Appendectomy, Orthopedic Surgery Additional Past Surgical History / Comment(s): ANKLE SURGERY-multiple fracture 2 plates and 3 screws, BIOPSY OF LYMPH Node LEFT ARM CHILD. Past Anesthesia/Blood Transfusion Reactions: No Reported Reaction Past Psychological History: ADD/ADHD, Anxiety, Bipolar, Depression, Schizophrenia Smoking Status: Never smoker Past Alcohol Use History: None Reported Past Drug Use History: Marijuana ALLERGIES: NO KNOWN DRUG ALLERGIES CHEMICAL DEPENDENCY HISTORY: as per HPI FAMILY PSYCHIATRIC/SUBSTANCE USE HISTORY: No reported family psychiatric history. SOCIAL HISTORY: Patient was born and raised in [place]. His parents when he was a child. He was previously working as a [employer]. He is currently . Patient reports that he is currently living with his mother. MENTAL STATUS EXAM: General Appearance: Patient appears to be stated age is alert, directable, and attempts to cooperate. Patient appears to have slightly disheveled hygiene and grooming. Behavior: Patient is seated without any agitated behavior. Eye contact is appropriate. Speech: Patient's speech is fluent and nonpressured. Monotone. Mood/Affect: Patient reports their mood is I don't think I need to be here." Affect is blunt. Suicidality/Homicidality: Patient denies any suicidal or homicidal ideation. Perceptions: Patient denies any visual hallucinations and denies any auditory hallucinations Though content/process: Patient endorses grandiose delusions and pentecostalism preoccupation. Memory and concentration: AOX3, grossly intact for the purposes of this session. Can spell "WORLD" backwards Judgment and insight: poor STRENGTHS/WEAKNESSES: No identifiable strengths. Weakness is that the patient has severe mental illness and is nonadherent with treatment. INTELLECT: average IMPRESSIONS: Schizoaffective disorder, bipolar type Cannabis use disorder PLAN: -Patient is admitted under voluntary status to MHU for stabilization of psychiatric symptoms and safety. Patient signed adult voluntary form and medication consent and is placed in patient's chart. -Medications : Will start patient on Abilify 5 mg by mouth daily for schizoaffective disorder with plans to transition to Abilify maintena. Patient understands that he would require FRANKEL before discharge. Depakote 750 mg by mouth at bedtime for mood stabilization Trazodone 150 mg daily at bedtime for insomnia -Ativan and Haldol PRN for agitation/aggression -Patient was counselled on substance abuse and desired to cut back on use -Patient was informed of the risks, benefits and side effects of the medication and patient verbally consented to taking the medications. Patient signed med consent form and was placed in chart. -Internal Medicine consult to perform medical evaluation and physical. -SW on board for discharge planning. Encourage patient to participate in groups to work on coping skills. 09/18/22 12:48
[2022-09-18] MEDS: traZODone HCL 50 MG TAB PO SCH (20:23)
[2022-09-18] MEDS ORDERED: DIVALPROEX ER 250 MG TAB.ER.24H PO SCH (21:00)
--- NOTE | 2022-09-19 00:35 | P.PN ---
Progress Note - Text Progress Note Date: 09/18/22 patient refused medical evaluation
[2022-09-19 07:09] VITALS: RESP 16
[2022-09-19 08:36] LABS: Basophils # (A) 0.1 k/uL (0-0.2); Basophils % (A) 1 %; Eosinophils # (A) 0.2 k/uL (0-0.7); Eosinophils % (A) 2 %; HCT 49.2 % (39.0-53.0); HGB 16.4 gm/dL (13.0-17.5); Lymphocytes # (A) 2.6 k/uL (1.0-4.8); Lymphocytes % (A) 27 %; MCH 31.3 pg (25.0-35.0); MCHC 33.4 g/dL (31.0-37.0); MCV 93.7 fL (80.0-100.0); Mean Platelet Volume 6.5; Monocytes # (A) 0.7 k/uL (0-1.0); Monocytes % (A) 7 %; Neutrophils # (A) 6.1 k/uL (1.3-7.7); Neutrophils % (A) 62 %; Platelet Count 324 k/uL (150-450); RBC 5.25 m/uL (4.30-5.90); RDW 12.4 % (11.5-15.5); WBC 9.8 k/uL (3.8-10.6)
[2022-09-19] MEDS: NICOTINE 14MG/24HR PATCH TRANSDERM SCH (09:25)
[2022-09-19] MEDS: ARIPiprazole 10 MG TAB PO SCH (09:26)
[2022-09-19] MEDS: ACETAMINOPHEN TAB 325 MG TAB PO PRN ×2 (09:26→20:11)
[2022-09-19 10:09] LABS: ALT 49 U/L (4-49); AST 40 U/L (17-59); African American GFR (CKD) >90 (>60 ml/min/1.73 sqM); Albumin 4.5 g/dL (3.5-5.0); Alkaline Phosphatase 63 U/L (38-126); Anion Gap 9 mmol/L; Blood Urea Nitrogen 16 mg/dL (9-20); Calcium 9.4 mg/dL (8.4-10.2); Carbon Dioxide 22 mmol/L (22-30); Chloride 106 mmol/L (98-107); Glucose 106 mg/dL (74-99); Non-African American GFR(CKD) >90 (>60 ml/min/1.73 sqM); Potassium 4.5 mmol/L (3.5-5.1); Sodium 137 mmol/L (137-145); Total Bilirubin 0.9 mg/dL (0.2-1.3); Total Protein 7.6 g/dL (6.3-8.2)
--- NOTE | 2022-09-19 11:22 | P.PN ---
Progress Note - Text Progress Note Date: 09/19/22 Interval History: Patient was seen bedside and was initially refusing to come to the interview room but later agreed to do so. He was seen in the interview room this morning. He reports being frustrated with hospitalization stating that he does not believe he needs it or that he needs any psychiatric medications. He blames his mother and the Hospital system for his health. He says that his mother incorrectly hospitalized him because she did not believe that he is God. He states that he is able [facility] because he is God. When asked to explain his mccauley further, patient said he was not willing to do so. He has been compliant with his medications but says that he has no intention of taking them outpatient. He denies concerns with the medications but says that he has been having trouble falling asleep. He reports his mood is "irate". However, he expresses his frustrations calmly. His mother is his temporary guardian and he says that he has spoken with her since hospitalization. At this time patient denies any suicidal or homicidal ideations, intent or plan. Patient denies any auditory, visual hallucinations but displays paranoia and grandiose delusions. Patient denies any side effects from the medications and albrecht s been compliant with meds. Mental Status Exam: General Appearance: Patient appears to be stated age is alert, directable, and attempts to cooperate. Disheveled hygiene and grooming. Behavior: Patient is seated without any agitated behavior. Eye contact is appropriate. Speech: Patient's speech is fluent and nonpressured. Monotone. Mood/Affect: Patient reports their mood is "irate." Affect is flat. Suicidality/Homicidality: Patient denies any suicidal or homicidal ideation. Perceptions: Patient denies any visual hallucinations and denies any auditory hallucinations Though content/process: Patient endorses grandiose delusions and mormonism preoccupation. Memory and concentration: AOX3, grossly intact for the purposes of this session. Can spell "WORLD" backwards Judgment and insight: poor Assessment Schizoaffective disorder, bipolar type Cannabis use disorder Plan: -Patient is admitted under voluntary status to MHU for stabilization of psychiatric symptoms and safety. Patient signed adult voluntary form and medication consent and is placed in patient's chart. -Medications : Will start patient on Increase Abilify to 10 mg by mouth daily starting tomorrow for schizoaffective d isorder with plans to transition to Abilify maintena. Patient understands that he would require FRANKEL before discharge. Increase Depakote to 1000 mg by mouth at bedtime for mood stabilization Trazodone 150 mg daily at bedtime for insomnia. Will likely decrease given antidepressant effects of this medication. -Ativan and Haldol PRN for agitation/aggression -Patient was counselled on substance abuse and desired to cut back on use -Patient was informed of the risks, benefits and side effects of the medication and patient verbally consented to taking the medications. Patient signed med consent form and was placed in chart. -Internal Medicine consult to perform medical evaluation and physical. -SW on board for discharge planning. Encourage patient to participate in groups to work on coping skills
[2022-09-19 15:50] LABS: Chol/HDL Ratio 4.82 Ratio; LDL Cholesterol,Calculated 131.2 mg/dL (0.0-131.0)
[2022-09-19] MEDS: traZODone HCL 50 MG TAB PO SCH (20:11)
[2022-09-19] MEDS: LORazepam 1 MG TAB PO PRN (20:11)
[2022-09-19] MEDS: DIVALPROEX ER 500 MG TAB.ER.24H PO SCH (20:12)
--- NOTE | 2022-09-20 00:55 | P.PN ---
Progress Note - Text Progress Note Date: 09/19/22 patient refused medical evaluation
[2022-09-20 06:45] VITALS: BP 149/83; PULSE 75; TEMP 98.7
[2022-09-20] MEDS: ARIPiprazole 10 MG TAB PO SCH (10:03)
[2022-09-20] MEDS: NICOTINE 14MG/24HR PATCH TRANSDERM SCH (10:03)
--- NOTE | 2022-09-20 16:31 | P.PN ---
Progress Note - Text Progress Note Date: 09/20/22 Interval History: Patient was seen wandering the [place] and was agreeable to be seen in interview room. He spontaneously apologized for being irritable yesterday. He says that he would like to work on getting better. He also says that he spoke with his mother who took care of his Social Security income appointment. He says that he is been doing better on the current medications than the ones he had in the past. He says he would like to continue to stay on the Abilify and Depakote. He is agreeable with Abilify injection in the future. Patient did not report grandiose delusions today. He denies concerns with the medications and says that his sleep was significantl y better last night (with the higher dose of Depakote and trazodone). He reports his mood is "good". At this time patient denies any suicidal or homicidal ideations, intent or plan. Patient denies any auditory, visual hallucinations but displays paranoia and grandiose delusions. Patient denies any side effects from the medications and has been compliant with meds. Mental Status Exam: General Appearance: Patient appears to be stated age is alert, directable, and attempts to cooperate. Disheveled hygiene and grooming. Behavior: Patient is seated without any agitated behavior. Eye contact is appropriate. Speech: Patient's speech is fluent and nonpressured. Monotone. Mood/Affect: Patient reports their mood is "good" Affect is mood congruent Suicidality/Homicidality: Patient denies any suicidal or homicidal ideation. Perceptions: Patient denies any visual hallucinations and denies any auditory hallucinations Though content/process: Patient endorses grandiose delusions and mandaen preoccupation. Memory and concentration: AOX3, grossly intact for the purposes of this session. Judgment and insight: poor Assessment Schizoaffective disorder, bipolar type Cannabis use disorder Plan: -Patient is admitted under voluntary status to MHU for stabilization of psychiatric symptoms and safety. Patient signed adult voluntary form and medication consent and is placed in patient's chart. -Medications : Will start patient on Increase Abilify to 15 mg by mouth daily starting tomorrow for schizoaffective disorder with plans to transition to Abilify maintena. Patient understands that he would require FRANKEL before discharge. Continue Depakote 1000 mg by mouth at bedtime for mood stabilization Decrease Trazodone to 100 mg daily at bedtime for insomnia given antidepressant effects of this medication. -Ativan and Haldol PRN for agitation/aggression -Patient was counselled on substance abuse and desired to cut back on use -Patient was informed of the risks, benefits and side effects of the medication and patient verbally consented to taking the medications. Patient signed med consent form and was placed in chart. -Internal Medicine consult to perform medical evaluation and physical. -SW on board for discharge planning. Encourage patient to participate in groups to work on coping skills
[2022-09-20] MEDS: DIVALPROEX ER 500 MG TAB.ER.24H PO SCH (20:04)
[2022-09-20] MEDS: ACETAMINOPHEN TAB 325 MG TAB PO PRN (20:04)
[2022-09-20] MEDS: LORazepam 1 MG TAB PO PRN (20:04)
[2022-09-20] MEDS: traZODone HCL 100 MG TAB PO SCH (20:04)
[2022-09-21] MEDS: ARIPiprazole 15 MG TAB PO SCH (09:19)
[2022-09-21] MEDS: NICOTINE 14MG/24HR PATCH TRANSDERM SCH (09:19)
--- NOTE | 2022-09-21 13:07 | P.PN ---
Progress Note - Text Progress Note Date: 09/21/22 Interval History: Patient was seen wandering the eug[place] and was agreeable to be seen in interview room. He was observed to be ambulating across the milieu this morning. He states that his mood is "pretty good". Patient expressed interest in discharge. He says that he generally has trouble falling asleep even at home and had some trouble with this last night. He endorses low energy. Patient affairs vaguely interested in having [facility] follow-up but attempted to provide psychoeducation for medication compliance. He says he would like to continue to stay on the Abilify and Depakote. He is agreeable with Abilify injection today. Patient did not report grandiose delusions today. He reports eating well and denies other concerns. At this time patient denies any suicidal or homicidal ideations, intent or plan. Patient denies any auditory, visual hallucinations but displays paranoia and grandiose delusions. Patient denies any side effects from the medications and has been compliant with meds. Mental Status Exam: General Appearance: Patient appears to be stated age is alert, directable, and attempts to cooperate. Disheveled hygiene and grooming. Behavior: Patient is seated without any agitated behavior. Eye contact is appropriate. Speech: Patient's speech is fluent and nonpressured. Monotone. Mood/Affect: Patient reports their mood is "pretty good" Affect is mood congruent Suicidality/Homicidality: Patient denies any suicidal or homicidal ideation. Perceptions: Patient denies any visual hallucinations and denies any auditory hallucinations Though content/process: No delusions and is concerte Memory and concentration: AOX3, grossly intact for the purposes of this session. Judgment and insight: poor, improving Assessment Schizoaffective disorder, bipolar type Cannabis use disorder Plan: -Patient is admitted under voluntary status to MHU for stabilization of psychiatric symptoms and safety. Patient signed adult voluntary form and medication consent and is placed in patient's chart. -Medications : Will start patient on Continue [id number] mg by mouth daily for 14 days. Abilify Maintena 400 mg Q4W scheduled for today Continue Depakote 1000 mg by mouth at bedtime for mood stabilization Continue Trazodone 100 mg daily at bedtime for insomnia given antidepressant effects of this medication. -Ativan and Haldol PRN for agitation/aggression -Patient was counselled on substance abuse and desired to cut back on use -Patient was informed of the risks, benefits and side effects of the medication and patient verbally consented to taking the medications. Patient signed med consent form and was placed in chart. -Internal Medicine consult to perform medical evaluation and physical. -SW on board for discharge planning. Encourage patient to participate in groups to work on coping skills
[2022-09-21] MEDS ORDERED: ARIPiprazole IM 400 MG VIAL (NO COST) PHARMACY STOCK IM ONE (14:00)
[2022-09-21] MEDS: traZODone HCL 100 MG TAB PO SCH (19:54)
[2022-09-21] MEDS: LORazepam 1 MG TAB PO PRN (19:54)
[2022-09-21] MEDS: ACETAMINOPHEN TAB 325 MG TAB PO PRN (19:54)
[2022-09-21] MEDS: DIVALPROEX ER 500 MG TAB.ER.24H PO SCH (19:54)
[2022-09-22] MEDS: NICOTINE 14MG/24HR PATCH TRANSDERM SCH (09:37)
[2022-09-22] MEDS: ARIPiprazole 15 MG TAB PO SCH (09:37)
--- NOTE | 2022-09-22 11:23 | P.DS ---
Providers Date of admission: 09/18/22 04:21 Expected date of discharge: 09/22/22 Attending physician: Jerome Wang MD Consults: 09/18/22 04:26 Consult Physician Routine Consulting Provider: Irineo Jaime Consult Reason/Comments: medical H&P Do you want consulting provider notified?: Yes Primary care physician: Justo Lopez - Discharge Diagnosis(es) (1) Schizoaffective disorder, bipolar type Current Visit: Yes Status: Acute Priority: High (2) Cannabis abuse Current Visit: Yes Status: Chronic Priority: Medium Hospital Course: Patient had his psychiatric H&P done by Dr. Jerome Wang and general physical exam done by Dr.Aiman Isrrael Chávez on 09/18/2022. After psychiatric H&P he was continued on Abilify 15 mg daily, Depakote 1000 mg at bedtime, and trazodone 100 mg at bedtime, and was given Abilify Maintena 400 mg IM on 09/21/2022. He took all these medications as prescribed and attended his groups. His mood was stable and did not show any bizarre or psychotic behavior. His condition was discussed by the treatment team this morning and it was agreed that he has reached his baseline and was ready to be discharged home. Since he has the diagnosis of schizoaffective disorder bipolar type his trazodone will be discontinued and will be continued on Depakote 1000 mg at bedtime and will receive his Abilify Maintena 400 mg IM every month at [facility]. He will be living with his mother in [place]. He was advised to take his medications as prescribed, learn better coping skills through therapy including drug counseling. Mental status examination: This is a white ambulatory male who is unshaven and not well combed. He is polite and cooperative. He does not show any psychomotor agitation or retardation. His speech is spontaneous relevant and goal-directed. His mood is euthymic and affect is appropriate. He denies hallucinations, delusions, suicide and homicide thoughts. His sensorium is clear. He denies any adverse effects from medications. Assessment: CC to mental status examination above in the hospital course section. Health Concerns: None Pertinent Studies: None Patient Condition at Discharge: Stable Plan - Discharge Summary Discharge Rx Participant: Yes New Discharge Prescriptions: New Magnesium Hydroxide [Milk of Magnesia Concentrate] 2,400 mg PO DAILY PRN ml PRN Reason: Constipation Divalproex ER [Depakote ER] 1,000 mg PO HS 30 Days #30 tab Mag Hydrox/Al Hydrox/Simeth [Maalox] 30 ml PO Q4HR PRN ml PRN Reason: Gi Upset Discontinued Divalproex ER [Depakote ER] 500 mg PO HS 30 Days #30 tab fluPHENAZine [Prolixin] 3 mg PO BID 30 Days #60 tab Discharge Medication List Divalproex ER [Depakote ER] 1,000 mg PO HS 30 Days #30 tab 09/22/22 [Rx] Mag Hydrox/Al Hydrox/Simeth [Maalox] 30 ml PO Q4HR PRN ml 09/22/22 [Rx] Magnesium Hydroxide [Milk of Magnesia Concentrate] 2,400 mg PO DAILY PRN ml 09/22/22 [Rx] Follow up Appointment(s)/Referral(s): Justo Lopez MD [Primary Care Provider] - 1-2 days Activity/Diet/Wound Care/Special Instructions: Avoid the use of street drugs and alcohol. Take all medications as prescribed. When you are in need of refills on your medications, please contact your medical provider and/or outpatient psychiatrist to have this done. Please go to scheduled outpatient appointments for aftercare treatment. If symptoms return or become worse, call the crisis line at and/or go to the nearest emergency room for evaluation. Plan of Treatment: Take Abilify Maintena 400 mg IM every month and next dose due is on October 21, 2022.
[2022-10-01] MEDS ORDERED: ARIPiprazole IM 400 MG VIAL (NO COST) PHARMACY STOCK IM ONE (11:42)
== END 2022-09-22 12:05 | disposition home or self-care (01) | DRG 750 ==
LOC: EC 21:22 → 3MHU 09-18 04:21
PROVIDERS: ADMIT Psychiatry & Neurology Psychiatry; ATTEND Psychiatry & Neurology Psychiatry
DX: F25.0 Schizoaffective disorder, bipolar type (principal); F12.10 Cannabis abuse, uncomplicated; F15.11 Other stimulant abuse, in remission; Z20.822 Contact with and (suspected) exposure to COVID-19; I10 Essential (primary) hypertension; F90.9 Attention-deficit hyperactivity disorder, unspecified type; Z79.899 Other long term (current) drug therapy; Z71.51 Drug abuse counseling and surveillance of drug abuser; Z81.8 Family history of other mental and behavioral disorders
CPT/HCPCS: 80053; 80061; 80306; 81003; 82075; 84443; 85025; 87635; 99285

== ENCOUNTER 2024-03-10 21:06 | Inpatient (IN) | payer MEDICAID, MEDICARE, OTHER ==
--- NOTE | 2024-03-10 21:27 | ED ---
Psych HPI - General Chief Complaint: Psychiatric Symptoms Stated Complaint: Petition Source: police, RN notes reviewed, old records reviewed Mode of arrival: ambulatory Limitations: no limitations, altered mental status - History of Present Illness Initial Comments: This is a 48-year-old male presenting for psychiatric evaluation on pickup order for psychiatric evaluation and treatment MD Complaint: altered mental status -: days(s) Associated Psychiatric Symptoms: depression, suicidal ideation History of same: Yes Quality: constant Improves With: none Worsens With: none Treatments Prior to Arrival: placed on mental health hold If Self Harm: admits thoughts of self harm - Related Data Home Medications Medication Instructions Recorded Confirmed No Known Home Medications 03/11/24 03/11/24 Allergies Allergy/AdvReac Type Severity Reaction Status Date / Time No Known Allergies Allergy Verified 03/10/24 21:09 Review of Systems ROS Statement: Those systems with pertinent positive or pertinent negative responses have been documented in the HPI. ROS Other: All systems not noted in ROS Statement are negative. Past Medical History Past Medical History: Hypertension History of Any Multi-Drug Resistant Organisms: None Reported Past Surgical History: Appendectomy, Orthopedic Surgery Additional Past Surgical History / Comment(s): ANKLE SURGERY-multiple fracture 2 plates and 3 screws, BIOPSY OF LYMPH Node LEFT ARM CHILD. Past Anesthesia/Blood Transfusion Reactions: No Reported Reaction Past Psychological History: ADD/ADHD, Anxiety, Bipolar, Depression, Schizophrenia Smoking Status: Current every day smoker Past Alcohol Use History: None Reported Past Drug Use History: Marijuana - Past Family History Father History Unknown: Yes Additional Family Medical History / Comment(s): Father is alive with no major medical problems. Mother Additional Family Medical History / Comment(s): Mother is alive with history of depression and alcoholism. Sister(s) Additional Family Medical History / Comment(s): Patient has one sister that is younger than him and he states she has mental health issues. Patient does not have any brothers. General Exam Limitations: no limitations General appearance: alert, in no apparent distress Head exam: Present: atraumatic, normocephalic, normal inspection Eye exam: Present: normal appearance, PERRL, EOMI. Absent: scleral icterus, conjunctival injection, periorbital swelling ENT exam: Present: normal exam, mucous membranes moist Neck exam: Present: normal inspection. Absent: tenderness, meningismus, lymphadenopathy Respiratory exam: Present: normal lung sounds bilaterally. Absent: respiratory distress, wheezes, rales, rhonchi, stridor Cardiovascular Exam: Present: regular rate, normal rhythm, normal heart sounds. Absent: systolic murmur, diastolic murmur, rubs, gallop, clicks GI/Abdominal exam: Present: soft, normal bowel sounds. Absent: distended, tenderness, guarding, rebound, rigid Extremities exam: Present: normal inspection, full ROM, normal capillary refill. Absent: tenderness, pedal edema, joint swelling, calf tenderness Back exam: Present: normal inspection Neurological exam: Present: alert, oriented X3, CN II-XII intact Psychiatric exam: Present: normal affect, normal mood Skin exam: Present: warm, dry, intact, normal color. Absent: rash Course Vital Signs 03/10/24 03/11/24 03/11/24 21:07 08:09 10:44 Temperature 97.8 F Pulse Rate 79 64 84 Pulse Rate [ Pulse Oximetery ] Respiratory 18 16 18 Rate Blood Pressure 135/90 125/76 129/79 Blood Pressure [Right Arm] O2 Sat by Pulse 98 98 98 Oximetry 03/11/24 03/11/24 03/11/24 16:03 16:04 16:13 Temperature 97.9 F Pulse Rate 93 93 Pulse Rate [ 79 Pulse Oximetery ] Respiratory 16 16 22 Rate Blood Pressure 128/79 128/79 Blood Pressure 131/82 [Right Arm] O2 Sat by Pulse 100 100 100 Oximetry - Reevaluation(s) Reevaluation #1: 03/11/24 00:17 Medical records reviewed Reevaluation #2: 03/11/24 00:17 Medically cleared for psychiatric evaluation Reevaluation #3: Change in symptoms here in the ER Reevaluation #4: Differential Mental Health Depression, anxiety, bipolar, psychosis, schizophrenia, borderline personality, situational depression, adjustment disorder, behavioral disorder, brain tumor, malingering, substance abuse, encephalopathy, medication reaction, dementia, hyp othyroidism, degenerative neurologic disorder, lupus.... This is not meant to be all-inclusive list Medical Decision Making - Medical Decision Making 48-year-old male will be admitted for psychiatric evaluation and treatment, transferred for inpatient psychiatric evaluation and treatment - Lab Data Result diagrams: 03/11/24 13:09 03/11/24 13:09 Lab Results 03/11/24 03/11/24 03/11/24 Range/Units 13:09 13:09 13:09 WBC 8.3 (3.8-10.6) k/uL RBC 5.15 (4.30-5.90) m/uL Hgb 16.4 (13.0-17.5) gm/dL Hct 48.1 (39.0-53.0) % MCV 93.5 (80.0-100.0) fL MCH 31.9 (25.0-35.0) pg MCHC 34.1 (31.0-37.0) g/dL RDW 12.3 (11.5-15.5) % Plt Count 424 (150-450) k/uL MPV 6.3 Neutrophils % 61 % Lymphocytes % 28 % Monocytes % 7 % Eosinophils % 2 % Basophils % 1 % Neutrophils # 5.1 (1.3-7.7) k/uL Lymphocytes # 2.3 (1.0-4.8) k/uL Monocytes # 0.6 (0-1.0) k/uL Eosinophils # 0.2 (0-0.7) k/uL Basophils # 0.1 (0-0.2) k/uL Sodium 138 (137-145) mmol/L Potassium 4.3 (3.5-5.1) mmol/L Chloride 109 H (98-107) mmol/L Carbon Dioxide 24 (22-30) mmol/L Anion Gap 5 mmol/L BUN 11 (9-20) mg/dL Creatinine 0.83 (0.66-1.25) mg/dL Est GFR (CKD-EPI)AfAm >90 (>60 ml/min/1.73 sqM) Est GFR (CKD-EPI)NonAf >90 (>60 ml/min/1.73 sqM) Glucose 111 H (74-99) mg/dL Calcium 9.4 (8.4-10.2) mg/dL Total Bilirubin 0.7 (0.2-1.3) mg/dL AST 34 (17-59) U/L ALT 53 H (4-49) U/L Alkaline Phosphatase 76 (38-126) U/L Total Protein 7.1 (6.3-8.2) g/dL Albumin 4.4 (3.5-5.0) g/dL Urine Color Urine Appearance (Clear) Urine pH (5.0-8.0) Ur Specific [place] (1.001-1.035) Urine Protein (Negative) Urine Glucose (UA) (Negative) Urine Ketones (Negative) Urine Blood (Negative) Urine Nitrite (Negative) Urine Bilirubin (Negative) Urine Urobilinogen (<2.0) mg/dL Ur Leukocyte Esterase (Negative) Urine Opiates Screen (NotDetected) Ur Oxycodone Screen (NotDetected) Urine Methadone Screen (NotDetected) Ur Barbiturates Screen (NotDetected) U Tricyclic Antidepress (NotDetected) Ur Phencyclidine Scrn (NotDetected) Ur Amphetamines Screen (NotDetected) U Methamphetamines Scrn (NotDetected) U Benzodiazepines Scrn (NotDetected) Urine Cocaine Screen (NotDetected) U Marijuana (THC) Screen (NotDetected) SARS-CoV-2 (PCR) Not Detected (Not Detectd) 03/11/24 Range/Units 13:33 WBC (3.8-10.6) k/uL RBC (4.30-5.90) m/uL Hgb (13.0-17.5) gm/dL Hct (39.0-53.0) % MCV (80.0-100.0) fL MCH (25.0-35.0) pg MCHC (31.0-37.0) g/dL RDW (11.5-15.5) % Plt Count (150-450) k/uL MPV Neutrophils % % Lymphocytes % % Monocytes % % Eosinophils % % Basophils % % Neutrophils # (1.3-7.7) k/uL Lymphocytes # (1.0-4.8) k/uL Monocytes # (0-1.0) k/uL Eosinophils # (0-0.7) k/uL Basophils # (0-0.2) k/uL Sodium (137-145) mmol/L Potassium (3.5-5.1) mmol/L Chloride (98-107) mmol/L Carbon Dioxide (22-30) mmol/L Anion Gap mmol/L BUN (9-20) mg/dL Creatinine (0.66-1.25) mg/dL Est GFR (CKD-EPI)AfAm (>60 ml/min/1.73 sqM) Est GFR (CKD-EPI)NonAf (>60 ml/min/1.73 sqM) Glucose (74-99) mg/dL Calcium (8.4-10.2) mg/dL Total Bilirubin (0.2-1.3) mg/dL AST (17-59) U/L ALT (4-49) U/L Alkaline Phosphatase (38-126) U/L Total Protein (6.3-8.2) g/dL Albumin (3.5-5.0) g/dL Urine Color Colorless Urine Appearance Clear (Clear) Urine pH 7.5 (5.0-8.0) Ur Specific [place] 1.010 (1.001-1.035) Urine Protein Negative (Negative) Urine Glucose (UA) Negative (Negative) Urine Ketones Negative (Negative) Urine Blood Negative (Negative) Urine Nitrite Negative (Negative) Urine Bilirubin Negative (Negative) Urine Urobilinogen <2.0 (<2.0) mg/dL Ur Leukocyte Esterase Negative (Negative) Urine Opiates Screen Not Detected (NotDetected) Ur Oxycodone Screen Not Detected (NotDetected) Urine Methadone Screen Not Detected (NotDetected) Ur Barbiturates Screen Not Detected (NotDetected) U Tricyclic Antidepress Not Detected (NotDetected) Ur Phencyclidine Scrn Not Detected (NotDetected) Ur Amphetamines Screen Detected H (NotDetected) U Methamphetamines Scrn Detected H (NotDetected) U Benzodiazepines Scrn Not Detected (NotDetected) Urine Cocaine Screen Not Detected (NotDetected) U Marijuana (THC) Screen Detected H (NotDetected) SARS-CoV-2 (PCR) (Not Detectd) Disposition Clinical Impression: Depression, Amphetamine use disorder, moderate, Schizophrenia, Suicidal ideation, Acute anxiety, Encounter for psychiatric assessment, Amphetamine and psychostimulant abuse, Acute psychosis, Schizoaffective disorder, bipolar type Disposition: TRANSFER TO PSYCH HOSP/UNIT Condition: Fair Is patient prescribed a controlled substance at d/c from ED?: No
[2024-03-11 13:14] LABS: Basophils # (A) 0.1 k/uL (0-0.2); Basophils % (A) 1 %; Eosinophils # (A) 0.2 k/uL (0-0.7); Eosinophils % (A) 2 %; HCT 48.1 % (39.0-53.0); HGB 16.4 gm/dL (13.0-17.5); Lymphocytes # (A) 2.3 k/uL (1.0-4.8); Lymphocytes % (A) 28 %; MCH 31.9 pg (25.0-35.0); MCHC 34.1 g/dL (31.0-37.0); MCV 93.5 fL (80.0-100.0); Mean Platelet Volume 6.3; Monocytes # (A) 0.6 k/uL (0-1.0); Monocytes % (A) 7 %; Neutrophils # (A) 5.1 k/uL (1.3-7.7); Neutrophils % (A) 61 %; Platelet Count 424 k/uL (150-450); RBC 5.15 m/uL (4.30-5.90); RDW 12.3 % (11.5-15.5); WBC 8.3 k/uL (3.8-10.6)
[2024-03-11 13:53] LABS: Appearance,Urine Clear (Clear); Bilirubin,Urine Negative (Negative); Blood,Urine Negative (Negative); Color,Urine Colorless; Glucose,Urine (UA) Negative (Negative); Ketones,Urine Negative (Negative); Leukocyte Esterase,Urine Negative (Negative); Nitrite,Urine Negative (Negative); PH, Urine 7.5 (5.0-8.0); Protein,Urine Negative (Negative); Urobilinogen,Urine <2.0 mg/dL (<2.0)
[2024-03-11 14:04] LABS: Amphetamine Screen,Urine Detected (NotDetected); Barbiturate Screen,Urine Not Detected (NotDetected); Benzodiazepines Screen,Urine Not Detected (NotDetected); Cocaine Screen,Urine Not Detected (NotDetected); Methadone Screen, Urine Not Detected (NotDetected); Opiate Screen,Urine Not Detected (NotDetected); Oxycodone Screen, Urine Not Detected (NotDetected); Phencyclidine Screen,Urine Not Detected (NotDetected); Tricyclic Antidepressant,Urine Not Detected (NotDetected); Urn Cannabinoid Scrn Detected (NotDetected)
[2024-03-11 14:14] LABS: ALT 53 U/L (4-49); AST 34 U/L (17-59); African American GFR (CKD) >90 (>60 ml/min/1.73 sqM); Albumin 4.4 g/dL (3.5-5.0); Alkaline Phosphatase 76 U/L (38-126); Anion Gap 5 mmol/L; Blood Urea Nitrogen 11 mg/dL (9-20); Calcium 9.4 mg/dL (8.4-10.2); Carbon Dioxide 24 mmol/L (22-30); Chloride 109 mmol/L (98-107); Glucose 111 mg/dL (74-99); Non-African American GFR(CKD) >90 (>60 ml/min/1.73 sqM); Potassium 4.3 mmol/L (3.5-5.1); Sodium 138 mmol/L (137-145); Total Bilirubin 0.7 mg/dL (0.2-1.3); Total Protein 7.1 g/dL (6.3-8.2)
[2024-03-11] MEDS ORDERED: HALOPERIDOL LACTATE 5 MG/ML 1 ML VIAL IM PRN (15:21)
[2024-03-11] MEDS ORDERED: LORazepam 2 MG/ML INJ IM PRN (15:21)
[2024-03-11] MEDS ORDERED: LORazepam 1 MG TAB PO PRN (15:21)
[2024-03-11] MEDS ORDERED: MAG HYDROX/AL HYDROX/SIMETH 355 ML BOTTLE PO PRN (15:21)
[2024-03-11] MEDS ORDERED: haloperidoL 5 MG TAB PO PRN (15:21)
[2024-03-11] MEDS ORDERED: MAGNESIUM HYDROXIDE 2,400 MG/30 ML CUP PO PRN (15:21)
[2024-03-11] MEDS ORDERED: IBUPROFEN 600 MG TAB PO PRN (15:21)
--- NOTE | 2024-03-12 00:02 | P.CONS ---
History of Present Illness - Reason for Consult Consult date: 03/11/24 - History of Present Illness The patient is a 48-year-old male with a PMH of BPH, polysubstance, and tobacco abuse who was brought into the emergency room for psychiatric evaluation after a pickup order. Patient was admitted to the mental health unit where he was seen and evaluated. The patient notes that he had an argument with his mother who decided to petition him. Patient requested Flomax for his BPH. He does report smoking 1 pack of cigarettes daily but denied any illicit substance use despite urine toxicology being positive for multiple substances including marijuana and methamphetamine. Denied alcohol use. Review of systems: Pertinent positives and negatives as discussed in HPI, a complete review of sy stems was performed and all other systems are negative. Physical examination: General: non toxic, no distress, appears at stated age, obese Derm: no unusual rashes/lesions, no unusual ecchymoses, warm, dry Head: atraumatic, normocephalic, symmetric Eyes: EOMI, no lid lag, anicteric sclera ENT: Nose and ears atraumatic, no thrush, no pharyngeal erythema Neck: trachea midline, supple Mouth: no lip lesion, mucus membranes moist Cardiovascular: S1S2 reg, no murmur, no edema Lungs: CTA bilateral, no rhonchi, no rales , no accessory muscle use Abdominal: soft, nontender to palpation, no guarding Ext: no gross muscle atrophy, no contractures, Neuro: No gross focal neuro deficits noted Psych: Alert, oriented, appropriate affect Assessment: Polysubstance abuse BPH Imaging: None performed Data Review: Laboratory evaluation was reviewed with hemoglobin 16.4, WBC count 8.3, sodium 138, potassium 4.3, chloride 109, glucose 111, UA unremarkable with urine toxicology positive for methamphetamine and marijuana with coronavirus PCR negative Plan: Strongly advised on importance of cessation from substance use Patient does not appear to have Flomax at home medication list. Start for now Thank you for allowing us to participate in the care of this patient. We will follow peripherally. Do not hesitate to contact us with questions. Someone can be reached from the [facility] hospitalist group at all hours of the day at [phone]. Past Medical History Past Medical History: Hypertension History of Any Multi-Drug Resistant Organisms: None Reported Past Surgical History: Appendectomy, Orthopedic Surgery Additional Past Surgical History / Comment(s): ANKLE SURGERY-multiple fracture 2 plates and 3 screws, BIOPSY OF LYMPH Node LEFT ARM CHILD. Past Anesthesia/Blood Transfusion Reactions: No Reported Reaction Past Psychological History: ADD/ADHD, Anxiety, Bipolar, Depression, Schizophrenia Smoking Status: Current every day smoker Past Alcohol Use History: None Reported Past Drug Use History: Marijuana - Past Family History Father History Unknown: Yes Additional Family Medical History / Comment(s): Father is alive with no major medical problems. Mother Additional Family Medical History / Comment(s): Mother is alive with history of depression and alcoholism. Sister(s) Additional Family Medical History / Comment(s): Patient has one sister that is younger than him and he states she has mental health issues. Patient does not have any brothers. Medications and Allergies Home Medications Medication Instructions Recorded Confirmed Type No Known Home Medications 03/11/24 03/11/24 History Allergies Allergy/AdvReac Type Severity Reaction Status Date / Time No Known Allergies Allergy Verified 03/10/24 21:09 Physical Exam Vitals: Vital Signs Pulse Resp BP Pulse Ox 03/11/24 16:04 93 16 128/79 100 03/11/24 16:03 93 16 128/79 100 03/11/24 10:44 84 18 129/79 98 03/11/24 08:09 64 16 125/76 98 Results CBC & Chem 7: 03/11/24 13:09 03/11/24 13:09 Labs: Abnormal Lab Results - Last 24 Hours (Table) 03/11/24 03/11/24 Range/Units 13:09 13:33 Chloride 109 H (98-107) mmol/L Glucose 111 H (74-99) mg/dL ALT 53 H (4-49) U/L Ur Amphetamines Screen Detected H (NotDetected) U Methamphetamines Scrn Detected H (NotDetected) U Marijuana (THC) Screen Detected H (NotDetected)
[2024-03-12] MEDS: TAMSULOSIN 0.4 MG CAP.ER.24H PO SCH (09:05)
[2024-03-12] MEDS: NICOTINE 14MG/24HR PATCH TRANSDERM SCH (09:05)
--- NOTE | 2024-03-12 09:08 | P.HP ---
Psychiatric H&P - . H&P Date: 03/12/24 History & Physical: Allergies Allergy/AdvReac Type Severity Reaction Status Date / Time No Known Allergies Allergy Verified 03/10/24 21:09 Vital Signs Temp 97.2 F L 03/12/24 06:16 Pulse 91 03/12/24 06:16 Resp 18 03/12/24 06:16 BP 118/78 03/12/24 06:16 Pulse Ox 100 03/12/24 06:16 FiO2 Laboratory Last Values WBC 8.3 k/uL (3.8-10.6) 03/11/24 13:09 RBC 5.15 m/uL (4.30-5.90) 03/11/24 13:09 Hgb 16.4 gm/dL (13.0-17.5) 03/11/24 13:09 Hct 48.1 % (39.0-53.0) 03/11/24 13:09 MCV 93.5 fL (80.0-100.0) 03/11/24 13:09 MCH 31.9 pg (25.0-35.0) 03/11/24 13:09 MCHC 34.1 g/dL (31.0-37.0) 03/11/24 13:09 RDW 12.3 % (11.5-15.5) 03/11/24 13:09 Plt Count 424 k/uL (150-450) 03/11/24 13:09 MPV 6.3 03/11/24 13:09 Neutrophils % 61 % 03/11/24 13:09 Lymphocytes % 28 % 03/11/24 13:09 Monocytes % 7 % 03/11/24 13:09 Eosinophils % 2 % 03/11/24 13:09 Basophils % 1 % 03/11/24 13:09 Neutrophils # 5.1 k/uL (1.3-7.7) 03/11/24 13:09 Lymphocytes # 2.3 k/uL (1.0-4.8) 03/11/24 13:09 Monocytes # 0.6 k/uL (0-1.0) 03/11/24 13:09 Eosinophils # 0.2 k/uL (0-0.7) 03/11/24 13:09 Basophils # 0.1 k/uL (0-0.2) 03/11/24 13:09 Sodium 138 mmol/L (137-145) 03/11/24 13:09 Potassium 4.3 mmol/L (3.5-5.1) 03/11/24 13:09 Chloride 109 mmol/L (98-107) H 03/11/24 13:09 Carbon Dioxide 24 mmol/L (22-30) 03/11/24 13:09 Anion Gap 5 mmol/L 03/11/24 13:09 BUN 11 mg/dL (9-20) 03/11/24 13:09 Creatinine 0.83 mg/dL (0.66-1.25) 03/11/24 13:09 Est GFR (CKD-EPI)AfAm >90 (>60 ml/min/1.73 sqM) 03/11/24 13:09 Est GFR (CKD-EPI)NonAf >90 (>60 ml/min/1.73 sqM) 03/11/24 13:09 Glucose 111 mg/dL (74-99) H 03/11/24 13:09 Calcium 9.4 mg/dL (8.4-10.2) 03/11/24 13:09 Total Bilirubin 0.7 mg/dL (0.2-1.3) 03/11/24 13:09 AST 34 U/L (17-59) 03/11/24 13:09 ALT 53 U/L (4-49) H 03/11/24 13:09 Alkaline Phosphatase 76 U/L (38-126) 03/11/24 13:09 Total Protein 7.1 g/dL (6.3-8.2) 03/11/24 13:09 Albumin 4.4 g/dL (3.5-5.0) 03/11/24 13:09 Urine Color Colorless 03/11/24 13:33 Urine Appearance Clear (Clear) 03/11/24 13:33 Urine pH 7.5 (5.0-8.0) 03/11/24 13:33 Ur Specific [place] 1.010 (1.001-1.035) 03/11/24 13:33 Urine Protein Negative (Negative) 03/11/24 13:33 Urine Glucose (UA) Negative (Negative) 03/11/24 13:33 Urine Ketones Negative (Negative) 03/11/24 13:33 Urine Blood Negative (Negative) 03/11/24 13:33 Urine Nitrite Negative (Negative) 03/11/24 13:33 Urine Bilirubin Negative (Negative) 03/11/24 13:33 Urine Urobilinogen <2.0 mg/dL (<2.0) 03/11/24 13:33 Ur Leukocyte Esterase Negative (Negative) 03/11/24 13:33 Urine Opiates Screen Not Detected (NotDetected) 03/11/24 13:33 Ur Oxycodone Screen Not Detected (NotDetected) 03/11/24 13:33 Urine Methadone Screen Not Detected (NotDetected) 03/11/24 13:33 Ur Barbiturates Screen Not Detected (NotDetected) 03/11/24 13:33 U Tricyclic Antidepress Not Detected (NotDetected) 03/11/24 13:33 Ur Phencyclidine Scrn Not Detected (NotDetected) 03/11/24 13:33 Ur Amphetamines Screen Detected (NotDetected) H 03/11/24 13:33 U Methamphetamines Scrn Detected (NotDetected) H 03/11/24 13:33 U Benzodiazepines Scrn Not Detected (NotDetected) 03/11/24 13:33 Urine Cocaine Screen Not Detected (NotDetected) 03/11/24 13:33 U Marijuana (THC) Screen Detected (NotDetected) H 03/11/24 13:33 SARS-CoV-2 (PCR) Not Detected (Not Detectd) 03/11/24 13:09 03/12/24 09:08 03/12/24 07:26 when seen in the emergency room they noted:This is a 48-year-old male presenting for psychiatric evaluation on pickup order for psychiatric evaluation and treatment MD Complaint: altered mental status -: days(s) Associated Psychiatric Symptoms: depression, suicidal ideation History of same: Yes Quality: constant Improves With: none Worsens With: none Treatments Prior to Arrival: placed on mental health hold If Self Harm: admits thoughts of self harm The patient is a 48-year-old male with a PMH of BPH, polysubstance, and tobacco abuse who was brought into the emergency room for psychiatric evaluation after a pickup order. Patient was admitted to the mental health unit where he was seen and evaluated. The patient notes that he had an argument with his mother who decided to petition him. Patient requested Flomax for his BPH. He does report smoking 1 pack of cigarettes daily but denied any illicit substance use despite urine toxicology being positive for multiple substances including marijuana and methamphetamine. Denied alcohol use. Nursing staff reports that the patient gives 1 word answers and is isolative. On evaluation on the psychiatric unit on 03/12: Chief complaint:the patient said that "his mom flipped out on him "that she lied and said that he was breaking things. History of present illness:the patient been in and out of the hospital struggling with psychosis for a long period of time has been diagnosed variably with schizophrenia and bipolar he has been on Abilify did not like it he took 6 Seroquel said it made him stable but made him gain weight is currently on 1000 of Depakote. We did not draw level and ER but he didn't have his medicine last night so we need to give him the Depakote for a couple nights and grab a level but his level is low most people his weight need 2000 mg . Past history: He has been hospitalized multiple times he was here in 23 when the record states: Patient presented to the hospital on 09/17/2022, brought in by police under petition for mental health treatment. The patient's petition was filled out by his mother. The patient's mother expresses that the patient has been "pretty nasty, he has no income and have been supporting him but he'll make statements like ' this is my house, I pay the bills.' He has been getting more violent. He can be very destructive with items in the house. He destroyed televisions in the home. He is talking to people and hears voices. He writes on my alexander. He is fixated on various numbers. He thinks that is the head of the [employer] and that he won the lottery." The patient was subsequently admitted onto our ps ychiatric unit. Upon evaluation on the psychiatric unit, the patient states that he does not require any mental health treatment. He reports that he and his mother have not been getting along. He is denying any suicidal or homicidal ideation, intention, and/or plan. However, the patient does endorse significant grandiose delusions. He states this provider that he is a millionaire and he owns [email or web address]. He also states that he is "God." He reports that it would be difficult to explain it to this provider. The patient also admits that he has not been taking any of his medications and has not followed up with [facility] since he was last discharged in July 2022 Social history:the patient is somewhat vague and defensive but he says that he is oldest of 2 children born to his parents who when he was 6. Says that both of his payments are "psycho" he says that always lie and blame him. Mom did remarry briefly and that man treated him okay but that marriage broke up when he was still young as far as he knows that is not remarried. Other than the vague accusation of psycho is much her of any psychiatric diagnoses in the family Objective/mental status:the patient was cooperative, somewhat decreased eye contact reasonable self-care gait and station are normal. He could remember 2- 1/2 of 3 objects after 3 minutes and name the presidents back to the younger President Irvin. he could abstractthat cats and snakes both hiss and then he stopped. I asked him if he could think of anything else and he said, " they have eyes, tongues,and they can hear. He can spell world backward and subtract 7 from 93 rapidly. He appears to be of above average intelligence races at everything. Interestingly his knowledge of the [facility] with very poor. He knew [place] and here on then he wanted to include [facility] and then he said [place] again when I asked him the name of the state we live and he said [place] but that did not trigger in his head that [place] the [place] [facility]. When I pointed that out he wanted to argue with me that there was no [facility]. He does come across grandiose. 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 He could abstract the proverb "the grass looks greener on the other side of the fence". He said "be happy with what you have". He seems somewhat paranoid about mom saying that she was pushing him to be violent so she could have him put away.he denies any suicidality or homicidality he does tend to be quite isolative and keep to himself. Evidently he finds bits and pieces of computer and phones and tries to put together his own devices. When asked him to give me an example the last device he had designed he was somewhat vague. Assessment/diagnosis:bipolar 1 with psychosis In a setting like the hospital he tends to become and do fairly well the psychosis comes out when you let him talk about how he spends his time Plan:continue the Depakote and see if you be willing to add in a medicine like Seroquel but does not make you fat. He is somewhat overweight with might be good to try Geodon.
--- NOTE | 2024-03-12 09:43 | P.PN ---
Subjective Progress Note Date: 03/12/24 Principal diagnosis: bipolar 1 with psychosis the patient was willing to consider taking the Geodon so start that tonight 60 mg was food given to him along with the Depakote so he just has it 1 dose the medicine to increase compliance. We will need to bump that up 120 if he kishore erates it tonight Objective - Vital Signs Vital signs: Vital Signs Temp 97.2 F L 03/12/24 06:16 Pulse 91 03/12/24 06:16 Resp 18 03/12/24 06:16 BP 118/78 03/12/24 06:16 Pulse Ox 100 03/12/24 06:16 FiO2 - Labs CBC & Chem 7: 03/11/24 13:09 03/11/24 13:09 Labs: Abnormal Lab Results - Last 24 Hours (Table) 03/11/24 03/11/24 Range/Units 13:09 13:33 Chloride 109 H (98-107) mmol/L Glucose 111 H (74-99) mg/dL ALT 53 H (4-49) U/L Ur Amphetamines Screen Detected H (NotDetected) U Methamphetamines Scrn Detected H (NotDetected) U Marijuana (THC) Screen Detected H (NotDetected)
[2024-03-12 14:54] LABS: Chol/HDL Ratio 3.02 Ratio; LDL Cholesterol,Calculated 77.5 mg/dL (0.0-131.0)
[2024-03-12] MEDS: ACETAMINOPHEN TAB 325 MG TAB PO PRN (20:28)
[2024-03-12] MEDS: ZIPRASIDONE 60 MG CAP PO SCH (20:29)
[2024-03-12] MEDS: DIVALPROEX ER 500 MG TAB.ER.24H PO SCH (20:29)
--- NOTE | 2024-03-13 14:15 | P.PN ---
Subjective Progress Note Date: 03/13/24 Principal diagnosis: bipolar 1 with psychosis subjective: The patient says he took the Geodon and the Depakote is tolerating both of them without side effects and supple last night and feels calmer. However he says he did not get food along with Geodon. Otherwise he has positi ve about the benefit. Objective the patient was lying in his room but got up and came to talk to me readily reasonable eye contact speech is not very productive no pressure he does seem a lot calmer. He is not really lethargic not unstable on his feet reasonable self-care he is oriented. Like most patients is wondering what I have to do to get out. No psychotic features acknowledged or seen denies suicidality or homicidality. Assessment: bipolar 1 mixed Plan I think he is tolerating medicine well we'll try to bump the Geodon up to 80 and make sure he gets 450 [place]ia of food with it. Continue the Depakote and tomorrow morning try to get a blood level. He does seem to be doing somewhat better Objective - Vital Signs Vital signs: Vital Signs Temp 97.2 F L 03/12/24 06:16 Pulse 91 03/12/24 06:16 Resp 18 03/12/24 06:16 BP 118/78 03/12/24 06:16 Pulse Ox 100 03/12/24 06:16 FiO2 Intake & Output 03/12/24 03/13/24 03/13/24 18:59 06:59 18:59 Weight 94.3 kg - Labs CBC & Chem 7: 03/11/24 13:09 03/11/24 13:09
[2024-03-14] MEDS: ZIPRASIDONE 80 MG CAP PO SCH (09:03)
--- NOTE | 2024-03-14 18:51 | P.PN ---
Progress Note - Text Progress Note Date: 03/14/24 Interval History: Patient was seen laying in bed today, spends most of day isolating to his room. He was agreeable to speak with junior underwriter briefly at his room. He is compliant with his Geodon and Depakote. We discussed he was previously on Abilify Maintenna, and he states "I don't want shots!" multiple times. At this time patient denies any suicidal or homicidal ideations, intent or plan. Patient denies any auditory, visual hallucinations and denies any paranoia or delusions. Patient denies any side effects from the medications and has been compliant with meds. Mental Status Exam: General Appearance: Patient appears to be stated age is alert, directable. Behavior: Patient is calmly laying in bed without any agitated behavior; is superficially cooperative and at times guarded. Speech: Patient's speech is fluent and nonpressured. Loud at times. Mood/Affect: Mood is improving mildly, affect is congruent and constricted. Suicidality/Homicidality: Patient denies having any suicidal or homicidal ideation intent or plan. Perceptions: Patient denies any visual hallucinations and denies any auditory hallucinations Though content/process: There is no evidence of any overt delusional thought content and thought process is linear and goal-directed. Memory and concentration: AOX3, grossly intact for the purposes of this session Judgment and insight: Poor, improving mildly Assessment: Bipolar I disorder with psychotic features Plan: -Patient continues to meet criteria for inpatient psychiatric admission for symptom stabilization and safety. -Medications: Continue Geodon 80 mg daily for mood. Continue Depakote ER 1000 mg QHS for mood. Monitor Depakote level. -When necessary Ativan and Haldol for agitation/aggression. -NRT - nicotine patch -SW on board for discharge planning. Encouraged the patient to participate in milieu.
[2024-03-15 06:51] VITALS: RESP 16; TEMP 98.3
--- NOTE | 2024-03-15 15:15 | P.PN ---
Progress Note - Text Progress Note Date: 03/15/24 Chief complaint: Bipolar disorder Interval History: Patient was seen in his room and was directable and agreeable to speak with newspaper writer in the office. Patient was pleasant and excepting to the interview. The patient had voiced that he would like to go home. Denied any mood swings, racing thoughts, depression, or pressured speech. He noted no elevated mood. Denied any ongoing depression or anxiety. He noted that his sleep, energy, appetite and concentration were good. At this time patient denies any suicidal or homical ideations, intent or plan. Patient denies any auditory, visual hallucinations and denies any paranoia or delusions. Patient denies any side effects from the medications and has been compliant with meds. Call was placed with the patient's permission to his mother Marva [phone] we discussed about him returning home she was concerned that he get into rehab. He had voiced that he would like to do this but from home and not from the hospital. She expressed concern but noted that she would be able to pick them up tomorrow. Mental Status Exam: General Appearance: Patient appears to be stated age is alert, directable, mildly disheveled, and cooperative. Behavior: Patient is calmly seated without any agitated behavior. Speech: Patient's speech is fluent and nonpressured. Mood/Affect: Mood is improving mildly, affect is congruent and constricted. Suicidality/Homicidality: Patient denies having any suicidal or homicidal ideation intent or plan. Perceptions: Patient denies any visual hallucinations and denies any auditory hallucinations Though content/process: There is no evidence of any delusional thought content and thought process is linear and goal-directed. Memory and concentration: AOX3, grossly intact for the purposes of this session Judgment and insight: Improving mildly Diagnosis: Bipolar disorder type I most recent episode manic Methamphetamine use disorder Assessment Patient's denies any suicidal or homicidal ideation he does present receptive to substance abuse care but outside of the hospital. He did not display any manic symptoms during the interview and at this time it is pertinent that per staff agree that the patient is ready to return home. Plan: -Patient continues to meet criteria for inpatient psychiatric admission for symptom stabilization and safety. Patient has signed adult voluntary form and medication consent and was placed in patient's chart. -Medications: Continue Depakote 500 mg take 2 tablet by mouth at bedtime for bipolar disorder Continue Geodon 80 mg take 1 tablet by mouth at night for bipolar disorder -When necessary Ativan and Haldol for agitation/aggression. -NRT -nicotine patch -SW on board for discharge planning. Encouraged the patient to participate in milieu.
[2024-03-16 07:21] VITALS: BP 138/92; PULSE 87
[2024-03-16] MEDS: CYANOCOBALAMIN 1,000 MCG/ML 1 ML VIAL IM SCH (09:10)
--- NOTE | 2024-03-16 11:44 | P.DS ---
Providers Date of admission: 03/11/24 15:18 Expected date of discharge: 03/16/24 Attending physician: Srikanth Jaramillo MD Consults: 03/11/24 15:21 Consult Physician Routine Consulting Provider: Julita Fuller Consult Reason/Comments: H&P and medical Do you want consulting provider notified?: Yes Primary care physician: Stated None - Discharge Diagnosis(es) (1) Amphetamine use disorder, moderate Current Visit: Yes Status: Chronic Priority: High (2) Acute psychosis Current Visit: Yes Status: Acute Priority: Medium Hospital Course: Admission HPI: Admission note was completed by Taylor "the patient been in and out of the hospital struggling with psychosis for a long period of time has been diagnosed variably with schizophrenia and bipolar he has been on Abilify did not like it he took 6 Seroquel said it made him stable but made him gain weight is currently on 1000 of Depakote. We did not draw level and ER but he didn't have his medicine last night so we need to give him the Depakote for a couple nights and grab a level but his level is low most people his weight need 2000 mg." Hospital course: Upon admission to the unit patient was [directable and agreeable to commence treatment and signed adult voluntary form] . Patient got along well with other patients on the unit and followed unit protocol. Patient was compliant with the medications and denied any side effects throughout hospital course. Patient was started on Geodon 80 mg and Depakote 1000 mg. Patient spoke of [his] stressors and engaged in therapy both group and individual. Patient was also seen by medical team for history and physical exam. Throughout the course of the hospitalization patient gradually improved with regards to psychosis, sleep and [returned back to their baseline level of functioning][became more future oriented with improved insight and judgment]. On the day of discharge patient denied any suicidal or homicidal ideations intent or plan denied any auditory or visual hallucinations. Patient endorsed wanting to live for [their health and family.] The patient denied any access to guns or weapons. Patient denied any paranoia and did not endorse any delusions. Patient does does have a significant history of substance abuse [and] was counseled on abstaining from all substances including alcohol and marijuana. [Patient was offered however declined inpatient substance-abuse rehab.] [Patient ended up agreeing to inpatient subtance rehab but wanted to start it from home]. Patient was also counseled on the medications and need for regular compliance and was encouraged to follow-up with their outpatient appointment for mental health and also for primary care. [Prior to discharge a family meeting will be arranged by social services analyst to answer any questions and ensure safety upon discharge incuding making sure that guns/weapons are either removed from the home or locked away.] Mental status exam: General Appearance: Patient appears to be his stated age is alert, pleasant, and cooperative. Patient is in no acute distress and has improved hygiene and grooming Behavior: Patient is calmly seated without any agitated behavior. Speech: Patient's speech is fluent and nonpressured. Mood/Affect: Patient reports their mood is "[better][good]", affect is congruent and euthymic. Suicidality/Homicidality: Patient denies having any suicidal or homicidal ideation intent or plan. Perceptions: Patient denies any auditory or visual hallucinations. Though content/process: There is no evidence of any delusional thought content and thought process is linear and goal-directed. [more future oriented] Memory and concentration: AOX3, grossly intact for the purposes of this session. Can spell "WORLD" backwards correctly. Judgment and insight: Judgment and insight are fair improved with guarded prognosis Impression: Day of discharge patient denied any suicidal or homicidal ideations. He notes that he does not have any auditory or visual hallucinations. He notes that he has no mood swings and plans to return home and plans to follow-up with substance abuse upon discharge. Nicotine patches were provided Plan: -Continue with discharge today as patient has improved and stabilized psychiatrically and is not currently an imminent threat to themself and/or others. [Patient will remain at chronically elevated risk for harm to self and/or others due to their impulsivity and substance abuse.] -Continue medications: Geodon 80 mg take 1 tablet by mouth at bedtime for psychosis, Depakote 500 mg take 2 tablets at bedtime for mood -Patient was counseled on the need for medication compliance and appropriate follow-up at mental health and also primary care for medical issues. Patient verbalized understanding and agreed. -Social work to [help coordinate patients discharge today][arrange for and conduct family meeting to ensure safety upon discharge and answer any questions/concerns]. also to ensure safe home environment that guns/weapons are either removed from the home or locked away. Social work also to arrange for patients follow up appointments [with [facility]] for psychiatric care along with follow up with primary care provider. -Patient counseled on abstaining from recreational drugs and marijuana and alcohol. Was informed/educated on the adverse effects on their physical and mental health. Patient verbally agreed and understood. Patient will follow-up with substance abuse from home and will be provided resources by social work -Patient was instructed to return to the hospital or seek immediate medical care if their psychiatric or medical symptoms do worsen or reoccur. [INSERT DATA FORMATS] Patient Condition at Discharge: Fair Plan - Discharge Summary Discharge Rx Participant: Yes New Discharge Prescriptions: New Divalproex ER [Depakote ER] 1,000 mg PO HS #60 tab Tamsulosin [Flomax] 0.4 mg PO PC-BRKFST cap Nicotine 14Mg/24Hr Patch [Habitrol] 1 patch TRANSDERM DAILY #14 patch Ziprasidone [Geodon] 80 mg PO DAILY@2100 #30 cap Discharge Medication List Divalproex ER [Depakote ER] 1,000 mg PO HS #60 tab 03/16/24 [Rx] Nicotine 14Mg/24Hr Patch [Habitrol] 1 patch TRANSDERM DAILY #14 patch 03/16/24 [Rx] Tamsulosin [Flomax] 0.4 mg PO PC-BRKFST cap 03/16/24 [Rx] Ziprasidone [Geodon] 80 mg PO DAILY@2100 #30 cap 03/16/24 [Rx] Follow up Appointment(s)/Referral(s): None,Stated [Primary Care Provider] - 1-2 days Discharge Disposition: HOME SELF-CARE
== END 2024-03-16 12:10 | disposition home or self-care (01) | DRG 885 ==
LOC: EC 21:06 → 3MHU 03-11 15:18
PROVIDERS: ADMIT Psychiatry & Neurology Psychiatry; ATTEND Psychiatry & Neurology Psychiatry
DX: F23 Brief psychotic disorder (principal); R45.851 Suicidal ideations; E66.3 Overweight; F15.90 Other stimulant use, unspecified, uncomplicated; F17.200 Nicotine dependence, unspecified, uncomplicated; F25.0 Schizoaffective disorder, bipolar type; F31.60 Bipolar disorder, current episode mixed, unspecified; F41.9 Anxiety disorder, unspecified; I10 Essential (primary) hypertension; N40.0 Benign prostatic hyperplasia without lower urinary tract symptoms; Z56.0 Unemployment, unspecified; Z79.899 Other long term (current) drug therapy; Z81.8 Family history of other mental and behavioral disorders
CPT/HCPCS: 36415; 80053; 80061; 80306; 81003; 82075; 83036; 85025; 87635; 99285

== ENCOUNTER 2024-05-03 10:44 | Day surgery (SDC) | payer MEDICARE, OTHER ==
[2024-04-26 15:16] VITALS: BMI 30.7
[2024-05-03 11:26] VITALS: TEMP 97.3
[2024-05-03] MEDS: LACTATED RINGERS 1,000 ML IV SCH (11:31)
[2024-05-03] MEDS: IV FLUID CONTINUATION 1,000 ML IV ONE (11:32)
[2024-05-03] MEDS ORDERED: PROPOFOL 10 MG/ML 20 ML VIAL IV ONE (12:03)
--- NOTE | 2024-05-03 12:08 | P.GSHP ---
History of Present Illness H&P Date: 05/03/24 Chief Complaint: Colon cancer screening 48-year-old male here for colonoscopy. He has not had 1 previously. No bowel complaints. No family history of colon cancer. Past Medical History Past Medical History: Hypertension Additional Past Medical History / Comment(s): pt states, "None" regarding past medical hx. pt denies hx of HTN. HTN per past records History of Any Multi-Drug Resistant Organisms: None Reported Past Surgical History: Appendectomy, Orthopedic Surgery Additional Past Surgical History / Comment(s): ANKLE SURGERY-multiple fracture 2 plates and 3 screws, BIOPSY OF LYMPH Node LEFT ARM CHILD. Past Anesthesia/Blood Transfusion Reactions: No Reported Reaction Additional Past Anesthesia/Blood Transfusion Reaction / Comment(s): no blood transfusion Smoking Status: Current every day smoker - Past Family History Father History Unknown: Yes Additional Family Medical History / Comment(s): Father is alive with no major medical problems. Mother Additional Family Medical History / Comment(s): Mother is alive with history of depression and alcoholism. Sister(s) Additional Family Medical History / Comment(s): Patient has one sister that is younger than him and he states she has mental health issues. Patient does not have any brothers. Medications and Allergies Home Medications Medication Instructions Recorded Confirmed Type Divalproex ER [Depakote ER] 1,000 mg PO HS #60 tab 03/16/24 04/26/24 Rx Ziprasidone [Geodon] 80 mg PO DAILY@2100 #30 cap 03/16/24 04/26/24 Rx Tamsulosin [Flomax] 0.4 mg PO HS 04/26/24 04/26/24 History Allergies Allergy/AdvReac Type Severity Reaction Status Date / Time No Known Allergies Allergy Verified 05/03/24 11:21 Surgical - Exam Vital Signs Temp Pulse Resp BP Pulse Ox 97.3 F L 85 18 125/83 95 05/03/24 11:22 05/03/24 11:22 05/03/24 11:22 05/03/24 11:22 05/03/24 11:22 Physical exam: General: Well-developed, well-nourished HEENT: Normocephalic, sclerae nonicteric Abdomen: Nontender, nondistended Extremities: No edema Neuro: Alert and oriented Assessment and Plan (1) Colon cancer screening Narrative/Plan: Will proceed with colonoscopy at this time. Current Visit: Yes Status: Acute Code(s): Z12.11 - ENCOUNTER FOR SCREENING FOR MALIGNANT NEOPLASM OF COLON SNOMED Code(s): 823975038
--- NOTE | 2024-05-03 12:20 | P.PCN ---
Date of Procedure: 05/03/24 Procedure(s) Performed: PREOPERATIVE DIAGNOSIS: Colon cancer screening POSTOPERATIVE DIAGNOSIS: Descending colon polyp PROCEDURE: Colonoscopy with snare polypectomy ANESTHESIA: MAC SURGEON: Cuco Lopes M.D. SPECIMENS: Colon polyp ENDOSCOPIC PROCEDURE: The patient was placed on the endoscopy table in the left decubitus position. The Olympus colonoscope was inserted into the anus and passed under direct visualization to the base of the cecum. The appendiceal orifice was visualized. From that point the scope was slowly withdrawn inspecting all surfaces carefully. There were no neoplastic inflammatory or polypoid lesions throughout the cecum, ascending, and transverse colon. In the descending colon a small polyp was seen and removed using the snare with cautery technique. The remainder of the descending sigmoid and rectum was normal. There was no visible diverticulosis. Digital rectal examination was normal. The patient was taken to the recovery room in stable condition per anesthesia guidelines. RECOMMENDATIONS: Await biopsy results. Will contact patient with timing for next colonoscopy.
[2024-05-03 12:30] VITALS: RESP 16
[2024-05-03 12:40] VITALS: BP 112/72; PULSE 66
== END 2024-05-03 12:53 | disposition home or self-care (01) ==
LOC: ORWHC2ENDO 10:44
PROVIDERS: ATTEND Surgery
DX: Z12.11 Encounter for screening for malignant neoplasm of colon (principal); D12.4 Benign neoplasm of descending colon; I10 Essential (primary) hypertension; F31.5 Bipolar disorder, current episode depressed, severe, with psychotic features; F90.9 Attention-deficit hyperactivity disorder, unspecified type; F17.200 Nicotine dependence, unspecified, uncomplicated; Z79.899 Other long term (current) drug therapy
CPT/HCPCS: 88305; 45385; J2704